=== PATIENT | male | born 1960 | race Caucasian/White ===

== ENCOUNTER 2019-07-27 17:14 | Inpatient (IN) | payer OTHER ==
--- NOTE | 2019-07-27 17:23 | PDOC ---
Rapid Medical Evaluation Time Seen by Provider: 07/27/19 17:20 Medical Evaluation: Allergies Allergy/AdvReac Type Severity Reaction Status Date / Time No Known Allergies Allergy Verified 06/06/15 13:47 07/27/19 17:20 I have performed a brief in-person evaluation of this patient. 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 Discharge Disposition - Diagnosis Cellulitis - Discharge Dispostion Condition at time of disposition: Stable - Referrals - Patient Instructions - Post Discharge Activity
[2019-07-27 17:46] LABS: BASO % 0.2 % (0-2.0); EOS % 0.3 % (0-4.5); HEMATOCRIT 41.1 % (35.4-49); HEMOGLOBIN 13.3 GM/dL (11.7-16.9); LYMPH % 6.5 % (8-40); MCH 27.4 pg (25.7-33.7); MCHC 32.4 g/dl (32.0-35.9); MEAN CELL VOLUME 84.6 fl (80-96); MEAN PLT VOLUME 8.6 fl (7.5-11.1); MONO % 7.9 % (3.8-10.2); NEUT % 85.1 % (42.8-82.8); PLATELET COUNT 319 K/MM3 (134-434); RBC 4.86 M/mm3 (4.00-5.60); RDW 14.8 % (11.9-15.9); WHITE BLOOD COUNT 23.5 K/mm3 (4.0-10.0)
[2019-07-27 18:10] LABS: ALBUMIN 3.2 g/dl (3.4-5.0); BILIRUBIN,TOTAL 0.6 mg/dL (0.2-1); BLOOD UREA NITROGEN 37.7 mg/dL (7-18); CALCIUM 8.8 mg/dL (8.5-10.1); CREATININE 1.6 mg/dL (0.55-1.3); POTASSIUM 5.6 mmol/L (3.5-5.1); TOT PROT 7.3 g/dl (6.4-8.2)
--- NOTE | 2019-07-27 18:34 | PDOC ---
History of Present Illness - General Chief Complaint: Redness To Affected Area Stated Complaint: PAIN ON LEFT SIDE Time Seen by Provider: 07/27/19 17:20 Past History - Past Medical History Allergies/Adverse Reactions: Allergies Allergy/AdvReac Type Severity Reaction Status Date / Time No Known Allergies Allergy Verified 06/06/15 13:47 Home Medications: Ambulatory Orders Glyburide/Metformin HCl [Glyburide-Metformin 5-500 mg] 1 each PO BID #60 tablet 06/06/15 Hydralazine HCl 50 mg PO DAILY 07/28/19 Labetalol HCl 100 mg PO DAILY 07/28/19 Lisinopril [Prinivil -] 40 mg PO DAILY 07/28/19 Losartan/Hydrochlorothiazide [Losartan-Hctz 100-25 mg Tab] 1 tab PO DAILY Sitagliptin Phosphate [Januvia] 100 mg PO DAILY 07/28/19 Cancer: Yes (RIGHT KNEE AND READIATION 2008) CVA: No COPD: No Diabetes: Yes HTN: Yes Hypercholesterolemia: Yes - Immunization History Td Vaccination: (UNKNOWN) Immunization Up to Date: No - Psycho Social/Smoking Cessation Hx Smoking Status: Yes (QUIT MORE THAN 20 YRS AGO) Smoking History: Never smoked Have you smoked in the past 12 months: No Number of Cigarettes Smoked Daily: 0 Information on smoking cessation initiated: No Hx Alcohol Use: No Drug/Substance Use Hx: No Substance Use Type: None *Physical Exam - Vital Signs Last Vital Signs Temp Pulse Resp BP Pulse Ox 97.7 F 115 H 16 167/94 95 07/27/19 17:21 07/27/19 17:21 07/27/19 17:21 07/27/19 17:21 07/27/19 17:21 ED Treatment Course - LABORATORY CBC & Chemistry Diagram: 07/28/19 07:45 07/28/19 07:45 - ADDITIONAL ORDERS Additional order review: Laboratory Results 07/27/19 17:37 Sodium 133 L Potassium 5.6 H Chloride 100 Carbon Dioxide 23 Anion Gap 10 BUN 37.7 H Creatinine 1.6 H Est GFR (CKD-EPI)AfAm 53.85 Est GFR (CKD-EPI)NonAf 46.46 Random Glucose 188 H Calcium 8.8 Total Bilirubin 0.6 AST 30 ALT 39 Alkaline Phosphatase 134 H Total Protein 7.3 Albumin 3.2 L 07/27/19 17:37 RBC 4.86 MCV 84.6 MCHC 32.4 RDW 14.8 MPV 8.6 Neutrophils % 85.1 H D Lymphocytes % 6.5 L D Monocytes % 7.9 D Eosinophils % 0.3 Basophils % 0.2 Medical Decision Making - Medical Decision Making HPI: 58yo M with PMH of DM, HTN, HLD, R. knee CA (s/p surgery and chemoradioation many years ago) presenting with left foot pain. Patient's [id number] is at the bedside providing collateral history. Patient denies any inciting injury or breaks in skin. The pain started four days ago and has increased in erythema and swelling. No bleeding or discharge. Denies history of poor wound healing. Sugars can be elevated; they were in the 200s today. No chest pain or shortness of breath. Has back pain at baseline. Reports chills, but no fevers. PCP: Dr. Charles Hand ROS: Constitutional: no fever, +chills HEENT: no throat pain, no dysphagia Cardiovascular: no chest pain, no palpitations Respiratory: no cough, no shortness of breath Gastrointestinal: no abdominal pain, no nausea Genitourinary: no dysuria, no hematuria Musculoskeletal: no myalgia, no arthralgia Skin: +erythema, +edema Neurologic: no headache, no weakness PE: General: Awake, alert, and fully oriented, in no acute distress Head: No signs of trauma Eyes: EOMI, sclera anicteric ENT: Moist mucus membranes Neck: Normal ROM, supple Lungs: Lungs clear, Normal breath sounds Cardio: Regular rhythm, S1 and S2 present Abdomen: Soft, nontender. No guarding, no rebound, no masses Extremities: Normal range of motion, Distal pulses present L. foot with erythema, edema at base of toes of L. foot with lymphangitis extending up the calf SKIN: Otherwise warm, Dry, normal turgor Neurologic: Cranial nerves II through XII grossly intact. Normal speech ED Course/MDM: DDX including but not limited to cellulitis, osteomyelitis, DVT, MSK, malignancy Labs, EKG, CXR Ordered blood cultures, ESR, CRP 07/27/19 18:34 CBC WBC 23.5 K/mm3 (4.0-10.0) H 07/27/19 17:37 RBC 4.86 M/mm3 (4.00-5.60) 07/27/19 17:37 Hgb 13.3 GM/dL (11.7-16.9) 07/27/19 17:37 Hct 41.1 % (35.4-49) 07/27/19 17:37 MCV 84.6 fl (80-96) 07/27/19 17:37 MCH 27.4 pg (25.7-33.7) 07/27/19 17:37 MCHC 32.4 g/dl (32.0-35.9) 07/27/19 17:37 RDW 14.8 % (11.9-15.9) 07/27/19 17:37 Plt Count 319 K/MM3 (134-434) D 07/27/19 17:37 MPV 8.6 fl (7.5-11.1) 07/27/19 17:37 Absolute Neuts (auto) 20.0 K/mm3 (1.5-8.0) H 07/27/19 17:37 Neutrophils % 85.1 % (42.8-82.8) H D 07/27/19 17:37 Neutrophils % (Manual) 84.6 % (42.8-82.8) H 07/27/19 17:37 Band Neutrophils % 0.0 % 07/27/19 17:37 Lymphocytes % 6.5 % (8-40) L D 07/27/19 17:37 Lymphocytes % (Manual) 5.8 % (8-40) L 07/27/19 17:37 Monocytes % 7.9 % (3.8-10.2) D 07/27/19 17:37 Monocytes % (Manual) 7 % (3.8-10.2) 07/27/19 17:37 Eosinophils % 0.3 % (0-4.5) 07/27/19 17:37 Eosinophils % (Manual) 0.0 % (0-4.5) 07/27/19 17:37 Basophils % 0.2 % (0-2.0) 07/27/19 17:37 Basophils % (Manual) 0.0 % (0-2.0) 07/27/19 17:37 Myelocytes % (Man) 1 % (0-2) 07/27/19 17:37 Promyelocytes % (Man) 0 % (0-2) 07/27/19 17:37 Blast Cells % (Manual) 0 % (0-0) 07/27/19 17:37 Nucleated RBC % 0 % (0-0) 07/27/19 17:37 Metamyelocytes 0 % (0-2) 07/27/19 17:37 Hypochromia 0 07/27/19 17:37 Platelet Estimate Normal 07/27/19 17:37 Polychromasia 0 07/27/19 17:37 Poikilocytosis 0 07/27/19 17:37 Anisocytosis 0 07/27/19 17:37 Microcytosis 0 07/27/19 17:37 Macrocytosis 0 07/27/19 17:37 Leukocytosis CMP Sodium 133 mmol/L (136-145) L 07/27/19 17:37 Potassium 5.6 mmol/L (3.5-5.1) H 07/27/19 17:37 Chloride 100 mmol/L (98-107) 07/27/19 17:37 Carbon Dioxide 23 mmol/L (21-32) 07/27/19 17:37 Anion Gap 10 MMOL/L (8-16) 07/27/19 17:37 BUN 37.7 mg/dL (7-18) H 07/27/19 17:37 Creatinine 1.6 mg/dL (0.55-1.3) H 07/27/19 17:37 Est GFR (CKD-EPI)AfAm 53.85 07/27/19 17:37 Est GFR (CKD-EPI)NonAf 46.46 07/27/19 17:37 Random Glucose 188 mg/dL (74-106) H 07/27/19 17:37 Calcium 8.8 mg/dL (8.5-10.1) 07/27/19 17:37 Total Bilirubin 0.6 mg/dL (0.2-1) 07/27/19 17:37 AST 30 U/L (15-37) 07/27/19 17:37 ALT 39 U/L (13-61) 07/27/19 17:37 Alkaline Phosphatase 134 U/L (45-117) H 07/27/19 17:37 Total Protein 7.3 g/dl (6.4-8.2) 07/27/19 17:37 Albumin 3.2 g/dl (3.4-5.0) L 07/27/19 17:37 K elevated, 5.6; EKG ordered Cr elevated, 1.6 No transaminitis L. ankle and foot radiograph: "X-ray of the left foot and ankle, 5 views The ankle mortise is intact a small plantar calcaneal spur is present. No acute fracture, dislocation, bone destruction or periosteal elevation identified. There is suggestion of soft tissue emphysema projecting over the proximal portion of the second and third toe as well as between the first and second toe and soft tissue swelling posteriorly Impression: Soft tissue swelling and air that appears to be posterior to the proximal toes, as described above compatible with the clinical history of cellulitis and soft tissue emphysema. If osteomyelitis is clinically considered, further evaluation with MRI would be the study of choice " Clari/hilary Plan for admission 07/27/19 19:32 Pending EKG and CXR 07/27/19 19:58 EKG: rate 112, QTc 414, sinus tachycardia, peaked t waves present when compared to previous EKG 05/21/08 Calcium, insulin, dextrose, kayexalate ordered BMP to be repeated Plan for admission for cellulitis with soft tissue emphysema 07/27/19 20:16 Repeat K is 4.6 07/27/19 21:[address] Zelaya who accepted patient for admission under Dr. Castro 07/27/19 22:57 CXR as read by radiology: "Chest x ray, PA and Lateral Comparison: Prior chest x -ray dated 05/07/2008 The cardiac silhouette is within normal limits in size. The lung is clear. Mediastinum and visualized osseous structures appear grossly intact with anterior spondylosis in the lower thoracic spine Impression No significant interval change or acute cardiopulmonary disease is present " Discharge - Discharge Information Problems reviewed: Yes Clinical Impression/Diagnosis: Soft tissue emphysema Cellulitis Qualifiers: Site of cellulitis: extremity Site of cellulitis of extremity: lower extremity Laterality: left Qualified Code(s): L03.116 - Cellulitis of left lower limb Condition: Guarded - Admission Yes - Follow up/Referral - Patient Discharge Instructions - Post Discharge Activity
[2019-07-27 18:57] LABS: ANISOCYTOSIS 0; MACROCYTOSIS 0; PLATELET ESTIMATE NORMAL
[2019-07-27] MEDS ORDERED: SODIUM CHLORIDE 1,000 ML IV STA (19:02)
[2019-07-27] MEDS ORDERED: PIPERACILLIN/TAZOB 4.5 GM 4.5 GM in DEXTROSE 5%-WATER 100 ML IVPB ONE (19:30)
[2019-07-27] MEDS ORDERED: VANCOMYCIN 1,000 MG in DEXTROSE 5%-WATER - 250 ML IVPB ONE (19:30)
[2019-07-27] MEDS ORDERED: PIPERACILLIN/TAZOB 4.5 GM 4.5 GM/100 ML BAG IVPB ONE (19:32)
[2019-07-27] MEDS ORDERED: VANCOMYCIN 1 GRAM (PRE-DOCKED) 1,000 MG/250 ML BAG IVPB ONE (19:32)
[2019-07-27] MEDS ORDERED: CALCIUM GLUCONATE 10% - 1,000 MG/10 ML VIAL IVPB ONE (20:14)
[2019-07-27] MEDS ORDERED: INSULIN REGULAR HUMAN 100 UNITS/ML *VIAL IVPUSH ONE (20:14)
[2019-07-27] MEDS ORDERED: DEXTROSE 50%-WATER - 25 GM/50 ML VIAL IVPUSH ONE (20:15)
[2019-07-27] MEDS ORDERED: SODIUM POLYSTYRENE SULFONATE 15 GM/60 ML BOTTLE PO ONE (20:15)
[2019-07-27] MEDS ORDERED: SODIUM POLYSTYRENE SULFONATE 15 GM/60 ML BOTTLE ONE (20:23)
[2019-07-27] MEDS ORDERED: CALCIUM CHLORIDE 1 GM/10 ML *DISP.SYRIN ONE (20:23)
[2019-07-27] MEDS ORDERED: DEXTROSE 50%-WATER 25 GM/50 ML DISP.SYRIN ONE (20:23)
--- NOTE | 2019-07-27 20:38 | PDOC ---
Attending Attestation - Resident Resident Name: Nalini Carrion - ED Attending Attestation I have performed the following: I have examined & evaluated the patient, The case was reviewed & discussed with the resident, I agree w/resident's findings & plan, Exceptions are as noted - HPI HPI: 07/27/19 20:37 58M pmh DM, HTN, HLD, R knee ca s/p surgical and chemo intervention here with LLE pain. Denies any insult, injury, rash or other lesion prior to symptoms. - Physicial Exam PE: 07/28/19 00:21 Agree with exam as documented by resident VS noted in EMR - Medical Decision Making 07/28/19 00:21 Diabetic patient with LE cellulitis, sq emphysema on xr wbc 23.5 will admit for iv abx and definitive care
[2019-07-27 21:37] LABS: CALCIUM 9.8 mg/dL (8.5-10.1); CREATININE 1.4 mg/dL (0.55-1.3); POTASSIUM 4.6 mmol/L (3.5-5.1)
[2019-07-28] MEDS ORDERED: BACITRACIN 50,000 UNITS VIAL NR ONE
--- NOTE | 2019-07-28 00:16 | PN ---
Teaching Attending Note Name of Resident: Vinod Zelaya ATTENDING PHYSICIAN STATEMENT I saw and evaluated the patient. I reviewed the resident's note and discussed the case with the resident. I agree with the resident's findings and plan as documented. SUBJECTIVE: 58yo man w/ uncontrolled DM, HTN, HLD, R. knee CA (s/p surgery and chemoradioation many years ago) presenting with left foot pain x4 days, erythema , swelling. Patient denies any prior injury or breaks in skin. No fevers OBJECTIVE: Last Vital Signs Temp Pulse Resp BP Pulse Ox 97.7 F 115 H 16 167/94 95 07/27/19 17:21 07/27/19 17:21 07/27/19 17:21 07/27/19 17:21 07/27/19 17:21 general -nontoxic appearing cor -s1+s2+rrr chest- lungs are clear b/l ext -left foot erythema on dorsal surface, dp pulses 2+ b/l. has good sensation on left foot Abnormal Lab Results 07/27/19 07/27/19 07/27/19 17:37 17:37 19:50 WBC 23.5 H Absolute Neuts (auto) 20.0 H Neutrophils % 85.1 H D Neutrophils % (Manual) 84.6 H Lymphocytes % 6.5 L D Lymphocytes % (Manual) 5.8 L ESR Sodium 133 L Potassium 5.6 H BUN 37.7 H Creatinine 1.6 H Random Glucose 188 H Alkaline Phosphatase 134 H C-Reactive Protein 14.9 H Albumin 3.2 L 07/27/19 07/27/19 19:50 20:19 WBC Absolute Neuts (auto) Neutrophils % Neutrophils % (Manual) Lymphocytes % Lymphocytes % (Manual) ESR 78 H Sodium 135 L Potassium BUN 35.0 H Creatinine 1.4 H Random Glucose 195 H Alkaline Phosphatase C-Reactive Protein Albumin L. ankle and foot radiograph: "X-ray of the left foot and ankle, 5 views The ankle mortise is intact a small plantar calcaneal spur is present. No acute fracture, dislocation, bone destruction or periosteal elevation identified. There is suggestion of soft tissue emphysema projecting over the proximal portion of the second and third toe as well as between the first and second toe and soft tissue swelling posteriorly Impression: Soft tissue swelling and air that appears to be posterior to the proximal toes, as described above compatible with the clinical history of cellulitis and soft tissue emphysema. If osteomyelitis is clinically considered, further evaluation with MRI would be the study of choice ASSESSMENT AND PLAN: #Sepsis secondary to left foot cellulitis with soft tissue emphysema concerning for possible gas gangrene. +severe leukocytosis, tachycardia. Less likely compartment syndrome, pain not severe. s/p vancomycin, zosyn in er. inflammation markers noted to be significantly elevated. EVIE, pseudohyponatremia, hyperglycemia. -send blood cultures x2 -urgent podiatry evaluation -ID consult -left foot MRI to evaluate for underlying bone involvement -c/w vancomcyin/ zosyn, add clindmycin in case Group A strep- to stop toxin production -arterial doppler for DP artery -tight glycemic control -lower extremity elevation -venous duplex to r/o dvt -heparin sc for dvt ppx
--- NOTE | 2019-07-28 00:37 | HP ---
CHIEF COMPLAINT: left lower extremity pain PCP: Dr. Charles Hand HISTORY OF PRESENT ILLNESS: Patient is a 58 year old male with history of hypertension, diabetes mellitus, hyperlipidemia, presents with complaint of left lower extremity foot pain. States that symptoms have been ongoing for the past four days without clear inciting factor. Denies any trauma, breaks in the skin, or any discharge from the area. States that he attempted to take oral over the counter analgesics ( does not recall name/ dose) which was not palliative. Denies any recent antibiotic use. He denies subjective fevers, chills, shortness of breath, chest pain, palpitations, abdominal pain, nausea, vomiting. ER course was notable for: (1) Xray of left foot revealing air, and soft tissue emphysema (2) WBC 23.5, afebrile (3) ESR 78, CRP 14.9 Recent Travel: denies PAST MEDICAL HISTORY: hypertension, diabetes mellitus, hyperlipidemia, PAST SURGICAL HISTORY: denies Social History: Smoking: patient admits he is former smoker Alcohol: states he occasionally drinks 10 beers/ day however states last drink several weeks ago. Drugs: denies illicit drug use Currently unemployed. Allergies No Known Allergies Allergy (Verified 06/06/15 13:47) HOME MEDICATIONS: Home Medications Medication Instructions Recorded Glyburide/Metformin HCl 1 each PO BID #60 tablet 06/06/15 [Glyburide-Metformin 5-500 mg] NK [No Known Home Medication] 06/06/15 REVIEW OF SYSTEMS As per HPI PHYSICAL EXAMINATION Vital Signs - 24 hr 07/27/19 17:21 Temperature 97.7 F Pulse Rate 115 H Respiratory 16 Rate Blood Pressure 167/94 O2 Sat by Pulse 95 Oximetry (%) GENERAL: The patient is awake, alert, and fully oriented, in no acute distress. HEAD: Normocephalic, atraumatic. EYES: PERRL, extraocular movements intact, sclera anicteric, conjunctiva clear. ENT: Oropharynx clear, without erythema or exudates. Moist mucous membranes. NECK: Trachea midline, full range of motion. Supple without lymphadenopathy. LUNGS: Breath sounds equal, clear to auscultation bilaterally, no wheezes, no crackles. No accessory muscle use. HEART: Regular rate and rhythm, S1, S2 without murmur, rub or gallop. ABDOMEN: Soft, nondistended, nontender to light and deep palpation x4 quadrants , no rebound tenderness, no guarding. Normoactive bowel sounds x4 quadrants. no hepatosplenomegaly, no masses. EXTREMITIES: Left foot dorsal aspect warm, erythematous. Skin firm, however negative crepitus palpated. 1+ dorsalis pedis pulses palapted bilaterally. Sensation grossly intact over area of erythema. Freely moves all toes bilaterally. 2+ radial pulses bilaterally. NEUROLOGICAL: Cranial nerves II through XII grossly intact. No gross focal deficits. Laboratory Results - last 24 hr 07/27/19 07/27/19 07/27/19 17:37 17:37 19:50 WBC 23.5 H RBC 4.86 Hgb 13.3 Hct 41.1 MCV 84.6 MCH 27.4 MCHC 32.4 RDW 14.8 Plt Count 319 D MPV 8.6 Absolute Neuts (auto) 20.0 H Neutrophils % 85.1 H D Neutrophils % (Manual) 84.6 H Band Neutrophils % 0.0 Lymphocytes % 6.5 L D Lymphocytes % (Manual) 5.8 L Monocytes % 7.9 D Monocytes % (Manual) 7 Eosinophils % 0.3 Eosinophils % (Manual) 0.0 Basophils % 0.2 Basophils % (Manual) 0.0 Myelocytes % (Man) 1 Promyelocytes % (Man) 0 Blast Cells % (Manual) 0 Nucleated RBC % 0 Metamyelocytes 0 Hypochromia 0 Platelet Estimate Normal Polychromasia 0 Poikilocytosis 0 Anisocytosis 0 Microcytosis 0 Macrocytosis 0 ESR Sodium 133 L Potassium 5.6 H Chloride 100 Carbon Dioxide 23 Anion Gap 10 BUN 37.7 H Creatinine 1.6 H Est GFR (CKD-EPI)AfAm 53.85 Est GFR (CKD-EPI)NonAf 46.46 Random Glucose 188 H Calcium 8.8 Total Bilirubin 0.6 AST 30 ALT 39 Alkaline Phosphatase 134 H C-Reactive Protein 14.9 H Total Protein 7.3 Albumin 3.2 L 07/27/19 07/27/19 19:50 20:19 WBC RBC Hgb Hct MCV MCH MCHC RDW Plt Count MPV Absolute Neuts (auto) Neutrophils % Neutrophils % (Manual) Band Neutrophils % Lymphocytes % Lymphocytes % (Manual) Monocytes % Monocytes % (Manual) Eosinophils % Eosinophils % (Manual) Basophils % Basophils % (Manual) Myelocytes % (Man) Promyelocytes % (Man) Blast Cells % (Manual) Nucleated RBC % Metamyelocytes Hypochromia Platelet Estimate Polychromasia Poikilocytosis Anisocytosis Microcytosis Macrocytosis ESR 78 H Sodium 135 L Potassium 4.6 Chloride 104 Carbon Dioxide 21 Anion Gap 10 BUN 35.0 H Creatinine 1.4 H Est GFR (CKD-EPI)AfAm 63.29 Est GFR (CKD-EPI)NonAf 54.60 Random Glucose 195 H Calcium 9.8 Total Bilirubin AST ALT Alkaline Phosphatase C-Reactive Protein Total Protein Albumin ASSESSMENT/PLAN: Patient is a 58 year old male with history of hypertension, diabetes mellitus, hyperlipidemia, presents with complaint of left lower extremity foot pain. Sepsis secondary to Left foot soft tissue emphysema. Cellulitis, with concern for gas gangrene given air noted in foot xray. -Case discussed with Podiatry (Dr. Luna); Patient will require urgent debridment. No further imaging studies currently warranted. Cultures will be obtaiend intraoperatively. -Patient received Vancomycin, Zosyn in ED. One time dose of Clindamycin due to concern for Group A strep as potential etiology. -ID evaluation (Dr. Hernández) appreciated. -Follow arterial, venous duplex studies -Follow blood cultures -IV normal saline at 75mL/ hour Hyperkalemia -Potassium 5.6 upon admission, with elevated T waves in V3 -V5. Not noted on prior EKG -Patient was treated with Insulin 10 units, D50%, and Calcium gluconate. Repeat K+ 4.6. Follow BMP closely Diabetes mellitus, non insulin dependent -Patient admits he is noncompliant with blood glucose monitoring. -Follow HbA1c -Insulin sliding scale ACHS -Fingerstick blood glucose monitoring Hypertension -Currently normotensive. Listed pharmacy does nto have any filled medications for patient, and he does not recall his home medications. Will need reconciliation. FEN -IV normal saline at 75mL/ hour -Hyperkalemia resolved. Follow BMP -NPO pending Podiatry evaluation Prophylaxis -Holding chemical anticoagulation pending Podiatry evaluation in anticipation of surgical debridement. Disposition -Admit to medical - surgical floor Visit type - Emergency Visit Emergency Visit: Yes ED Registration Date: 07/27/19 Care time: The patient presented to the Emergency Department on the above date and was hospitalized for further evaluation of their emergent condition. - New Patient This patient is new to me today: Yes Date on this admission: 07/28/19 - Critical Care Critical Care patient: No ATTENDING PHYSICIAN STATEMENT I saw and evaluated the patient. I reviewed the resident's note and discussed the case with the resident. I agree with the resident's findings and plan as documented. SUBJECTIVE: OBJECTIVE: ASSESSMENT AND PLAN:
[2019-07-28] MEDS ORDERED: SODIUM CHLORIDE 1,000 ML IV SCH (01:30)
[2019-07-28] MEDS ORDERED: CLINDAMYCIN 900 MG PREMIX IVPB 900 MG/50 ML BAG IVPB ONE ×2 (01:44→07:48)
[2019-07-28 02:17] LABS: INR 1.09 (0.83-1.09); PROTHROMBIN TIME (PATIENT) 12.9 SEC (9.7-13.0)
[2019-07-28 02:20] LABS: ACTIVATED PTT 38.2 SECONDS (25.2-36.5)
[2019-07-28] MEDS ORDERED: HEPARIN NA (PORCINE) 5,000 UNITS/ML 1ML VIAL SQ SCH (06:00)
[2019-07-28] MEDS: INSULIN SLIDING SCALE (NOVOLOG) 1 VIAL SQ SCH ×2 (06:15→19:13)
[2019-07-28] MEDS ORDERED: VANCOMYCIN 1 GRAM (PRE-DOCKED) 1,000 MG/250 ML BAG IVPB ONE (07:50)
[2019-07-28] MEDS ORDERED: PIPERACILLIN/TAZOB 4.5 GM 4.5 GM in DEXTROSE 5%-WATER 100 ML IVPB ONE (08:15)
[2019-07-28 08:24] LABS: HEMATOCRIT 35.2 % (35.4-49); HEMOGLOBIN 11.5 GM/dL (11.7-16.9); MCH 27.8 pg (25.7-33.7); MCHC 32.6 g/dl (32.0-35.9); MEAN CELL VOLUME 85.1 fl (80-96); MEAN PLT VOLUME 8.7 fl (7.5-11.1); PLATELET COUNT 297 K/MM3 (134-434); RBC 4.14 M/mm3 (4.00-5.60); RDW 14.4 % (11.9-15.9); WHITE BLOOD COUNT 20.3 K/mm3 (4.0-10.0)
--- NOTE | 2019-07-28 08:50 | PN ---
Progress Note (short form) - Note Progress Note: ID consult dictated imp/reccd 58 yo man with DM with 5 day history of plantar foot abscess no fevers diabetic foot infection with plantar abscess no crepitus noted on exam nontoxic appearing should be seen by podiatry for drainage of abscess today-please send operative cultures continue vancomycin and zosyn, one dose clindamycin ordered by hospitalist this am evie noted- improving d/w hospitalist Problem List - Problems (1) Diabetic foot infection Code(s): E11.628 - TYPE 2 DIABETES MELLITUS WITH OTHER SKIN COMPLICATIONS; L08.9 - LOCAL INFECTION OF THE SKIN AND SUBCUTANEOUS TISSUE, UNSP (2) EVIE (acute kidney injury) Code(s): N17.9 - ACUTE KIDNEY FAILURE, UNSPECIFIED
[2019-07-28 09:22] LABS: ALBUMIN 2.8 g/dl (3.4-5.0); BILIRUBIN,TOTAL 0.8 mg/dL (0.2-1); BLOOD UREA NITROGEN 33.2 mg/dL (7-18); CALCIUM 9.1 mg/dL (8.5-10.1); CREATININE 1.3 mg/dL (0.55-1.3); MAGNESIUM 1.8 mg/dL (1.8-2.4); PHOSPHOROUS 4.5 mg/dL (2.5-4.9); POTASSIUM 4.3 mmol/L (3.5-5.1); TOT PROT 6.3 g/dl (6.4-8.2)
[2019-07-28] MEDS ORDERED: PIPERACILLIN/TAZOBACTAM 4.5 GM VIAL IVPB ONE (10:00)
[2019-07-28] MEDS ORDERED: FLU VACCINE QUAD 60 MCG/0.5 ML (MDV 19-20) IM ONE (10:00)
[2019-07-28] MEDS ORDERED: DEXTROSE 5%-WATER 100 ML IVPB ONE (10:00)
[2019-07-28] MEDS ORDERED: LIDOCAINE HCL 2% (20ML MULTI-DOSE VIAL) NR ONE (10:23)
--- NOTE | 2019-07-28 10:24 | CONS ---
INFECTIOUS DISEASE CONSULTATION DATE OF CONSULTATION: DATE OF DICTATION: 07/28/2019 HISTORY: This is a 58-year-old man who presents to the emergency room. He has a history of diabetes with a 5-day history of pain and swelling of his left foot. He denies any fevers and chills. He denies any trauma. He notes that he has not had any recent antibiotics. He is noted to have an abscess on the plantar surface of his foot. His white count is 23.5. His creatinine was 1.6 on admission. He was admitted for surgical evaluation to drain the abscess and IV antibiotics. I am asked to see him for antibiotics. PAST MEDICAL HISTORY: Notable for diabetes. He has a history of hypertension, hyperlipidemia. He has never had any surgery before. SOCIAL HISTORY: He drinks alcohol occasionally. No illicit drug use. He is a former smoker. ALLERGIES: He has no known drug allergies. MEDICATIONS: He takes metformin and glyburide. REVIEW OF SYSTEMS: There is no diarrhea, dysuria. Currently he reports foot does not hurt. PHYSICAL EXAMINATION: General: He is awake and alert. Vital Signs: His maximum temperature is 99.2, currently temperature is 99, pulse is 110, blood pressure 140/88, respiratory rate of 20. He is saturating 97% on room air. HEENT: She is normocephalic. His eyes are anicteric. He has good dentition. He has no thrush. Neck: Supple. Lungs: Clear to auscultation. Heart: Regular rate and rhythm. Abdomen: Soft, nontender. Extremities: Notable for a plantar ulcer on the left foot that is about 2-3 cm and fluctuant. There is no associated crepitus. He has no associated lymphangitis. Dorsalis pedis pulses are 2+. Labs are notable for admission white count of 23.5, this morning is 20, hemoglobin 11.5, platelets are 297. Sedimentation rate is 78, INR is 1. BUN 37, creatinine 1.6 on admission. Today BUN 33 and creatinine 1.3. Alkaline phosphatase 133. Blood cultures have been sent and are pending. He had an x-ray of the foot done in the emergency room that shows soft tissue swelling compatible with a history of cellulitis. There is suggestion of soft tissue emphysema along the proximal portion of the 2nd and 3rd toe, which is the location of the abscess. He has a chest x-ray that is unremarkable and a duplex of his leg that shows no DVT. In summary, this is a 58-year-old man with a diabetic foot infection. He has a plantar abscess on his left foot. No crepitus noted on exam. He is nontoxic appearing. He received vancomycin, Zosyn, and clindamycin in the emergency room. Would continue vancomycin and Zosyn at this time. He should be seen by podiatry for drainage of the abscess, and hopefully, we will get some operative cultures. EVIE is noted to be improving. The case was discussed with the hospitalist. ARIELA SMITH M.D. [id number]
--- NOTE | 2019-07-28 11:43 | CONSULT ---
Consult - text type - Consultation Consultation Note: Patient is a 58 year old male with history of hypertension, diabetes mellitus, hyperlipidemia, presents with complaint of left lower extremity foot pain. States that symptoms have been ongoing for the past four days without clear inciting factor. had xray done that shows questionable gas formation. Clinically foot with abscess in the interspace of the left foot 2nd interspace. Patient signed consent form after discussion of the procedure with the patient with use of a transformer maker. Will plan for post op xray for evaluation of possible osteo; do no suspect but can r/o and if needed can treat with fdc IV's per ID. NPO status confirmed. To the OR for I and D.
[2019-07-28] MEDS ORDERED: MIDAZOLAM HCL 2 MG/2 ML SINGLE DOSE VIAL ONE (12:19)
[2019-07-28] MEDS ORDERED: PROPOFOL 20 ML ONE (12:25)
[2019-07-28] MEDS ORDERED: LIDOCAINE HCL 2% (50ML VIAL) SQ ONE ×2 (12:26)
--- NOTE | 2019-07-28 12:50 | EKG ---
Test Reason : Blood Pressure : / mmHG Vent. Rate : 112 BPM Atrial Rate : 112 BPM P-R Int : 122 ms QRS Dur : 068 ms QT Int : 304 ms P-R-T Axes : 058 000 054 degrees QTc Int : 414 ms SINUS TACHYCARDIA POSSIBLE LEFT ATRIAL ENLARGEMENT SEPTAL INFARCT , AGE UNDETERMINED ABNORMAL ECG WHEN COMPARED WITH ECG OF 07-MAY-2008 11:43, VENT. RATE HAS INCREASED BY 43 BPM Confirmed by JOSH BELL MD ([id number]) on 07/28/2019 12:49:44 PM Referred By: Confirmed By:JOSH BELL MD
--- NOTE | 2019-07-28 12:54 | OP ---
Operative Note - Note: Operative Date: 07/28/19 Pre-Operative Diagnosis: left foot gas gangrene Operation: left 2nd interspace I and D Findings: see dictation Post-Operative Diagnosis: Same as Pre-op Surgeon: Matty Miranda Anesthesia: Local, MAC Specimens Removed: woudn cultures Estimated Blood Loss (mls): 1 Operative Report Dictated: Yes
[2019-07-28] MEDS ORDERED: oxyCODONE HCL 5 MG TABLET PO PRN (13:00)
[2019-07-28] MEDS ORDERED: LACTATED RINGERS SOLUTION 1,000 ML IV SCH (13:00)
[2019-07-28] MEDS ORDERED: ONDANSETRON 4 MG/2 ML VIAL IVPUSH PRN (13:00)
[2019-07-28] MEDS: SODIUM CHLORIDE 1,000 ML IV SCH (13:14)
[2019-07-28] MEDS ORDERED: ACETAMINOPHEN 325 MG TABLET (FP) PO PRN (13:55)
--- NOTE | 2019-07-28 14:03 | PN ---
Teaching Attending Note Name of Resident: Ousmane Wesley ATTENDING PHYSICIAN STATEMENT I saw and evaluated the patient. I reviewed the resident's note and discussed the case with the resident. I agree with the resident's findings and plan as documented. SUBJECTIVE:seen at 8:30 am has no pain in L foot. has no N/V , has no fever or chills. redness started 5 days ago OBJECTIVE: NAD, MMM CV: RRR, 2/6 SM at LLSB Lungs: CATB Abd: soft, NT, ND , NL BS Ext : L dorsal foot with erythema. no tenderness. purpulish discoloration or 2nd and 3rd digits, erythema on medial aspect of 4th digit. a fluctuant collection on plantar base of 2nd and 3rd digits. No erythema or edema on R foot or leg DP and PT 2+ ASSESSMENT AND PLAN: 58 y/o man with h//o DM, HTN, HLP, R knee cancer s/p chemoc, sx , and radiation , who presented with erythema on L foot and was found to have cellulitis with gas formation 1- Gas gangrene: elevated WBC but no fever and stable VS. - Abx . vanco, zosyn. 1 dose of clinda this am . case d/w Dr. Porter - case d/w podiatry . OR for I&D - will follow blood cx and surgical cx. - percocet for pain 2- H/o DM: takes 40-50 of a long acting insulin in am or PM. A1c is uncontrolled - will add levemir in pm - SSI - diabetic diet - dietitian 3- H/o HTN: willconfirm meds and cntinue dispo: HLOC
[2019-07-28] MEDS ORDERED: INSULIN (NOVOLOG) ASPART 100 UNITS/ML 10ML VIAL ONE ×2 (16:32→16:34)
[2019-07-28] MEDS: CLINDAMYCIN 900 MG PREMIX IVPB 900 MG/50 ML BAG IVPB SCH (17:21)
--- NOTE | 2019-07-28 17:53 | PN ---
Physical Exam: SUBJECTIVE: Patient seen and examined at the bedside, no acute events overnight , patient not complaining of any pain, no N/V , has no fever or chills. OBJECTIVE: Vital Signs Period Temp Pulse Resp BP Sys/Corona Pulse Ox Last 24 Hr 97.8 F-99.2 F 91-117 18-20 114-142/69-88 95-99 GENERAL: The patient is awake, alert, and fully oriented, in no acute distress. HEAD: Normal with no signs of trauma. EYES: PERRL, extraocular movements intact, sclera anicteric, conjunctiva clear. No ptosis. ENT: Ears normal, nares patent, oropharynx clear without exudates, moist mucous membranes. LUNGS: Breath sounds equal, clear to auscultation bilaterally HEART: Regular rate and rhythm, S1, S2 with 2/6 systolic murmur at LLSB ABDOMEN: Soft, nontender, nondistended, normoactive bowel sounds, no guarding EXTREMITIES: 2+ pulses, warm, well-perfused, no edema. L dorsal foot with erythema, without tenderness and with purpulish discoloration or 2nd and 3rd digits. There is also a fluctuant collection on plantar base of 2nd and 3rd digits. No erythema or edema on R foot or leg NEUROLOGICAL: Cranial nerves II through XII grossly intact. Normal speech, gait not observed. Laboratory Results - last 24 hr 07/27/19 07/27/19 07/27/19 17:37 17:37 19:50 WBC 23.5 H RBC 4.86 Hgb 13.3 Hct 41.1 MCV 84.6 MCH 27.4 MCHC 32.4 RDW 14.8 Plt Count 319 D MPV 8.6 Absolute Neuts (auto) 20.0 H Neutrophils % 85.1 H D Neutrophils % (Manual) 84.6 H Band Neutrophils % 0.0 Lymphocytes % 6.5 L D Lymphocytes % (Manual) 5.8 L Monocytes % 7.9 D Monocytes % (Manual) 7 Eosinophils % 0.3 Eosinophils % (Manual) 0.0 Basophils % 0.2 Basophils % (Manual) 0.0 Myelocytes % (Man) 1 Promyelocytes % (Man) 0 Blast Cells % (Manual) 0 Nucleated RBC % 0 Metamyelocytes 0 Hypochromia 0 Platelet Estimate Normal Polychromasia 0 Poikilocytosis 0 Anisocytosis 0 Microcytosis 0 Macrocytosis 0 ESR PT with INR INR PTT (Actin FS) Sodium 133 L Potassium 5.6 H Chloride 100 Carbon Dioxide 23 Anion Gap 10 BUN 37.7 H Creatinine 1.6 H Est GFR (CKD-EPI)AfAm 53.85 Est GFR (CKD-EPI)NonAf 46.46 POC Glucometer Random Glucose 188 H Hemoglobin A1c % Calcium 8.8 Phosphorus Magnesium Total Bilirubin 0.6 AST 30 ALT 39 Alkaline Phosphatase 134 H C-Reactive Protein 14.9 H Total Protein 7.3 Albumin 3.2 L Blood Type Antibody Screen 07/27/19 07/27/19 07/28/19 19:50 20:19 01:53 WBC RBC Hgb Hct MCV MCH MCHC RDW Plt Count MPV Absolute Neuts (auto) Neutrophils % Neutrophils % (Manual) Band Neutrophils % Lymphocytes % Lymphocytes % (Manual) Monocytes % Monocytes % (Manual) Eosinophils % Eosinophils % (Manual) Basophils % Basophils % (Manual) Myelocytes % (Man) Promyelocytes % (Man) Blast Cells % (Manual) Nucleated RBC % Metamyelocytes Hypochromia Platelet Estimate Polychromasia Poikilocytosis Anisocytosis Microcytosis Macrocytosis ESR 78 H PT with INR 12.90 INR 1.09 PTT (Actin FS) 38.2 H Sodium 135 L Potassium 4.6 Chloride 104 Carbon Dioxide 21 Anion Gap 10 BUN 35.0 H Creatinine 1.4 H Est GFR (CKD-EPI)AfAm 63.29 Est GFR (CKD-EPI)NonAf 54.60 POC Glucometer Random Glucose 195 H Hemoglobin A1c % Calcium 9.8 Phosphorus Magnesium Total Bilirubin AST ALT Alkaline Phosphatase C-Reactive Protein Total Protein Albumin Blood Type Antibody Screen 07/28/19 07/28/19 07/28/19 01:53 05:54 07:45 WBC 20.3 H RBC 4.14 Hgb 11.5 L Hct 35.2 L MCV 85.1 MCH 27.8 MCHC 32.6 RDW 14.4 Plt Count 297 MPV 8.7 Absolute Neuts (auto) Neutrophils % Neutrophils % (Manual) Band Neutrophils % Lymphocytes % Lymphocytes % (Manual) Monocytes % Monocytes % (Manual) Eosinophils % Eosinophils % (Manual) Basophils % Basophils % (Manual) Myelocytes % (Man) Promyelocytes % (Man) Blast Cells % (Manual) Nucleated RBC % Metamyelocytes Hypochromia Platelet Estimate Polychromasia Poikilocytosis Anisocytosis Microcytosis Macrocytosis ESR PT with INR INR PTT (Actin FS) Sodium Potassium Chloride Carbon Dioxide Anion Gap BUN Creatinine Est GFR (CKD-EPI)AfAm Est GFR (CKD-EPI)NonAf POC Glucometer 244 Random Glucose Hemoglobin A1c % Calcium Phosphorus Magnesium Total Bilirubin AST ALT Alkaline Phosphatase C-Reactive Protein Total Protein Albumin Blood Type O POSITIVE Antibody Screen Negative 07/28/19 07/28/19 07/28/19 07:45 07:45 07:45 WBC RBC Hgb Hct MCV MCH MCHC RDW Plt Count MPV Absolute Neuts (auto) Neutrophils % Neutrophils % (Manual) Band Neutrophils % Lymphocytes % Lymphocytes % (Manual) Monocytes % Monocytes % (Manual) Eosinophils % Eosinophils % (Manual) Basophils % Basophils % (Manual) Myelocytes % (Man) Promyelocytes % (Man) Blast Cells % (Manual) Nucleated RBC % Metamyelocytes Hypochromia Platelet Estimate Polychromasia Poikilocytosis Anisocytosis Microcytosis Macrocytosis ESR PT with INR INR PTT (Actin FS) Sodium 133 L Potassium 4.3 Chloride 102 Carbon Dioxide 20 L Anion Gap 12 BUN 33.2 H Creatinine 1.3 Est GFR (CKD-EPI)AfAm 69.22 Est GFR (CKD-EPI)NonAf 59.72 POC Glucometer Random Glucose 202 H Hemoglobin A1c % 11.2 H Calcium 9.1 Phosphorus 4.5 Magnesium 1.8 Total Bilirubin 0.8 AST 29 ALT 37 Alkaline Phosphatase 133 H C-Reactive Protein Total Protein 6.3 L Albumin 2.8 L Blood Type O POSITIVE Antibody Screen 07/28/19 16:26 WBC RBC Hgb Hct MCV MCH MCHC RDW Plt Count MPV Absolute Neuts (auto) Neutrophils % Neutrophils % (Manual) Band Neutrophils % Lymphocytes % Lymphocytes % (Manual) Monocytes % Monocytes % (Manual) Eosinophils % Eosinophils % (Manual) Basophils % Basophils % (Manual) Myelocytes % (Man) Promyelocytes % (Man) Blast Cells % (Manual) Nucleated RBC % Metamyelocytes Hypochromia Platelet Estimate Polychromasia Poikilocytosis Anisocytosis Microcytosis Macrocytosis ESR PT with INR INR PTT (Actin FS) Sodium Potassium Chloride Carbon Dioxide Anion Gap BUN Creatinine Est GFR (CKD-EPI)AfAm Est GFR (CKD-EPI)NonAf POC Glucometer 299 Random Glucose Hemoglobin A1c % Calcium Phosphorus Magnesium Total Bilirubin AST ALT Alkaline Phosphatase C-Reactive Protein Total Protein Albumin Blood Type Antibody Screen Active Medications Generic Name Dose Route Start Last Admin Trade Name Freq PRN Reason Stop Dose Admin Acetaminophen 325 mg 07/28/19 13:55 Tylenol - PO Q6H PRN PAIN 4-6 Fentanyl 25 mcg 07/28/19 13:00 Sublimaze Injection - IVPUSH [id number] PRN PAIN-PACU ORDER X 4 DOSES ONLY Lactated Ringer's 1,000 mls @ 75 mls/hr 07/28/19 13:00 07/28/19 15:35 Lactated Ringers Solution IV Not Given ASDIR LENNY Sodium Chloride 1,000 mls @ 75 mls/hr 07/28/19 13:14 07/28/19 13:14 Normal Saline - IV 75 mls/hr ASDIR LENNY Administration Vancomycin HCl 1,000 mg in 250 mls @ 166.667 mls/hr 07/28/19 20:00 Vancomycin (Pre-Docked) IVPB Q12H LENNY Protocol Piperacillin Sod/Tazobactam 100 mls @ 200 mls/hr 07/28/19 18:00 Sod 4.5 gm/ Dextrose IVPB Q8H-IV LENNY Protocol Clindamycin Phosphate 900 mg in 50 mls @ 100 mls/hr 07/28/19 18:00 07/28/19 17:21 Cleocin 900 Mg Premix Ivpb - IVPB 100 mls/hr Q8H-IV LENNY Administration Protocol Insulin Aspart 1 vial 07/29/19 07:00 Novolog Vial Sliding Scale - SQ TIDAC LENNY Protocol Insulin Detemir 12 units 07/28/19 22:00 Levemir Vial SQ HS LENNY Ondansetron HCl 4 mg 07/28/19 13:00 Zofran Injection IVPUSH Q6H PRN NAUSEA AND/OR VOMITING Oxycodone HCl 5 mg 07/28/19 13:55 Roxicodone - PO Q6H PRN PAIN 4-6 ASSESSMENT/PLAN: Patient is a 58 year old male with history of hypertension, diabetes mellitus, hyperlipidemia, presents with complaint of left lower extremity foot pain. Sepsis secondary to Left foot soft tissue emphysema. Cellulitis, with concern for gas gangrene given air noted in foot xray. -Case discussed with Podiatry (Dr. Luna); Patient will require urgent debridment. No further imaging studies currently warranted. Cultures will be obtaiend intraoperatively. -Patient received Vancomycin, Zosyn in ED. One time dose of Clindamycin due to concern for Group A strep as potential etiology. - Continue above Abx - ID evaluation (Dr. Hernández) appreciated. - follow blood cx and surgical cx. - percocet for pain -IV normal saline at 75mL/ hour Hyperkalemia - resolved -Potassium 5.6 upon admission, with elevated T waves in V3 -V5. Not noted on prior EKG -Patient was treated with Insulin 10 units, D50%, and Calcium gluconate. Repeat K+ 4.6. Follow BMP closely Diabetes mellitus, non insulin dependent -Patient admits he is noncompliant with blood glucose monitoring. -Follow HbA1c -Insulin sliding scale ACHS - Will add levemir in pm -Fingerstick blood glucose monitoring - diabetic diet - dietitian Hypertension -Currently normotensive. Listed pharmacy does nto have any filled medications for patient, and he does not recall his home medications. Will need reconciliation. - continue home meds once reconciled FEN -IV normal saline at 75mL/ hour -Hyperkalemia resolved. Follow BMP -NPO pending potential OR, then diabetic diet Prophylaxis -Holding chemical anticoagulation pending Podiatry evaluation in anticipation of surgical debridement. Disposition -Admit to medical - surgical floor Visit type - Emergency Visit Emergency Visit: Yes ED Registration Date: 07/27/19 Care time: The patient presented to the Emergency Department on the above date and was hospitalized for further evaluation of their emergent condition. - New Patient This patient is new to me today: Yes Date on this admission: 08/07/19 - Critical Care Critical Care patient: No - Discharge Referral Referred to [facility] No ATTENDING PHYSICIAN STATEMENT I saw and evaluated the patient. I reviewed the resident's note and discussed the case with the resident. I agree with the resident's findings and plan as documented. SUBJECTIVE: OBJECTIVE: ASSESSMENT AND PLAN:
[2019-07-28] MEDS ORDERED: INSULIN SLIDING SCALE (NOVOLOG) 1 VIAL SQ SCH (18:00)
[2019-07-28] MEDS ORDERED: PIPERACILLIN/TAZOB 4.5 GM 4.5 GM in DEXTROSE 5%-WATER 100 ML IVPB SCH (18:00)
[2019-07-28] MEDS: PIPERACILLIN/TAZOB 4.5 GM 4.5 GM in DEXTROSE 5%-WATER 100 ML IVPB SCH (18:05)
[2019-07-28] MEDS: ACETAMINOPHEN 325 MG TABLET (FP) PO PRN (18:38)
[2019-07-28] MEDS ORDERED: VANCOMYCIN 1 GRAM (PRE-DOCKED) 1,000 MG/250 ML BAG IVPB SCH (20:00)
[2019-07-28] MEDS: VANCOMYCIN 1 GRAM (PRE-DOCKED) 1,000 MG/250 ML BAG IVPB SCH (21:38)
[2019-07-28] MEDS ORDERED: INSULIN (LEVEMIR) 100 UNITS/ML UNITS SQ SCH (22:00)
[2019-07-29] MEDS ORDERED: PIPERACILLIN/TAZOBACTAM 4.5 GM VIAL IVPB ONE ×2 (00:58→09:05)
[2019-07-29] MEDS ORDERED: DEXTROSE 5%-WATER 100 ML IVPB ONE ×2 (00:58→09:06)
[2019-07-29] MEDS: CLINDAMYCIN 900 MG PREMIX IVPB 900 MG/50 ML BAG IVPB SCH ×3 (01:04→17:59)
[2019-07-29] MEDS: oxyCODONE HCL 5 MG TABLET PO PRN ×2 (01:16→21:45)
[2019-07-29] MEDS: ACETAMINOPHEN 325 MG TABLET (FP) PO PRN (01:18)
[2019-07-29] MEDS: PIPERACILLIN/TAZOB 4.5 GM 4.5 GM in DEXTROSE 5%-WATER 100 ML IVPB SCH ×2 (01:39→09:45)
[2019-07-29] MEDS: INSULIN SLIDING SCALE (NOVOLOG) 1 VIAL SQ SCH ×3 (06:11→16:27)
[2019-07-29] MEDS ORDERED: INSULIN (NOVOLOG) ASPART 100 UNITS/ML 10ML VIAL ONE (06:27)
[2019-07-29] MEDS: VANCOMYCIN 1 GRAM (PRE-DOCKED) 1,000 MG/250 ML BAG IVPB SCH (07:38)
[2019-07-29 08:47] LABS: BASO % 0.1 % (0-2.0); EOS % 0.2 % (0-4.5); HEMATOCRIT 35.4 % (35.4-49); HEMOGLOBIN 11.8 GM/dL (11.7-16.9); LYMPH % 7.8 % (8-40); MCHC 33.2 g/dl (32.0-35.9); MEAN CELL VOLUME 84.3 fl (80-96); MEAN PLT VOLUME 8.9 fl (7.5-11.1); MONO % 9.3 % (3.8-10.2); NEUT % 82.6 % (42.8-82.8); PLATELET COUNT 312 K/MM3 (134-434); WHITE BLOOD COUNT 20.3 K/mm3 (4.0-10.0)
[2019-07-29 09:05] LABS: ALBUMIN 2.6 g/dl (3.4-5.0); BILIRUBIN,TOTAL 0.6 mg/dL (0.2-1); BLOOD UREA NITROGEN 43.3 mg/dL (7-18); CALCIUM 8.5 mg/dL (8.5-10.1); CREATININE 2.9 mg/dL (0.55-1.3); POTASSIUM 4.5 mmol/L (3.5-5.1); TOT PROT 6.4 g/dl (6.4-8.2)
[2019-07-29] MEDS: ALBUTEROL SO4 2.5/IPRATROPIUM 0.5 INH SOL 3 ML VIAL.NEB. NEB PRN ×2 (12:00→19:30)
[2019-07-29 12:22] LABS: ANISOCYTOSIS 2+; MACROCYTOSIS 1+; OVALOCYTE 1+; PLATELET ESTIMATE NORMAL
--- NOTE | 2019-07-29 13:26 | PN ---
Progress Note (short form) - Note Progress Note: s/p drainage of abscess of the foot awaiting surgeon for posto dressing change on vanco/zosyn/clindamycin Vital Signs Period Temp Pulse Resp BP Sys/Corona Pulse Ox Last 24 Hr 97.8 F-98.6 F 90-116 18-20 104-148/67-80 94-99 cor-rrr lungs clear abd distended ext foot in dressing CBC, BMP 07/29/19 07:50 07/29/19 07:50 Microbiology 07/28/19 12:35 Foot - Left Dorsum Gram Stain - Final 07/28/19 12:35 Foot - Left Dorsum Wound Culture - Preliminary 07/28/19 12:34 Foot - Left Dorsum Gram Stain - Final 07/28/19 12:34 Foot - Left Dorsum Wound Culture - Preliminary Staphylococcus Latex Coag Pos Streptococcus Viridans 07/27/19 19:50 Blood - Peripheral Venous Blood Culture - Preliminary NO GROWTH OBTAINED AFTER 24 HOURS, INCUBATION TO CONTINUE FOR 4 DAYS. 07/27/19 19:50 Blood - Peripheral Venous Blood Culture - Preliminary NO GROWTH OBTAINED AFTER 24 HOURS, INCUBATION TO CONTINUE FOR 4 DAYS. a/p diabetic foot infection with plantar abscess-s/p drainage-f/u cultures evie worsening- for renal bladder scan redose meds for evie d/w hospitalist Problem List - Problems (1) Diabetic foot infection Code(s): E11.628 - TYPE 2 DIABETES MELLITUS WITH OTHER SKIN COMPLICATIONS; L08.9 - LOCAL INFECTION OF THE SKIN AND SUBCUTANEOUS TISSUE, UNSP (2) EVIE (acute kidney injury) Code(s): N17.9 - ACUTE KIDNEY FAILURE, UNSPECIFIED
--- NOTE | 2019-07-29 13:27 | PN ---
Progress Note (short form) - Note Progress Note: 58 y/o male with gas gangrene infection POD 1 from Incision and drainage. Yesterday in the OR pocket of purulence noted in the 2nd interspace where gas had been noted. The incision was left completely open. During procedure all tissue appeared healthy. Pain level decreased for the patient today O: Surgical site open in the 2nd interspace, minmal malodor, erythema is decreased from the lined area but the 2nd and third digit now grossly demarcated with gangrenous changes with some duskiness overlying 4th as well, no active purulence, no sanguine drainage noted, DP pulses strongly palpable A: POD I and D P: Evaluated and reviewed During operation yesterday was hopeful for salvage of the 2nd and third digit given that the tissues looked healthy and the main abscess was plantar to the digits, today though the digits are no longer going to be viable discussed this with patient Will need to allow for another 24 hours for further eval of demarcation Wednesday will be taking back down to the OR for amputation depending on level of demarcation. Iv abx per ID follow cultures Will f/u tomorrow
[2019-07-29] MEDS ORDERED: POLYETHYLENE GLYCOL 3350 119 GM BTL PO ONE (13:33)
--- NOTE | 2019-07-29 13:56 | PN ---
Physical Exam: SUBJECTIVE: Patient seen and examined. OBJECTIVE: Vital Signs Period Temp Pulse Resp BP Sys/Corona Pulse Ox Last 24 Hr 98.0 F-98.6 F 90-116 18-20 104-148/67-80 94-98 GENERAL: The patient is awake, alert, and fully oriented, in no acute distress. HEAD: Normal with no signs of trauma. EYES: PERRL, extraocular movements intact, sclera anicteric, conjunctiva clear. No ptosis. ENT: Ears normal, nares patent, oropharynx clear without exudates, moist mucous membranes. NECK: Trachea midline, full range of motion, supple. LUNGS: Breath sounds equal, clear to auscultation bilaterally, no wheezes, no crackles, no accessory muscle use. HEART: Regular rate and rhythm, S1, S2 without murmur, rub or gallop. ABDOMEN: Soft, nontender, nondistended, normoactive bowel sounds, no guarding, no rebound, no hepatosplenomegaly, no masses. EXTREMITIES: 2+ pulses, warm, well-perfused, no edema. NEUROLOGICAL: Cranial nerves II through XII grossly intact. Normal speech, gait not observed. PSYCH: Normal mood, normal affect. SKIN: Warm, dry, normal turgor, no rashes or lesions noted Laboratory Results - last 24 hr 07/28/19 07/28/19 07/29/19 16:26 21:28 05:50 WBC RBC Hgb Hct MCV MCH MCHC RDW Plt Count MPV Absolute Neuts (auto) Neutrophils % Neutrophils % (Manual) Band Neutrophils % Lymphocytes % Lymphocytes % (Manual) Monocytes % Monocytes % (Manual) Eosinophils % Eosinophils % (Manual) Basophils % Basophils % (Manual) Myelocytes % (Man) Promyelocytes % (Man) Blast Cells % (Manual) Nucleated RBC % Metamyelocytes Hypochromia Platelet Estimate Platelet Comment Polychromasia Poikilocytosis Anisocytosis Microcytosis Macrocytosis Ovalocytes Sodium Potassium Chloride Carbon Dioxide Anion Gap BUN Creatinine Est GFR (CKD-EPI)AfAm Est GFR (CKD-EPI)NonAf POC Glucometer 299 326 200 Random Glucose Lactic Acid Calcium Total Bilirubin AST ALT Alkaline Phosphatase LD Total Total Protein Albumin 07/29/19 07/29/19 07/29/19 07:50 07:50 07:50 WBC 20.3 H RBC 4.20 Hgb 11.8 Hct 35.4 MCV 84.3 MCH 28.0 MCHC 33.2 RDW 15.0 Plt Count 312 MPV 8.9 Absolute Neuts (auto) 16.8 H Neutrophils % 82.6 Neutrophils % (Manual) 76.2 Band Neutrophils % 3.0 Lymphocytes % 7.8 L Lymphocytes % (Manual) 5.9 L Monocytes % 9.3 Monocytes % (Manual) 12 H Eosinophils % 0.2 Eosinophils % (Manual) 0.0 Basophils % 0.1 Basophils % (Manual) 0.0 Myelocytes % (Man) 0 D Promyelocytes % (Man) 0 Blast Cells % (Manual) 0 Nucleated RBC % 0 Metamyelocytes 0 Hypochromia 1+ Platelet Estimate Normal Platelet Comment No clumping noted Polychromasia 0 Poikilocytosis 0 Anisocytosis 2+ Microcytosis 1+ Macrocytosis 1+ Ovalocytes 1+ Sodium 134 L Potassium 4.5 Chloride 101 Carbon Dioxide 24 Anion Gap 9 BUN 43.3 H Creatinine 2.9 H Est GFR (CKD-EPI)AfAm 26.24 Est GFR (CKD-EPI)NonAf 22.64 POC Glucometer Random Glucose 171 H Lactic Acid 1.0 Calcium 8.5 Total Bilirubin 0.6 AST 42 H ALT 56 Alkaline Phosphatase 147 H LD Total 204 Total Protein 6.4 Albumin 2.6 L 07/29/19 10:31 WBC RBC Hgb Hct MCV MCH MCHC RDW Plt Count MPV Absolute Neuts (auto) Neutrophils % Neutrophils % (Manual) Band Neutrophils % Lymphocytes % Lymphocytes % (Manual) Monocytes % Monocytes % (Manual) Eosinophils % Eosinophils % (Manual) Basophils % Basophils % (Manual) Myelocytes % (Man) Promyelocytes % (Man) Blast Cells % (Manual) Nucleated RBC % Metamyelocytes Hypochromia Platelet Estimate Platelet Comment Polychromasia Poikilocytosis Anisocytosis Microcytosis Macrocytosis Ovalocytes Sodium Potassium Chloride Carbon Dioxide Anion Gap BUN Creatinine Est GFR (CKD-EPI)AfAm Est GFR (CKD-EPI)NonAf POC Glucometer 235 Random Glucose Lactic Acid Calcium Total Bilirubin AST ALT Alkaline Phosphatase LD Total Total Protein Albumin Active Medications Current Medications Acetaminophen (Tylenol -) 650 mg PO Q6H PRN PRN Reason: FEVER Last Admin: 07/29/19 01:18 Dose: 650 mg Albuterol/Ipratropium (Duoneb -) 1 amp NEB Q6H PRN PRN Reason: SHORTNESS OF BREATH Last Admin: 07/29/19 12:00 Dose: 1 amp Docusate Sodium (Colace -) 100 mg PO BID LENNY Fentanyl (Sublimaze Injection -) 25 mcg IVPUSH [id number] PRN PRN Reason: PAIN-PACU ORDER X 4 DOSES ONLY Sodium Chloride (Normal Saline -) 1,000 mls @ 75 mls/hr IV ASDIR [facility] Last Admin: 07/28/19 13:14 Dose: 75 mls/hr Clindamycin Phosphate (Cleocin 900 Mg Premix Ivpb -) 900 mg in 50 mls @ 100 mls /hr IVPB Q8H-IV LENNY; Protocol Last Admin: 07/29/19 09:22 Dose: 100 mls/hr Insulin Aspart (Novolog Vial Sliding Scale -) 1 vial SQ TIDAC [facility]; Protocol Last Admin: 07/29/19 11:00 Dose: 4 units Insulin Detemir (Levemir Vial) 20 units SQ HS LENNY Ondansetron HCl (Zofran Injection) 4 mg IVPUSH Q6H PRN PRN Reason: NAUSEA AND/OR VOMITING Oxycodone HCl (Roxicodone -) 5 mg PO Q6H PRN PRN Reason: PAIN 4-6 Last Admin: 07/29/19 01:16 Dose: 5 mg Polyethylene Glycol (Miralax (For Daily Use) -) 17 gm PO DAILY [facility] ASSESSMENT/PLAN: Patient is a 58 year old male with history of hypertension, diabetes mellitus, hyperlipidemia, presents with complaint of left lower extremity foot pain. #Sepsis 2/2 Left foot soft tissue emphysema and Cellulitis, with concern for gas gangrene given air noted in foot xray. -Case discussed with Podiatry (Dr. Luna); Patient will require urgent debridment. No further imaging studies currently warranted. Cultures will be obtaiend intraoperatively. - POD#1 after I&D, Pt. now has blackening of 2nd and 3rd digits will need amputation on Wednesday, extent depends on level of demarcation by Wednesday-per Podiatry. -Patient received Vancomycin, Zosyn in ED. One time dose of Clindamycin due to concern for Group A strep as potential etiology. - f/u Vanco Trough -ID evaluation (Dr. Hernández) appreciated -Follow arterial, venous duplex studies--> Negative will get TANYA per Podiatry -BCx. NTD -IV normal saline at 75mL/ hour #Shortness of breath 2/2 abdominal distention vs.poor inspiratory effort s/p OR - Duonebs - CXR Neg. - IS - KUB negative #EVIE - f/u Renal US - c/w IVF -avoid nephrotoxins including IV contrast. #Diabetes mellitus, non insulin dependent-chrnoic -Patient admits he is noncompliant with blood glucose monitoring. -HbA1c: 11.2---> will need Insulin on D/C -Insulin sliding scale ACHS -Fingerstick blood glucose monitoring -Increased Levemir to 20 units #Hypertension -currently normotensive #FEN -IV normal saline at 75mL/ hour -Hyperkalemia resolved. Follow BMP -NPO pending Podiatry evaluation DVT Ppx. -hold chemical Ppx. Disposition -Admit to medical - surgical floor ATTENDING PHYSICIAN STATEMENT I saw and evaluated the patient. I reviewed the resident's note and discussed the case with the resident. I agree with the resident's findings and plan as documented. SUBJECTIVE: OBJECTIVE: ASSESSMENT AND PLAN:
--- NOTE | 2019-07-29 17:05 | PN ---
Teaching Attending Note Name of Resident: Ousmane Wesley ATTENDING PHYSICIAN STATEMENT I saw and evaluated the patient. I reviewed the resident's note and discussed the case with the resident. I agree with the resident's findings and plan as documented. 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 has no pain in his foot. has no SOB but he feels wheezy in his chest OBJECTIVE: NAD, MMM CV: RRR, 2/6 SM at LLSB Lungs: crackles and wheezes on both lung filed s Abd: distended, tympanic, NT , hyperactive BS Ext :L foot in a dressing which was not removed. no edema on legs ASSESSMENT AND PLAN: 58 y/o man with h//o DM, HTN, HLP, R knee cancer s/p chemoc, sx , and radiation , who presented with erythema on L foot and was found to have cellulitis with gas formation 1- Gas gangrene of L foot: Case was d/w Dr. Miranda. during sx pus and gas were found. on today's eval of the foot by dr. Miranda, it seems that the 2,3rd digits are not salvageable. to OR on Wednesday for amputation - cont clinda. zosyn was stopped. Vanco held fro a random level in am due to renal failure - wound cx reviewed. follow final - follow blood cx - percocet for pain - DC IVF due to signs of pulm congestion on exam 2- EVIE : not clear of etiology. ? AIN due to vanco , ? decreased perfusion to kidneys due to heart failure . he de la cruz snot look volume depleted. - Held IVF due to crackles and wheezes and hypoxia. - will assess in am with cxray and exam and decide on diuresis - renal US with no hydro - Bladder scan was done incorrectly. d/W RN, will need post void bladder scan - order urine eosinophils . No systemic eosinophilia . repeat CBC - if renal function cont to worsen, then can ask renal input - echo 3- DM: Increase levemir cont SSI 4- H/o HTN: hold home losartn and HCTZ due to renal failure if BP increases can use norvasc dispo: HLOC
[2019-07-29] MEDS: SODIUM CHLORIDE 1,000 ML IV SCH (18:12)
[2019-07-29] MEDS: DOCUSATE SODIUM 100 MG CAPSULE (FP) PO SCH (21:45)
[2019-07-29] MEDS ORDERED: INSULIN (LEVEMIR) 100 UNITS/ML UNITS SQ SCH (22:00)
[2019-07-30] MEDS: CLINDAMYCIN 900 MG PREMIX IVPB 900 MG/50 ML BAG IVPB SCH ×3 (02:56→17:44)
[2019-07-30] MEDS ORDERED: DEXTROSE 5%-WATER - 50 ML IVPB ONE ×2 (03:12→07:49)
[2019-07-30] MEDS ORDERED: PIPERACILLIN/TAZOBACTAM 2.25 GM VIAL IVPB ONE ×2 (03:12→07:49)
[2019-07-30] MEDS: PIPERACILLIN/TAZOB 2.25 GM 2.25 GM in DEXTROSE 5%-WATER - 50 ML IVPB SCH ×2 (03:23→08:12)
[2019-07-30] MEDS: INSULIN SLIDING SCALE (NOVOLOG) 1 VIAL SQ SCH ×3 (06:25→16:41)
[2019-07-30 07:33] LABS: BASO % 0.2 % (0-2.0); EOS % 0.6 % (0-4.5); HEMATOCRIT 32.6 % (35.4-49); HEMOGLOBIN 10.8 GM/dL (11.7-16.9); LYMPH % 10.2 % (8-40); MCH 27.9 pg (25.7-33.7); MEAN CELL VOLUME 84.3 fl (80-96); MEAN PLT VOLUME 8.7 fl (7.5-11.1); MONO % 9.1 % (3.8-10.2); NEUT % 79.9 % (42.8-82.8); PLATELET COUNT 294 K/MM3 (134-434); RBC 3.87 M/mm3 (4.00-5.60); RDW 14.9 % (11.9-15.9); WHITE BLOOD COUNT 17.2 K/mm3 (4.0-10.0)
[2019-07-30 07:51] LABS: ALBUMIN 2.2 g/dl (3.4-5.0); BILIRUBIN,TOTAL 0.8 mg/dL (0.2-1); BLOOD UREA NITROGEN 52.6 mg/dL (7-18); CALCIUM 8.3 mg/dL (8.5-10.1); POTASSIUM 4.4 mmol/L (3.5-5.1); TOT PROT 5.8 g/dl (6.4-8.2)
--- NOTE | 2019-07-30 09:13 | CONSULT ---
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 Seen and examined at the bedside. Reports no prior history of CKD or kidney stones. Was taking Motrin at home before coming to the hospital for 2 days for help with chills. Denies any hematuria, dysuria. Making his normal amount of urine as per patient. No sob, chest pain. + one episode of diarrhea overnight. + one episode of emesis. No abd pain. No skin rash or puritis. Was on Vanco and Zosyn. No overt hypotension noted. No contrast exposure noted. s/p I and D of LE wound. PMHx: as above Allergies: NKDA Family Hx: NC Social Hx: No T/A/D ROS: as per HPI Home Medications Medication Instructions Recorded Glyburide/Metformin HCl 1 each PO BID #60 tablet 06/06/15 [Glyburide-Metformin 5-500 mg] Hydralazine HCl 50 mg PO DAILY 07/28/19 Labetalol HCl 100 mg PO DAILY 07/28/19 Lisinopril [Prinivil -] 40 mg PO DAILY 07/28/19 Losartan/Hydrochlorothiazide 1 tab PO DAILY 07/28/19 [Losartan-Hctz 100-25 mg Tab] Sitagliptin Phosphate [Januvia] 100 mg PO DAILY 07/28/19 Insulin (Levemir) [Levemir Vial] 40 unit SQ HS 07/29/19 Vital Signs Temperature 98.0 F 07/30/19 06:00 Pulse Rate 57 L 07/30/19 06:00 Respiratory Rate 18 07/29/19 21:00 Blood Pressure 159/76 07/30/19 06:00 O2 Sat by Pulse Oximetry (%) 95 07/29/19 21:00 Intake & Output 07/27/19 07/28/19 07/29/19 07/30/19 23:59 23:59 23:59 23:59 Intake Total 1350 2180 350 Output Total 0 1000 Balance 1350 1180 350 Weight 70.76 kg 74.843 kg NAD on NC O2 neck supple, no JVD RRR CTA soft, + distension, + BS Trace edema in left LE No focal neurologic deficits CBC, BMP 07/30/19 06:45 07/30/19 06:45 Current Medications Acetaminophen (Tylenol -) 650 mg PO Q6H PRN PRN Reason: FEVER Last Admin: 07/29/19 01:18 Dose: 650 mg Albuterol/Ipratropium (Duoneb -) 1 amp NEB Q6H PRN PRN Reason: SHORTNESS OF BREATH Last Admin: 07/29/19 19:30 Dose: 1 amp Docusate Sodium (Colace -) 100 mg PO BID LENNY Last Admin: 07/29/19 21:45 Dose: 100 mg Fentanyl (Sublimaze Injection -) 25 mcg IVPUSH [id number] PRN PRN Reason: PAIN-PACU ORDER X 4 DOSES ONLY Clindamycin Phosphate (Cleocin 900 Mg Premix Ivpb -) 900 mg in 50 mls @ 100 mls /hr IVPB Q8H-IV LENNY; Protocol Last Admin: 07/30/19 02:56 Dose: 100 mls/hr Piperacillin Sod/Tazobactam (Sod 2.25 gm/ Dextrose) 50 mls @ 100 mls/hr IVPB Q6H-IV LENNY; Protocol Last Admin: 07/30/19 08:12 Dose: 100 mls/hr Insulin Aspart (Novolog Vial Sliding Scale -) 1 vial SQ TIDAC [facility]; Protocol Last Admin: 07/30/19 06:25 Dose: Not Given Insulin Detemir (Levemir Vial) 20 units SQ HS [facility] Last Admin: 07/29/19 21:45 Dose: 20 units Ondansetron HCl (Zofran Injection) 4 mg IVPUSH Q6H PRN PRN Reason: NAUSEA AND/OR VOMITING Oxycodone HCl (Roxicodone -) 5 mg PO Q6H PRN PRN Reason: PAIN 4-6 Last Admin: 07/29/19 21:45 Dose: 5 mg Polyethylene Glycol (Miralax (For Daily Use) -) 17 gm PO DAILY [facility] 58 year old gentleman with history of DM type 2, hyperlipidemia, hypertension who presented from home with chlls and found to have 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 Acute kidney injury from AIN (Vanco/Zosyn) vs Vancomycin toxicity vs. ATN vs. GN (less likey) 2. Gas gangrene of LE 3. Metabolic acidosis 4. Anemia 5. Leukocytosis 6. IDDM 7. Hx of hypertension Renal function worsening quickly over the past 72 hours. No overt electrolyte or acid/base disturbance to warrant ENGINEERING AIDE at the present time. Place a liriano for strict I and O. Check urine studies for UA, FeNa, UPCR and urine eosniophils. CXR shows some congestion, more so then admission CXR. BP is stable. Will hold off IVF for now. Hold any further Vancomycin (Level is 29). Consider changing zosyn to cephalosporin if possible. ID follow up Trend serum bicarb levels, no acute indication for IV or oral bicarb at this time. Trend H/H Keep MAP > 65 avoid CASSANDRA/ARB, or NSAIDs at this time Avoid contrast exposure Trend BMP Q12h Surgical follow up Thank you Ladarius Sosa DO
[2019-07-30] MEDS: POLYETHYLENE GLYCOL 3350 119 GM BTL PO SCH (09:26)
--- NOTE | 2019-07-30 10:23 | PN ---
Progress Note (short form) - Note Progress Note: Podiatry F/U: Seen/evaluated at bedside NAD. Pain controlled, denies F/V/N/C/SOB/CP. Still tachy, however afebrile. S/p Left foot incision and drainage of 2nd interspace for gas-forming infection. JOHN PAUL: L foot: pedal pulses 2/4, TG warm-warm. There is an open post-surgical diabetic ulcer 2nd interspace, fibrotic base with some liquefactive tissue, (+) purulent drainage, ischemic changes to all of 2nd digit and distal half of 3rd digit, some duskiness noted to the plantar skin 2nd interspace. No soft tissue crepitus noted. Surrounding erythema noted to the dorsal forefoot. No tenderness elicited on palpation. OR Cx: staph, strep viridans WBC: 17+ Imp: 58 year old diabetic male with gas-forming infection 2nd interspace, s/p left 2nd interspace incision and drainage 1. IV abx per ID 2. Local care 3. Discussed treatment options with patient using Nubisio sausage cutter. Given persistence of gas infection, I have advised amputation of left second and third digits. Patient is in agreement. NPO after midnight for surgery tomorrow. OR consent is in chart. 4. Will follow. Cheyenne Gamble DPM
[2019-07-30] MEDS ORDERED: INSULIN (NOVOLOG) ASPART 100 UNITS/ML 10ML VIAL ONE (11:13)
[2019-07-30] MEDS: DOCUSATE SODIUM 100 MG CAPSULE (FP) PO SCH ×2 (11:37→22:14)
--- NOTE | 2019-07-30 12:23 | PN ---
Progress Note (short form) - Note Progress Note: s/p drainage of abscess of the foot no complaints +BM liriano could not be placed Vital Signs Period Temp Pulse Resp BP Sys/Corona Pulse Ox Last 24 Hr 97.8 F-98.0 F 57-104 18-18 145-159/76-90 95 cor-rrr lungs clear abd soft,nt ext dressing removed, wound is clean, minimal erythema dorsum of the foot, second toe is gangrenous, 3rd toe base is blue no odor +2 DP pulse CBC, BMP 07/30/19 06:45 07/30/19 06:45 Microbiology 07/28/19 12:35 Foot - Left Dorsum Gram Stain - Final 07/28/19 12:35 Foot - Left Dorsum Wound Culture - Final Staphylococcus Aureus Streptococcus Viridans 07/28/19 12:34 Foot - Left Dorsum Gram Stain - Final 07/28/19 12:34 Foot - Left Dorsum Wound Culture - Final Staphylococcus Aureus Streptococcus Viridans 07/27/19 19:50 Blood - Peripheral Venous Blood Culture - Preliminary NO GROWTH OBTAINED AFTER 48 HOURS, INCUBATION TO CONTINUE FOR 3 DAYS. 07/27/19 19:50 Blood - Peripheral Venous Blood Culture - Preliminary NO GROWTH OBTAINED AFTER 48 HOURS, INCUBATION TO CONTINUE FOR 3 DAYS. Laboratory Tests 07/30/19 06:45 Random Vancomycin 29.7 H a/p diabetic foot infection with plantar abscess-continue clindamycin follow vancomycin levels EVIE- renal sono no obstruction management per renal for OR for toe amputation in am d/w hospitalist Problem List - Problems (1) Diabetic foot infection Code(s): E11.628 - TYPE 2 DIABETES MELLITUS WITH OTHER SKIN COMPLICATIONS; L08.9 - LOCAL INFECTION OF THE SKIN AND SUBCUTANEOUS TISSUE, UNSP (2) EVIE (acute kidney injury) Code(s): N17.9 - ACUTE KIDNEY FAILURE, UNSPECIFIED
[2019-07-30 15:33] LABS: EPI CELLS 2.7 /HPF (0-5/HPF); HYALINE CASTS 5 /lpf (0-8); URINE APPEARANCE CLOUDY; URINE BILIRUBIN NEGATIVE (NEGATIVE); URINE COLOR YELLOW; URINE GLUCOSE (UA) NEGATIVE (NEGATIVE); URINE KETONE NEGATIVE (NEGATIVE); URINE LEUK ESTERASE NEGATIVE (NEGATIVE); URINE NITRITE NEGATIVE (NEGATIVE); URINE PROTEIN 2+ (NEGATIVE); URINE RBC 2 /hpf (0-4); URINE WBC 4 /hpf (0-5)
[2019-07-30 15:46] LABS: URINE BACTERIA 0.7 /hpf (NEGATIVE)
--- NOTE | 2019-07-30 17:04 | PN ---
Progress Note (short form) - Note Progress Note: Subjective: no pain, no SOB . Clinical Research Analyst phone used. had 2 BMs. No abd discomfort. has no dysuria or pain to urinate. has no SOB Objective: Vital Signs: Last Vital Signs Temp Pulse Resp BP Pulse Ox 97.9 F 68 18 157/97 97 07/30/19 14:54 07/30/19 14:54 07/30/19 14:54 07/30/19 14:54 07/30/19 09:00 Laboratory Results - last 24 hr 07/29/19 07/30/19 07/30/19 21:43 06:10 06:45 WBC RBC Hgb Hct MCV MCH MCHC RDW Plt Count MPV Absolute Neuts (auto) Neutrophils % Lymphocytes % Monocytes % Eosinophils % Basophils % Nucleated RBC % Sodium Potassium Chloride Carbon Dioxide Anion Gap BUN Creatinine Est GFR (CKD-EPI)AfAm Est GFR (CKD-EPI)NonAf POC Glucometer 219 121 Random Glucose Calcium Total Bilirubin AST ALT Alkaline Phosphatase Total Protein Albumin Urine Color Urine Appearance Urine pH Ur Specific [place] Urine Protein Urine Glucose (UA) Urine Ketones Urine Blood Urine Nitrite Urine Bilirubin Urine Urobilinogen Ur Leukocyte Esterase Urine WBC (Auto) Urine RBC (Auto) Urine Casts (Auto) U Epithel Cells (Auto) Urine Bacteria (Auto) Ur Random Creatinine U Random Total Protein Ur Random Sodium Ur Random Urea Nitrogn Urine Creatinine Protein/Creatinin Ratio Random Vancomycin 29.7 H 07/30/19 07/30/19 07/30/19 06:45 06:45 11:10 WBC 17.2 H RBC 3.87 L Hgb 10.8 L Hct 32.6 L MCV 84.3 MCH 27.9 MCHC 33.0 RDW 14.9 Plt Count 294 MPV 8.7 Absolute Neuts (auto) 13.8 H Neutrophils % 79.9 Lymphocytes % 10.2 D Monocytes % 9.1 Eosinophils % 0.6 D Basophils % 0.2 Nucleated RBC % 0 Sodium 135 L Potassium 4.4 Chloride 101 Carbon Dioxide 19 L Anion Gap 14 BUN 52.6 H Creatinine 4.0 H Est GFR (CKD-EPI)AfAm 17.79 Est GFR (CKD-EPI)NonAf 15.35 POC Glucometer 227 Random Glucose 132 H Calcium 8.3 L Total Bilirubin 0.8 AST 44 H ALT 61 Alkaline Phosphatase 157 H Total Protein 5.8 L Albumin 2.2 L Urine Color Urine Appearance Urine pH Ur Specific [place] Urine Protein Urine Glucose (UA) Urine Ketones Urine Blood Urine Nitrite Urine Bilirubin Urine Urobilinogen Ur Leukocyte Esterase Urine WBC (Auto) Urine RBC (Auto) Urine Casts (Auto) U Epithel Cells (Auto) Urine Bacteria (Auto) Ur Random Creatinine U Random Total Protein Ur Random Sodium Ur Random Urea Nitrogn Urine Creatinine Protein/Creatinin Ratio Random Vancomycin 07/30/19 07/30/19 07/30/19 15:00 15:00 15:00 WBC RBC Hgb Hct MCV MCH MCHC RDW Plt Count MPV Absolute Neuts (auto) Neutrophils % Lymphocytes % Monocytes % Eosinophils % Basophils % Nucleated RBC % Sodium Potassium Chloride Carbon Dioxide Anion Gap BUN Creatinine Est GFR (CKD-EPI)AfAm Est GFR (CKD-EPI)NonAf POC Glucometer Random Glucose Calcium Total Bilirubin AST ALT Alkaline Phosphatase Total Protein Albumin Urine Color Yellow Urine Appearance Cloudy Urine pH 5.0 Ur Specific [place] 1.014 Urine Protein 2+ H Urine Glucose (UA) Negative Urine Ketones Negative Urine Blood Trace Urine Nitrite Negative Urine Bilirubin Negative Urine Urobilinogen 1.0 Ur Leukocyte Esterase Negative Urine WBC (Auto) 4 Urine RBC (Auto) 2 Urine Casts (Auto) 5 U Epithel Cells (Auto) 2.7 Urine Bacteria (Auto) 0.7 Ur Random Creatinine Cancelled U Random Total Protein Ur Random Sodium 37 L Ur Random Urea Nitrogn Urine Creatinine Protein/Creatinin Ratio Random Vancomycin 07/30/19 07/30/19 07/30/19 15:00 15:00 16:36 WBC RBC Hgb Hct MCV MCH MCHC RDW Plt Count MPV Absolute Neuts (auto) Neutrophils % Lymphocytes % Monocytes % Eosinophils % Basophils % Nucleated RBC % Sodium Potassium Chloride Carbon Dioxide Anion Gap BUN Creatinine Est GFR (CKD-EPI)AfAm Est GFR (CKD-EPI)NonAf POC Glucometer 277 Random Glucose Calcium Total Bilirubin AST ALT Alkaline Phosphatase Total Protein Albumin Urine Color Urine Appearance Urine pH Ur Specific [place] Urine Protein Urine Glucose (UA) Urine Ketones Urine Blood Urine Nitrite Urine Bilirubin Urine Urobilinogen Ur Leukocyte Esterase Urine WBC (Auto) Urine RBC (Auto) Urine Casts (Auto) U Epithel Cells (Auto) Urine Bacteria (Auto) Ur Random Creatinine U Random Total Protein 107.1 H Ur Random Sodium Ur Random Urea Nitrogn 397 Urine Creatinine 81.0 Protein/Creatinin Ratio 1.3 Random Vancomycin Physical Exam: NAD, MMM CV: RRR, 2/6 SM at LLSB Lungs: minimal base line crackles at R side. No wheezes Abd: distended but soft. tympanic, NT ,Nl BS Ext :L foot with purpulish/blackish discolorationof 2nd and to a lesser degree 4th toe. surgical wound between those two toes is clean with no discharge. NO tenderness. L dorsal foot with erythema ASSESSMENT AND PLAN: 58 y/o man with h//o DM, HTN, HLP, R knee cancer s/p chemoc, sx , and radiation , who presented with erythema on L foot and was found to have cellulitis with gas formation 1- Gas gangrene of L foot: - cont clinda and hold vanco due to suspected AIN . - vanco level in am - off zosyn due to suspected AIN - wound cx reviewed. neg blood cx to date - echo due to murmur - for amputation of 2,3rd toes tomorrow 2- EVIE : ? AIN due to vanco and zosyn , - cont to hold IVF for now -strict I&O - if high post void residual will place forey - Urine eiosinophils pending 3- DM: cont levemir . give lower dose tonight cont SSI 4- H/o HTN: hold home losartn and HCTZ due to renal failure if BP increases can use norvasc dispo: OC Visit type - Emergency Visit Emergency Visit: Yes ED Registration Date: 07/27/19 Care time: The patient presented to the Emergency Department on the above date and was hospitalized for further evaluation of their emergent condition. - New Patient This patient is new to me today: No - Critical Care Critical Care patient: No
[2019-07-30] MEDS: ALBUTEROL SO4 2.5/IPRATROPIUM 0.5 INH SOL 3 ML VIAL.NEB. NEB PRN (19:20)
[2019-07-30 19:50] LABS: BLOOD UREA NITROGEN 55.1 mg/dL (7-18); CALCIUM 8.6 mg/dL (8.5-10.1); CREATININE 4.1 mg/dL (0.55-1.3); POTASSIUM 4.9 mmol/L (3.5-5.1)
[2019-07-30] MEDS ORDERED: INSULIN (LEVEMIR) 100 UNITS/ML UNITS SQ ONE (22:00)
[2019-07-31] MEDS: CLINDAMYCIN 900 MG PREMIX IVPB 900 MG/50 ML BAG IVPB SCH ×2 (02:40→11:25)
[2019-07-31] MEDS: INSULIN SLIDING SCALE (NOVOLOG) 1 VIAL SQ SCH ×3 (06:33→16:26)
[2019-07-31 08:50] LABS: BASO % 0.4 % (0-2.0); EOS % 1.2 % (0-4.5); HEMATOCRIT 35.6 % (35.4-49); LYMPH % 8.7 % (8-40); MCHC 33.7 g/dl (32.0-35.9); MEAN CELL VOLUME 83.1 fl (80-96); MONO % 7.4 % (3.8-10.2); NEUT % 82.3 % (42.8-82.8); PLATELET COUNT 349 K/MM3 (134-434); RBC 4.28 M/mm3 (4.00-5.60); RDW 14.7 % (11.9-15.9); WHITE BLOOD COUNT 13.9 K/mm3 (4.0-10.0)
[2019-07-31 09:53] LABS: ALBUMIN 2.5 g/dl (3.4-5.0); BILIRUBIN,TOTAL 0.6 mg/dL (0.2-1); BLOOD UREA NITROGEN 55.4 mg/dL (7-18); CALCIUM 8.6 mg/dL (8.5-10.1); POTASSIUM 4.5 mmol/L (3.5-5.1); TOT PROT 6.7 g/dl (6.4-8.2)
[2019-07-31] MEDS ORDERED: PROPOFOL 20 ML ONE (10:30)
[2019-07-31] MEDS ORDERED: MIDAZOLAM HCL 2 MG/2 ML SINGLE DOSE VIAL ONE ×2 (10:30→10:54)
[2019-07-31] MEDS ORDERED: SODIUM CHLORIDE 0.9% P/F 10 ML VIAL IJ ONE (10:36)
[2019-07-31] MEDS ORDERED: LIDOCAINE HCL 2% (20ML MULTI-DOSE VIAL) NR ONE (10:36)
[2019-07-31] MEDS ORDERED: LIDOCAINE HCL 2% (50ML VIAL) NR ONE (10:48)
[2019-07-31] MEDS ORDERED: CLINDAMYCIN PHOSPHATE 600 MG/4 ML VIAL ONE (10:51)
[2019-07-31] MEDS ORDERED: CLINDAMYCIN 900 MG PREMIX BAG IVPB ONE (10:51)
[2019-07-31] MEDS: DOCUSATE SODIUM 100 MG CAPSULE (FP) PO SCH ×2 (11:25→21:23)
[2019-07-31] MEDS: POLYETHYLENE GLYCOL 3350 119 GM BTL PO SCH (11:26)
--- NOTE | 2019-07-31 11:29 | OP ---
Operative Note - Note: Operative Date: 07/31/19 Pre-Operative Diagnosis: gas gangrene with gangrene of digits 2,3 left foot Operation: Amputation of left second and third digits Post-Operative Diagnosis: Same as Pre-op Surgeon: Jaziel Gamble Anesthesia: Local, MAC Specimens Removed: left second and third toes Estimated Blood Loss (mls): 30 Operative Report Dictated: Yes
[2019-07-31] MEDS ORDERED: BACITRACIN 50,000 UNITS VIAL NR ONE (11:30)
[2019-07-31 11:31] LABS: ANISOCYTOSIS 0; MACROCYTOSIS 0; PLATELET ESTIMATE NORMAL
[2019-07-31] MEDS ORDERED: ONDANSETRON 4 MG/2 ML VIAL IVPUSH PRN ×2 (11:33→12:01)
[2019-07-31] MEDS ORDERED: LACTATED RINGERS SOLUTION 1,000 ML IV SCH ×2 (11:45→12:01)
[2019-07-31] MEDS ORDERED: ACETAMINOPHEN 325 MG TABLET (FP) PO PRN (12:01)
[2019-07-31] MEDS ORDERED: ALBUTEROL SO4 2.5/IPRATROPIUM 0.5 INH SOL 3 ML VIAL.NEB. NEB PRN (12:01)
[2019-07-31] MEDS ORDERED: oxyCODONE HCL 5 MG TABLET PO PRN (12:01)
[2019-07-31] MEDS ORDERED: INSULIN (NOVOLOG) ASPART 100 UNITS/ML 10ML VIAL ONE (12:18)
--- NOTE | 2019-07-31 15:35 | PN ---
Progress Note (short form) - Note Progress Note: s/p amputation of 2/3 digits left foot today Vital Signs Vital Signs Period Temp Pulse Resp BP Sys/Corona Pulse Ox Last 24 Hr 97.5 F-98.0 F 89-105 12-20 142-162/83-96 97-98 dressing intact having an echo unable to examine CBC, BMP 07/31/19 07:45 07/31/19 07:45 Microbiology 07/31/19 11:17 Foot - Left Gram Stain - Final 07/27/19 19:50 Blood - Peripheral Venous Blood Culture - Preliminary NO GROWTH OBTAINED AFTER 72 HOURS, INCUBATION TO CONTINUE FOR 2 DAYS. 07/27/19 19:50 Blood - Peripheral Venous Blood Culture - Preliminary NO GROWTH OBTAINED AFTER 72 HOURS, INCUBATION TO CONTINUE FOR 2 DAYS. 07/28/19 12:35 Foot - Left Dorsum Gram Stain - Final 07/28/19 12:35 Foot - Left Dorsum Wound Culture - Final Staphylococcus Aureus Streptococcus Viridans 07/28/19 12:34 Foot - Left Dorsum Gram Stain - Final 07/28/19 12:34 Foot - Left Dorsum Wound Culture - Final Staphylococcus Aureus Streptococcus Viridans Laboratory Tests 07/30/19 07/31/19 06:45 07:45 Random Vancomycin 29.7 H 21.0 a/p diabetic foot infection with plantar abscess-vanco "on board", s/p amputation of the 2/3 digits left foot d/c clindamycin, start flagyl follow vancomycin level EVIE- renal sono no obstruction management per renal will d/w renal Problem List - Problems (1) Diabetic foot infection Code(s): E11.628 - TYPE 2 DIABETES MELLITUS WITH OTHER SKIN COMPLICATIONS; L08.9 - LOCAL INFECTION OF THE SKIN AND SUBCUTANEOUS TISSUE, UNSP (2) EVIE (acute kidney injury) Code(s): N17.9 - ACUTE KIDNEY FAILURE, UNSPECIFIED
[2019-07-31] MEDS ORDERED: SODIUM CHLORIDE 1,000 ML IV SCH (15:45)
--- NOTE | 2019-07-31 15:52 | OP ---
DATE OF OPERATION: 07/31/2019 PREOPERATIVE DIAGNOSIS: Gas gangrene with gangrenous changes, left 2nd and 3rd toe. POSTOPERATIVE DIAGNOSIS: Gas gangrene with gangrenous changes, left 2nd and 3rd toe. PROCEDURE: Left 2nd and 3rd toe amputation. SURGEON: Jaziel Gamble DPM FOOD AND BEVERAGE OUTLETS MANAGER: None. ANESTHESIA: IV sedation with local. HEMOSTASIS: Surgical dissection. ESTIMATED BLOOD LOSS: 30 mL. PATHOLOGY: Bone left 2nd and 3rd. COMPLICATIONS: None. DESCRIPTION OF PROCEDURE: Patient was brought to the operating room and placed on the operating table in the supine position. Following the induction of IV sedation, local anesthesia was achieved using 13 mL of 2% lidocaine plain. The left foot was scrubbed, prepped, and draped in the usual sterile fashion. Attention was directed to the left foot where a gas infection of the 2nd interspace with gangrenous changes to the 2nd and 3rd toe were appreciated. Additionally, there was periwound cellulitis of the dorsal forefoot. I began by performing a linear longitudinal incision into the 2nd interspace. The incision was carried circumferentially about the 2nd and 3rd toes in a large tennis racket fashion. Incision was continued distally to the ischemic plantar forefoot. The incision was deepened using sharp and blunt dissection taking care to retract vital neural and vascular structures. All bleeders were cauterized and ligated as needed. Upon inspection of the deep tissues, there was subsequent liquefactive tissue as well as diseased capsule of the 2nd and 3rd toes. Additionally, there was extensive devitalized tissue into the dorsal and plantar aspect of the 2nd interspace. The 2nd and 3rd toes were disarticulated at the level of the metatarsophalangeal joint. These toes both 2nd and 3rd toes were removed from the operative field and sent to Pathology for analysis. Next, a linear capsulotomy was made over the capsule and periosteal tissue of the 2nd and 3rd metatarsal head. The 2nd and 3rd metatarsal heads were resected using a sagittal saw and removed from the operative site. Of note, once the 2nd and 3rd amputations were complete as well as the metatarsal head resection, there was healthy, viable tissue persistent. The surgical site was then copiously irrigated with sterile saline mixed with bacitracin 1000 mL in a pulse lavage fashion. The dorsal and plantar distal aspects of the surgical incision were loosely coapted using 3-0 nylon. The central aspect of the surgical wound was packed with 1/4-inch iodoform packing. Following conclusion of the procedure, the surgical site was covered with Xeroform, and a sterile compressive dressing was applied to the left foot consisting of sterile gauze, Jack, Kerlix, and an Wes wrap. Patient tolerated the procedure and anesthesia well without complications. He was transferred from the operating room to the recovery unit with vital signs stable and neurovasculature intact to the left foot. CUCA COY/[id number] cc: [facility]
--- NOTE | 2019-07-31 15:52 | OP ---
DATE OF OPERATION: 07/28/2019 PREOPERATIVE DIAGNOSIS: Left foot gas gangrene. POSTOPERATIVE DIAGNOSIS: Left foot gas gangrene. PROCEDURE PERFORMED: Left foot incision and drainage. SURGEON: Matty Miranda DPM ANESTHESIA: IV sedation with local injections. INDICATIONS: Patient is a 58-year-old male with the above-mentioned diagnosis. Patient exhausted all forms of conservative treatment at this time and requires surgical intervention for the conditions listed above. After careful explanation of risks, benefits, complications for the proposed procedure, patient signed the consent form. All questions and concerns were addressed with the patient prior to taking the patient to the OR. N.p.o. status was verified. OPERATIVE PROCEDURE: Patient was brought to the operating room. Placed on operating table in supine position. Patient had a good pulse, so a tourniquet was utilized over superior malleolar position at 250 mmHg. Following induction of IV sedation, a local injection of 12 mL 2% lidocaine plain was injected to the patient's left foot in local block-type fashion overlying the 2nd interspace. Following local anesthetic, the left foot was prepped and draped in normal sterile manner and procedure began. Procedure number 1. Left foot incision and drainage. At this time, attention was directed to the left foot 2nd interspace where there was noted to be a collection of an abscess in the 2nd interspace . At this time, utilizing a No. 15 blade, a roughly 2.5-cm long incision was made directly dorsal into the 2nd interspace. This was carried immediately upon opening the 2nd interspace up with use of sharp and blunt dissection. A large amount of purulence was noted, and a foul odor was noted to be emanating. Cultures were obtained at this time for culture and sensitivity and Gram stain. Following this, the wound was then completely explored with a Metzenbaum type scissor, and the entire plantar aspect of the abscess was then opened to allow for decompression of the gas in the tissue. At this time, the wound was flushed copiously with a pulsatile lavage of bacitracin. The wound was then packed and left open with 1/4-inch iodoform packing. Patient tolerated anesthesia and procedure well and was transferred to recovery room with vital signs stable, neurovascular status intact to left foot. This patient will be followed on the floor as previously discussed with the patient. CUCA ARCHER/[id number]
--- NOTE | 2019-07-31 15:54 | PN ---
Teaching Attending Note Name of Resident: Susana Watkins ATTENDING PHYSICIAN STATEMENT I saw and evaluated the patient. I reviewed the resident's note and discussed the case with the resident. I agree with the resident's findings and plan as documented. SUBJECTIVE: Display Designer Laxmi [id number] was used. No fever or chills. No abd pain or difficulty with urination. HAs no N/V. has no pain in L foot. No SOB or cough OBJECTIVE: NAD, MMM CV: RRR, 2/6 SM at LLSB Lungs: CTAB . no wheezes or crackles Abd:obese, soft. NT ,Nl BS Ext :L foot in a dressing. was not removed. L leg with 1+ pitting edema , but no erythema. RLE with no edema or erythema ASSESSMENT AND PLAN: 58 y/o man with h//o DM, HTN, HLP, R knee cancer s/p chemoc, sx , and radiation , who presented with erythema on L foot and was found to have cellulitis with gas formation. 1- Gas gangrene of L foot: s/p I&D 07/29 , then amputation of 2nd, and 3rd digits 07/31. - Case d/w ID and renal. change Abx to cefazolin and flagyl. - blood cx neg x 72 hr - echo pending 2- EVIE : ? AIN due to vanco and zosyn . cr started to improve - Looks euvolemic today. - start trial of IVF x 24 hr - strict I&O - Urine eiosinophils pending 3- DM: cont levemir and cont SSI 4- H/o HTN: hold home losartn and HCTZ due to renal failure if BP increases can use norvasc dispo: OC
--- NOTE | 2019-07-31 15:54 | PN ---
Physical Exam: SUBJECTIVE: Patient seen and examined in the morning. Patient had no complaints of chest pain,shortness of breath, abdominal pain, or pain in the lower extremities. No acute events overnight, patient was NPO since midnight. OBJECTIVE: Vital Signs Period Temp Pulse Resp BP Sys/Corona Pulse Ox Last 24 Hr 97.5 F-98.0 F 89-105 12-20 142-162/83-96 97-98 GENERAL: The patient is awake, alert, and fully oriented, in no acute distress. HEAD: Normal with no signs of trauma. EYES: PERRL, extraocular movements intact, sclera anicteric, conjunctiva clear. No ptosis. ENT: Ears normal, nares patent, oropharynx clear without exudates, moist mucous membranes. NECK: Trachea midline, full range of motion, supple, no bruits. LUNGS: Breath sounds equal, clear to auscultation bilaterally, no wheezes, no crackles, no accessory muscle use. HEART: Regular rate and rhythm, S1, S2 without murmur, rub or gallop. ABDOMEN: Soft, nontender, nondistended, normoactive bowel sounds, no guarding EXTREMITIES: Left lower extremity has full ROM at the hip. Dressing is in place , no signs of bleeding. Right lower extremity has full ROM at hip,knee, and ankle, no open wounds or ulcers. NEUROLOGICAL: Cranial nerves II through XII grossly intact. Normal speech, gait not examined. PSYCH: Normal mood, normal affect. SKIN: Warm, dry, normal turgor, no rashes or lesions noted Laboratory Results - last 24 hr 07/28/19 07/30/19 07/30/19 13:22 15:00 15:00 WBC RBC Hgb Hct MCV MCH MCHC RDW Plt Count MPV Absolute Neuts (auto) Neutrophils % Neutrophils % (Manual) Band Neutrophils % Lymphocytes % Lymphocytes % (Manual) Monocytes % Monocytes % (Manual) Eosinophils % Eosinophils % (Manual) Basophils % Basophils % (Manual) Myelocytes % (Man) Promyelocytes % (Man) Blast Cells % (Manual) Nucleated RBC % Metamyelocytes Hypochromia Platelet Estimate Polychromasia Anisocytosis Microcytosis Macrocytosis Sodium Potassium Chloride Carbon Dioxide Anion Gap BUN Creatinine Est GFR (CKD-EPI)AfAm Est GFR (CKD-EPI)NonAf POC Glucometer 241 Random Glucose Calcium Total Bilirubin AST ALT Alkaline Phosphatase Total Protein Albumin Urine Yeast (Auto) None U Random Total Protein 107.1 H Urine Creatinine 81.0 Protein/Creatinin Ratio 1.3 Random Vancomycin 07/30/19 07/30/19 07/30/19 16:36 17:28 22:13 WBC RBC Hgb Hct MCV MCH MCHC RDW Plt Count MPV Absolute Neuts (auto) Neutrophils % Neutrophils % (Manual) Band Neutrophils % Lymphocytes % Lymphocytes % (Manual) Monocytes % Monocytes % (Manual) Eosinophils % Eosinophils % (Manual) Basophils % Basophils % (Manual) Myelocytes % (Man) Promyelocytes % (Man) Blast Cells % (Manual) Nucleated RBC % Metamyelocytes Hypochromia Platelet Estimate Polychromasia Anisocytosis Microcytosis Macrocytosis Sodium 131 L Potassium 4.9 Chloride 99 Carbon Dioxide 21 Anion Gap 11 BUN 55.1 H Creatinine 4.1 H Est GFR (CKD-EPI)AfAm 17.26 Est GFR (CKD-EPI)NonAf 14.90 POC Glucometer 277 217 Random Glucose 293 H Calcium 8.6 Total Bilirubin AST ALT Alkaline Phosphatase Total Protein Albumin Urine Yeast (Auto) U Random Total Protein Urine Creatinine Protein/Creatinin Ratio Random Vancomycin 07/31/19 07/31/19 07/31/19 06:32 07:45 07:45 WBC 13.9 H RBC 4.28 Hgb 12.0 Hct 35.6 MCV 83.1 MCH 28.0 MCHC 33.7 RDW 14.7 Plt Count 349 MPV 9.0 Absolute Neuts (auto) 11.5 H Neutrophils % 82.3 Neutrophils % (Manual) 84.9 H Band Neutrophils % 0.0 Lymphocytes % 8.7 Lymphocytes % (Manual) 3.0 L D Monocytes % 7.4 Monocytes % (Manual) 8 Eosinophils % 1.2 D Eosinophils % (Manual) 1.0 D Basophils % 0.4 Basophils % (Manual) 0.0 Myelocytes % (Man) 1 D Promyelocytes % (Man) 0 Blast Cells % (Manual) 0 Nucleated RBC % 0 Metamyelocytes 1 D Hypochromia 0 Platelet Estimate Normal Polychromasia 0 Anisocytosis 0 Microcytosis 0 Macrocytosis 0 Sodium Potassium Chloride Carbon Dioxide Anion Gap BUN Creatinine Est GFR (CKD-EPI)AfAm Est GFR (CKD-EPI)NonAf POC Glucometer 243 Random Glucose Calcium Total Bilirubin AST ALT Alkaline Phosphatase Total Protein Albumin Urine Yeast (Auto) U Random Total Protein Urine Creatinine Protein/Creatinin Ratio Random Vancomycin 21.0 07/31/19 07/31/19 07:45 11:51 WBC RBC Hgb Hct MCV MCH MCHC RDW Plt Count MPV Absolute Neuts (auto) Neutrophils % Neutrophils % (Manual) Band Neutrophils % Lymphocytes % Lymphocytes % (Manual) Monocytes % Monocytes % (Manual) Eosinophils % Eosinophils % (Manual) Basophils % Basophils % (Manual) Myelocytes % (Man) Promyelocytes % (Man) Blast Cells % (Manual) Nucleated RBC % Metamyelocytes Hypochromia Platelet Estimate Polychromasia Anisocytosis Microcytosis Macrocytosis Sodium 134 L Potassium 4.5 Chloride 103 Carbon Dioxide 20 L Anion Gap 10 BUN 55.4 H Creatinine 4.0 H Est GFR (CKD-EPI)AfAm 17.79 Est GFR (CKD-EPI)NonAf 15.35 POC Glucometer 174 Random Glucose 220 H Calcium 8.6 Total Bilirubin 0.6 AST 23 ALT 59 Alkaline Phosphatase 194 H Total Protein 6.7 Albumin 2.5 L Urine Yeast (Auto) U Random Total Protein Urine Creatinine Protein/Creatinin Ratio Random Vancomycin Active Medications Generic Name Dose Route Start Last Admin Trade Name Freq PRN Reason Stop Dose Admin Acetaminophen 650 mg 07/31/19 12:01 Tylenol - PO Q6H PRN FEVER Albuterol/Ipratropium 1 amp 07/31/19 12:01 Duoneb - NEB Q6H PRN SHORTNESS OF BREATH Docusate Sodium 100 mg 07/31/19 22:00 Colace - PO BID LENNY Fentanyl 25 mcg 07/31/19 12:01 Sublimaze Injection - IVPUSH [id number] PRN PAIN-PACU ORDER X 4 DOSES ONLY Heparin Sodium (Porcine) 5,000 unit 08/01/19 08:00 Heparin - SQ TID LENNY Metronidazole 500 mg in 100 mls @ 100 mls/hr 07/31/19 18:00 Flagyl 500mg Premixed Ivpb - IVPB Q8H-IV LENNY Sodium Chloride 1,000 mls @ 83 mls/hr 07/31/19 15:45 Normal Saline - IV 08/01/19 15:44 ASDIR LENNY Insulin Aspart 1 vial 07/31/19 16:30 Novolog Vial Sliding Scale - SQ TIDAC [facility] Protocol Insulin Detemir 20 units 07/31/19 22:00 Levemir Vial SQ HS LENNY Ondansetron HCl 4 mg 07/31/19 12:01 Zofran Injection IVPUSH Q6H PRN NAUSEA AND/OR VOMITING Oxycodone HCl 5 mg 07/31/19 12:01 Roxicodone - PO Q6H PRN PAIN 4-6 Polyethylene Glycol 17 gm 08/01/19 10:00 Miralax (For Daily Use) - PO DAILY LENNY ASSESSMENT/PLAN: 58 M PMH significant for DM, HTN, HLD, who presents with gas gangrene of left foot. 1) Gas Gangrene infection of left foot -Patient underwent amputation of the 2nd and 3rd toe of the left foot earlier today. -Patient was receiving vancomycin and zoysn, was stopped due to elevation in Creatinine levels. Patient was on clindamycin, will switch to Cefazolin 1gram QDaily and Flagyl 500 mg Q8H. -Vanc trough showed decreased level of 21, down from 29 yesterday. -Prior final wound cultures grew Staph aureus and Strep Viridians. New cultures collected during procedure today 2)Acute Kidney Injury -Creatinine is 4.1 today -Vancomycin stopped -Normal saline 83 ml/hr overnight 3) Possible Fluid Overload -Follow up echo 4) Diabetes Mellitus -Continue Levemir -Continue Sliding Scale Insulin 5) HTN -Hold home meds 6)HLD -Will discuss diet and exercise goals with patient upon discharge. F: 83 ml NS E: monitor CMP N: Regular Diet DVT prophylaxis: Heparin 5000 unit SQ TID Dispo: Admitted to floors Visit type - Emergency Visit Emergency Visit: Yes ED Registration Date: 07/27/19 Care time: The patient presented to the Emergency Department on the above date and was hospitalized for further evaluation of their emergent condition. - New Patient This patient is new to me today: Yes Date on this admission: 07/31/19 - Critical Care Critical Care patient: No ATTENDING PHYSICIAN STATEMENT I saw and evaluated the patient. I reviewed the resident's note and discussed the case with the resident. I agree with the resident's findings and plan as documented. SUBJECTIVE: OBJECTIVE: ASSESSMENT AND PLAN:
[2019-07-31] MEDS ORDERED: CEFAZOLIN 1 GM in DEXTROSE 5%-WATER - 50 ML IVPB SCH (16:00)
[2019-07-31] MEDS ORDERED: ceFAZolin SODIUM 1 GM VIAL ONE (16:39)
[2019-07-31] MEDS ORDERED: DEXTROSE 5%-WATER - 50 ML IVPB ONE (16:39)
--- NOTE | 2019-07-31 17:22 | ECHO ---
Name: YARELI BAILEY Exam:Adult Echocardiogram Study Date: 07/31/2019 03:19 PM Age: 58 yrs Reason For Study: BACTEREMIA R/O VALVE SEEDING Height: 66 in Weight: 150 lb BSA: 1.8 m2 MMode/2D Measurements & Calculations IVSd: 0.95 cm Ao root diam: 2.7 cm LVIDd: 4.7 cm LA dimension: 3.4 cm LVIDs: 3.3 cm LVPWd: 0.76 cm EDV(Teich): 101.1 ml LVOT diam: 2.1 cm ESV(Teich): 44.7 ml LAV (MOD-bp): 48.0 ml Doppler Measurements & Calculations MV E max joshua: 116.0 cm/sec Ao V2 max: 137.5 cm/sec MV A max joshua: 103.7 cm/sec Ao max P.6 mmHg MV E/A: 1.1 AI P1/2t: 246.4 msec MV dec time: 0.18 sec HERON(V,D): 3.2 cm2 AI max joshua: 384.8 cm/sec LV V1 max P.2 mmHg AI max P.3 mmHg LV V1 max: 124.9 cm/sec AI dec slope: 457.4 cm/sec2 MR max joshua: 376.1 cm/sec TR max joshua: 251.7 cm/sec MR max P.7 mmHg TR max P.7 mmHg PA V2 max: 96.4 cm/sec PI end-d joshua: 118.1 cm/sec PA max P.7 mmHg Med Peak E' Joshua: 5.7 cm/sec Med E/e': 20.3 Lat Peak E' Joshua: 8.0 cm/sec Lat E/e': 14.5 Procedure A complete two-dimensional transthoracic echocardiogram was performed (2D, M-mode, Doppler and color flow Doppler). Left Ventricle The left ventricle is normal in size. Left ventricular systolic function is normal. Ejection Fraction = 55- 60%. Diastolic dysfunction, Grade II (pseudonormalization pattern). Ratio E/E'= 20. No regional wall motion abnormalities noted. Right Ventricle The right ventricle is normal size. The right ventricular systolic function is normal. Atria The left atrial size is normal. LA volume index is 27 ml/m2. Right atrial size is normal. Mitral Valve There is mild mitral valve thickening. There is mild mitral regurgitation. Tricuspid Valve The tricuspid valve is normal in structure and function. There is mild tricuspid regurgitation. Pulmo nary artery systolic pressure is at least 38 mmHg if RA pressure is assumed 3 mmHg. Aortic Valve There is mild aortic sclerosis.;. No aortic regurgitation is present. Pulmonic Valve The pulmonic valve is not well visualized. Trace to mild pulmonic valvular regurgitation. Great Vessels The aortic root is normal size. Pericardium/Pleura There is no pericardial effusion. Interpretation Summary The left ventricle is normal in size. Left ventricular systolic function is normal. No regional wall motion abnormalities noted. Ejection Fraction = 55-60%. Diastolic dysfunction, Grade II (pseudonormalization pattern). Ratio E/E'= 20 The right ventricular systolic function is normal. The left atrial size is normal. There is mild mitral valve thickening. There is mild mitral regurgitation. There is mild tricuspid regurgitation. Pulmonary artery systolic pressure is at least 38 mmHg if RA pressure is assumed 3 mmHg There is mild aortic sclerosis. Trace to mild pulmonic valvular regurgitation. There is no pericardial effusion. Previous study is not available for comparison Julio C Garcia MD 07/31/2019 05:22 PM
[2019-07-31] MEDS ORDERED: CLINDAMYCIN 900 MG PREMIX IVPB 900 MG/50 ML BAG IVPB SCH (18:00)
[2019-07-31] MEDS: INSULIN (LEVEMIR) 100 UNITS/ML UNITS SQ SCH (21:24)
[2019-07-31] MEDS ORDERED: INSULIN (LEVEMIR) 100 UNITS/ML UNITS SQ SCH (22:00)
[2019-08-01] MEDS: INSULIN SLIDING SCALE (NOVOLOG) 1 VIAL SQ SCH ×3 (06:22→17:05)
[2019-08-01] MEDS ORDERED: INSULIN (NOVOLOG) ASPART 100 UNITS/ML 10ML VIAL ONE (06:25)
[2019-08-01] MEDS ORDERED: HEPARIN NA (PORCINE) 5,000 UNITS/ML 1ML VIAL SQ SCH (08:00)
[2019-08-01 08:55] LABS: BASO % 0.1 % (0-2.0); EOS % 1.3 % (0-4.5); HEMOGLOBIN 11.4 GM/dL (11.7-16.9); LYMPH % 8.6 % (8-40); MCH 27.5 pg (25.7-33.7); MCHC 32.5 g/dl (32.0-35.9); MEAN CELL VOLUME 84.6 fl (80-96); MEAN PLT VOLUME 8.9 fl (7.5-11.1); MONO % 8.1 % (3.8-10.2); NEUT % 81.9 % (42.8-82.8); PLATELET COUNT 332 K/MM3 (134-434); RBC 4.14 M/mm3 (4.00-5.60); RDW 14.6 % (11.9-15.9); WHITE BLOOD COUNT 14.2 K/mm3 (4.0-10.0)
[2019-08-01 09:20] LABS: ALBUMIN 2.3 g/dl (3.4-5.0); BILIRUBIN,TOTAL 0.3 mg/dL (0.2-1); BLOOD UREA NITROGEN 51.5 mg/dL (7-18); CALCIUM 8.5 mg/dL (8.5-10.1); CREATININE 3.1 mg/dL (0.55-1.3); POTASSIUM 4.8 mmol/L (3.5-5.1)
[2019-08-01 10:10] LABS: ANISOCYTOSIS 1+; MACROCYTOSIS 0; PLATELET ESTIMATE NORMAL
[2019-08-01] MEDS: HEPARIN NA (PORCINE) 5,000 UNITS/ML 1ML VIAL SQ SCH ×3 (10:18→21:16)
[2019-08-01] MEDS: DOCUSATE SODIUM 100 MG CAPSULE (FP) PO SCH ×2 (10:19→21:16)
[2019-08-01] MEDS: POLYETHYLENE GLYCOL 3350 119 GM BTL PO SCH (10:19)
--- NOTE | 2019-08-01 12:56 | PN ---
Progress Note (short form) - Note Progress Note: Podiatry F/U: Seen/evaluated at bedside NAD. Pain controlled, denies F/V/N/C/SOB/CP. Afebrile. S/p left second and third digit amputation for gas forming infection POD#1. JOHN PAUL: L foot: pedal pulses palpable 2/4, TG warm-warm. There is a post-surgical diabetic ulcer 2nd and 3rd rays with fibrogranular base, regular borders, no purulent drainage, no fluctuance, no soft tissue crepitus, surrounding periwound erythema with mild improvement. No tenderness to palpation. Imp: 58 year old diabetic male s/p left second and third digit amputations for gas-forming infection 1. IV abx per ID 2. Packing removed. Saline irrigation at bedside with saline gauze wet to dry 3. F/u OR cultures 4. Partial WB L heel with surgical shoe 5. Will need wound vac therapy once discharged, 3x/week, home nursing services versus rehab 6. Will follow Cheyenne Gamble DPM
--- NOTE | 2019-08-01 13:10 | PN ---
Progress Note (short form) - Note Progress Note: Renal follow up for EVIE Seen and examined at the bedside awake and alert offers no acute complaints denies any sob, cp, abd pain, fever or chills making urine on IVF Vital Signs Temperature 97.6 F 08/01/19 06:00 Pulse Rate 99 H 08/01/19 10:00 Respiratory Rate 18 08/01/19 10:00 Blood Pressure 174/101 H 08/01/19 10:00 O2 Sat by Pulse Oximetry (%) 97 07/31/19 21:00 Intake & Output 07/29/19 07/30/19 07/31/19 08/01/19 23:59 23:59 23:59 23:59 Intake Total 2180 1080 1616 1270 Output Total 1000 500 430 Balance 0315 613 7119 1270 NAD awake and alert neck supple RRR CTA soft NT/ND no LE edema CBC, BMP 08/01/19 07:18 08/01/19 07:18 Current Medications Acetaminophen (Tylenol -) 650 mg PO Q6H PRN PRN Reason: FEVER Albuterol/Ipratropium (Duoneb -) 1 amp NEB Q6H PRN PRN Reason: SHORTNESS OF BREATH Docusate Sodium (Colace -) 100 mg PO BID [facility] Last Admin: 08/01/19 10:19 Dose: 100 mg Fentanyl (Sublimaze Injection -) 25 mcg IVPUSH [id number] PRN PRN Reason: PAIN-PACU ORDER X 4 DOSES ONLY Heparin Sodium (Porcine) (Heparin -) 5,000 unit SQ TID LENNY Last Admin: 08/01/19 10:18 Dose: 5,000 unit Metronidazole (Flagyl 500mg Premixed Ivpb -) 500 mg in 100 mls @ 100 mls/hr IVPB Q8H-IV LENNY Last Admin: 08/01/19 10:18 Dose: 100 mls/hr Cefazolin Sodium 1 gm/ (Dextrose) 50 mls @ 100 mls/hr IVPB Q24H [facility] Last Admin: 07/31/19 17:00 Dose: 100 mls/hr Sodium Chloride (Normal Saline -) 1,000 mls @ 83 mls/hr IV ASDIR LENNY Insulin Aspart (Novolog Vial Sliding Scale -) 1 vial SQ TIDAC [facility]; Protocol Last Admin: 08/01/19 06:22 Dose: 2 unit Insulin Detemir (Levemir Vial) 20 units SQ HS [facility] Last Admin: 07/31/19 21:24 Dose: 20 units Ondansetron HCl (Zofran Injection) 4 mg IVPUSH Q6H PRN PRN Reason: NAUSEA AND/OR VOMITING Oxycodone HCl (Roxicodone -) 5 mg PO Q6H PRN PRN Reason: PAIN 4-6 Polyethylene Glycol (Miralax (For Daily Use) -) 17 gm PO DAILY [facility] Last Admin: 08/01/19 10:19 Dose: 17 gm 58 year old gentleman with history of DM type 2, hyperlipidemia, hypertension who presented from home with chlls and found to have 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 Acute kidney injury from AIN (Vanco/Zosyn) vs Vancomycin toxicity vs. ATN vs. GN (less likey) 2. Gas gangrene of LE 3. Metabolic acidosis 4. Anemia 5. Leukocytosis 6. IDDM 7. Hx of hypertension Renal function improved today, pt is non-oliguric and no overt electrolyte or acid/base disturbance noted would continue isotonic saline for now as pt does not have evidence of volume overload Continue Cefazolin as per ID Urine studies show FeNa of 1.4% (indeterminate) and urine protein to creatinine ratio of 1.3 indicative of tubular proteinuria. Trend renal function and electrolytes daily. Thank you Ladarius Sosa DO
--- NOTE | 2019-08-01 14:05 | PN ---
Physical Exam: SUBJECTIVE: Patient seen and examined in the morning. Today is POD #1. Was alert and awake, had no acute events overnight. No complaints of chest pain, abdominal pain, or shortness of breath. Turbine Engineer used: [id number]. OBJECTIVE: Vital Signs Period Temp Pulse Resp BP Sys/Corona Pulse Ox Last 24 Hr 97.6 F-98.2 F 57-104 18-18 146-174/83-101 97 GENERAL: The patient is awake, alert, and fully oriented, in no acute distress. HEAD: Normal with no signs of trauma. NECK: Trachea midline, full range of motion, supple. LUNGS: Breath sounds equal, clear to auscultation bilaterally, no wheezes, no crackles, no accessory muscle use. HEART: Regular rate and rhythm, S1, S2 without murmur, rub or gallop. ABDOMEN: Soft, nontender, nondistended, normoactive bowel sounds, no guarding, no rebound. EXTREMITIES: 2+ pulses, warm, well-perfused, no edema. Left foot is still in dressing, no signs of pus or blood on the wound. SKIN: Warm, dry, normal turgor, no rashes or lesions noted Laboratory Results - last 24 hr 07/31/19 07/31/19 08/01/19 16:00 21:22 05:54 WBC RBC Hgb Hct MCV MCH MCHC RDW Plt Count MPV Absolute Neuts (auto) Neutrophils % Neutrophils % (Manual) Band Neutrophils % Lymphocytes % Lymphocytes % (Manual) Monocytes % Monocytes % (Manual) Eosinophils % Eosinophils % (Manual) Basophils % Basophils % (Manual) Myelocytes % (Man) Promyelocytes % (Man) Blast Cells % (Manual) Nucleated RBC % Metamyelocytes Hypochromia Platelet Estimate Polychromasia Poikilocytosis Anisocytosis Microcytosis Macrocytosis Sodium Potassium Chloride Carbon Dioxide Anion Gap BUN Creatinine Est GFR (CKD-EPI)AfAm Est GFR (CKD-EPI)NonAf POC Glucometer 269 233 153 Random Glucose Calcium Total Bilirubin AST ALT Alkaline Phosphatase Total Protein Albumin Random Vancomycin 08/01/19 08/01/19 08/01/19 07:18 07:18 07:18 WBC 14.2 H RBC 4.14 Hgb 11.4 L Hct 35.0 L MCV 84.6 MCH 27.5 MCHC 32.5 RDW 14.6 Plt Count 332 MPV 8.9 Absolute Neuts (auto) 11.7 H Neutrophils % 81.9 Neutrophils % (Manual) 80.0 Band Neutrophils % 1.0 Lymphocytes % 8.6 Lymphocytes % (Manual) 5.0 L D Monocytes % 8.1 Monocytes % (Manual) 7 Eosinophils % 1.3 Eosinophils % (Manual) 1.0 Basophils % 0.1 Basophils % (Manual) 0.0 Myelocytes % (Man) 2 D Promyelocytes % (Man) 0 Blast Cells % (Manual) 0 Nucleated RBC % 0 Metamyelocytes 2 D Hypochromia 0 Platelet Estimate Normal Polychromasia 1+ Poikilocytosis 0 Anisocytosis 1+ Microcytosis 1+ Macrocytosis 0 Sodium 139 Potassium 4.8 Chloride 108 H Carbon Dioxide 22 Anion Gap 8 BUN 51.5 H Creatinine 3.1 H Est GFR (CKD-EPI)AfAm 24.21 Est GFR (CKD-EPI)NonAf 20.89 POC Glucometer Random Glucose 133 H Calcium 8.5 Total Bilirubin 0.3 AST 13 L ALT 37 Alkaline Phosphatase 158 H Total Protein 6.0 L Albumin 2.3 L Random Vancomycin 14.0 L 08/01/19 11:40 WBC RBC Hgb Hct MCV MCH MCHC RDW Plt Count MPV Absolute Neuts (auto) Neutrophils % Neutrophils % (Manual) Band Neutrophils % Lymphocytes % Lymphocytes % (Manual) Monocytes % Monocytes % (Manual) Eosinophils % Eosinophils % (Manual) Basophils % Basophils % (Manual) Myelocytes % (Man) Promyelocytes % (Man) Blast Cells % (Manual) Nucleated RBC % Metamyelocytes Hypochromia Platelet Estimate Polychromasia Poikilocytosis Anisocytosis Microcytosis Macrocytosis Sodium Potassium Chloride Carbon Dioxide Anion Gap BUN Creatinine Est GFR (CKD-EPI)AfAm Est GFR (CKD-EPI)NonAf POC Glucometer 182 Random Glucose Calcium Total Bilirubin AST ALT Alkaline Phosphatase Total Protein Albumin Random Vancomycin Active Medications Generic Name Dose Route Start Last Admin Trade Name Freq PRN Reason Stop Dose Admin Acetaminophen 650 mg 07/31/19 12:01 Tylenol - PO Q6H PRN FEVER Albuterol/Ipratropium 1 amp 07/31/19 12:01 Duoneb - NEB Q6H PRN SHORTNESS OF BREATH Docusate Sodium 100 mg 07/31/19 22:00 08/01/19 10:19 Colace - PO 100 mg BID LENNY Administration Fentanyl 25 mcg 10/21/19 12:01 Sublimaze Injection - IVPUSH [id number] PRN PAIN-PACU ORDER X 4 DOSES ONLY Heparin Sodium (Porcine) 5,000 unit 08/01/19 08:00 08/01/19 10:18 Heparin - SQ 5,000 unit TID LENNY Administration Metronidazole 500 mg in 100 mls @ 100 mls/hr 07/31/19 18:00 08/01/19 10:18 Flagyl 500mg Premixed Ivpb - IVPB 100 mls/hr Q8H-IV LENNY Administration Cefazolin Sodium 1 gm/ 50 mls @ 100 mls/hr 07/31/19 16:00 07/31/19 17:00 Dextrose IVPB 100 mls/hr Q24H LENNY Administration Sodium Chloride 1,000 mls @ 83 mls/hr 08/01/19 12:45 Normal Saline - IV ASDIR LENNY Insulin Aspart 1 vial 07/31/19 16:30 08/01/19 06:22 Novolog Vial Sliding Scale - SQ 2 unit TIDAC LENNY Administration Protocol Insulin Detemir 20 units 07/31/19 22:00 07/31/19 21:24 Levemir Vial SQ 20 units HS LENNY Administration Ondansetron HCl 4 mg 07/31/19 12:01 Zofran Injection IVPUSH Q6H PRN NAUSEA AND/OR VOMITING Oxycodone HCl 5 mg 07/31/19 12:01 Roxicodone - PO Q6H PRN PAIN 4-6 Polyethylene Glycol 17 gm 08/01/19 10:00 08/01/19 10:19 Miralax (For Daily Use) - PO 17 gm DAILY LENNY Administration ASSESSMENT/PLAN: 58 M PMH significant for DM, HTN, HLD, who presents with gas gangrene of left foot. 1) Gas Gangrene infection of left foot -Patient underwent amputation of the 2nd and 3rd toe of the left foot yesterday. -Cefazolin 1gram QDaily and Flagyl 500 mg Q8H. Day 5 of antibiotics. -Prior final wound cultures grew Staph aureus and Strep Viridians. New cultures collected during procedure, gram stain currently shows no organisms. 2)Acute Kidney Injury -Creatinine is 3.1 -Normal saline 83 ml/hr overnight 3) Grade II Diastolic Dysfunction -Echo was completed last night. EF was 55-60%. RV function normal. Patient does not have crackles toady with fluids. Will continue IVF. 4) Diabetes Mellitus -Continue Levemir -Continue Sliding Scale Insulin 5) HTN -Hold home meds 6)HLD -Will discuss diet and exercise goals with patient upon discharge. F: 83 ml NS E: monitor CMP N: Regular Diet DVT prophylaxis: Heparin 5000 unit SQ TID Dispo: Admitted to floors Visit type - Emergency Visit Emergency Visit: Yes ED Registration Date: 07/27/19 Care time: The patient presented to the Emergency Department on the above date and was hospitalized for further evaluation of their emergent condition. - New Patient This patient is new to me today: No - Critical Care Critical Care patient: No ATTENDING PHYSICIAN STATEMENT I saw and evaluated the patient. I reviewed the resident's note and discussed the case with the resident. I agree with the resident's findings and plan as documented. SUBJECTIVE: OBJECTIVE: ASSESSMENT AND PLAN:
[2019-08-01] MEDS: SODIUM CHLORIDE 1,000 ML IV SCH (15:19)
--- NOTE | 2019-08-01 15:55 | PN ---
Progress Note (short form) - Note Progress Note: s/p amputation of 2/3 digits left foot 07/31 no complaints postop dressing change done by podiatry today Vital Signs Period Temp Pulse Resp BP Sys/Corona Pulse Ox Last 24 Hr 97.6 F-98.2 F 57-104 18-18 146-174/83-101 97 cor-rrr lungs clear abd soft,nt ext dressing intact CBC, BMP 08/01/19 07:18 08/01/19 07:18 Microbiology 07/31/19 11:17 Bone Gram Stain - Final 07/31/19 11:17 Bone Tissue Culture - Preliminary Staphylococcus Coagulase Neg Alpha Hemolytic Streptococcus Pending Organism 07/31/19 11:17 Foot - Left Gram Stain - Final 07/31/19 11:17 Foot - Left Wound Culture - Preliminary NO GROWTH OBTAINED AFTER 24 HOURS INCUBATION, REINCUBATED. 07/27/19 19:50 Blood - Peripheral Venous Blood Culture - Preliminary NO GROWTH OBTAINED AFTER 96 HOURS, INCUBATION TO CONTINUE FOR 1 DAYS. 07/27/19 19:50 Blood - Peripheral Venous Blood Culture - Preliminary NO GROWTH OBTAINED AFTER 96 HOURS, INCUBATION TO CONTINUE FOR 1 DAYS. 07/28/19 12:35 Foot - Left Dorsum Gram Stain - Final 07/28/19 12:35 Foot - Left Dorsum Wound Culture - Final Staphylococcus Aureus Streptococcus Viridans 07/28/19 12:34 Foot - Left Dorsum Gram Stain - Final 07/28/19 12:34 Foot - Left Dorsum Wound Culture - Final Staphylococcus Aureus Streptococcus Viridans a/p diabetic foot infection with plantar abscess drained, s/p amputation of toes 2/ 3 pod #1 continue cefazolin/flagyl- incrase cefazolin dose with improving renal function f/u cultures, f/u pathology EVIE- renal sono no obstruction management per renal Problem List - Problems (1) Diabetic foot infection Code(s): E11.628 - TYPE 2 DIABETES MELLITUS WITH OTHER SKIN COMPLICATIONS; L08.9 - LOCAL INFECTION OF THE SKIN AND SUBCUTANEOUS TISSUE, UNSP (2) EVIE (acute kidney injury) Code(s): N17.9 - ACUTE KIDNEY FAILURE, UNSPECIFIED
[2019-08-01] MEDS ORDERED: amLODIPine BESYLATE 5 MG TABLET (FP) PO ONE ×2 (16:54→21:23)
--- NOTE | 2019-08-01 16:55 | PN ---
Teaching Attending Note Name of Resident: Susana Watkins ATTENDING PHYSICIAN STATEMENT I saw and evaluated the patient. I reviewed the resident's note and discussed the case with the resident. I agree with the resident's findings and plan as documented. SUBJECTIVE: Cns Abi [id number] was used . seen at 8 am . No fever or chills. No FRIEDMAN . no pain in L leg and foot . denies difficulty with urination or with breathing. no abd pain . had BM OBJECTIVE: NAD, MMM CV: RRR, 2/6 SM at LLSB Lungs: CTAB . no wheezes or crackles Abd:obese, soft. NT ,Nl BS Ext :L foot in a dressing ( was not removed by surgeon yet ) . was not removed. L leg with 1+ pitting edema , but no erythema. RLE with no edema or erythema ASSESSMENT AND PLAN: 58 y/o man with h//o DM, HTN, HLP, R knee cancer s/p chemoc, sx , and radiation , who presented with erythema on L foot and was found to have cellulitis with gas formation. 1- Gas gangrene of L foot: s/p I&D 07/29 , then amputation of 2nd, and 3rd digits 07/31. - cont cefazolin and flagyl - wound cx with pending organism, to be identified - blood cx neg x 96 hr - echo with no vegetations 2- EVIE : ? AIN due to vanco and zosyn . cr started to improve - tolerated IVF very well and Cr improved - cont IVF - strict I&O - Urine eiosinophils pending 3- DM: cont levemir and cont SSI 4- H/o HTN: hold home losartan and HCTZ due to renal failure -add norvasc Dispo: HLOC
[2019-08-01] MEDS: CEFAZOLIN 1 GM/D5W 1 GM/50 ML BAG IVPB SCH ×2 (17:05→21:15)
[2019-08-01] MEDS: INSULIN (LEVEMIR) 100 UNITS/ML UNITS SQ SCH (21:16)
[2019-08-02] MEDS: INSULIN SLIDING SCALE (NOVOLOG) 1 VIAL SQ SCH ×3 (06:02→16:29)
[2019-08-02] MEDS: SODIUM CHLORIDE 1,000 ML IV SCH ×2 (06:03→20:01)
[2019-08-02 07:52] LABS: BASO % 0.2 % (0-2.0); EOS % 1.9 % (0-4.5); HEMATOCRIT 36.6 % (35.4-49); HEMOGLOBIN 12.1 GM/dL (11.7-16.9); LYMPH % 8.8 % (8-40); MCH 27.8 pg (25.7-33.7); MCHC 32.9 g/dl (32.0-35.9); MEAN CELL VOLUME 84.4 fl (80-96); MEAN PLT VOLUME 8.4 fl (7.5-11.1); MONO % 6.4 % (3.8-10.2); NEUT % 82.7 % (42.8-82.8); PLATELET COUNT 381 K/MM3 (134-434); RBC 4.34 M/mm3 (4.00-5.60); RDW 14.9 % (11.9-15.9); WHITE BLOOD COUNT 12.5 K/mm3 (4.0-10.0)
[2019-08-02 08:23] LABS: ALBUMIN 2.4 g/dl (3.4-5.0); BILIRUBIN,TOTAL 0.3 mg/dL (0.2-1); BLOOD UREA NITROGEN 43.2 mg/dL (7-18); CALCIUM 8.7 mg/dL (8.5-10.1); CREATININE 2.7 mg/dL (0.55-1.3); POTASSIUM 4.8 mmol/L (3.5-5.1); TOT PROT 6.5 g/dl (6.4-8.2)
[2019-08-02] MEDS: DOCUSATE SODIUM 100 MG CAPSULE (FP) PO SCH ×2 (09:58→21:26)
[2019-08-02] MEDS: amLODIPine BESYLATE 5 MG TABLET (FP) PO SCH (09:58)
[2019-08-02] MEDS: CEFAZOLIN 1 GM/D5W 1 GM/50 ML BAG IVPB SCH ×2 (09:58→21:24)
[2019-08-02] MEDS ORDERED: hydrALAZINE HCL 50 MG TABLET (FP) PO SCH (10:00)
[2019-08-02] MEDS ORDERED: LABETALOL HCL 100 MG TABLET (FP) PO SCH (10:00)
[2019-08-02] MEDS ORDERED: amLODIPine BESYLATE 5 MG TABLET (FP) PO SCH (10:00)
[2019-08-02] MEDS ORDERED: hydrALAZINE HCL 50 MG TABLET (FP) PO ONE (10:00)
[2019-08-02] MEDS ORDERED: LABETALOL HCL 100 MG TABLET (FP) PO ONE (10:00)
[2019-08-02] MEDS: POLYETHYLENE GLYCOL 3350 119 GM BTL PO SCH (10:22)
[2019-08-02] MEDS ORDERED: INSULIN (NOVOLOG) ASPART 100 UNITS/ML 10ML VIAL ONE ×2 (12:12→16:53)
[2019-08-02 12:34] LABS: ANISOCYTOSIS 1+; MACROCYTOSIS 0; PLATELET ESTIMATE NORMAL
--- NOTE | 2019-08-02 12:47 | PN ---
Progress Note (short form) - Note Progress Note: Renal follow up for EVIE Seen and examined at the bedside awake and alert offers no acute complaints tolerating oral diet making urine no sob, cp, abd pain, fever or chills Vital Signs Temperature 97.8 F 08/02/19 06:00 Pulse Rate 102 H 08/02/19 06:00 Respiratory Rate 18 08/01/19 22:00 Blood Pressure 153/97 08/02/19 06:00 O2 Sat by Pulse Oximetry (%) 96 08/01/19 21:00 Intake & Output 07/30/19 07/31/19 08/01/19 08/02/19 23:59 23:59 23:59 23:59 Intake Total 1080 1616 2550 1760 Output Total 166 327 1627 600 Balance 580 1967 120 3977 NAD awake and alert neck supple RRR CTA soft NT/ND no LE edema CBC, BMP 08/02/19 07:20 08/02/19 07:20 Current Medications Acetaminophen (Tylenol -) 650 mg PO Q6H PRN PRN Reason: FEVER Albuterol/Ipratropium (Duoneb -) 1 amp NEB Q6H PRN PRN Reason: SHORTNESS OF BREATH Amlodipine Besylate (Norvasc -) 5 mg PO DAILY [facility] Last Admin: 08/02/19 09:58 Dose: 5 mg Docusate Sodium (Colace -) 100 mg PO BID [facility] Last Admin: 08/02/19 09:58 Dose: 100 mg Fentanyl (Sublimaze Injection -) 25 mcg IVPUSH [id number] PRN PRN Reason: PAIN-PACU ORDER X 4 DOSES ONLY Heparin Sodium (Porcine) (Heparin -) 5,000 unit SQ TID [facility] Last Admin: 08/01/19 21:16 Dose: 5,000 unit Hydralazine HCl (Apresoline -) 50 mg PO DAILY [facility] Metronidazole (Flagyl 500mg Premixed Ivpb -) 500 mg in 100 mls @ 100 mls/hr IVPB Q8H-IV [facility] Last Admin: 08/02/19 09:57 Dose: 100 mls/hr Sodium Chloride (Normal Saline -) 1,000 mls @ 83 mls/hr IV ASDIR [facility] Stop: 08/02/19 18:00 Last Admin: 08/02/19 06:03 Dose: 83 mls/hr Cefazolin Sodium (Ancef 1 Gm Premixed Ivpb -) 1 gm in 50 mls @ 100 mls/hr IVPB BID [facility] Last Admin: 08/02/19 09:58 Dose: 100 mls/hr Insulin Aspart (Novolog Vial Sliding Scale -) 1 vial SQ TIDAC [facility]; Protocol Last Admin: 08/02/19 12:14 Dose: 4 unit Insulin Detemir (Levemir Vial) 20 units SQ HS [facility] Last Admin: 08/01/19 21:16 Dose: 20 units Labetalol HCl (Normodyne -) 100 mg PO DAILY [facility] Ondansetron HCl (Zofran Injection) 4 mg IVPUSH Q6H PRN PRN Reason: NAUSEA AND/OR VOMITING Oxycodone HCl (Roxicodone -) 5 mg PO Q6H PRN PRN Reason: PAIN 4-6 Polyethylene Glycol (Miralax (For Daily Use) -) 17 gm PO DAILY [facility] Last Admin: 08/02/19 10:22 Dose: Not Given 58 year old gentleman with history of DM type 2, hyperlipidemia, hypertension who presented from home with chlls and found to have 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 Acute kidney injury from AIN (Vanco/Zosyn) vs Vancomycin toxicity vs. ATN 2. Gas gangrene of LE 3. Metabolic acidosis 4. Anemia 5. Leukocytosis 6. IDDM 7. Hx of hypertension Renal function improving. 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 Would d/c IVF this evening as pt appears to be euvolemic and BP is elevated. Continue Cefazolin as per ID Urine studies show FeNa of 1.4% (indeterminate) and urine protein to creatinine ratio of 1.3 indicative of tubular proteinuria. Trend renal function and electrolytes daily. Continue Labetalol and amlodpine for hypertension. Titrate Labetalol as needed. Would avoid CASSANDRA/ARB as they main impair rate of renal function recovery. Thank you Ladarius Sosa DO
--- NOTE | 2019-08-02 15:07 | PN ---
Progress Note (short form) - Note Progress Note: s/p amputation of 2/3 digits left foot 07/31 no complaints Vital Signs Period Temp Pulse Resp BP Sys/Corona Pulse Ox Last 24 Hr 97.3 F-97.9 F 92-107 18-18 153-181/92-113 96 cor-rrr lungs clear abd soft,nt ext-amputation site with some bloody drainage, no purulence, still some erythema of the dorsum of the foot CBC, BMP 08/02/19 07:20 08/02/19 07:20 Microbiology 07/31/19 11:17 Bone Gram Stain - Final 07/31/19 11:17 Bone Tissue Culture - Preliminary Presumptive Mssa (Pbp2a Neg) Streptococcus Sanguis Ii 07/31/19 11:17 Bone Anaerobic Culture - Final NO ANAEROBES WERE ISOLATED 07/31/19 11:17 Foot - Left Gram Stain - Final 07/31/19 11:17 Foot - Left Wound Culture - Final Presumptive Mssa (Pbp2a Neg) Alpha Hemolytic Streptococcus 07/27/19 19:50 Blood - Peripheral Venous Blood Culture - Final NO GROWTH AFTER 5 DAYS INCUBATION 07/27/19 19:50 Blood - Peripheral Venous Blood Culture - Final NO GROWTH AFTER 5 DAYS INCUBATION 07/28/19 12:35 Foot - Left Dorsum Gram Stain - Final 07/28/19 12:35 Foot - Left Dorsum Wound Culture - Final Staphylococcus Aureus Streptococcus Viridans 07/28/19 12:34 Foot - Left Dorsum Gram Stain - Final 07/28/19 12:34 Foot - Left Dorsum Wound Culture - Final Staphylococcus Aureus Streptococcus Viridans a/p diabetic foot infection with plantar abscess drained, s/p amputation of toes 2/ 3 pod #2-foot improving-repeat crp in am continue cefazolin/flagyl- increase cefazolin dose with improving renal function may need picc line for iv antibioitcs awaiting pathology 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
[2019-08-02] MEDS: HEPARIN NA (PORCINE) 5,000 UNITS/ML 1ML VIAL SQ SCH ×2 (15:27→21:26)
--- NOTE | 2019-08-02 16:41 | PN ---
Physical Exam: SUBJECTIVE: Patient seen and examined in the morning. Today is POD #2. Overnight patient was hypertensive and 5mg norvasc was given. Was alert and awake on exam. No complaints of chest pain, headache, changes in vision, abdominal pain, or shortness of breath. Store Director used: [id number] OBJECTIVE: Vital Signs Period Temp Pulse Resp BP Sys/Corona Pulse Ox Last 24 Hr 97.3 F-97.9 F 92-107 18-20 153-181/92-113 96 GENERAL: The patient is awake, alert, and fully oriented, in no acute distress. HEAD: Normal with no signs of trauma. NECK: Trachea midline, full range of motion, supple. LUNGS: Breath sounds equal, clear to auscultation bilaterally, no wheezes, no crackles, no accessory muscle use. HEART: Regular rate and rhythm, S1, S2 with 2/6 systolic murmur appreciated. ABDOMEN: Soft, nontender, nondistended, normoactive bowel sounds, no guarding, no rebound. EXTREMITIES: 2+ pulses, warm, well-perfused, no edema. Left foot is still in dressing, no signs of pus or blood on the wound. SKIN: Warm, dry, normal turgor, no rashes or lesions noted Laboratory Results - last 24 hr 08/01/19 08/01/19 08/02/19 16:52 21:14 05:53 WBC RBC Hgb Hct MCV MCH MCHC RDW Plt Count MPV Absolute Neuts (auto) Neutrophils % Neutrophils % (Manual) Band Neutrophils % Lymphocytes % Lymphocytes % (Manual) Monocytes % Monocytes % (Manual) Eosinophils % Eosinophils % (Manual) Basophils % Basophils % (Manual) Myelocytes % (Man) Promyelocytes % (Man) Blast Cells % (Manual) Nucleated RBC % Metamyelocytes Hypochromia Platelet Estimate Polychromasia Poikilocytosis Anisocytosis Microcytosis Macrocytosis Sodium Potassium Chloride Carbon Dioxide Anion Gap BUN Creatinine Est GFR (CKD-EPI)AfAm Est GFR (CKD-EPI)NonAf POC Glucometer 187 209 197 Random Glucose Calcium Total Bilirubin AST ALT Alkaline Phosphatase Total Protein Albumin 08/02/19 08/02/19 08/02/19 07:20 07:20 11:25 WBC 12.5 H RBC 4.34 Hgb 12.1 Hct 36.6 MCV 84.4 MCH 27.8 MCHC 32.9 RDW 14.9 Plt Count 381 MPV 8.4 Absolute Neuts (auto) 10.4 H Neutrophils % 82.7 Neutrophils % (Manual) 82.0 Band Neutrophils % 0.0 Lymphocytes % 8.8 Lymphocytes % (Manual) 9.0 D Monocytes % 6.4 Monocytes % (Manual) 6 Eosinophils % 1.9 Eosinophils % (Manual) 2.0 D Basophils % 0.2 Basophils % (Manual) 0.0 Myelocytes % (Man) 1 D Promyelocytes % (Man) 0 Blast Cells % (Manual) 0 Nucleated RBC % 0 Metamyelocytes 0 D Hypochromia 0 Platelet Estimate Normal Polychromasia 0 Poikilocytosis 1+ Anisocytosis 1+ Microcytosis 1+ Macrocytosis 0 Sodium 140 Potassium 4.8 Chloride 110 H Carbon Dioxide 20 L Anion Gap 9 BUN 43.2 H Creatinine 2.7 H Est GFR (CKD-EPI)AfAm 28.61 Est GFR (CKD-EPI)NonAf 24.68 POC Glucometer 222 Random Glucose 212 H Calcium 8.7 Total Bilirubin 0.3 AST 13 L ALT 28 Alkaline Phosphatase 148 H Total Protein 6.5 Albumin 2.4 L Active Medications Generic Name Dose Route Start Last Admin Trade Name Freq PRN Reason Stop Dose Admin Acetaminophen 650 mg 07/31/19 12:01 Tylenol - PO Q6H PRN FEVER Albuterol/Ipratropium 1 amp 07/31/19 12:01 Duoneb - NEB Q6H PRN SHORTNESS OF BREATH Amlodipine Besylate 5 mg 08/02/19 10:00 08/02/19 09:58 Norvasc - PO 5 mg DAILY [facility] Administration Docusate Sodium 100 mg 07/31/19 22:00 08/02/19 09:58 Colace - PO 100 mg BID [facility] Administration Fentanyl 25 mcg 07/31/19 12:01 Sublimaze Injection - IVPUSH [id number] PRN PAIN-PACU ORDER X 4 DOSES ONLY Heparin Sodium (Porcine) 5,000 unit 08/01/19 08:00 08/01/19 21:16 Heparin - SQ 5,000 unit TID [facility] Administration Hydralazine HCl 50 mg 08/02/19 22:00 Apresoline - PO TID [facility] Metronidazole 500 mg in 100 mls @ 100 mls/hr 07/31/19 18:00 08/02/19 09:57 Flagyl 500mg Premixed Ivpb - IVPB 100 mls/hr Q8H-IV [facility] Administration Sodium Chloride 1,000 mls @ 83 mls/hr 08/01/19 12:45 08/02/19 06:03 Normal Saline - IV 08/02/19 18:00 83 mls/hr ASDIR [facility] Administration Cefazolin Sodium 1 gm in 50 mls @ 100 mls/hr 08/01/19 15:56 08/02/19 09:58 Ancef 1 Gm Premixed Ivpb - IVPB 100 mls/hr BID [facility] Administration Insulin Aspart 1 vial 07/31/19 16:30 08/02/19 16:29 Novolog Vial Sliding Scale - SQ Not Given TIDAC [facility] Protocol Insulin Detemir 20 units 07/31/19 22:00 08/01/19 21:16 Levemir Vial SQ 20 units HS [facility] Administration Labetalol HCl 100 mg 08/02/19 22:00 Normodyne - PO BID [facility] Ondansetron HCl 4 mg 07/31/19 12:01 Zofran Injection IVPUSH Q6H PRN NAUSEA AND/OR VOMITING Oxycodone HCl 5 mg 07/31/19 12:01 Roxicodone - PO Q6H PRN PAIN 4-6 Polyethylene Glycol 17 gm 08/01/19 10:00 08/02/19 10:22 Miralax (For Daily Use) - PO Not Given DAILY [facility] ASSESSMENT/PLAN: 58 M PMH significant for DM, HTN, HLD, who presents with gas gangrene of left foot. 1) Gas Gangrene infection of left foot -Patient underwent amputation of the 2nd and 3rd toe of the left foot 2 days ago. -Cefazolin 1gram QDaily and Flagyl 500 mg Q8H. Day 6 of antibiotics. -Prior final wound cultures grew Staph aureus and Strep Viridians. New cultures collected during procedure, gram stain currently shows no organisms. Preliminary culture results show bone and wound growing MSSA and strep viridians. -Following Podiatry recommendations for wound management. 2)Acute Kidney Injury -Creatinine is 2.8, down from 3.1 yesterday. -D/C normal saline. 3) Grade II Diastolic Dysfunction -Echo was completed last night. EF was 55-60%. RV function normal. Patient does not have crackles toady with fluids. Will continue IVF. 4) Diabetes Mellitus -Continue Levemir -Continue Sliding Scale Insulin 5) HTN -Hydralazine 50 mg TID -Labetolol 100 mg BID 6)HLD -Will discuss diet and exercise goals with patient upon discharge. F:No fluids E: monitor CMP N: Regular Diet DVT prophylaxis: Heparin 5000 unit SQ TID Dispo: Admitted to floors Visit type - Emergency Visit Emergency Visit: Yes ED Registration Date: 07/27/19 Care time: The patient presented to the Emergency Department on the above date and was hospitalized for further evaluation of their emergent condition. - New Patient This patient is new to me today: No - Critical Care Critical Care patient: No ATTENDING PHYSICIAN STATEMENT I saw and evaluated the patient. I reviewed the resident's note and discussed the case with the resident. I agree with the resident's findings and plan as documented. SUBJECTIVE: OBJECTIVE: ASSESSMENT AND PLAN:
--- NOTE | 2019-08-02 17:24 | PATH ---
Surgical Pathology Report Patient Name: YARELI BAILEY [facility]. Rec. #: [id number] /Age/Gender: 1960 (Age: 58) / M Account: [id number] Location: [address] [place] [address]/[facility] Taken: 07/31/2019 Received: 07/31/2019 Reported: 08/02/2019 Physicians: Lizzie Joyce M.D. Specimen(s) Received AMPUTATION 2ND AND 3RD LEFT TOES Clinical History Gangrene of left foot, second and third toes Final Diagnosis FOOT, LEFT, SECOND AND THIRD TOE, AMPUTATION: DIGITS WITH MARKED ACUTE AND CHRONIC INFLAMMATION AND GANGRENOUS NECROSIS FOCALLY INVOLVING SOFT TISSUE SURGICAL MARGINS. UNDERLYING BONE WITH ACUTE OSTEOMYELITIS INVOLVING SURGICAL MARGIN. SEPARATELY SUBMITTED PORTIONS OF BONE (2) WITH MILD ACUTE OSTEOMYELITIS. Electronically Signed Susana Weldon M.D. Gross Description Received in formalin labeled "second and third toe of left foot," are 2 attached amputated digits measuring 5.4 x 3.5 x 3.3 cm. The epidermal surface shows a 4.0 x 3.3 x 2.5 cm gangrenous lesion involving both digits extending to soft tissue margin. The lesion involves the underlying bone. Separately received within the same container are 2 unoriented portions of bone measuring 2.2 x 1.2 x 1.2 cm and 1.6 x 1.4 x 1.4 cm. Receiver Dispatcher sections are submitted in 8 cassettes as follows: 1-digit 2 lesion with underlying bone, following decalcification; 2-digit 2 skin and soft tissue margin; 3-digit 2 bone margin, following decalcification; 4-digit 3 lesion with underlying bone, following decalcification; 5-digit 3 skin and soft tissue margin; 6-digit 3 bone margin, following decalcification; 4-0-wbnm-thickness sections of separately received portions of bone, following decalcification. /08/01/201908/01/2019
--- NOTE | 2019-08-02 20:09 | PN ---
Teaching Attending Note Name of Resident: Reginaldo Hicks ATTENDING PHYSICIAN STATEMENT I saw and evaluated the patient. I reviewed the resident's note and discussed the case with the resident. I agree with the resident's findings and plan as documented. SUBJECTIVE: Patient has no new complains, no shortness of breath OBJECTIVE: Vital Signs Temperature 97.1 F L 08/02/19 19:16 Pulse Rate 98 H 08/02/19 19:16 Respiratory Rate 20 08/02/19 19:16 Blood Pressure 151/95 08/02/19 19:16 O2 Sat by Pulse Oximetry (%) 96 08/01/19 21:00 GENERAL: The patient is awake, alert, and fully oriented, in no acute distress. HEAD: Normal with no signs of trauma. EYES: PERRL, extraocular movements intact, sclera anicteric, conjunctiva clear. ENT: Ears normal, oropharynx clear without exudates, moist mucous membranes. NECK: Trachea midline, full range of motion, supple. LUNGS: Breath sounds equal, clear to auscultation bilaterally, no wheezes, no crackles, no accessory muscle use. HEART: Regular rate and rhythm, S1, S2 without murmur, rub or gallop. ABDOMEN: Soft, nontender, nondistended, normoactive bowel sounds, no guarding, no rebound, no hepatosplenomegaly, no masses. EXTREMITIES: 2+ pulses, warm, well-perfused, no edema. NEUROLOGICAL: Cranial nerves II through XII grossly intact. Normal speech, gait not observed. PSYCH: Normal mood, normal affect. SKIN: Warm, dry, normal turgor, no rashes or lesions noted CBCD WBC 12.5 K/mm3 (4.0-10.0) H 08/02/19 07:20 RBC 4.34 M/mm3 (4.00-5.60) 08/02/19 07:20 Hgb 12.1 GM/dL (11.7-16.9) 08/02/19 07:20 Hct 36.6 % (35.4-49) 08/02/19 07:20 MCV 84.4 fl (80-96) 08/02/19 07:20 MCHC 32.9 g/dl (32.0-35.9) 08/02/19 07:20 RDW 14.9 % (11.9-15.9) 08/02/19 07:20 Plt Count 381 K/MM3 (134-434) 08/02/19 07:20 MPV 8.4 fl (7.5-11.1) 08/02/19 07:20 CMP Sodium 140 mmol/L (136-145) 08/02/19 07:20 Potassium 4.8 mmol/L (3.5-5.1) 08/02/19 07:20 Chloride 110 mmol/L (98-107) H 08/02/19 07:20 Carbon Dioxide 20 mmol/L (21-32) L 08/02/19 07:20 Anion Gap 9 MMOL/L (8-16) 08/02/19 07:20 BUN 43.2 mg/dL (7-18) H 08/02/19 07:20 Creatinine 2.7 mg/dL (0.55-1.3) H 08/02/19 07:20 Random Glucose 212 mg/dL (74-106) H 08/02/19 07:20 Calcium 8.7 mg/dL (8.5-10.1) 08/02/19 07:20 Total Bilirubin 0.3 mg/dL (0.2-1) 08/02/19 07:20 AST 13 U/L (15-37) L 08/02/19 07:20 ALT 28 U/L (13-61) 08/02/19 07:20 Alkaline Phosphatase 148 U/L (45-117) H 08/02/19 07:20 Total Protein 6.5 g/dl (6.4-8.2) 08/02/19 07:20 Albumin 2.4 g/dl (3.4-5.0) L 08/02/19 07:20 Current Medications Generic Name Dose Route Start Last Admin Trade Name Freq PRN Reason Stop Dose Admin Acetaminophen 650 mg 07/31/19 12:01 Tylenol - PO Q6H PRN FEVER Albuterol/Ipratropium 1 amp 07/31/19 12:01 Duoneb - NEB Q6H PRN SHORTNESS OF BREATH Amlodipine Besylate 5 mg 08/02/19 10:00 08/02/19 09:58 Norvasc - PO 5 mg DAILY [facility] Administration Docusate Sodium 100 mg 07/31/19 22:00 08/02/19 09:58 Colace - PO 100 mg BID [facility] Administration Fentanyl 25 mcg 07/31/19 12:01 Sublimaze Injection - IVPUSH [id number] PRN PAIN-PACU ORDER X 4 DOSES ONLY Heparin Sodium (Porcine) 5,000 unit 08/01/19 08:00 08/02/19 15:27 Heparin - SQ 5,000 unit TID [facility] Administration Hydralazine HCl 50 mg 08/02/19 22:00 Apresoline - PO TID [facility] Metronidazole 500 mg in 100 mls @ 100 mls/hr 07/31/19 18:00 08/02/19 17:27 Flagyl 500mg Premixed Ivpb - IVPB 100 mls/hr Q8H-IV [facility] Administration Cefazolin Sodium 1 gm in 50 mls @ 100 mls/hr 08/01/19 15:56 08/02/19 09:58 Ancef 1 Gm Premixed Ivpb - IVPB 100 mls/hr BID [facility] Administration Insulin Aspart 1 vial 07/31/19 16:30 08/02/19 16:29 Novolog Vial Sliding Scale - SQ [facility] Insulin Detemir 20 units 07/31/19 22:00 08/01/19 21:16 Levemir Vial SQ 20 units [facility] Administration Labetalol HCl 100 mg 08/02/19 22:00 Normodyne - PO BID [facility] Ondansetron HCl 4 mg 07/31/19 12:01 Zofran Injection IVPUSH Q6H PRN NAUSEA AND/OR VOMITING Oxycodone HCl 5 mg 07/31/19 12:01 Roxicodone - PO Q6H PRN PAIN 4-6 Polyethylene Glycol 17 gm 08/01/19 10:00 08/02/19 10:22 Miralax (For Daily Use) - PO Not Given DAILY [facility] Home Medications Medication Instructions Recorded Hydralazine HCl 50 mg PO TID 07/28/19 Labetalol HCl 100 mg PO BID 07/28/19 Lisinopril [Prinivil -] 40 mg PO DAILY 07/28/19 Microbiology 07/31/19 11:17 Bone Gram Stain - Final 07/31/19 11:17 Bone Tissue Culture - Final Staphylococcus Aureus Streptococcus Sanguis Ii 07/31/19 11:17 Bone Anaerobic Culture - Final NO ANAEROBES WERE ISOLATED 07/31/19 11:17 Foot - Left Gram Stain - Final 07/31/19 11:17 Foot - Left Wound Culture - Final Presumptive Mssa (Pbp2a Neg) Alpha Hemolytic Streptococcus 07/27/19 19:50 Blood - Peripheral Venous Blood Culture - Final NO GROWTH AFTER 5 DAYS INCUBATION 07/27/19 19:50 Blood - Peripheral Venous Blood Culture - Final NO GROWTH AFTER 5 DAYS INCUBATION 07/28/19 12:35 Foot - Left Dorsum Gram Stain - Final 07/28/19 12:35 Foot - Left Dorsum Wound Culture - Final Staphylococcus Aureus Streptococcus Viridans 07/28/19 12:34 Foot - Left Dorsum Gram Stain - Final 07/28/19 12:34 Foot - Left Dorsum Wound Culture - Final Staphylococcus Aureus Streptococcus Viridans ASSESSMENT AND PLAN: Patient is a 58yo man with Omhx of T2DM, HTN, HLP, R knee cancer s/p chemo, sx , and radiation , who presented with erythema on L foot and was found to have cellulitis with gangrenous foot. # Gas gangrene of L foot: s/p I&D 07/29 with amputation of 2nd, and 3rd digits 07/31. cont cefazolin and flagyl - wound cx with pending organism, to be identified , blood cx neg , echo with no vegetations # EVIE : AIN due to vanco and zosyn . cr started to improve, tolerated IVF , improving, cont IVF , - Urine eiosinophils pending # DM: cont levemir and cont SSI # H/o HTN: hold home losartan and HCTZ due to renal failure, continue norvasc
[2019-08-02] MEDS: LABETALOL HCL 100 MG TABLET (FP) PO SCH (21:26)
[2019-08-02] MEDS: INSULIN (LEVEMIR) 100 UNITS/ML UNITS SQ SCH (21:27)
[2019-08-02] MEDS: hydrALAZINE HCL 50 MG TABLET (FP) PO SCH (21:29)
[2019-08-03] MEDS: hydrALAZINE HCL 50 MG TABLET (FP) PO SCH ×3 (05:39→21:55)
[2019-08-03] MEDS: HEPARIN NA (PORCINE) 5,000 UNITS/ML 1ML VIAL SQ SCH ×3 (05:39→21:54)
[2019-08-03] MEDS: INSULIN SLIDING SCALE (NOVOLOG) 1 VIAL SQ SCH ×3 (06:02→16:52)
[2019-08-03 08:14] LABS: BASO % 0.2 % (0-2.0); EOS % 1.3 % (0-4.5); HEMATOCRIT 36.8 % (35.4-49); LYMPH % 7.6 % (8-40); MCH 27.3 pg (25.7-33.7); MCHC 32.5 g/dl (32.0-35.9); MEAN CELL VOLUME 84.1 fl (80-96); MEAN PLT VOLUME 8.8 fl (7.5-11.1); MONO % 6.4 % (3.8-10.2); NEUT % 84.5 % (42.8-82.8); PLATELET COUNT 376 K/MM3 (134-434); RBC 4.38 M/mm3 (4.00-5.60); WHITE BLOOD COUNT 14.2 K/mm3 (4.0-10.0)
[2019-08-03 09:07] LABS: BLOOD UREA NITROGEN 36.9 mg/dL (7-18); CALCIUM 8.4 mg/dL (8.5-10.1); CREATININE 2.4 mg/dL (0.55-1.3); MAGNESIUM 1.9 mg/dL (1.8-2.4); PHOSPHOROUS 4.2 mg/dL (2.5-4.9); POTASSIUM 4.5 mmol/L (3.5-5.1)
[2019-08-03] MEDS ORDERED: INSULIN (NOVOLOG) ASPART 100 UNITS/ML 10ML VIAL ONE (11:08)
--- NOTE | 2019-08-03 11:21 | PN ---
Teaching Attending Note Name of Resident: Reginaldo Hicks ATTENDING PHYSICIAN STATEMENT I saw and evaluated the patient. I reviewed the resident's note and discussed the case with the resident. I agree with the resident's findings and plan as documented. SUBJECTIVE: Patient is comfortable with no acute distress. No nausea or vomiting, no fever or chills. OBJECTIVE: Vital Signs Temperature 98.0 F 08/03/19 10:05 Pulse Rate 99 H 08/03/19 10:05 Respiratory Rate 17 08/03/19 10:05 Blood Pressure 148/88 08/03/19 10:05 O2 Sat by Pulse Oximetry (%) 96 08/02/19 21:00 GENERAL: The patient is awake, alert, and fully oriented, in no acute distress. HEAD: Normal with no signs of trauma. EYES: PERRL, extraocular movements intact, sclera anicteric, conjunctiva clear. ENT: Ears normal, oropharynx clear without exudates, moist mucous membranes. NECK: Trachea midline, full range of motion, supple. LUNGS: Breath sounds equal, clear to auscultation bilaterally, no wheezes, no crackles, no accessory muscle use. HEART: Regular rate and rhythm, S1, S2 without murmur, rub or gallop. ABDOMEN: Soft, nontender, nondistended, normoactive bowel sounds, no guarding, no rebound, no hepatosplenomegaly, no masses. EXTREMITIES: 2+ pulses, warm, well-perfused, no edema. NEUROLOGICAL: Cranial nerves II through XII grossly intact. Normal speech, gait not observed. PSYCH: Normal mood, normal affect. SKIN: Warm, dry, normal turgor, no rashes or lesions noted CBCD WBC 14.2 K/mm3 (4.0-10.0) H 08/03/19 07:30 RBC 4.38 M/mm3 (4.00-5.60) 08/03/19 07:30 Hgb 12.0 GM/dL (11.7-16.9) 08/03/19 07:30 Hct 36.8 % (35.4-49) 08/03/19 07:30 MCV 84.1 fl (80-96) 08/03/19 07:30 MCHC 32.5 g/dl (32.0-35.9) 08/03/19 07:30 RDW 15.0 % (11.9-15.9) 08/03/19 07:30 Plt Count 376 K/MM3 (134-434) 08/03/19 07:30 MPV 8.8 fl (7.5-11.1) 08/03/19 07:30 CMP Sodium 138 mmol/L (136-145) 08/03/19 07:30 Potassium 4.5 mmol/L (3.5-5.1) 08/03/19 07:30 Chloride 109 mmol/L (98-107) H 08/03/19 07:30 Carbon Dioxide 19 mmol/L (21-32) L 08/03/19 07:30 Anion Gap 10 MMOL/L (8-16) 08/03/19 07:30 BUN 36.9 mg/dL (7-18) H 08/03/19 07:30 Creatinine 2.4 mg/dL (0.55-1.3) H 08/03/19 07:30 Random Glucose 191 mg/dL (74-106) H 08/03/19 07:30 Calcium 8.4 mg/dL (8.5-10.1) L 08/03/19 07:30 Total Bilirubin 0.3 mg/dL (0.2-1) 08/02/19 07:20 AST 13 U/L (15-37) L 08/02/19 07:20 ALT 28 U/L (13-61) 08/02/19 07:20 Alkaline Phosphatase 148 U/L (45-117) H 08/02/19 07:20 Total Protein 6.5 g/dl (6.4-8.2) 08/02/19 07:20 Albumin 2.4 g/dl (3.4-5.0) L 08/02/19 07:20 Current Medications Generic Name Dose Route Start Last Admin Trade Name Freq PRN Reason Stop Dose Admin Acetaminophen 650 mg 07/31/19 12:01 Tylenol - PO Q6H PRN FEVER Albuterol/Ipratropium 1 amp 07/31/19 12:01 Duoneb - NEB Q6H PRN SHORTNESS OF BREATH Amlodipine Besylate 5 mg 08/02/19 10:00 08/02/19 09:58 Norvasc - PO 5 mg DAILY LENNY Administration Docusate Sodium 100 mg 07/31/19 22:00 08/02/19 21:26 Colace - PO 100 mg BID [facility] Administration Fentanyl 25 mcg 07/31/19 12:01 Sublimaze Injection - IVPUSH [id number] PRN PAIN-PACU ORDER X 4 DOSES ONLY Heparin Sodium (Porcine) 5,000 unit 08/01/19 08:00 08/03/19 05:39 Heparin - SQ 5,000 unit TID LENNY Administration Hydralazine HCl 50 mg 08/02/19 22:00 08/03/19 05:39 Apresoline - PO 50 mg TID [facility] Administration Metronidazole 500 mg in 100 mls @ 100 mls/hr 07/31/19 18:00 08/03/19 01:03 Flagyl 500mg Premixed Ivpb - IVPB 100 mls/hr Q8H-IV LENNY Administration Cefazolin Sodium 1 gm in 50 mls @ 100 mls/hr 08/01/19 15:56 08/02/19 21:24 Ancef 1 Gm Premixed Ivpb - IVPB 100 mls/hr BID [facility] Administration Insulin Aspart 1 vial 07/31/19 16:30 08/03/19 06:02 Novolog Vial Sliding Scale - SQ 2 unit TIDAC [facility] Administration Protocol Insulin Detemir 20 units 07/31/19 22:00 08/02/19 21:27 Levemir Vial SQ 20 units HS [facility] Administration Labetalol HCl 100 mg 08/02/19 22:00 08/02/19 21:26 Normodyne - PO 100 mg BID [facility] Administration Ondansetron HCl 4 mg 07/31/19 12:01 Zofran Injection IVPUSH Q6H PRN NAUSEA AND/OR VOMITING Oxycodone HCl 5 mg 07/31/19 12:01 Roxicodone - PO Q6H PRN PAIN 4-6 Polyethylene Glycol 17 gm 08/01/19 10:00 08/02/19 10:22 Miralax (For Daily Use) - PO Not Given DAILY [facility] Home Medications Medication Instructions Recorded Hydralazine HCl 50 mg PO TID 07/28/19 Labetalol HCl 100 mg PO BID 07/28/19 Lisinopril [Prinivil -] 40 mg PO DAILY 07/28/19 Microbiology 07/31/19 11:17 Bone Gram Stain - Final 07/31/19 11:17 Bone Tissue Culture - Final Staphylococcus Aureus Streptococcus Sanguis Ii 07/31/19 11:17 Bone Anaerobic Culture - Final NO ANAEROBES WERE ISOLATED 07/31/19 11:17 Foot - Left Gram Stain - Final 07/31/19 11:17 Foot - Left Wound Culture - Final Presumptive Mssa (Pbp2a Neg) Alpha Hemolytic Streptococcus 07/27/19 19:50 Blood - Peripheral Venous Blood Culture - Final NO GROWTH AFTER 5 DAYS INCUBATION 07/27/19 19:50 Blood - Peripheral Venous Blood Culture - Final NO GROWTH AFTER 5 DAYS INCUBATION 07/28/19 12:35 Foot - Left Dorsum Gram Stain - Final 07/28/19 12:35 Foot - Left Dorsum Wound Culture - Final Staphylococcus Aureus Streptococcus Viridans 07/28/19 12:34 Foot - Left Dorsum Gram Stain - Final 07/28/19 12:34 Foot - Left Dorsum Wound Culture - Final Staphylococcus Aureus Streptococcus Viridans ASSESSMENT AND PLAN: Patient is a 58yo man with PMhx of T2DM, HTN, HLP, R knee cancer s/p chemo, sx , and radiation , who presented with erythema on L foot and was found to have cellulitis with gangrenous of left foot. 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 as per ID to continue with home infusion of Rocephin 2gm x 6 weeks s/p cefazolin and flagyl. wound cx as above, blood cx neg , echo with no vegetations # EVIE : AIN due to vanco and zosyn . cr started to improve, tolerated IVF , improving, follow with as an outpatient. Urine eiosinophils pending # DM: cont levemir and cont SSI # H/o HTN: hold home losartan and HCTZ due to renal failure, continue norvasc / hydralazine and labetolol Picc line with Rocephin 2gm daily IV
[2019-08-03 11:32] LABS: ANISOCYTOSIS 1+; MACROCYTOSIS 0; PLATELET ESTIMATE NORMAL
[2019-08-03] MEDS: amLODIPine BESYLATE 5 MG TABLET (FP) PO SCH (11:49)
[2019-08-03] MEDS: DOCUSATE SODIUM 100 MG CAPSULE (FP) PO SCH ×2 (11:49→21:54)
[2019-08-03] MEDS: POLYETHYLENE GLYCOL 3350 119 GM BTL PO SCH (11:49)
[2019-08-03] MEDS: LABETALOL HCL 100 MG TABLET (FP) PO SCH ×2 (11:49→21:55)
--- NOTE | 2019-08-03 13:13 | DS ---
Physical Exam: SUBJECTIVE: Patient seen and examined in the morning. No acute events overnight. No chest pains, shortness of breath, no abdominal pain, no fever, no cough, no pain in the lower extremity. OBJECTIVE: Vital Signs Period Temp Pulse Resp BP Sys/Corona Pulse Ox Last 24 Hr 97.1 F-98.2 F 98-102 17-20 128-154/74-95 96 PHYSICAL EXAM GENERAL: The patient is awake, alert, and fully oriented, in no acute distress. HEAD: Normal with no signs of trauma. EYES: PERRL, extraocular movements intact, sclera anicteric, conjunctiva clear. ENT: Ears normal, nares patent, oropharynx clear without exudates, moist mucous membranes. NECK: Trachea midline, full range of motion, supple. LUNGS: Breath sounds equal, clear to auscultation bilaterally, no wheezes, no crackles, no accessory muscle use. HEART: Regular rate and rhythm, S1, S2 without murmur, rub or gallop. ABDOMEN: Soft, nontender, nondistended, normoactive bowel sounds. EXTREMITIES: Left lower extremity has dressing in place. No bleeding or discharge present on the dressing. NEUROLOGICAL: Cranial nerves II through XII grossly intact LABS Laboratory Results - last 24 hr CBC, BMP 08/03/19 07:30 08/03/19 07:30 Microbiology 07/31/19 11:17 Bone Gram Stain - Final 07/31/19 11:17 Bone Tissue Culture - Final Staphylococcus Aureus Streptococcus Sanguis Ii 07/31/19 11:17 Bone Anaerobic Culture - Final NO ANAEROBES WERE ISOLATED HOSPITAL COURSE: Date of Admission:07/27/19 Date of Discharge: 08/03/19 58M with PMH of Dm, HTN, HLD, who presented with left lower extremity foot pain. Was found to have cellulitis with subcutaneous air in the foot. Podiatry and ID were consulted and podiatry felt urgent debridement was needed after initial foot x-ray was complete. ID started patient on vancomycin and zoysn, with one time dosage of clindamycin. Patient was kept on vancomycin and zosyn for 3 days, until renal function detoriated and creatinine was elevated. Vancomycin was stopped and patient was kpet on zoysn and clindamycin. Podiatry evaluated patient's foot and ruled that his 2nd and 3rd digit on toe would not be salvageable. Patient returned to OR for amputation of 2nd and 3rd toe on left foot on 07/31/19. Procedure was successful and without complication,and patient was started on cefazolin and flagyl. Patient was adequately hydrated through remainder of stay and kept on cefazolin and flagyl until final hospital day. Renal function improved after vancomycin was stopped and patient was determined stable enough to return home after PICC line was inserted to continue outpatient antibiotics: Rocephin 2mg IV Daily x6 weeks. Patient's wound will be managed by via wound vac. Microbiology showed that cultures from both the I&D and amputation showed growth of MSSA and strep viridians and sanguis. Imaging: Left foot X-ray: Soft tissue swelling and air that appears to be posterior to the proximal toes, as described above compatible with clinical history of cellulitis and soft tissue emphysema. If osteomyelitis is clincally considered, further evaluation with MRI would be the study of choice. US Duplex of lower extremities: Showed no signs of significant stenosis or occlusions in vessels in extremities U/S Kidney: negative renal sonogram Echocardiogram: EF: 55-60%, Diastolic dysfunction grade II, mild MR, TR, KS. RV function is normal. Minutes to complete discharge: 35 Discharge Summary Problems reviewed: Yes Reason For Visit: SOFT TISSUE EMPHYSEMA,CELLULITIS Current Active Problems Cellulitis (Acute) Diabetic foot infection (Acute) Condition: Stable - Instructions Diet, Activity, Other Instructions: You were admitted to the hospital due to infection of your left foot, which led to gas being in your foot. While you were here we scanned your foot and saw gas and possible infection which led to us operating on your foot.We operated on your foot and had to amputate the second and third toe on your left foot. While you were here, your kidney function decreased. We managed your kidneys and they have improved but please follow up with the kidney doctor. While you were here you were started on antibiotics. We are continuing you on antibiotics at home, you will be receiving them through a special IV in your arm that lets you take this medicine outside of the hospital. This medication is as follows: Rocephin 2 grams, take daily through the IV line for 6 weeks. Your foot is still healing. In order for it to heal we have given it a special kind of dressing called a Wound-Vac. You will be receiving visiting nurse services to help change the dressing 3 times a week. You should only put weight on the heel of the left foot. If you have worsening pain in your foot, bleeding, new redness, chest pain, shortness of breath, fevers, or worsening of your condition please come back to the Emergency Department. Please continue all your home medications. Follow up with your PCP (Dr. Charles Hand) within 1 week please Referrals: Jaja Hernández MD [Staff Physician] - 1 Week (wound care clinic) Ladarius Sosa MD [Staff Physician] - 1 Week Disposition: HOME - Home Medications Comprehensive Discharge Medication List: Ambulatory Orders Hydralazine HCl 50 mg PO TID 07/28/19 Labetalol HCl 100 mg PO BID 07/28/19 Lisinopril [Prinivil -] 40 mg PO DAILY 07/28/19 Ceftriaxone [Rocephin -] 1 gm IVPB DAILY #42 vial 08/03/19 This patient is new to me today: No Emergency Visit: Yes ED Registration Date: 07/27/19 Care time: The patient presented to the Emergency Department on the above date and was hospitalized for further evaluation of their emergent condition. Critical Care patient: No - Discharge Referral Referred to [facility] Med P.C.: No ATTENDING PHYSICIAN STATEMENT I saw and evaluated the patient. I reviewed the resident's note and discussed the case with the resident. I agree with the resident's findings and plan as documented. SUBJECTIVE: OBJECTIVE: ASSESSMENT AND PLAN:
[2019-08-03] MEDS: CEFAZOLIN 1 GM/D5W 1 GM/50 ML BAG IVPB SCH (14:37)
[2019-08-03] MEDS: SODIUM BICARBONATE 650 MG TABLET PO SCH (14:37)
--- NOTE | 2019-08-03 14:51 | PN ---
Progress Note (short form) - Note Progress Note: Renal follow up for EVIE Seen and examined at the bedside awake and alert offers no acute complaints feels better making urine Vital Signs Temperature 97.3 F L 08/03/19 14:08 Pulse Rate 94 H 08/03/19 14:08 Respiratory Rate 17 08/03/19 10:05 Blood Pressure 158/91 08/03/19 14:08 O2 Sat by Pulse Oximetry (%) 97 08/03/19 10:05 Intake & Output 07/31/19 08/01/19 08/02/19 08/03/19 23:59 23:59 23:59 23:59 Intake Total 1616 2550 2160 1846 Output Total 430 1600 600 Balance 6269 148 3131 1846 NAD awake and alert neck supple RRR CTA soft NT/ND no LE edema CBC, BMP 08/03/19 07:30 08/03/19 07:30 Current Medications Acetaminophen (Tylenol -) 650 mg PO Q6H PRN PRN Reason: FEVER Albuterol/Ipratropium (Duoneb -) 1 amp NEB Q6H PRN PRN Reason: SHORTNESS OF BREATH Amlodipine Besylate (Norvasc -) 5 mg PO DAILY [facility] Last Admin: 08/03/19 11:49 Dose: 5 mg Docusate Sodium (Colace -) 100 mg PO BID [facility] Last Admin: 08/03/19 11:49 Dose: 100 mg Fentanyl (Sublimaze Injection -) 25 mcg IVPUSH [id number] PRN PRN Reason: PAIN-PACU ORDER X 4 DOSES ONLY Heparin Sodium (Porcine) (Heparin -) 5,000 unit SQ TID [facility] Last Admin: 08/03/19 05:39 Dose: 5,000 unit Hydralazine HCl (Apresoline -) 50 mg PO TID [facility] Last Admin: 08/03/19 14:37 Dose: 50 mg Metronidazole (Flagyl 500mg Premixed Ivpb -) 500 mg in 100 mls @ 100 mls/hr IVPB Q8H-IV [facility] Last Admin: 08/03/19 13:49 Dose: 100 mls/hr Cefazolin Sodium (Ancef 1 Gm Premixed Ivpb -) 1 gm in 50 mls @ 100 mls/hr IVPB BID [facility] Last Admin: 08/03/19 14:37 Dose: 100 mls/hr Insulin Aspart (Novolog Vial Sliding Scale -) 1 vial SQ TIDAC [facility]; Protocol Last Admin: 08/03/19 11:49 Dose: 2 unit Insulin Detemir (Levemir Vial) 20 units SQ HS [facility] Last Admin: 08/02/19 21:27 Dose: 20 units Labetalol HCl (Normodyne -) 100 mg PO BID [facility] Last Admin: 08/03/19 11:49 Dose: 100 mg Ondansetron HCl (Zofran Injection) 4 mg IVPUSH Q6H PRN PRN Reason: NAUSEA AND/OR VOMITING Polyethylene Glycol (Miralax (For Daily Use) -) 17 gm PO DAILY [facility] Last Admin: 08/03/19 11:49 Dose: Not Given Sodium Bicarbonate (Sodium Bicarbonate -) 650 mg PO DAILY [facility] Last Admin: 08/03/19 14:37 Dose: 650 mg 58 year old gentleman with history of DM type 2, hyperlipidemia, hypertension who presented from home with chlls and found to have 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 Acute kidney injury from Vancomycin toxicity vs. ATN 2. Gas gangrene of LE 3. Metabolic acidosis 4. Anemia 5. Leukocytosis 6. IDDM 7. Hx of hypertension Renal function improving. 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 BP improved off IVF Continue Cefazolin as per ID Urine studies show FeNa of 1.4% (indeterminate) and urine protein to creatinine ratio of 1.3 indicative of tubular proteinuria. Trend renal function and electrolytes daily. Continue Labetalol and amlodpine for hypertension. Titrate Labetalol as needed. Would avoid CASSANDRA/ARB as they main impair rate of renal function recovery. stable for discharge with outpatient follow up for recovery of renal function Thank you Ladarius Sosa DO
[2019-08-03] MEDS: SODIUM CHLORIDE 1,000 ML IV SCH (16:42)
--- NOTE | 2019-08-03 17:11 | PN ---
Progress Note (short form) - Note Progress Note: s/p amputation of 2/3 digits left foot 07/31 no complaints picc line placed today Vital Signs Period Temp Pulse Resp BP Sys/Corona Pulse Ox Last 24 Hr 97.1 F-98.2 F 94-102 17-20 128-158/74-95 96-97 cor-rrr lungs clear abd soft,nt ext dressing intact CBC, BMP 08/03/19 07:30 08/03/19 07:30 Laboratory Tests 07/30/19 07/31/19 08/03/19 06:45 07:45 07:30 C-Reactive Protein 4.0 H Random Vancomycin 29.7 H 21.0 Microbiology 07/31/19 11:17 Bone Gram Stain - Final 07/31/19 11:17 Bone Tissue Culture - Final Staphylococcus Aureus Streptococcus Sanguis Ii 07/31/19 11:17 Bone Anaerobic Culture - Final NO ANAEROBES WERE ISOLATED 07/31/19 11:17 Foot - Left Gram Stain - Final 07/31/19 11:17 Foot - Left Wound Culture - Final Presumptive Mssa (Pbp2a Neg) Alpha Hemolytic Streptococcus 07/27/19 19:50 Blood - Peripheral Venous Blood Culture - Final NO GROWTH AFTER 5 DAYS INCUBATION 07/27/19 19:50 Blood - Peripheral Venous Blood Culture - Final NO GROWTH AFTER 5 DAYS INCUBATION 07/28/19 12:35 Foot - Left Dorsum Gram Stain - Final 07/28/19 12:35 Foot - Left Dorsum Wound Culture - Final Staphylococcus Aureus Streptococcus Viridans 07/28/19 12:34 Foot - Left Dorsum Gram Stain - Final 07/28/19 12:34 Foot - Left Dorsum Wound Culture - Final Staphylococcus Aureus Streptococcus Viridans a/p diabetic foot infection with plantar abscess drained, s/p amputation of toes 2/ 3 pod #3-foot improving- pathology with positive margins plan for 6 weeks of rocephin via picc line prescriptions 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
[2019-08-03] MEDS ORDERED: CEFAZOLIN 1 GM in DEXTROSE 5%-WATER - 50 ML IVPB SCH (20:00)
[2019-08-03] MEDS: ONDANSETRON 4 MG/2 ML VIAL IVPUSH PRN (21:54)
[2019-08-03] MEDS: INSULIN (LEVEMIR) 100 UNITS/ML UNITS SQ SCH (21:55)
[2019-08-03] MEDS ORDERED: DEXTROSE 5%-WATER - 50 ML IVPB ONE (22:05)
[2019-08-03] MEDS ORDERED: ceFAZolin SODIUM 1 GM VIAL ONE (22:05)
[2019-08-03] MEDS: CEFAZOLIN 1 GM in DEXTROSE 5%-WATER - 50 ML IVPB SCH (22:16)
[2019-08-04 00:42] LABS: BASO % 0.2 % (0-2.0); EOS % 0.9 % (0-4.5); HEMATOCRIT 37.7 % (35.4-49); HEMOGLOBIN 12.1 GM/dL (11.7-16.9); LYMPH % 6.9 % (8-40); MCH 27.1 pg (25.7-33.7); MCHC 32.1 g/dl (32.0-35.9); MEAN CELL VOLUME 84.5 fl (80-96); MEAN PLT VOLUME 8.8 fl (7.5-11.1); MONO % 5.2 % (3.8-10.2); NEUT % 86.8 % (42.8-82.8); PLATELET COUNT 413 K/MM3 (134-434); RBC 4.46 M/mm3 (4.00-5.60); RDW 15.1 % (11.9-15.9); WHITE BLOOD COUNT 15.9 K/mm3 (4.0-10.0)
[2019-08-04] MEDS: LACTATED RINGERS SOLUTION 1,000 ML/1,000 ML INFUS.BAG IV SCH (00:42)
[2019-08-04] MEDS: PANTOPRAZOLE SODIUM 40 MG VIAL IVPUSH SCH ×3 (00:42→22:02)
--- NOTE | 2019-08-04 01:24 | PN ---
Progress Note (short form) - Note Progress Note: received a page from nursing staff around 12am that Mr. Segovia was vomiting despite treatment with IV zofran. On exam the patient was tachycardic to 107 and had a blood pressure of 159/84, he had normal bowel sounds, nontender to palpation in all quadrants, no rebound, no guarding, rectal exam without any devante blood normal tone, no masses. The patient was vomiting and the vomitous appeared dark brown/ maroon. Stat CBC sent which was stable. LR@ 100cc/hr started in addition to 40 IVpush started. FOBT sent.
[2019-08-04] MEDS ORDERED: DEXTROSE 5%-WATER - 50 ML IVPB ONE (05:27)
[2019-08-04] MEDS ORDERED: ceFAZolin SODIUM 1 GM VIAL ONE (05:27)
[2019-08-04] MEDS: CEFAZOLIN 1 GM in DEXTROSE 5%-WATER - 50 ML IVPB SCH (05:31)
[2019-08-04] MEDS: hydrALAZINE HCL 50 MG TABLET (FP) PO SCH ×3 (05:32→22:01)
[2019-08-04] MEDS: HEPARIN NA (PORCINE) 5,000 UNITS/ML 1ML VIAL SQ SCH ×2 (05:32→05:34)
[2019-08-04] MEDS: INSULIN SLIDING SCALE (NOVOLOG) 1 VIAL SQ SCH ×3 (06:04→17:54)
[2019-08-04 08:03] LABS: BASO % 0.3 % (0-2.0); EOS % 0.2 % (0-4.5); HEMOGLOBIN 11.7 GM/dL (11.7-16.9); MCH 26.7 pg (25.7-33.7); MCHC 31.5 g/dl (32.0-35.9); MEAN CELL VOLUME 84.7 fl (80-96); MEAN PLT VOLUME 8.5 fl (7.5-11.1); MONO % 3.3 % (3.8-10.2); NEUT % 91.2 % (42.8-82.8); PLATELET COUNT 411 K/MM3 (134-434); RBC 4.37 M/mm3 (4.00-5.60); RDW 14.7 % (11.9-15.9); WHITE BLOOD COUNT 17.4 K/mm3 (4.0-10.0)
[2019-08-04 08:25] LABS: INR 1.15 (0.83-1.09); PROTHROMBIN TIME (PATIENT) 13.6 SEC (9.7-13.0)
[2019-08-04 08:28] LABS: ACTIVATED PTT 42.7 SECONDS (25.2-36.5)
[2019-08-04] MEDS ORDERED: CEFTRIAXONE 2 GM in DEXTROSE 5%-WATER 100 ML IVPB SCH (10:00)
[2019-08-04] MEDS ORDERED: DEXTROSE 5%-WATER 100 ML IVPB ONE (10:40)
[2019-08-04] MEDS: DOCUSATE SODIUM 100 MG CAPSULE (FP) PO SCH ×2 (10:47→22:01)
[2019-08-04] MEDS: POLYETHYLENE GLYCOL 3350 119 GM BTL PO SCH (10:47)
[2019-08-04] MEDS: amLODIPine BESYLATE 5 MG TABLET (FP) PO SCH (10:49)
[2019-08-04] MEDS: SODIUM BICARBONATE 650 MG TABLET PO SCH (10:49)
[2019-08-04] MEDS: LABETALOL HCL 100 MG TABLET (FP) PO SCH ×2 (10:49→22:02)
--- NOTE | 2019-08-04 11:09 | CON.GI ---
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 States that he had "vomiting all night of black and white liquid". There was no devante hematemsis, no melena reported. He denies alcohol use or prior history of liver disease He denies similar episodes in the past, No vomiting today. Still nauseaous. States that he had an EGD and Colonoscopy 3 years ago at [facility], however in review of the [facility] system, I cannot find records of this. There is no family history of colorectal cancer or other GI malignancy. He denies abdominal pain. WBC is increasing and rectal temp during my evaluation today was 99.3. He is tachycardic but has been so for several days. - Past Medical History Cardio/Vascular: Yes: HTN, Hyperlipdemia Heme/Onc: Yes: Other (Cancer of right foot for which he describes undergoing radiation therapy) Endocrine: Yes: Diabetes Mellitus (DM II) - Past Surgical History Additional Surgical History: Left foot I&D - Alcohol/Substance Use Hx Alcohol Use: No - Smoking History Smoking history: Never smoked Have you smoked in the past 12 months: No Aproximately how many cigarettes per day: 0 - Social History Usual Living Arrangement: Alone () ADL: Independent Occupation: Disabled Place of : Other ([facility]) Came to [place] (year): 1995 History of Recent Travel: No Home Medications - Allergies Allergies/Adverse Reactions: Allergies Allergy/AdvReac Type Severity Reaction Status Date / Time No Known Allergies Allergy Verified 06/06/15 13:47 - Home Medications Home Medications: Ambulatory Orders Amlodipine Besylate [Norvasc -] 5 mg PO DAILY #30 tablet 08/03/19 Atorvastatin Ca [Lipitor] 1 tab PO DAILY 08/03/19 Ceftriaxone [Rocephin -] 2 gm IVPB DAILY vial 08/03/19 Ceftriaxone [Rocephin 2Gm Ivpb (Pre-Docked)] 2 gm IVPB DAILY #42 vial 08/03/19 Docusate Sodium [Colace -] 100 mg PO BID capsule 08/03/19 Insulin (Levemir) [Levemir Vial] 20 units SQ HS #100 units 08/03/19 Insulin Glargine,Hum.rec.anlog [Basaglar Kwikpen U-100] 40 units SQ AM 08/03/19 Labetalol HCl [Normodyne -] 100 mg PO BID #60 tablet 08/03/19 Lisinopril [Prinivil -] 40 mg PO DAILY 08/03/19 Polyethylene Glycol 3350 [Miralax 119 gm Btl -] 17 gm PO DAILY bottle 08/03/19 Sitagliptin Phos/Metformin HCl [Janumet 50-1,000 mg Tablet] 1 tab PO BID [facility] Solostar 30 units SQ HS 08/03/19 hydrALAZINE HCL [Apresoline -] 50 mg PO TID #90 tablet 08/03/19 Family Medical History Other Family History: Father: : "Pancreatic problem". Mother: : Brain tumors. 5 sisters, 4 brothers: Healthy. No children. No family history of colorectal cancer or other GI malignancy Review of Systems - Review of Systems Cardiovascular: denies: Chest Pain Respiratory: denies: SOB Gastrointestinal: reports: Nausea, Vomiting. denies: Abdominal Pain, Diarrhea, Vomiting Blood Musculoskeletal: reports: Other (foot pain) Physical Exam-GI Vital Signs: Vital Signs Temperature 99.3 F L 08/03/19 1100 Pulse Rate 104 H 08/03/19 1100 Respiratory Rate 17 08/03/19 1100 Blood Pressure 148/95 08/03/19 1100 O2 Sat by Pulse Oximetry (%) 97 08/03/19 1100 Constitutional: Yes: Calm Eyes: No: Sclera Icterus Cardiovascular: Yes: Tachycardia (regular rhythm). No: Murmur Respiratory: Yes: CTA Bilaterally Gastrointestinal Inspection: No: Hernia ...Auscultate: Yes: Normoactive Bowel Sounds ...Palpate: Yes: Soft. No: Hepatomegaly, Splenomegaly, Tenderness ...Rectal Exam: Yes: Other (No external lesions, no masses, scant brown stool, guaiac negative. No blood/melena) Edema: No (No LE edema) Neurological: Yes: Alert Labs: CBC, BMP 08/04/19 07:45 INR, PTT INR 1.15 (0.83-1.09) H 08/04/19 07:45 Problem List - Problems (1) Vomiting Assessment/Plan: Patient tachycardic but has been so for multiple days. Also, with rising WBC and rectal temp 99.3, I question if a systemic process is brewing, such as infection of his left foot, leading to his nausea and vomiting. ? if the vomiting was related to any sedation that was given during his tunnel catheter placement. Advise: Clear liquid diet Protonix 40mg IVPB BID Repeat CBC ordered for 12 noon today Ordered FUA to evaluate for ileus ID reevealuating patient If overt bleeding, dropping H/H, I did discuss upper endoscopy to exclude upper GI source of bleeding. Discussed potential risks of the procedure like but not limited to bleeding, perforation requiring surgery to repair, infection, sedation medication effects all of which could be potentially life threatening. He has agreed to the procedure if it was necessary. Code(s): R11.10 - VOMITING, UNSPECIFIED
[2019-08-04 11:17] LABS: BLOOD UREA NITROGEN 31.5 mg/dL (7-18); CALCIUM 8.5 mg/dL (8.5-10.1); CREATININE 2.3 mg/dL (0.55-1.3); POTASSIUM 4.3 mmol/L (3.5-5.1)
--- NOTE | 2019-08-04 11:28 | PN ---
Physical Exam: SUBJECTIVE: Patient seen and examined in the morning. Today is POD #4. Overnight patient had multiple episodes of emesis, with one episode of hematemesis. Patient complains of nausea in the morning during conversation with examiner. No complaints of abdominal pain, no hematochezia, no diarrhea, no fever, no chest pain,no shortness of breath. Validation Architect number [id number] OBJECTIVE: Vital Signs Period Temp Pulse Resp BP Sys/Corona Pulse Ox Last 24 Hr 97.2 F-97.3 F 94-104 17-19 148-158/91-95 97 GENERAL: The patient is awake, alert, and fully oriented, in no acute distress. HEAD: Normal with no signs of trauma. NECK: Trachea midline, full range of motion, supple. LUNGS: Breath sounds equal, clear to auscultation bilaterally, no wheezes, no crackles, no accessory muscle use. HEART: Regular rate and rhythm, S1, S2 without murmur, rub or gallop. ABDOMEN: Soft, non tender. Normoactive bowel sounds. No guarding or rebound. EXTREMITIES: 2+ pulses, warm, well-perfused, no edema. Left foot has clean dressing on, no signs of bleeding or pus. NEUROLOGICAL: Cranial nerves II through XII grossly intact. Normal speech, gait not observed. Laboratory Results - last 24 hr 08/03/19 08/03/19 08/03/19 07:30 11:47 16:48 WBC RBC Hgb Hct MCV MCH MCHC RDW Plt Count MPV Absolute Neuts (auto) Total Counted Neutrophils % Neutrophils % (Manual) 77.2 Band Neutrophils % 0.0 Lymphocytes % Lymphocytes % (Manual) 7.9 L Monocytes % Monocytes % (Manual) 6 Eosinophils % Eosinophils % (Manual) 1.0 Basophils % Basophils % (Manual) 0.0 Myelocytes % (Man) 4 H D Promyelocytes % (Man) 0 Blast Cells % (Manual) 0 Nucleated RBC % Metamyelocytes 1 D Hypochromia 0 Platelet Estimate Normal Polychromasia 0 Anisocytosis 1+ Microcytosis 1+ Macrocytosis 0 PT with INR INR PTT (Actin FS) Sodium Potassium Chloride Carbon Dioxide Anion Gap BUN Creatinine Est GFR (CKD-EPI)AfAm Est GFR (CKD-EPI)NonAf POC Glucometer 199 207 Random Glucose Calcium Gastric Occult Blood Stool Occult Blood 08/04/19 08/04/19 08/04/19 00:22 04:30 04:30 WBC 15.9 H RBC 4.46 Hgb 12.1 Hct 37.7 MCV 84.5 MCH 27.1 MCHC 32.1 RDW 15.1 Plt Count 413 MPV 8.8 Absolute Neuts (auto) 13.8 H Total Counted 100 Neutrophils % 86.8 H Neutrophils % (Manual) 90.0 H Band Neutrophils % 2.0 Lymphocytes % 6.9 L Lymphocytes % (Manual) 5.0 L D Monocytes % 5.2 Monocytes % (Manual) 3 L Eosinophils % 0.9 Eosinophils % (Manual) 0.0 D Basophils % 0.2 Basophils % (Manual) 0.0 Myelocytes % (Man) 0 D Promyelocytes % (Man) 0 Blast Cells % (Manual) 0 Nucleated RBC % 0 Metamyelocytes 0 D Hypochromia Platelet Estimate Polychromasia Anisocytosis Microcytosis Macrocytosis PT with INR INR PTT (Actin FS) Sodium Potassium Chloride Carbon Dioxide Anion Gap BUN Creatinine Est GFR (CKD-EPI)AfAm Est GFR (CKD-EPI)NonAf POC Glucometer Random Glucose Calcium Gastric Occult Blood Moderate Stool Occult Blood Negative 08/04/19 08/04/19 08/04/19 05:52 07:45 07:45 WBC 17.4 H RBC 4.37 Hgb 11.7 Hct 37.0 MCV 84.7 MCH 26.7 MCHC 31.5 L RDW 14.7 Plt Count 411 MPV 8.5 Absolute Neuts (auto) 15.9 H Total Counted Neutrophils % 91.2 H Neutrophils % (Manual) Band Neutrophils % Lymphocytes % 5.0 L D Lymphocytes % (Manual) Monocytes % 3.3 L Monocytes % (Manual) Eosinophils % 0.2 Eosinophils % (Manual) Basophils % 0.3 Basophils % (Manual) Myelocytes % (Man) Promyelocytes % (Man) Blast Cells % (Manual) Nucleated RBC % 0 Metamyelocytes Hypochromia Platelet Estimate Polychromasia Anisocytosis Microcytosis Macrocytosis PT with INR 13.60 H INR 1.15 H PTT (Actin FS) 42.7 H Sodium Potassium Chloride Carbon Dioxide Anion Gap BUN Creatinine Est GFR (CKD-EPI)AfAm Est GFR (CKD-EPI)NonAf POC Glucometer 246 Random Glucose Calcium Gastric Occult Blood Stool Occult Blood 08/04/19 10:23 WBC RBC Hgb Hct MCV MCH MCHC RDW Plt Count MPV Absolute Neuts (auto) Total Counted Neutrophils % Neutrophils % (Manual) Band Neutrophils % Lymphocytes % Lymphocytes % (Manual) Monocytes % Monocytes % (Manual) Eosinophils % Eosinophils % (Manual) Basophils % Basophils % (Manual) Myelocytes % (Man) Promyelocytes % (Man) Blast Cells % (Manual) Nucleated RBC % Metamyelocytes Hypochromia Platelet Estimate Polychromasia Anisocytosis Microcytosis Macrocytosis PT with INR INR PTT (Actin FS) Sodium 140 Potassium 4.3 Chloride 108 H Carbon Dioxide 20 L Anion Gap 12 BUN 31.5 H Creatinine 2.3 H Est GFR (CKD-EPI)AfAm 34.73 Est GFR (CKD-EPI)NonAf 29.96 POC Glucometer Random Glucose 193 H Calcium 8.5 Gastric Occult Blood Stool Occult Blood Active Medications Generic Name Dose Route Start Last Admin Trade Name Freq PRN Reason Stop Dose Admin Acetaminophen 650 mg 07/31/19 12:01 Tylenol - PO Q6H PRN FEVER Albuterol/Ipratropium 1 amp 07/31/19 12:01 Duoneb - NEB Q6H PRN SHORTNESS OF BREATH Amlodipine Besylate 5 mg 08/02/19 10:00 08/04/19 10:49 Norvasc - PO 5 mg DAILY [facility] Administration Docusate Sodium 100 mg 07/31/19 22:00 08/04/19 10:47 Colace - PO Not Given BID [facility] Fentanyl 25 mcg 07/31/19 12:01 Sublimaze Injection - IVPUSH [id number] PRN PAIN-PACU ORDER X 4 DOSES ONLY Hydralazine HCl 50 mg 08/02/19 22:00 08/04/19 05:32 Apresoline - PO 50 mg TID [facility] Administration Ceftriaxone Sodium 2 gm/ 100 mls @ 200 mls/hr 08/04/19 10:00 08/04/19 10:49 Dextrose IVPB 200 mls/hr DAILY [facility] Administration Protocol Lactated Ringer's 1,000 ml in 1,000 mls @ 100 mls/hr 08/04/19 00:30 08/04/19 00:42 Lactated Ringers Solution IV 100 mls/hr ASDIR [facility] Administration Insulin Aspart 1 vial 07/31/19 16:30 08/04/19 06:04 Novolog Vial Sliding Scale - SQ 4 unit TIDAC [facility] Administration Protocol Insulin Detemir 20 units 07/31/19 22:00 08/03/19 21:55 Levemir Vial SQ 20 units HS [facility] Administration Labetalol HCl 100 mg 08/02/19 22:00 08/04/19 10:49 Normodyne - PO 100 mg BID [facility] Administration Ondansetron HCl 4 mg 07/31/19 12:01 08/03/19 21:54 Zofran Injection IVPUSH 4 mg Q6H PRN Administration NAUSEA AND/OR VOMITING Pantoprazole Sodium 40 mg 08/04/19 00:30 08/04/19 10:49 Protonix Iv IVPUSH 40 mg BID [facility] Administration Polyethylene Glycol 17 gm 08/01/19 10:00 08/04/19 10:47 Miralax (For Daily Use) - PO Not Given DAILY [facility] Sodium Bicarbonate 650 mg 08/03/19 14:00 08/04/19 10:49 Sodium Bicarbonate - PO 650 mg DAILY [facility] Administration ASSESSMENT/PLAN: 58 M PMH significant for DM, HTN, HLD, who presents with gas gangrene of left foot. 1) Gas Gangrene infection of left foot -Patient underwent amputation of the 2nd and 3rd toe of the left foot 2 days ago. -ID following, Appreciate rec's -Cefazolin 1gram QDaily and Flagyl 500 mg Q8H. Day 7 of antibiotics. -Prior final wound cultures grew Staph aureus and Strep Viridians. New cultures collected during procedure, gram stain currently shows no organisms. Preliminary culture results show bone and wound growing MSSA and strep viridians. -Following Podiatry recommendations for wound management. 2) Episode of Hematemesis -Rectal exam was negative for occult blood -Appreciate GI rec's, miralax on board. -Abdominal X-Ray showed possible focal ileus, pneumatosis is not seen, soft tissues are intact. -Protonix 40 mg IV Qdaily. 3)Acute Kidney Injury -Creatinine is 2.3, down from 3.1 yesterday. -D/C normal saline. 3) Grade II Diastolic Dysfunction -Echo was completed last night. EF was 55-60%. RV function normal. Patient does not have crackles toady with fluids. Will continue IVF. 4) Diabetes Mellitus -Continue Levemir -Continue Sliding Scale Insulin 5) HTN -Hydralazine 50 mg TID -Labetolol 100 mg BID 6)HLD -Will discuss diet and exercise goals with patient upon discharge. F:No fluids E: monitor CMP N: Clear Liquid diet DVT prophylaxis: SCD Dispo: Admitted to floors Visit type - Emergency Visit Emergency Visit: Yes ED Registration Date: 07/27/19 Care time: The patient presented to the Emergency Department on the above date and was hospitalized for further evaluation of their emergent condition. - New Patient This patient is new to me today: No - Critical Care Critical Care patient: No ATTENDING PHYSICIAN STATEMENT I saw and evaluated the patient. I reviewed the resident's note and discussed the case with the resident. I agree with the resident's findings and plan as documented. SUBJECTIVE: OBJECTIVE: ASSESSMENT AND PLAN:
[2019-08-04] MEDS ORDERED: INSULIN (NOVOLOG) ASPART 100 UNITS/ML 10ML VIAL ONE (11:48)
--- NOTE | 2019-08-04 11:55 | PN ---
Progress Note (short form) - Note Progress Note: s/p amputation of 2/3 digits left foot 07/31 no complaints picc line placed yesterday low grade temp vomiting last night no abdominal pain Vital Signs Period Temp Pulse Resp BP Sys/Corona Pulse Ox Last 24 Hr 97.2 F-97.3 F 94-104 - 148-158/91-95 97 cor-rrr lungs clear abd soft,nt ext dressing removed, still some erythema of the dorsum of the foot, amputation site is clean, no purulence CBC, BMP 08/04/19 10:23 wbc is 17k Microbiology 07/31/19 11:17 Bone Gram Stain - Final 07/31/19 11:17 Bone Tissue Culture - Final Staphylococcus Aureus Streptococcus Sanguis Ii 07/31/19 11:17 Bone Anaerobic Culture - Final NO ANAEROBES WERE ISOLATED 07/31/19 11:17 Foot - Left Gram Stain - Final 07/31/19 11:17 Foot - Left Wound Culture - Final Presumptive Mssa (Pbp2a Neg) Alpha Hemolytic Streptococcus 07/27/19 19:50 Blood - Peripheral Venous Blood Culture - Final NO GROWTH AFTER 5 DAYS INCUBATION 07/27/19 19:50 Blood - Peripheral Venous Blood Culture - Final NO GROWTH AFTER 5 DAYS INCUBATION 07/28/19 12:35 Foot - Left Dorsum Gram Stain - Final 07/28/19 12:35 Foot - Left Dorsum Wound Culture - Final Staphylococcus Aureus Streptococcus Viridans 07/28/19 12:34 Foot - Left Dorsum Gram Stain - Final 07/28/19 12:34 Foot - Left Dorsum Wound Culture - Final Staphylococcus Aureus Streptococcus Viridans a/p vomiting- coffee grounds leukocytosis (new) low grade temp diabetic foot infection with plantar abscess drained, s/p amputation of toes 2/ 3 pod #3-foot improving- pathology with positive margins repeat labs and blood cultures gi following cefazolin/flagyl for now plan for 6 weeks of rocephin via picc line when ready for discharge 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
[2019-08-04 13:05] LABS: HEMATOCRIT 37.2 % (35.4-49); HEMOGLOBIN 11.8 GM/dL (11.7-16.9); MCH 26.9 pg (25.7-33.7); MCHC 31.8 g/dl (32.0-35.9); MEAN CELL VOLUME 84.5 fl (80-96); MEAN PLT VOLUME 8.8 fl (7.5-11.1); PLATELET COUNT 421 K/MM3 (134-434); RDW 15.2 % (11.9-15.9); WHITE BLOOD COUNT 16.4 K/mm3 (4.0-10.0)
--- NOTE | 2019-08-04 13:14 | PN ---
Progress Note (short form) - Note Progress Note: Renal follow up for EVIE Seen and examined at the bedside awake and alert offers no acute complaints feels better Vital Signs Temperature 97.2 F L 08/03/19 19:00 Pulse Rate 104 H 08/03/19 19:00 Respiratory Rate 17 08/03/19 21:00 Blood Pressure 148/95 08/03/19 19:00 O2 Sat by Pulse Oximetry (%) 97 08/03/19 21:00 Intake & Output 08/01/19 08/02/19 08/03/19 08/04/19 23:59 23:59 23:59 23:59 Intake Total 2550 2160 2162 850 Output Total 1600 600 200 Balance 950 1560 1962 850 NAD awake and alert neck supple RRR CTA soft NT/ND no LE edema CBC, BMP 08/04/19 10:23 Current Medications Acetaminophen (Tylenol -) 650 mg PO Q6H PRN PRN Reason: FEVER Albuterol/Ipratropium (Duoneb -) 1 amp NEB Q6H PRN PRN Reason: SHORTNESS OF BREATH Amlodipine Besylate (Norvasc -) 5 mg PO DAILY [facility] Last Admin: 08/04/19 10:49 Dose: 5 mg Docusate Sodium (Colace -) 100 mg PO BID [facility] Last Admin: 08/04/19 10:47 Dose: Not Given Fentanyl (Sublimaze Injection -) 25 mcg IVPUSH [id number] PRN PRN Reason: PAIN-PACU ORDER X 4 DOSES ONLY Hydralazine HCl (Apresoline -) 50 mg PO TID [facility] Last Admin: 08/04/19 05:32 Dose: 50 mg Ceftriaxone Sodium 2 gm/ (Dextrose) 100 mls @ 200 mls/hr IVPB DAILY [facility]; Protocol Last Admin: 08/04/19 10:49 Dose: 200 mls/hr Lactated Ringer's (Lactated Ringers Solution) 1,000 ml in 1,000 mls @ 100 mls/ hr IV ASDIR [facility] Last Admin: 08/04/19 00:42 Dose: 100 mls/hr Insulin Aspart (Novolog Vial Sliding Scale -) 1 vial SQ TIDAC [facility]; Protocol Last Admin: 08/04/19 11:53 Dose: 4 unit Insulin Detemir (Levemir Vial) 20 units SQ HS [facility] Last Admin: 08/03/19 21:55 Dose: 20 units Labetalol HCl (Normodyne -) 100 mg PO BID [facility] Last Admin: 08/04/19 10:49 Dose: 100 mg Ondansetron HCl (Zofran Injection) 4 mg IVPUSH Q6H PRN PRN Reason: NAUSEA AND/OR VOMITING Last Admin: 08/03/19 21:54 Dose: 4 mg Pantoprazole Sodium (Protonix Iv) 40 mg IVPUSH BID [facility] Last Admin: 08/04/19 10:49 Dose: 40 mg Polyethylene Glycol (Miralax (For Daily Use) -) 17 gm PO DAILY [facility] Last Admin: 08/04/19 10:47 Dose: Not Given Sodium Bicarbonate (Sodium Bicarbonate -) 650 mg PO DAILY [facility] Last Admin: 08/04/19 10:49 Dose: 650 mg 58 year old gentleman with history of DM type 2, hyperlipidemia, hypertension who presented from home with chlls and found to have 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 Acute kidney injury from Vancomycin toxicity vs. ATN 2. Gas gangrene of LE 3. Metabolic acidosis 4. Anemia 5. Leukocytosis 6. IDDM 7. Hx of hypertension Renal function improving and stable. May take some time for renal function to improve to baseline. 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 BP improved off IVF Continue antibiotics as per ID Urine studies show FeNa of 1.4% (indeterminate) and urine protein to creatinine ratio of 1.3 indicative of tubular proteinuria. Trend renal function and electrolytes daily. stable for discharge with outpatient follow up Thank you Ladarius Sosa DO
--- NOTE | 2019-08-04 15:20 | PN ---
Progress Note (short form) - Note Progress Note: AXR with some air filled loops of small bowel, fecal retention. if vomiting persists, obtain CT scan A/P. Add MiraLAX 17g BID if tolerating PO Problem List - Problems (1) Vomiting Code(s): R11.10 - VOMITING, UNSPECIFIED
[2019-08-04 15:42] LABS: TEAR DROP CELLS 1+
[2019-08-04 15:43] LABS: PLATELET ESTIMATE SLT INCREASE; TOXIC GRANULATION 1+
--- NOTE | 2019-08-04 17:43 | PN ---
Teaching Attending Note Name of Resident: Reginaldo Hicks ATTENDING PHYSICIAN STATEMENT I saw and evaluated the patient. I reviewed the resident's note and discussed the case with the resident. I agree with the resident's findings and plan as documented. SUBJECTIVE: Events noted overnight . patient had a bloody vomiting episode last night. OBJECTIVE: Vital Signs Temperature 98.3 F 08/04/19 15:00 Pulse Rate 109 H 08/04/19 15:00 Respiratory Rate 18 08/04/19 15:00 Blood Pressure 145/85 08/04/19 15:00 O2 Sat by Pulse Oximetry (%) 97 08/03/19 21:00 GENERAL: The patient is awake, alert, and fully oriented, in no acute distress. HEAD: Normal with no signs of trauma. EYES: PERRL, extraocular movements intact, sclera anicteric, conjunctiva clear. ENT: Ears normal, oropharynx clear without exudates, moist mucous membranes. NECK: Trachea midline, full range of motion, supple. LUNGS: Breath sounds equal, clear to auscultation bilaterally, no wheezes, no crackles, no accessory muscle use. HEART: Regular rate and rhythm, S1, S2 without murmur, rub or gallop. ABDOMEN: Soft, nontender, nondistended, normoactive bowel sounds, no guarding, no rebound, no hepatosplenomegaly, no masses. EXTREMITIES: 2+ pulses, warm, well-perfused, left 2nd toe amputation , wound is clean. NEUROLOGICAL: Cranial nerves II through XII grossly intact. Normal speech, gait not observed. PSYCH: Normal mood, normal affect. SKIN: Warm, dry, normal turgor, no rashes or lesions noted CBCD WBC 16.4 K/mm3 (4.0-10.0) H 08/04/19 11:59 RBC 4.40 M/mm3 (4.00-5.60) 08/04/19 11:59 Hgb 11.8 GM/dL (11.7-16.9) 08/04/19 11:59 Hct 37.2 % (35.4-49) 08/04/19 11:59 MCV 84.5 fl (80-96) 08/04/19 11:59 MCHC 31.8 g/dl (32.0-35.9) L 08/04/19 11:59 RDW 15.2 % (11.9-15.9) 08/04/19 11:59 Plt Count 421 K/MM3 (134-434) 08/04/19 11:59 MPV 8.8 fl (7.5-11.1) 08/04/19 11:59 CMP Sodium 140 mmol/L (136-145) 08/04/19 10:23 Potassium 4.3 mmol/L (3.5-5.1) 08/04/19 10:23 Chloride 108 mmol/L (98-107) H 08/04/19 10:23 Carbon Dioxide 20 mmol/L (21-32) L 08/04/19 10:23 Anion Gap 12 MMOL/L (8-16) 08/04/19 10:23 BUN 31.5 mg/dL (7-18) H 08/04/19 10:23 Creatinine 2.3 mg/dL (0.55-1.3) H 08/04/19 10:23 Random Glucose 193 mg/dL (74-106) H 08/04/19 10:23 Calcium 8.5 mg/dL (8.5-10.1) 08/04/19 10:23 Total Bilirubin 0.3 mg/dL (0.2-1) 08/02/19 07:20 AST 13 U/L (15-37) L 08/02/19 07:20 ALT 28 U/L (13-61) 08/02/19 07:20 Alkaline Phosphatase 148 U/L (45-117) H 08/02/19 07:20 Total Protein 6.5 g/dl (6.4-8.2) 08/02/19 07:20 Albumin 2.4 g/dl (3.4-5.0) L 08/02/19 07:20 Current Medications Generic Name Dose Route Start Last Admin Trade Name Freq PRN Reason Stop Dose Admin Acetaminophen 650 mg 07/31/19 12:01 Tylenol - PO Q6H PRN FEVER Albuterol/Ipratropium 1 amp 07/31/19 12:01 Duoneb - NEB Q6H PRN SHORTNESS OF BREATH Amlodipine Besylate 5 mg 08/02/19 10:00 08/04/19 10:49 Norvasc - PO 5 mg DAILY [facility] Administration Docusate Sodium 100 mg 07/31/19 22:00 08/04/19 10:47 Colace - PO Not Given BID [facility] Fentanyl 25 mcg 07/31/19 12:01 Sublimaze Injection - IVPUSH [id number] PRN PAIN-PACU ORDER X 4 DOSES ONLY Hydralazine HCl 50 mg 08/02/19 22:00 08/04/19 05:32 Apresoline - PO 50 mg TID [facility] Administration Lactated Ringer's 1,000 ml in 1,000 mls @ 100 mls/hr 08/04/19 00:30 08/04/19 00:42 Lactated Ringers Solution IV 100 mls/hr ASDIR [facility] Administration Cefazolin Sodium/Dextrose 2 gm in 50 mls @ 100 mls/hr 08/04/19 22:00 Ancef 2 Gm Premixed Ivpb - IVPB BID [facility] Metronidazole 500 mg in 100 mls @ 100 mls/hr 08/04/19 18:00 Flagyl 500mg Premixed Ivpb - IVPB Q8H-IV [facility] Insulin Aspart 1 vial 07/31/19 16:30 08/04/19 11:53 Novolog Vial Sliding Scale - SQ 4 unit TIDAC [facility] Administration Protocol Insulin Detemir 20 units 07/31/19 22:00 08/03/19 21:55 Levemir Vial SQ 20 units HS [facility] Administration Labetalol HCl 100 mg 08/02/19 22:00 08/04/19 10:49 Normodyne - PO 100 mg BID [facility] Administration Ondansetron HCl 4 mg 07/31/19 12:01 08/03/19 21:54 Zofran Injection IVPUSH 4 mg Q6H PRN Administration NAUSEA AND/OR VOMITING Pantoprazole Sodium 40 mg 08/04/19 00:30 08/04/19 10:49 Protonix Iv IVPUSH 40 mg BID [facility] Administration Polyethylene Glycol 17 gm 08/01/19 10:00 08/04/19 10:47 Miralax (For Daily Use) - PO Not Given DAILY [facility] Sodium Bicarbonate 650 mg 08/03/19 14:00 08/04/19 10:49 Sodium Bicarbonate - PO 650 mg DAILY [facility] Administration Home Medications Medication Instructions Recorded Amlodipine Besylate [Norvasc -] 5 mg PO DAILY #30 tablet 08/03/19 Atorvastatin Ca [Lipitor] 1 tab PO DAILY 08/03/19 Ceftriaxone [Rocephin -] 2 gm IVPB DAILY vial 08/03/19 Ceftriaxone [Rocephin 2Gm Ivpb 2 gm IVPB DAILY #42 vial 08/03/19 (Pre-Docked)] Docusate Sodium [Colace -] 100 mg PO BID capsule 08/03/19 Insulin (Levemir) [Levemir Vial] 20 units SQ HS #100 units 08/03/19 Insulin Glargine,Hum.rec.anlog 40 units SQ AM 08/03/19 [Basaglar Kwikpen U-100] Labetalol HCl [Normodyne -] 100 mg PO BID #60 tablet 08/03/19 Lisinopril [Prinivil -] 40 mg PO DAILY 08/03/19 Polyethylene Glycol 3350 [Miralax 17 gm PO DAILY bottle 08/03/19 119 gm Btl -] Sitagliptin Phos/Metformin HCl 1 tab PO BID 08/03/19 [Janumet 50-1,000 mg Tablet] Toujeo Solostar 30 units SQ HS 08/03/19 hydrALAZINE HCL [Apresoline -] 50 mg PO TID #90 tablet 08/03/19 Microbiology 07/31/19 11:17 Bone Gram Stain - Final 07/31/19 11:17 Bone Tissue Culture - Final Staphylococcus Aureus Streptococcus Sanguis Ii 07/31/19 11:17 Bone Anaerobic Culture - Final NO ANAEROBES WERE ISOLATED 07/31/19 11:17 Foot - Left Gram Stain - Final 07/31/19 11:17 Foot - Left Wound Culture - Final Presumptive Mssa (Pbp2a Neg) Alpha Hemolytic Streptococcus 07/27/19 19:50 Blood - Peripheral Venous Blood Culture - Final NO GROWTH AFTER 5 DAYS INCUBATION 07/27/19 19:50 Blood - Peripheral Venous Blood Culture - Final NO GROWTH AFTER 5 DAYS INCUBATION 07/28/19 12:35 Foot - Left Dorsum Gram Stain - Final 07/28/19 12:35 Foot - Left Dorsum Wound Culture - Final Staphylococcus Aureus Streptococcus Viridans 07/28/19 12:34 Foot - Left Dorsum Gram Stain - Final 07/28/19 12:34 Foot - Left Dorsum Wound Culture - Final Staphylococcus Aureus Streptococcus Viridans ASSESSMENT AND PLAN: Patient is a 58yo man with PMhx of T2DM, HTN, HLP, R knee cancer s/p chemo, sx , and radiation , who presented with erythema on L foot and was found to have cellulitis with gangrenous of left foot. # Acute Leukocytosis with s/p left 2nd toe amputation , will reculture the bld, urine, cxr, continue IV antibiotic , ID is aware of the patient , repeat cxr # AXR with some air filled loops of small bowel,with fecal retention. As per GI if vomiting persists, obtain CT scan A/P. Add MiraLAX 17g BID if tolerating PO # questionable UGI bleed, will monitor H/H , so far is stable # POD #6 s/p I&D 07/29 for Gas gangrene of L foot with amputation of 2nd, and 3rd digits 07/31. as per ID to continue with home infusion of Rocephin 2gm x 6 weeks s/p cefazolin and flagyl. wound cx as above, blood cx neg , echo with no vegetations # acute constipation with fecal retention : AXR with some air filled loops of small bowel, fecal retention. if vomiting persists, obtain CT scan A/P. Added MiraLAX 17g BID if tolerating PO # EVIE : AIN due to vanco and zosyn . cr started to improve, tolerated IVF , improving, follow with as an outpatient. check Urine eiosinophils # DM: cont levemir and cont SSI # H/o HTN: hold home losartan and HCTZ due to renal failure, continue norvasc / hydralazine and labetolol Picc line with Rocephin 2gm daily IV continue to monitor the patient. DVT px; heparin sq
[2019-08-04] MEDS: INSULIN (LEVEMIR) 100 UNITS/ML UNITS SQ SCH (22:01)
[2019-08-04] MEDS: CEFAZOLIN 2 GM/D5W 2 GM/50 ML ML IVPB SCH (22:01)
[2019-08-04] MEDS: MELATONIN 5 MG TABLETS PO SCH (22:01)
[2019-08-05] MEDS: ONDANSETRON 4 MG/2 ML VIAL IVPUSH PRN (00:18)
[2019-08-05] MEDS: SODIUM CHLORIDE 1,000 ML IV SCH (06:26)
[2019-08-05] MEDS: INSULIN SLIDING SCALE (NOVOLOG) 1 VIAL SQ SCH ×3 (06:27→17:40)
[2019-08-05] MEDS: hydrALAZINE HCL 50 MG TABLET (FP) PO SCH ×3 (06:27→21:39)
[2019-08-05 08:06] LABS: BASO % 0.1 % (0-2.0); EOS % 0.4 % (0-4.5); HEMATOCRIT 34.8 % (35.4-49); HEMOGLOBIN 11.5 GM/dL (11.7-16.9); LYMPH % 6.2 % (8-40); MCH 27.6 pg (25.7-33.7); MEAN CELL VOLUME 83.4 fl (80-96); MEAN PLT VOLUME 8.4 fl (7.5-11.1); MONO % 4.1 % (3.8-10.2); NEUT % 89.2 % (42.8-82.8); PLATELET COUNT 416 K/MM3 (134-434); RBC 4.17 M/mm3 (4.00-5.60); RDW 14.8 % (11.9-15.9); WHITE BLOOD COUNT 14.8 K/mm3 (4.0-10.0)
[2019-08-05 08:26] LABS: ALBUMIN 2.6 g/dl (3.4-5.0); BILIRUBIN,TOTAL 0.3 mg/dL (0.2-1); BLOOD UREA NITROGEN 26.9 mg/dL (7-18); CALCIUM 8.6 mg/dL (8.5-10.1); CREATININE 2.2 mg/dL (0.55-1.3); POTASSIUM 4.1 mmol/L (3.5-5.1); TOT PROT 6.4 g/dl (6.4-8.2)
[2019-08-05] MEDS ORDERED: PHYTONADIONE 10 MG/1 ML AMP SQ ONE (10:18)
[2019-08-05] MEDS: CEFAZOLIN 2 GM/D5W 2 GM/50 ML ML IVPB SCH ×2 (10:24→21:39)
[2019-08-05] MEDS: DOCUSATE SODIUM 100 MG CAPSULE (FP) PO SCH ×2 (10:24→21:39)
[2019-08-05] MEDS: LABETALOL HCL 100 MG TABLET (FP) PO SCH ×2 (10:26→21:39)
[2019-08-05] MEDS: SODIUM BICARBONATE 650 MG TABLET PO SCH (10:26)
--- NOTE | 2019-08-05 10:26 | PN ---
Progress Note (short form) - Note Progress Note: Patient is comfortable with no acute distress. no fever or chills. no further bleed. Vital Signs Temperature 97.8 F 08/05/19 04:59 Pulse Rate 82 08/05/19 04:59 Respiratory Rate 20 08/05/19 04:59 Blood Pressure 152/80 08/05/19 04:59 O2 Sat by Pulse Oximetry (%) 97 08/04/19 21:00 GENERAL: The patient is awake, alert, and fully oriented, in no acute distress. HEAD: Normal with no signs of trauma. EYES: PERRL, extraocular movements intact, sclera anicteric, conjunctiva clear. ENT: Ears normal, oropharynx clear without exudates, moist mucous membranes. NECK: Trachea midline, full range of motion, supple. LUNGS: Breath sounds equal, clear to auscultation bilaterally, no wheezes, no crackles, no accessory muscle use. HEART: Regular rate and rhythm, S1, S2 without murmur, rub or gallop. ABDOMEN: Soft, nontender, nondistended, normoactive bowel sounds, no guarding, no rebound. EXTREMITIES: 2+ pulses, warm, well-perfused, left 2nd toe amputation NEUROLOGICAL: Cranial nerves II through XII grossly intact. Normal speech, gait not observed. PSYCH: Normal mood, normal affect. SKIN: Warm, dry, normal turgor, no rashes or lesions noted CBCD WBC 14.8 K/mm3 (4.0-10.0) H 08/05/19 07:32 RBC 4.17 M/mm3 (4.00-5.60) 08/05/19 07:32 Hgb 11.5 GM/dL (11.7-16.9) L 08/05/19 07:32 Hct 34.8 % (35.4-49) L 08/05/19 07:32 MCV 83.4 fl (80-96) 08/05/19 07:32 MCHC 33.0 g/dl (32.0-35.9) 08/05/19 07:32 RDW 14.8 % (11.9-15.9) 08/05/19 07:32 Plt Count 416 K/MM3 (134-434) 08/05/19 07:32 MPV 8.4 fl (7.5-11.1) 08/05/19 07:32 CMP Sodium 138 mmol/L (136-145) 08/05/19 07:32 Potassium 4.1 mmol/L (3.5-5.1) 08/05/19 07:32 Chloride 106 mmol/L (98-107) 08/05/19 07:32 Carbon Dioxide 22 mmol/L (21-32) 08/05/19 07:32 Anion Gap 10 MMOL/L (8-16) 08/05/19 07:32 BUN 26.9 mg/dL (7-18) H 08/05/19 07:32 Creatinine 2.2 mg/dL (0.55-1.3) H 08/05/19 07:32 Random Glucose 214 mg/dL (74-106) H 08/05/19 07:32 Calcium 8.6 mg/dL (8.5-10.1) 08/05/19 07:32 Total Bilirubin 0.3 mg/dL (0.2-1) 08/05/19 07:32 AST 39 U/L (15-37) H 08/05/19 07:32 ALT 24 U/L (13-61) 08/05/19 07:32 Alkaline Phosphatase 130 U/L (45-117) H 08/05/19 07:32 Total Protein 6.4 g/dl (6.4-8.2) 08/05/19 07:32 Albumin 2.6 g/dl (3.4-5.0) L 08/05/19 07:32 Current Medications Generic Name Dose Route Start Last Admin Trade Name Freq PRN Reason Stop Dose Admin Acetaminophen 650 mg 07/31/19 12:01 Tylenol - PO Q6H PRN FEVER Albuterol/Ipratropium 1 amp 07/31/19 12:01 Duoneb - NEB Q6H PRN SHORTNESS OF BREATH Amlodipine Besylate 5 mg 08/02/19 10:00 08/04/19 10:49 Norvasc - PO 5 mg DAILY [facility] Administration Docusate Sodium 100 mg 07/31/19 22:00 08/04/19 22:01 Colace - PO 100 mg BID [facility] Administration Fentanyl 25 mcg 07/31/19 12:01 Sublimaze Injection - IVPUSH [id number] PRN PAIN-PACU ORDER X 4 DOSES ONLY Hydralazine HCl 50 mg 08/02/19 22:00 08/05/19 06:27 Apresoline - PO 50 mg TID [facility] Administration Lactated Ringer's 1,000 ml in 1,000 mls @ 100 mls/hr 08/04/19 00:30 08/04/19 00:42 Lactated Ringers Solution IV 100 mls/hr ASDIR [facility] Administration Cefazolin Sodium/Dextrose 2 gm in 50 mls @ 100 mls/hr 08/04/19 22:00 22:01 Ancef 2 Gm Premixed Ivpb - IVPB 100 mls/hr BID [facility] Administration Metronidazole 500 mg in 100 mls @ 100 mls/hr 08/04/19 18:00 08/05/19 02:25 Flagyl 500mg Premixed Ivpb - IVPB 100 mls/hr Q8H-IV [facility] Administration Insulin Aspart 1 vial 07/31/19 16:30 08/05/19 06:27 Novolog Vial Sliding Scale - SQ 4 unit TIDAC [facility] Administration Protocol Insulin Detemir 20 units 07/31/19 22:00 08/04/19 22:01 Levemir Vial SQ 20 units HS [facility] Administration Labetalol HCl 100 mg 08/02/19 22:00 08/04/19 22:02 Normodyne - PO 100 mg BID [facility] Administration Melatonin 10 mg 08/04/19 22:00 08/04/19 22:01 Melatonin PO 10 mg HS [facility] Administration Pantoprazole Sodium 40 mg 08/04/19 00:30 08/04/19 22:02 Protonix Iv IVPUSH 40 mg BID [facility] Administration Polyethylene Glycol 17 gm 08/01/19 10:00 08/04/19 10:47 Miralax (For Daily Use) - PO Not Given DAILY [facility] Sodium Bicarbonate 650 mg 08/03/19 14:00 08/04/19 10:49 Sodium Bicarbonate - PO 650 mg DAILY [facility] Administration Home Medications Medication Instructions Recorded Amlodipine Besylate [Norvasc -] 5 mg PO DAILY #30 tablet 08/03/19 Atorvastatin Ca [Lipitor] 1 tab PO DAILY 08/03/19 Ceftriaxone [Rocephin -] 2 gm IVPB DAILY vial 08/03/19 Ceftriaxone [Rocephin 2Gm Ivpb 2 gm IVPB DAILY #42 vial 08/03/19 (Pre-Docked)] Docusate Sodium [Colace -] 100 mg PO BID capsule 08/03/19 Insulin (Levemir) [Levemir Vial] 20 units SQ HS #100 units 08/03/19 Insulin Glargine,Hum.rec.anlog 40 units SQ AM 08/03/19 [Basaglar Kwikpen U-100] Labetalol HCl [Normodyne -] 100 mg PO BID #60 tablet 08/03/19 Lisinopril [Prinivil -] 40 mg PO DAILY 08/03/19 Polyethylene Glycol 3350 [Miralax 17 gm PO DAILY bottle 08/03/19 119 gm Btl -] Sitagliptin Phos/Metformin HCl 1 tab PO BID 08/03/19 [Janumet 50-1,000 mg Tablet] Toujeo Solostar 30 units SQ HS 08/03/19 hydrALAZINE HCL [Apresoline -] 50 mg PO TID #90 tablet 08/03/19 Microbiology 07/31/19 11:17 Bone Gram Stain - Final 07/31/19 11:17 Bone Tissue Culture - Final Staphylococcus Aureus Streptococcus Sanguis Ii 07/31/19 11:17 Bone Anaerobic Culture - Final NO ANAEROBES WERE ISOLATED 07/31/19 11:17 Foot - Left Gram Stain - Final 07/31/19 11:17 Foot - Left Wound Culture - Final Presumptive Mssa (Pbp2a Neg) Alpha Hemolytic Streptococcus 07/27/19 19:50 Blood - Peripheral Venous Blood Culture - Final NO GROWTH AFTER 5 DAYS INCUBATION 07/27/19 19:50 Blood - Peripheral Venous Blood Culture - Final NO GROWTH AFTER 5 DAYS INCUBATION 07/28/19 12:35 Foot - Left Dorsum Gram Stain - Final 07/28/19 12:35 Foot - Left Dorsum Wound Culture - Final Staphylococcus Aureus Streptococcus Viridans 07/28/19 12:34 Foot - Left Dorsum Gram Stain - Final 07/28/19 12:34 Foot - Left Dorsum Wound Culture - Final Staphylococcus Aureus Streptococcus Viridans ASSESSMENT AND PLAN: Patient is a 58yo man with PMhx of T2DM, HTN, HLP, R knee cancer s/p chemo, sx , and radiation , who presented with erythema on L foot and was found to have cellulitis with gangrenous of left foot. # Acute Leukocytosis improving with s/p left 2nd toe amputation , f/u the reculture the bld,urine, cxr, repeat labs in am # AXR with some air filled loops of small bowel,with fecal retention. As per GI if vomiting persists, obtain CT scan A/P. Add MiraLAX 17g BID if tolerating PO # questionable UGI bleed, h/h is stable, will continue to monitor, will hold the heparin sq for now. 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 as per ID to continue with home infusion of Rocephin 2gm x 6 weeks s/p cefazolin and flagyl. wound cx as above, blood cx neg , echo with no vegetations AXR with some air filled loops of small bowel, fecal retention. if vomiting persists, obtain CT scan A/P. Add MiraLAX 17g BID if tolerating PO # EVIE : AIN due to vanco and zosyn . cr started to improve, tolerated IVF , improving, follow with as an outpatient. Urine eiosinophils pending # DM: cont levemir and cont SSI # H/o HTN: hold home losartan and HCTZ due to renal failure, continue norvasc / hydralazine and labetolol Picc line with Rocephin 2gm daily IV DVT Px; hold sq heparin for now for possible bleed Visit type - Emergency Visit Emergency Visit: Yes ED Registration Date: 07/27/19 Care time: The patient presented to the Emergency Department on the above date and was hospitalized for further evaluation of their emergent condition. - New Patient This patient is new to me today: No - Critical Care Critical Care patient: No - Discharge Referral Referred to [facility] No
[2019-08-05] MEDS: amLODIPine BESYLATE 5 MG TABLET (FP) PO SCH (10:27)
[2019-08-05] MEDS: LACTATED RINGERS SOLUTION 1,000 ML/1,000 ML INFUS.BAG IV SCH (10:59)
[2019-08-05] MEDS: PANTOPRAZOLE SODIUM 40 MG VIAL IVPUSH SCH ×2 (11:01→21:39)
[2019-08-05 12:43] LABS: ANISOCYTOSIS 1+; MACROCYTOSIS 0; PLATELET ESTIMATE NORMAL; TEAR DROP CELLS 1+
--- NOTE | 2019-08-05 13:07 | PN.GI ---
GI Progress Note Subjective: tolerating wilfrido liquids, no melena, no rectal bleeding - Objective Vital Signs: Vital Signs Temperature 97.8 F 08/05/19 04:59 Pulse Rate 82 08/05/19 04:59 Respiratory Rate 20 08/05/19 04:59 Blood Pressure 152/80 08/05/19 04:59 O2 Sat by Pulse Oximetry (%) 97 08/04/19 21:00 Constitutional: Well Nourished Eyes: Yes: Conjunctiva Clear HENT: Yes: Atraumatic Neck: Yes: Supple Cardiovascular: Yes: Regular Rate and Rhythm Respiratory: Yes: CTA Bilaterally ...Palpate: Yes: Soft. No: Firm/Rigid, Guarding, Hepatomegaly, Mass, Pulsatile Mass, Splenomegaly, Tenderness ...Percussion: Yes: Tympanitic Labs: CBC, BMP 08/05/19 07:32 08/05/19 07:32 INR, PTT INR 1.15 (0.83-1.09) H 08/04/19 07:45 Problem List - Problems (1) Vomiting Assessment/Plan: resolved R> Reglan 5 mg 30 min ac advance diet Code(s): R11.10 - VOMITING, UNSPECIFIED
[2019-08-05 14:52] VITALS: BMI 26.6
[2019-08-05] MEDS: POLYETHYLENE GLYCOL 3350 119 GM BTL PO SCH (15:26)
--- NOTE | 2019-08-05 16:18 | PN ---
Progress Note, Physician History of Present Illness: Pt seen and examined at bedside. He is awake and alert. He denies shortness of breath. - Current Medication List Current Medications: Active Medications Acetaminophen (Tylenol -) 650 mg PO Q6H PRN PRN Reason: FEVER Amlodipine Besylate (Norvasc -) 5 mg PO DAILY [facility] Last Admin: 08/05/19 10:27 Dose: 5 mg Docusate Sodium (Colace -) 100 mg PO BID [facility] Last Admin: 08/05/19 10:24 Dose: 100 mg Fentanyl (Sublimaze Injection -) 25 mcg IVPUSH [id number] PRN PRN Reason: PAIN-PACU ORDER X 4 DOSES ONLY Hydralazine HCl (Apresoline -) 50 mg PO TID [facility] Last Admin: 08/05/19 15:25 Dose: 50 mg Lactated Ringer's (Lactated Ringers Solution) 1,000 ml in 1,000 mls @ 100 mls/ hr IV ASDIR [facility] Last Admin: 08/05/19 10:59 Dose: Not Given Cefazolin Sodium/Dextrose (Ancef 2 Gm Premixed Ivpb -) 2 gm in 50 mls @ 100 mls /hr IVPB BID [facility] Last Admin: 08/05/19 10:24 Dose: 100 mls/hr Metronidazole (Flagyl 500mg Premixed Ivpb -) 500 mg in 100 mls @ 100 mls/hr IVPB Q8H-IV [facility] Last Admin: 08/05/19 11:00 Dose: 100 mls/hr Insulin Aspart (Novolog Vial Sliding Scale -) 1 vial SQ TIDAC [facility]; Protocol Last Admin: 08/05/19 12:25 Dose: Not Given Insulin Detemir (Levemir Vial) 20 units SQ [facility] Last Admin: 08/04/19 22:01 Dose: 20 units Labetalol HCl (Normodyne -) 100 mg PO BID [facility] Last Admin: 08/05/19 10:26 Dose: 100 mg Melatonin (Melatonin) 10 mg PO HS [facility] Last Admin: 08/04/19 22:01 Dose: 10 mg Metoclopramide HCl (Reglan -) 5 mg PO TIDAC [facility] Pantoprazole Sodium (Protonix Iv) 40 mg IVPUSH BID [facility] Last Admin: 08/05/19 11:01 Dose: 40 mg Polyethylene Glycol (Miralax (For Daily Use) -) 17 gm PO DAILY [facility] Last Admin: 08/05/19 15:26 Dose: Not Given Sodium Bicarbonate (Sodium Bicarbonate -) 650 mg PO DAILY [facility] Last Admin: 08/05/19 10:26 Dose: 650 mg - Objective Vital Signs: Vital Signs Temperature 97.5 F L 08/05/19 15:11 Pulse Rate 111 H 08/05/19 15:11 Respiratory Rate 20 08/05/19 04:59 Blood Pressure 152/93 08/05/19 15:11 O2 Sat by Pulse Oximetry (%) 97 08/04/19 21:00 Constitutional: Yes: Calm Eyes: Yes: Conjunctiva Clear HENT: Yes: Atraumatic Neck: Yes: Supple Cardiovascular: Yes: S1, S2 Respiratory: Yes: CTA Bilaterally Gastrointestinal: Yes: Normal Bowel Sounds, Soft Genitourinary: Yes: WNL Edema: No Wound/Incision: Yes: Dressing Dry and Intact Neurological: Yes: Oriented Psychiatric: Yes: Oriented Labs: CBC, BMP 08/05/19 07:32 08/05/19 07:32 INR, PTT INR 1.15 (0.83-1.09) H 08/04/19 07:45 Assessment/Plan Current Medications Generic Name Dose Route Start Last Admin Trade Name Freq PRN Reason Stop Dose Admin Acetaminophen 650 mg 07/31/19 12:01 Tylenol - PO Q6H PRN FEVER Amlodipine Besylate 5 mg 08/02/19 10:00 08/05/19 10:27 Norvasc - PO 5 mg DAILY [facility] Administration Docusate Sodium 100 mg 07/31/19 22:00 08/05/19 10:24 Colace - PO 100 mg BID [facility] Administration Fentanyl 25 mcg 07/31/19 12:01 Sublimaze Injection - IVPUSH [id number] PRN PAIN-PACU ORDER X 4 DOSES ONLY Hydralazine HCl 50 mg 08/02/19 22:00 08/05/19 15:25 Apresoline - PO 50 mg TID [facility] Administration Lactated Ringer's 1,000 ml in 1,000 mls @ 100 mls/hr 08/04/19 00:30 08/05/19 10:59 Lactated Ringers Solution IV Not Given ASDIR [facility] Cefazolin Sodium/Dextrose 2 gm in 50 mls @ 100 mls/hr 08/04/19 22:00 10:24 Ancef 2 Gm Premixed Ivpb - IVPB 100 mls/hr BID [facility] Administration Metronidazole 500 mg in 100 mls @ 100 mls/hr 08/04/19 18:00 08/05/19 11:00 Flagyl 500mg Premixed Ivpb - IVPB 100 mls/hr Q8H-IV [facility] Administration Insulin Aspart 1 vial 07/31/19 16:30 08/05/19 12:25 Novolog Vial Sliding Scale - SQ Not Given TIDAC [facility] Protocol Insulin Detemir 20 units 07/31/19 22:00 08/04/19 22:01 Levemir Vial SQ 20 units HS [facility] Administration Labetalol HCl 100 mg 08/02/19 22:00 08/05/19 10:26 Normodyne - PO 100 mg BID [facility] Administration Melatonin 10 mg 08/04/19 22:00 08/04/19 22:01 Melatonin PO 10 mg HS [facility] Administration Metoclopramide HCl 5 mg 08/05/19 16:30 Reglan - PO TIDAC [facility] Pantoprazole Sodium 40 mg 08/04/19 00:30 08/05/19 11:01 Protonix Iv IVPUSH 40 mg BID [facility] Administration Polyethylene Glycol 17 gm 08/01/19 10:00 08/05/19 15:26 Miralax (For Daily Use) - PO Not Given DAILY [facility] Sodium Bicarbonate 650 mg 08/03/19 14:00 08/05/19 10:26 Sodium Bicarbonate - PO 650 mg DAILY [facility] Administration 1. Acute kidney injury 2. Gas gangrene of LE 3. Metabolic acidosis 4. Anemia 5. Leukocytosis 6. IDDM 7. Hx of hypertension Plan - renal function is improving - repeat labs in am - monitor bp - will evaluate for bicarb again tomorrow - avoid nsaids - repeat ua
[2019-08-05] MEDS: METOCLOPRAMIDE HCL 10 MG TABLET (FP) PO SCH (16:39)
[2019-08-05] MEDS: MELATONIN 5 MG TABLETS PO SCH (21:39)
[2019-08-05] MEDS: INSULIN (LEVEMIR) 100 UNITS/ML UNITS SQ SCH (21:39)
[2019-08-06] MEDS: LACTATED RINGERS SOLUTION 1,000 ML/1,000 ML INFUS.BAG IV SCH ×2 (00:11→14:34)
[2019-08-06] MEDS: METOCLOPRAMIDE HCL 10 MG TABLET (FP) PO SCH ×3 (06:20→16:46)
[2019-08-06] MEDS: INSULIN SLIDING SCALE (NOVOLOG) 1 VIAL SQ SCH ×3 (06:20→16:45)
[2019-08-06] MEDS: hydrALAZINE HCL 50 MG TABLET (FP) PO SCH ×3 (06:20→21:48)
[2019-08-06 08:14] LABS: BASO % 0.2 % (0-2.0); HEMATOCRIT 35.8 % (35.4-49); HEMOGLOBIN 11.8 GM/dL (11.7-16.9); LYMPH % 7.1 % (8-40); MCH 27.5 pg (25.7-33.7); MCHC 33.1 g/dl (32.0-35.9); MEAN CELL VOLUME 83.2 fl (80-96); MEAN PLT VOLUME 8.3 fl (7.5-11.1); MONO % 5.3 % (3.8-10.2); NEUT % 86.4 % (42.8-82.8); PLATELET COUNT 431 K/MM3 (134-434); RDW 15.2 % (11.9-15.9); WHITE BLOOD COUNT 13.7 K/mm3 (4.0-10.0)
[2019-08-06 08:29] LABS: ALBUMIN 2.6 g/dl (3.4-5.0); BILIRUBIN,TOTAL 0.2 mg/dL (0.2-1); BLOOD UREA NITROGEN 21.5 mg/dL (7-18); CALCIUM 8.4 mg/dL (8.5-10.1); MAGNESIUM 1.6 mg/dL (1.8-2.4); PHOSPHOROUS 2.9 mg/dL (2.5-4.9); POTASSIUM 3.7 mmol/L (3.5-5.1); TOT PROT 6.2 g/dl (6.4-8.2)
[2019-08-06] MEDS: CEFAZOLIN 2 GM/D5W 2 GM/50 ML ML IVPB SCH ×2 (09:55→21:47)
[2019-08-06] MEDS: SODIUM BICARBONATE 650 MG TABLET PO SCH (09:57)
[2019-08-06] MEDS: POLYETHYLENE GLYCOL 3350 119 GM BTL PO SCH (09:57)
[2019-08-06] MEDS: LABETALOL HCL 100 MG TABLET (FP) PO SCH ×2 (09:57→21:49)
[2019-08-06] MEDS: amLODIPine BESYLATE 5 MG TABLET (FP) PO SCH (09:57)
[2019-08-06] MEDS: PANTOPRAZOLE SODIUM 40 MG VIAL IVPUSH SCH ×2 (09:57→21:49)
[2019-08-06] MEDS: DOCUSATE SODIUM 100 MG CAPSULE (FP) PO SCH ×2 (09:57→21:48)
[2019-08-06 12:26] LABS: ANISOCYTOSIS 1+; MACROCYTOSIS 0; PLATELET ESTIMATE NORMAL
--- NOTE | 2019-08-06 12:28 | PN ---
Progress Note, Physician History of Present Illness: AWAKE, ALERT SEATED IN BED NO C/O FOOT PAIN DENIES F/C WBC IMPROVED - Current Medication List Current Medications: Active Medications Acetaminophen (Tylenol -) 650 mg PO Q6H PRN PRN Reason: FEVER Amlodipine Besylate (Norvasc -) 5 mg PO DAILY [facility] Last Admin: 08/06/19 09:57 Dose: 5 mg Docusate Sodium (Colace -) 100 mg PO BID [facility] Last Admin: 08/06/19 09:57 Dose: 100 mg Fentanyl (Sublimaze Injection -) 25 mcg IVPUSH [id number] PRN PRN Reason: PAIN-PACU ORDER X 4 DOSES ONLY Hydralazine HCl (Apresoline -) 50 mg PO TID [facility] Last Admin: 08/06/19 06:20 Dose: 50 mg Lactated Ringer's (Lactated Ringers Solution) 1,000 ml in 1,000 mls @ 100 mls/ hr IV ASDIR [facility] Last Admin: 08/06/19 00:11 Dose: 100 mls/hr Cefazolin Sodium/Dextrose (Ancef 2 Gm Premixed Ivpb -) 2 gm in 50 mls @ 100 mls /hr IVPB BID [facility] Last Admin: 08/06/19 09:55 Dose: 100 mls/hr Metronidazole (Flagyl 500mg Premixed Ivpb -) 500 mg in 100 mls @ 100 mls/hr IVPB Q8H-IV [facility] Last Admin: 08/06/19 10:46 Dose: 100 mls/hr Insulin Aspart (Novolog Vial Sliding Scale -) 1 vial SQ TIDAC [facility]; Protocol Last Admin: 08/06/19 11:54 Dose: 4 unit Insulin Detemir (Levemir Vial) 20 units SQ [facility] Last Admin: 08/05/19 21:39 Dose: 20 units Labetalol HCl (Normodyne -) 100 mg PO BID [facility] Last Admin: 08/06/19 09:57 Dose: 100 mg Melatonin (Melatonin) 10 mg PO HS [facility] Last Admin: 08/05/19 21:39 Dose: 10 mg Metoclopramide HCl (Reglan -) 5 mg PO TIDAC [facility] Last Admin: 08/06/19 11:53 Dose: 5 mg Pantoprazole Sodium (Protonix Iv) 40 mg IVPUSH BID [facility] Last Admin: 08/06/19 09:57 Dose: 40 mg Polyethylene Glycol (Miralax (For Daily Use) -) 17 gm PO DAILY [facility] Last Admin: 08/06/19 09:57 Dose: 17 gm Sodium Bicarbonate (Sodium Bicarbonate -) 650 mg PO DAILY [facility] Last Admin: 08/06/19 09:57 Dose: 650 mg - Objective Vital Signs: Vital Signs Temperature 98.2 F 08/06/19 09:46 Pulse Rate 106 H 08/06/19 09:46 Respiratory Rate 20 08/06/19 09:46 Blood Pressure 162/83 08/06/19 09:46 O2 Sat by Pulse Oximetry (%) 97 08/05/19 20:02 Constitutional: Yes: No Distress Eyes: Yes: Conjunctiva Clear Cardiovascular: Yes: Regular Rate and Rhythm Respiratory: Yes: CTA Bilaterally Gastrointestinal: Yes: Normal Bowel Sounds, Soft. No: Tenderness Extremities: Yes: Other (L FOOT WOUND WITH PACKING + ERYTHEMA/ SWELLING) Labs: CBC, BMP 08/06/19 07:28 08/06/19 07:28 INR, PTT INR 1.15 (0.83-1.09) H 08/04/19 07:45 Assessment/Plan S/P I&D L FOOT WOUND C/S POLYMICROBIAL CELLULITIS/ OSTEOMYELITIS L FOOT CONTINUE CEFAZOLIN/ FLAGYL LOCAL WOUND CARE
--- NOTE | 2019-08-06 13:12 | PN.GI ---
GI Progress Note Subjective: no vomiting , no nausea, tolerating diet well - Objective Vital Signs: Vital Signs Temperature 98.2 F 08/06/19 09:46 Pulse Rate 106 H 08/06/19 09:46 Respiratory Rate 20 08/06/19 09:46 Blood Pressure 162/83 08/06/19 09:46 O2 Sat by Pulse Oximetry (%) 97 08/05/19 20:02 Constitutional: Well Nourished Eyes: Yes: Conjunctiva Clear HENT: Yes: Atraumatic Neck: Yes: Supple Cardiovascular: Yes: Regular Rate and Rhythm Respiratory: Yes: CTA Bilaterally ...Palpate: Yes: Soft. No: Firm/Rigid, Guarding, Hepatomegaly, Mass, Pulsatile Mass, Splenomegaly, Tenderness, Tenderness, Epigastium Labs: CBC, BMP 08/06/19 07:28 08/06/19 07:28 INR, PTT INR 1.15 (0.83-1.09) H 08/04/19 07:45 Problem List - Problems (1) Vomiting Assessment/Plan: --resolved R> maintain on PPI Reglan 5mg 30 min ac for [address] Robert will resume care tomorrow Code(s): R11.10 - VOMITING, UNSPECIFIED
--- NOTE | 2019-08-06 16:34 | PN ---
Progress Note, Physician History of Present Illness: Pt seen and examined at bedside. He is awake and alert. He is asking to go home. - Current Medication List Current Medications: Active Medications Acetaminophen (Tylenol -) 650 mg PO Q6H PRN PRN Reason: FEVER Amlodipine Besylate (Norvasc -) 5 mg PO DAILY [facility] Last Admin: 08/06/19 09:57 Dose: 5 mg Docusate Sodium (Colace -) 100 mg PO BID [facility] Last Admin: 08/06/19 09:57 Dose: 100 mg Fentanyl (Sublimaze Injection -) 25 mcg IVPUSH [id number] PRN PRN Reason: PAIN-PACU ORDER X 4 DOSES ONLY Hydralazine HCl (Apresoline -) 50 mg PO TID [facility] Last Admin: 08/06/19 14:35 Dose: 50 mg Lactated Ringer's (Lactated Ringers Solution) 1,000 ml in 1,000 mls @ 100 mls/ hr IV ASDIR [facility] Last Admin: 08/06/19 14:34 Dose: 100 mls/hr Cefazolin Sodium/Dextrose (Ancef 2 Gm Premixed Ivpb -) 2 gm in 50 mls @ 100 mls /hr IVPB BID [facility] Last Admin: 08/06/19 09:55 Dose: 100 mls/hr Metronidazole (Flagyl 500mg Premixed Ivpb -) 500 mg in 100 mls @ 100 mls/hr IVPB Q8H-IV [facility] Last Admin: 08/06/19 10:46 Dose: 100 mls/hr Insulin Aspart (Novolog Vial Sliding Scale -) 1 vial SQ TIDAC [facility]; Protocol Last Admin: 08/06/19 11:54 Dose: 4 unit Insulin Detemir (Levemir Vial) 20 units SQ [facility] Last Admin: 08/05/19 21:39 Dose: 20 units Labetalol HCl (Normodyne -) 100 mg PO BID [facility] Last Admin: 08/06/19 09:57 Dose: 100 mg Melatonin (Melatonin) 10 mg PO HS [facility] Last Admin: 08/05/19 21:39 Dose: 10 mg Metoclopramide HCl (Reglan -) 5 mg PO TIDAC [facility] Last Admin: 08/06/19 11:53 Dose: 5 mg Pantoprazole Sodium (Protonix Iv) 40 mg IVPUSH BID [facility] Last Admin: 08/06/19 09:57 Dose: 40 mg Polyethylene Glycol (Miralax (For Daily Use) -) 17 gm PO DAILY [facility] Last Admin: 08/06/19 09:57 Dose: 17 gm Sodium Bicarbonate (Sodium Bicarbonate -) 650 mg PO DAILY [facility] Last Admin: 08/06/19 09:57 Dose: 650 mg - Objective Vital Signs: Vital Signs Temperature 98.2 F 08/06/19 09:46 Pulse Rate 106 H 08/06/19 09:46 Respiratory Rate 20 08/06/19 09:46 Blood Pressure 162/83 08/06/19 09:46 O2 Sat by Pulse Oximetry (%) 97 08/05/19 20:02 Constitutional: Yes: Calm Eyes: Yes: Conjunctiva Clear HENT: Yes: Atraumatic Neck: Yes: Supple Cardiovascular: Yes: S1, S2 Respiratory: Yes: CTA Bilaterally Gastrointestinal: Yes: Normal Bowel Sounds, Soft Genitourinary: Yes: WNL Edema: Yes Edema: LLE: Trace, RLE: Trace Wound/Incision: Yes: Dressing Dry and Intact Labs: CBC, BMP 08/06/19 07:28 08/06/19 07:28 INR, PTT INR 1.15 (0.83-1.09) H 08/04/19 07:45 Assessment/Plan Current Medications Generic Name Dose Route Start Last Admin Trade Name Gabrielle PRN Reason Stop Dose Admin Acetaminophen 650 mg 07/31/19 12:01 Tylenol - PO Q6H PRN FEVER Amlodipine Besylate 5 mg 08/02/19 10:00 08/06/19 09:57 Norvasc - PO 5 mg DAILY [facility] Administration Docusate Sodium 100 mg 07/31/19 22:00 08/06/19 09:57 Colace - PO 100 mg BID [facility] Administration Fentanyl 25 mcg 07/31/19 12:01 Sublimaze Injection - IVPUSH [id number] PRN PAIN-PACU ORDER X 4 DOSES ONLY Hydralazine HCl 50 mg 08/02/19 22:00 08/06/19 14:35 Apresoline - PO 50 mg TID [facility] Administration Lactated Ringer's 1,000 ml in 1,000 mls @ 100 mls/hr 08/04/19 00:30 08/06/19 14:34 Lactated Ringers Solution IV 100 mls/hr ASDIR [facility] Administration Cefazolin Sodium/Dextrose 2 gm in 50 mls @ 100 mls/hr 08/04/19 22:00 09:55 Ancef 2 Gm Premixed Ivpb - IVPB 100 mls/hr BID [facility] Administration Metronidazole 500 mg in 100 mls @ 100 mls/hr 08/04/19 18:00 08/06/19 10:46 Flagyl 500mg Premixed Ivpb - IVPB 100 mls/hr Q8H-IV [facility] Administration Insulin Aspart 1 vial 07/31/19 16:30 08/06/19 11:54 Novolog Vial Sliding Scale - SQ 4 unit TIDAC [facility] Administration Protocol Insulin Detemir 20 units 07/31/19 22:00 08/05/19 21:39 Levemir Vial SQ 20 units HS [facility] Administration Labetalol HCl 100 mg 08/02/19 22:00 08/06/19 09:57 Normodyne - PO 100 mg BID [facility] Administration Melatonin 10 mg 08/04/19 22:00 08/05/19 21:39 Melatonin PO 10 mg HS [facility] Administration Metoclopramide HCl 5 mg 08/05/19 16:30 08/06/19 11:53 Reglan - PO 5 mg TIDAC [facility] Administration Pantoprazole Sodium 40 mg 08/04/19 00:30 08/06/19 09:57 Protonix Iv IVPUSH 40 mg BID [facility] Administration Polyethylene Glycol 17 gm 08/01/19 10:00 08/06/19 09:57 Miralax (For Daily Use) - PO 17 gm DAILY [facility] Administration Sodium Bicarbonate 650 mg 08/03/19 14:00 08/06/19 09:57 Sodium Bicarbonate - PO 650 mg DAILY [facility] Administration 1. Acute kidney injury 2. Gas gangrene of LE 3. Metabolic acidosis 4. Anemia 5. Leukocytosis 6. IDDM 7. Hx of hypertension Plan - renal function continues to improve - can hold bicrb and observe - titrate dose of labetolol for bp - repeat labs in am - avoid nsaids - repeat ua
[2019-08-06] MEDS ORDERED: INSULIN (NOVOLOG) ASPART 100 UNITS/ML 10ML VIAL ONE ×2 (16:38→21:26)
--- NOTE | 2019-08-06 17:59 | PN ---
Physical Exam: SUBJECTIVE: Patient seen and examined in the morning. No acute events overnight. Complains of nausea. No chest pain, no fevers, no chills, no shortness of breath. 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 OBJECTIVE: Vital Signs Period Temp Pulse Resp BP Sys/Corona Pulse Ox Last 24 Hr 98.2 F-98.4 F 98-106 20-20 149-162/80-88 97 GENERAL: The patient is awake, alert, and fully oriented, in no acute distress. NECK: Trachea midline, full range of motion, supple. LUNGS: Breath sounds equal, clear to auscultation bilaterally, no wheezes HEART: Regular rate and rhythm, S1, S2 with 3/6 murmur. ABDOMEN: Soft, nontender, nondistended, normoactive bowel sounds, no guarding, no rebound. EXTREMITIES: 2+ pulses, warm, well-perfused, no edema.Left foot still in dressing, no bleeding or pus visible. SKIN: Warm, dry, no rashes or lesions noted Laboratory Results - last 24 hr 08/06/19 08/06/19 08/06/19 06:19 07:28 07:28 WBC 13.7 H RBC 4.30 Hgb 11.8 Hct 35.8 MCV 83.2 MCH 27.5 MCHC 33.1 RDW 15.2 Plt Count 431 MPV 8.3 Absolute Neuts (auto) 11.8 H Neutrophils % 86.4 H Neutrophils % (Manual) 84.0 H Band Neutrophils % 2.0 Lymphocytes % 7.1 L Lymphocytes % (Manual) 2.0 L D Monocytes % 5.3 Monocytes % (Manual) 6 Eosinophils % 1.0 D Eosinophils % (Manual) 0.0 Basophils % 0.2 Basophils % (Manual) 0.0 Myelocytes % (Man) 2 D Promyelocytes % (Man) 0 Blast Cells % (Manual) 0 Nucleated RBC % 0 Metamyelocytes 3 H D Hypochromia 0 Platelet Estimate Normal Polychromasia 1+ Poikilocytosis 1+ Anisocytosis 1+ Microcytosis 1+ Macrocytosis 0 Spherocytes 1+ Fragmented RBCs 1+ Sodium 136 Potassium 3.7 Chloride 104 Carbon Dioxide 24 Anion Gap 8 BUN 21.5 H Creatinine 2.0 H Est GFR (CKD-EPI)AfAm 41.12 Est GFR (CKD-EPI)NonAf 35.48 POC Glucometer 195 Random Glucose 185 H Calcium 8.4 L Phosphorus 2.9 Magnesium 1.6 L Total Bilirubin 0.2 AST 28 ALT 19 Alkaline Phosphatase 118 H Total Protein 6.2 L Albumin 2.6 L 08/06/19 08/06/19 11:26 16:44 WBC RBC Hgb Hct MCV MCH MCHC RDW Plt Count MPV Absolute Neuts (auto) Neutrophils % Neutrophils % (Manual) Band Neutrophils % Lymphocytes % Lymphocytes % (Manual) Monocytes % Monocytes % (Manual) Eosinophils % Eosinophils % (Manual) Basophils % Basophils % (Manual) Myelocytes % (Man) Promyelocytes % (Man) Blast Cells % (Manual) Nucleated RBC % Metamyelocytes Hypochromia Platelet Estimate Polychromasia Poikilocytosis Anisocytosis Microcytosis Macrocytosis Spherocytes Fragmented RBCs Sodium Potassium Chloride Carbon Dioxide Anion Gap BUN Creatinine Est GFR (CKD-EPI)AfAm Est GFR (CKD-EPI)NonAf POC Glucometer 205 181 Random Glucose Calcium Phosphorus Magnesium Total Bilirubin AST ALT Alkaline Phosphatase Total Protein Albumin Active Medications Generic Name Dose Route Start Last Admin Trade Name Freq PRN Reason Stop Dose Admin Acetaminophen 650 mg 07/31/19 12:01 Tylenol - PO Q6H PRN FEVER Amlodipine Besylate 5 mg 08/02/19 10:00 08/06/19 09:57 Norvasc - PO 5 mg DAILY LENNY Administration Docusate Sodium 100 mg 07/31/19 22:00 08/06/19 09:57 Colace - PO 100 mg BID LENNY Administration Fentanyl 25 mcg 07/31/19 12:01 Sublimaze Injection - IVPUSH [id number] PRN PAIN-PACU ORDER X 4 DOSES ONLY Hydralazine HCl 50 mg 08/02/19 22:00 08/06/19 14:35 Apresoline - PO 50 mg TID LENNY Administration Lactated Ringer's 1,000 ml in 1,000 mls @ 100 mls/hr 08/04/19 00:30 08/06/19 14:34 Lactated Ringers Solution IV 100 mls/hr ASDIR LENNY Administration Cefazolin Sodium/Dextrose 2 gm in 50 mls @ 100 mls/hr 08/04/19 22:00 09:55 Ancef 2 Gm Premixed Ivpb - IVPB 100 mls/hr BID LENNY Administration Metronidazole 500 mg in 100 mls @ 100 mls/hr 08/04/19 18:00 08/06/19 17:33 Flagyl 500mg Premixed Ivpb - IVPB 100 mls/hr Q8H-IV LENNY Administration Insulin Aspart 1 vial 07/31/19 16:30 08/06/19 16:45 Novolog Vial Sliding Scale - SQ 2 unit TIDAC LENNY Administration Protocol Insulin Detemir 20 units 07/31/19 22:00 08/05/19 21:39 Levemir Vial SQ 20 units HS LENNY Administration Labetalol HCl 200 mg 08/06/19 22:00 Normodyne - PO BID LENNY Melatonin 10 mg 08/04/19 22:00 08/05/19 21:39 Melatonin PO 10 mg HS LENNY Administration Metoclopramide HCl 5 mg 08/05/19 16:30 08/06/19 16:46 Reglan - PO 5 mg TIDAC LENNY Administration Pantoprazole Sodium 40 mg 08/04/19 00:30 08/06/19 09:57 Protonix Iv IVPUSH 40 mg BID LENNY Administration Polyethylene Glycol 17 gm 08/01/19 10:00 08/06/19 09:57 Miralax (For Daily Use) - PO 17 gm DAILY LENNY Administration Sodium Bicarbonate 650 mg 08/03/19 14:00 08/06/19 09:57 Sodium Bicarbonate - PO 650 mg DAILY LENNY Administration ASSESSMENT/PLAN: 58 M PMH significant for DM, HTN, HLD, who presents with gas gangrene of left foot. 1) Gas Gangrene infection of left foot -Patient underwent amputation of the 2nd and 3rd toe of the left foot 2 days ago. -ID following, Appreciate rec's -Cefazolin 1gram QDaily and Flagyl 500 mg Q8H. Day 10 of antibiotics. -Prior final wound cultures grew Staph aureus and strep viridians. New cultures collected during procedure, gram stain currently shows no organisms. Culture results show bone and wound growing MSSA and alpha hemolytic strep. -Following Podiatry recommendations for wound management. 2) Episode of Hematemesis -Rectal exam was negative for occult blood -Appreciate GI rec's, miralax on board. -Abdominal X-Ray showed possible focal ileus, pneumatosis is not seen, soft tissues are intact. -Protonix 40 mg IV Qdaily. -Continued nausea likely due to flagyl, reglan 5 mg PO TID as per GI. 3)Acute Kidney Injury -Creatinine is 2.0 -D/C normal saline. -F/U U/A -Appreciate Nephrology recs 4) Grade II Diastolic Dysfunction -Echo was completed last night. EF was 55-60%. RV function normal. Patient does not have crackles toady with fluids. Will continue IVF. 5) Diabetes Mellitus -Continue Levemir -Continue Sliding Scale Insulin 6) HTN -Hydralazine 50 mg TID -Labetolol 100 mg BID 7)HLD -Will discuss diet and exercise goals with patient upon discharge. F:No fluids E: monitor CMP N: Clear Liquid diet DVT prophylaxis: SCD Visit type - Emergency Visit Emergency Visit: Yes ED Registration Date: 07/27/19 Care time: The patient presented to the Emergency Department on the above date and was hospitalized for further evaluation of their emergent condition. - New Patient This patient is new to me today: No - Critical Care Critical Care patient: No ATTENDING PHYSICIAN STATEMENT I saw and evaluated the patient. I reviewed the resident's note and discussed the case with the resident. I agree with the resident's findings and plan as documented. SUBJECTIVE: OBJECTIVE: ASSESSMENT AND PLAN:
--- NOTE | 2019-08-06 18:22 | PN ---
Teaching Attending Note Name of Resident: Reginaldo Hicks ATTENDING PHYSICIAN STATEMENT I saw and evaluated the patient. I reviewed the resident's note and discussed the case with the resident. I agree with the resident's findings and plan as documented. SUBJECTIVE: Patient is comfortable, no fever or chills. No further vomiting. OBJECTIVE: Vital Signs Temperature 98.2 F 08/06/19 09:46 Pulse Rate 106 H 08/06/19 09:46 Respiratory Rate 20 08/06/19 09:46 Blood Pressure 162/83 08/06/19 09:46 O2 Sat by Pulse Oximetry (%) 97 08/05/19 20:02 GENERAL: The patient is awake, alert, and fully oriented, in no acute distress. HEAD: Normal with no signs of trauma. EYES: PERRL, extraocular movements intact, sclera anicteric, conjunctiva clear. ENT: Ears normal, oropharynx clear without exudates, moist mucous membranes. NECK: Trachea midline, full range of motion, supple. LUNGS: Breath sounds equal, clear to auscultation bilaterally, no wheezes, no crackles, no accessory muscle use. HEART: Regular rate and rhythm, S1, S2 without murmur, rub or gallop. ABDOMEN: Soft, nontender, nondistended, normoactive bowel sounds, no guarding, no rebound. EXTREMITIES: 2+ pulses, warm, well-perfused, left 2nd toe amputation NEUROLOGICAL: Cranial nerves II through XII grossly intact. Normal speech, gait not observed. PSYCH: Normal mood, normal affect. SKIN: Warm, dry, normal turgor, no rashes or lesions noted CBCD WBC 13.7 K/mm3 (4.0-10.0) H 08/06/19 07:28 RBC 4.30 M/mm3 (4.00-5.60) 08/06/19 07:28 Hgb 11.8 GM/dL (11.7-16.9) 08/06/19 07:28 Hct 35.8 % (35.4-49) 08/06/19 07:28 MCV 83.2 fl (80-96) 08/06/19 07:28 MCHC 33.1 g/dl (32.0-35.9) 08/06/19 07:28 RDW 15.2 % (11.9-15.9) 08/06/19 07:28 Plt Count 431 K/MM3 (134-434) 08/06/19 07:28 MPV 8.3 fl (7.5-11.1) 08/06/19 07:28 CMP Sodium 136 mmol/L (136-145) 08/06/19 07:28 Potassium 3.7 mmol/L (3.5-5.1) 08/06/19 07:28 Chloride 104 mmol/L (98-107) 08/06/19 07:28 Carbon Dioxide 24 mmol/L (21-32) 08/06/19 07:28 Anion Gap 8 MMOL/L (8-16) 08/06/19 07:28 BUN 21.5 mg/dL (7-18) H 08/06/19 07:28 Creatinine 2.0 mg/dL (0.55-1.3) H 08/06/19 07:28 Random Glucose 185 mg/dL (74-106) H 08/06/19 07:28 Calcium 8.4 mg/dL (8.5-10.1) L 08/06/19 07:28 Total Bilirubin 0.2 mg/dL (0.2-1) 08/06/19 07:28 AST 28 U/L (15-37) 08/06/19 07:28 ALT 19 U/L (13-61) 08/06/19 07:28 Alkaline Phosphatase 118 U/L (45-117) H 08/06/19 07:28 Total Protein 6.2 g/dl (6.4-8.2) L 08/06/19 07:28 Albumin 2.6 g/dl (3.4-5.0) L 08/06/19 07:28 Current Medications Generic Name Dose Route Start Last Admin Trade Name Freq PRN Reason Stop Dose Admin Acetaminophen 650 mg 07/31/19 12:01 Tylenol - PO Q6H PRN FEVER Amlodipine Besylate 5 mg 08/02/19 10:00 08/06/19 09:57 Norvasc - PO 5 mg DAILY LENNY Administration Docusate Sodium 100 mg 07/31/19 22:00 08/06/19 09:57 Colace - PO 100 mg BID LENNY Administration Fentanyl 25 mcg 07/31/19 12:01 Sublimaze Injection - IVPUSH [id number] PRN PAIN-PACU ORDER X 4 DOSES ONLY Hydralazine HCl 50 mg 08/02/19 22:00 08/06/19 14:35 Apresoline - PO 50 mg TID LENNY Administration Lactated Ringer's 1,000 ml in 1,000 mls @ 100 mls/hr 08/04/19 00:30 08/06/19 14:34 Lactated Ringers Solution IV 100 mls/hr ASDIR LENNY Administration Cefazolin Sodium/Dextrose 2 gm in 50 mls @ 100 mls/hr 08/04/19 22:00 09:55 Ancef 2 Gm Premixed Ivpb - IVPB 100 mls/hr BID LENNY Administration Metronidazole 500 mg in 100 mls @ 100 mls/hr 08/04/19 18:00 08/06/19 17:33 Flagyl 500mg Premixed Ivpb - IVPB 100 mls/hr Q8H-IV LENNY Administration Insulin Aspart 1 vial 07/31/19 16:30 08/06/19 16:45 Novolog Vial Sliding Scale - SQ 2 unit TIDAC LENNY Administration Protocol Insulin Detemir 20 units 07/31/19 22:00 08/05/19 21:39 Levemir Vial SQ 20 units HS LENNY Administration Labetalol HCl 200 mg 08/06/19 22:00 Normodyne - PO BID LENNY Melatonin 10 mg 08/04/19 22:00 08/05/19 21:39 Melatonin PO 10 mg HS LENNY Administration Metoclopramide HCl 5 mg 08/05/19 16:30 08/06/19 16:46 Reglan - PO 5 mg TIDAC LENNY Administration Pantoprazole Sodium 40 mg 08/04/19 00:30 08/06/19 09:57 Protonix Iv IVPUSH 40 mg BID LENNY Administration Polyethylene Glycol 17 gm 08/01/19 10:00 08/06/19 09:57 Miralax (For Daily Use) - PO 17 gm DAILY LENNY Administration Sodium Bicarbonate 650 mg 08/03/19 14:00 08/06/19 09:57 Sodium Bicarbonate - PO 650 mg DAILY LENNY Administration Home Medications Medication Instructions Recorded Amlodipine Besylate [Norvasc -] 5 mg PO DAILY #30 tablet 08/03/19 Atorvastatin Ca [Lipitor] 1 tab PO DAILY 08/03/19 Ceftriaxone [Rocephin -] 2 gm IVPB DAILY vial 08/03/19 Ceftriaxone [Rocephin 2Gm Ivpb 2 gm IVPB DAILY #42 vial 08/03/19 (Pre-Docked)] Docusate Sodium [Colace -] 100 mg PO BID capsule 08/03/19 Insulin (Levemir) [Levemir Vial] 20 units SQ HS #100 units 08/03/19 Insulin Glargine,Hum.rec.anlog 40 units SQ AM 08/03/19 [Basaglar Kwikpen U-100] Labetalol HCl [Normodyne -] 100 mg PO BID #60 tablet 08/03/19 Lisinopril [Prinivil -] 40 mg PO DAILY 08/03/19 Polyethylene Glycol 3350 [Miralax 17 gm PO DAILY bottle 08/03/19 119 gm Btl -] Sitagliptin Phos/Metformin HCl 1 tab PO BID 08/03/19 [Janumet 50-1,000 mg Tablet] Toujeo Solostar 30 units SQ HS 08/03/19 hydrALAZINE HCL [Apresoline -] 50 mg PO TID #90 tablet 08/03/19 Microbiology 08/04/19 16:00 Urine - Urine Clean Catch Urine Culture - Final NO GROWTH OBTAINED 07/31/19 11:17 Bone Gram Stain - Final 07/31/19 11:17 Bone Tissue Culture - Final Staphylococcus Aureus Streptococcus Sanguis Ii 07/31/19 11:17 Bone Anaerobic Culture - Final NO ANAEROBES WERE ISOLATED 07/31/19 11:17 Foot - Left Gram Stain - Final 07/31/19 11:17 Foot - Left Wound Culture - Final Presumptive Mssa (Pbp2a Neg) Alpha Hemolytic Streptococcus 07/27/19 19:50 Blood - Peripheral Venous Blood Culture - Final NO GROWTH AFTER 5 DAYS INCUBATION 07/27/19 19:50 Blood - Peripheral Venous Blood Culture - Final NO GROWTH AFTER 5 DAYS INCUBATION 07/28/19 12:35 Foot - Left Dorsum Gram Stain - Final 07/28/19 12:35 Foot - Left Dorsum Wound Culture - Final Staphylococcus Aureus Streptococcus Viridans 07/28/19 12:34 Foot - Left Dorsum Gram Stain - Final 07/28/19 12:34 Foot - Left Dorsum Wound Culture - Final Staphylococcus Aureus Streptococcus Viridans ASSESSMENT AND PLAN: Patient is a 58yo man with PMhx of T2DM, HTN, HLP, R knee cancer s/p chemo, sx , and radiation , who presented with erythema on L foot and was found to have cellulitis with gangrenous of left foot. # Acute Leukocytosis improving with s/p left 2nd toe amputation , f/u the re- culture the bld. urine, cxr, repeat labs in am # AXR with some air filled loops of small bowel,with fecal retention. As per GI if vomiting persists, obtain CT scan A/P. Add MiraLAX 17g BID if tolerating PO # Possible UGI bleed, h/h is stable, will continue to monitor. # POD #6 s/p I&D 07/29 for Gas gangrene of L foot with amputation of 2nd, and 3rd digits 07/31. as per ID to continue with home infusion of Rocephin 2gm x 6 weeks s/p cefazolin and flagyl. wound cx as above, blood cx neg , echo with no vegetations AXR with some air filled loops of small bowel, fecal retention. if vomiting persists, obtain CT scan A/P. Add MiraLAX 17g BID if tolerating PO # Nausea: possible due to flagyl , will continue to monitor. # EVIE : AIN due to vanco and zosyn. cr started to improve, tolerated IVF , improving, follow with as an outpatient. Urine eiosinophils pending # DM: cont levemir and cont SSI # H/o HTN: hold home losartan and HCTZ due to renal failure, continue norvasc / hydralazine and labetolol Picc line with Rocephin 2gm daily IV DVT Px; Heparin sq
[2019-08-06] MEDS: INSULIN (LEVEMIR) 100 UNITS/ML UNITS SQ SCH (21:48)
[2019-08-06] MEDS: MELATONIN 5 MG TABLETS PO SCH (21:48)
[2019-08-06] MEDS: HEPARIN NA (PORCINE) 5,000 UNITS/ML 1ML VIAL SQ SCH (21:48)
[2019-08-07] MEDS: LACTATED RINGERS SOLUTION 1,000 ML/1,000 ML INFUS.BAG IV SCH (01:25)
[2019-08-07] MEDS: INSULIN SLIDING SCALE (NOVOLOG) 1 VIAL SQ SCH ×2 (06:27→12:19)
[2019-08-07] MEDS: METOCLOPRAMIDE HCL 10 MG TABLET (FP) PO SCH ×2 (06:27→10:18)
[2019-08-07] MEDS: hydrALAZINE HCL 50 MG TABLET (FP) PO SCH ×2 (06:27→14:59)
[2019-08-07] MEDS: HEPARIN NA (PORCINE) 5,000 UNITS/ML 1ML VIAL SQ SCH ×2 (07:33→10:11)
[2019-08-07 07:40] LABS: BASO % 0.1 % (0-2.0); EOS % 2.3 % (0-4.5); HEMATOCRIT 37.6 % (35.4-49); MEAN CELL VOLUME 84.5 fl (80-96); MEAN PLT VOLUME 8.3 fl (7.5-11.1); MONO % 7.9 % (3.8-10.2); NEUT % 79.7 % (42.8-82.8); PLATELET COUNT 405 K/MM3 (134-434); RBC 4.45 M/mm3 (4.00-5.60); RDW 15.4 % (11.9-15.9); WHITE BLOOD COUNT 11.5 K/mm3 (4.0-10.0)
[2019-08-07 08:09] LABS: ALBUMIN 2.6 g/dl (3.4-5.0); BILIRUBIN,TOTAL 0.2 mg/dL (0.2-1); BLOOD UREA NITROGEN 17.1 mg/dL (7-18); CALCIUM 8.3 mg/dL (8.5-10.1); POTASSIUM 3.7 mmol/L (3.5-5.1); TOT PROT 5.9 g/dl (6.4-8.2)
--- NOTE | 2019-08-07 09:53 | PN ---
Progress Note (short form) - Note Progress Note: s/p amputation of 2/3 digits left foot 07/31 no complaints picc line placed no more vomiting Vital Signs Period Temp Pulse Resp BP Sys/Corona Pulse Ox Last 24 Hr 98.8 F 80 20 130/86 cor-rrr llungs clear abd soft,nt ext foot with minimal bloody drainage, residual warmth dorsum of the foot incision intact CBC, BMP 08/07/19 06:52 08/07/19 06:52 Microbiology 08/04/19 16:00 Urine - Urine Clean Catch Urine Culture - Final NO GROWTH OBTAINED 07/31/19 11:17 Bone Gram Stain - Final 07/31/19 11:17 Bone Tissue Culture - Final Staphylococcus Aureus Streptococcus Sanguis Ii 07/31/19 11:17 Bone Anaerobic Culture - Final NO ANAEROBES WERE ISOLATED 07/31/19 11:17 Foot - Left Gram Stain - Final 07/31/19 11:17 Foot - Left Wound Culture - Final Presumptive Mssa (Pbp2a Neg) Alpha Hemolytic Streptococcus 07/27/19 19:50 Blood - Peripheral Venous Blood Culture - Final NO GROWTH AFTER 5 DAYS INCUBATION 07/27/19 19:50 Blood - Peripheral Venous Blood Culture - Final NO GROWTH AFTER 5 DAYS INCUBATION 07/28/19 12:35 Foot - Left Dorsum Gram Stain - Final 07/28/19 12:35 Foot - Left Dorsum Wound Culture - Final Staphylococcus Aureus Streptococcus Viridans 07/28/19 12:34 Foot - Left Dorsum Gram Stain - Final 07/28/19 12:34 Foot - Left Dorsum Wound Culture - Final Staphylococcus Aureus Streptococcus Viridans Laboratory Tests 07/30/19 07/31/19 08/03/19 06:45 07:45 07:30 C-Reactive Protein 4.0 H Random Vancomycin 29.7 H 21.0 a/p vomiting- coffee grounds resolved leukocytosis (new) improved low grade temp resolved diabetic foot infection with plantar abscess drained, s/p amputation of toes 2/ 3 pod #7-foot improving- pathology with positive margins plan for 6 weeks of rocephin via picc line when ready for discharge-will need 5 more weeks of antiiboitcs prescriptions given to d/c environmental emergencies 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
[2019-08-07] MEDS ORDERED: CEFTRIAXONE 2 GM in DEXTROSE 5%-WATER 100 ML IVPB SCH (10:00)
[2019-08-07] MEDS ORDERED: PT OWN MED DRAWER 7, Y5N ONE (10:01)
[2019-08-07] MEDS ORDERED: DEXTROSE 5%-WATER 100 ML IVPB ONE (10:02)
[2019-08-07] MEDS: amLODIPine BESYLATE 5 MG TABLET (FP) PO SCH (10:10)
[2019-08-07] MEDS: SODIUM BICARBONATE 650 MG TABLET PO SCH (10:10)
[2019-08-07] MEDS: PANTOPRAZOLE SODIUM 40 MG VIAL IVPUSH SCH (10:10)
[2019-08-07] MEDS: DOCUSATE SODIUM 100 MG CAPSULE (FP) PO SCH (10:10)
[2019-08-07] MEDS: LABETALOL HCL 100 MG TABLET (FP) PO SCH (10:10)
[2019-08-07] MEDS: POLYETHYLENE GLYCOL 3350 119 GM BTL PO SCH (10:11)
--- NOTE | 2019-08-07 12:54 | PN ---
Progress Note (short form) - Note Progress Note: Renal follow up for EVIE Seen and examined at the bedside awake and alert no acute complaints denies any sob, cp, abd pain, fever or chills Vital Signs Temperature 97.9 F 08/07/19 10:23 Pulse Rate 107 H 08/07/19 10:23 Respiratory Rate 19 08/07/19 10:23 Blood Pressure 148/96 08/07/19 10:23 O2 Sat by Pulse Oximetry (%) 97 08/05/19 20:02 Intake & Output 08/04/19 08/05/19 08/06/19 08/07/19 23:59 23:59 23:59 23:59 Intake Total 1050 2550 1950 Output Total 500 700 Balance 550 1850 1950 Weight 74.843 kg NAD awake and alert neck supple RRR CTA soft NT/ND no LE edema CBC, BMP 08/07/19 06:52 08/07/19 06:52 Current Medications Acetaminophen (Tylenol -) 650 mg PO Q6H PRN PRN Reason: FEVER Amlodipine Besylate (Norvasc -) 5 mg PO DAILY [facility] Last Admin: 08/07/19 10:10 Dose: 5 mg Docusate Sodium (Colace -) 100 mg PO BID [facility] Last Admin: 08/07/19 10:10 Dose: 100 mg Fentanyl (Sublimaze Injection -) 25 mcg IVPUSH [id number] PRN PRN Reason: PAIN-PACU ORDER X 4 DOSES ONLY Heparin Sodium (Porcine) (Heparin -) 5,000 unit SQ BID [facility] Last Admin: 08/07/19 10:11 Dose: 5,000 unit Hydralazine HCl (Apresoline -) 50 mg PO TID [facility] Last Admin: 08/07/19 06:27 Dose: 50 mg Ceftriaxone Sodium 2 gm/ (Dextrose) 100 mls @ 200 mls/hr IVPB DAILY [facility]; Protocol Last Admin: 08/07/19 10:10 Dose: 200 mls/hr Insulin Aspart (Novolog Vial Sliding Scale -) 1 vial SQ TIDAC [facility]; Protocol Last Admin: 08/07/19 12:19 Dose: 6 unit Insulin Detemir (Levemir Vial) 20 units SQ HS [facility] Last Admin: 08/06/19 21:48 Dose: 20 units Labetalol HCl (Normodyne -) 200 mg PO BID [facility] Last Admin: 08/07/19 10:10 Dose: 200 mg Melatonin (Melatonin) 10 mg PO HS [facility] Last Admin: 08/06/19 21:48 Dose: 10 mg Metoclopramide HCl (Reglan -) 5 mg PO TIDAC [facility] Last Admin: 08/07/19 10:18 Dose: 5 mg Pantoprazole Sodium (Protonix Iv) 40 mg IVPUSH BID [facility] Last Admin: 08/07/19 10:10 Dose: 40 mg Polyethylene Glycol (Miralax (For Daily Use) -) 17 gm PO DAILY [facility] Last Admin: 08/07/19 10:11 Dose: 17 gm Sodium Bicarbonate (Sodium Bicarbonate -) 650 mg PO DAILY [facility] Last Admin: 08/07/19 10:10 Dose: 650 mg 58 year old gentleman with history of DM type 2, hyperlipidemia, hypertension who presented from home with chlls and found to have 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 Acute kidney injury from Vancomycin toxicity vs. ATN 2. Gas gangrene of LE 3. Metabolic acidosis 4. Anemia 5. Leukocytosis 6. IDDM 7. Hx of hypertension Renal function improved and stable May take some time for renal function to improve to baseline. No indication for RESIDENT MANAGER. Continue antibiotics as per ID Urine studies show FeNa of 1.4% (indeterminate) and urine protein to creatinine ratio of 1.3 indicative of tubular proteinuria. Trend renal function and electrolytes daily. stable for discharge with outpatient follow up Thank you Ladarius Sosa DO
[2019-08-07 13:02] LABS: ANISOCYTOSIS 0; MACROCYTOSIS 0; PLATELET ESTIMATE NORMAL
[2019-08-07 15:10] VITALS: BP 147/92; PULSE 98; TEMP 98.4
--- NOTE | 2019-08-07 16:16 | PN ---
Teaching Attending Note Name of Resident: Reginaldo Hicks ATTENDING PHYSICIAN STATEMENT I saw and evaluated the patient. I reviewed the resident's note and discussed the case with the resident. I agree with the resident's findings and plan as documented. SUBJECTIVE: Patient is comfortable, no fever or chills. No further vomiting. OBJECTIVE: Vital Signs Temperature 98.4 F 08/07/19 14:02 Pulse Rate 98 H 08/07/19 14:02 Respiratory Rate 20 08/07/19 14:02 Blood Pressure 147/92 08/07/19 14:02 O2 Sat by Pulse Oximetry (%) 97 08/05/19 20:02 GENERAL: The patient is awake, alert, and fully oriented, in no acute distress. HEAD: Normal with no signs of trauma. EYES: PERRL, extraocular movements intact, sclera anicteric, conjunctiva clear. ENT: Ears normal, oropharynx clear without exudates, moist mucous membranes. NECK: Trachea midline, full range of motion, supple. LUNGS: Breath sounds equal, clear to auscultation bilaterally, no wheezes, no crackles, no accessory muscle use. HEART: Regular rate and rhythm, S1, S2 without murmur, rub or gallop. ABDOMEN: Soft, nontender, nondistended, normoactive bowel sounds, no guarding, no rebound. EXTREMITIES: 2+ pulses, warm, well-perfused, left 2nd toe amputation NEUROLOGICAL: Cranial nerves II through XII grossly intact. Normal speech, gait not observed. PSYCH: Normal mood, normal affect. SKIN: Warm, dry, normal turgor, no rashes or lesions noted CBCD WBC 11.5 K/mm3 (4.0-10.0) H 08/07/19 06:52 RBC 4.45 M/mm3 (4.00-5.60) 08/07/19 06:52 Hgb 12.0 GM/dL (11.7-16.9) 08/07/19 06:52 Hct 37.6 % (35.4-49) 08/07/19 06:52 MCV 84.5 fl (80-96) 08/07/19 06:52 MCHC 32.0 g/dl (32.0-35.9) 08/07/19 06:52 RDW 15.4 % (11.9-15.9) 08/07/19 06:52 Plt Count 405 K/MM3 (134-434) 08/07/19 06:52 MPV 8.3 fl (7.5-11.1) 08/07/19 06:52 CMP Sodium 138 mmol/L (136-145) 08/07/19 06:52 Potassium 3.7 mmol/L (3.5-5.1) 08/07/19 06:52 Chloride 104 mmol/L (98-107) 08/07/19 06:52 Carbon Dioxide 24 mmol/L (21-32) 08/07/19 06:52 Anion Gap 10 MMOL/L (8-16) 08/07/19 06:52 BUN 17.1 mg/dL (7-18) 08/07/19 06:52 Creatinine 2.0 mg/dL (0.55-1.3) H 08/07/19 06:52 Random Glucose 152 mg/dL (74-106) H 08/07/19 06:52 Calcium 8.3 mg/dL (8.5-10.1) L 08/07/19 06:52 Total Bilirubin 0.2 mg/dL (0.2-1) 08/07/19 06:52 AST 30 U/L (15-37) 08/07/19 06:52 ALT 15 U/L (13-61) 08/07/19 06:52 Alkaline Phosphatase 109 U/L (45-117) 08/07/19 06:52 Total Protein 5.9 g/dl (6.4-8.2) L 08/07/19 06:52 Albumin 2.6 g/dl (3.4-5.0) L 08/07/19 06:52 Current Medications Generic Name Dose Route Start Last Admin Trade Name Freq PRN Reason Stop Dose Admin Acetaminophen 650 mg 07/31/19 12:01 Tylenol - PO Q6H PRN FEVER Amlodipine Besylate 5 mg 08/02/19 10:00 08/07/19 10:10 Norvasc - PO 5 mg DAILY LENNY Administration Docusate Sodium 100 mg 07/31/19 22:00 08/07/19 10:10 Colace - PO 100 mg BID LENNY Administration Fentanyl 25 mcg 07/31/19 12:01 Sublimaze Injection - IVPUSH [id number] PRN PAIN-PACU ORDER X 4 DOSES ONLY Heparin Sodium (Porcine) 5,000 unit 08/06/19 22:00 08/07/19 10:11 Heparin - SQ 5,000 unit BID LENNY Administration Hydralazine HCl 50 mg 08/02/19 22:00 08/07/19 14:59 Apresoline - PO 50 mg TID LENNY Administration Ceftriaxone Sodium 2 gm/ 100 mls @ 200 mls/hr 08/07/19 10:00 08/07/19 10:10 Dextrose IVPB 200 mls/hr DAILY LENNY Administration Protocol Insulin Aspart 1 vial 07/31/19 16:30 08/07/19 12:19 Novolog Vial Sliding Scale - SQ 6 unit TIDAC LENNY Administration Protocol Insulin Detemir 20 units 07/31/19 22:00 08/06/19 21:48 Levemir Vial SQ 20 units HS LENNY Administration Labetalol HCl 200 mg 08/06/19 22:00 08/07/19 10:10 Normodyne - PO 200 mg BID LENNY Administration Melatonin 10 mg 08/04/19 22:00 08/06/19 21:48 Melatonin PO 10 mg HS LENNY Administration Metoclopramide HCl 5 mg 08/05/19 16:30 08/07/19 10:18 Reglan - PO 5 mg TIDAC LENNY Administration Pantoprazole Sodium 40 mg 08/04/19 00:30 08/07/19 10:10 Protonix Iv IVPUSH 40 mg BID LENNY Administration Polyethylene Glycol 17 gm 08/01/19 10:00 08/07/19 10:11 Miralax (For Daily Use) - PO 17 gm DAILY LENNY Administration Sodium Bicarbonate 650 mg 08/03/19 14:00 08/07/19 10:10 Sodium Bicarbonate - PO 650 mg DAILY LENNY Administration Home Medications Medication Instructions Recorded Amlodipine Besylate [Norvasc -] 5 mg PO DAILY #30 tablet 08/03/19 Atorvastatin Ca [Lipitor] 1 tab PO DAILY 08/03/19 Ceftriaxone [Rocephin -] 2 gm IVPB DAILY vial 08/03/19 Ceftriaxone [Rocephin 2Gm Ivpb 2 gm IVPB DAILY #42 vial 08/03/19 (Pre-Docked)] Docusate Sodium [Colace -] 100 mg PO BID capsule 08/03/19 Lisinopril [Prinivil -] 40 mg PO DAILY 08/03/19 Polyethylene Glycol 3350 [Miralax 17 gm PO DAILY bottle 08/03/19 119 gm Btl -] Toujeo Solostar 30 units SQ HS 08/03/19 hydrALAZINE HCL [Apresoline -] 50 mg PO TID #90 tablet 08/03/19 Insulin Glargine,Hum.rec.anlog 25 unit SQ AM #100 vial 08/07/19 [Lantus] Labetalol HCl [Normodyne -] 200 mg PO BID #60 tablet 08/07/19 Melatonin 10 mg PO HS tab 08/07/19 Sitagliptin Phosphate [Januvia] 50 mg PO DAILY #30 tablet 08/07/19 Sodium Bicarbonate - 650 mg PO DAILY tablet 08/07/19 08/04/19 16:00 Urine - Urine Clean Catch Urine Culture - Final NO GROWTH OBTAINED 07/31/19 11:17 Bone Gram Stain - Final 07/31/19 11:17 Bone Tissue Culture - Final Staphylococcus Aureus Streptococcus Sanguis Ii 07/31/19 11:17 Bone Anaerobic Culture - Final NO ANAEROBES WERE ISOLATED 07/31/19 11:17 Foot - Left Gram Stain - Final 07/31/19 11:17 Foot - Left Wound Culture - Final Presumptive Mssa (Pbp2a Neg) Alpha Hemolytic Streptococcus 07/27/19 19:50 Blood - Peripheral Venous Blood Culture - Final NO GROWTH AFTER 5 DAYS INCUBATION 07/27/19 19:50 Blood - Peripheral Venous Blood Culture - Final NO GROWTH AFTER 5 DAYS INCUBATION 07/28/19 12:35 Foot - Left Dorsum Gram Stain - Final 07/28/19 12:35 Foot - Left Dorsum Wound Culture - Final Staphylococcus Aureus Streptococcus Viridans 07/28/19 12:34 Foot - Left Dorsum Gram Stain - Final 07/28/19 12:34 Foot - Left Dorsum Wound Culture - Final Staphylococcus Aureus Streptococcus Viridans ASSESSMENT AND PLAN: Patient is a 58yo man with PMhx of T2DM, HTN, HLP, R knee cancer s/p chemo, sx , and radiation , who presented with erythema on L foot and was found to have cellulitis with gangrenous of left foot. # Acute Leukocytosis improving with s/p left 2nd toe amputation , discussed with ID , patient can be discharged home on IV antibiotics 2gm x total of 6 weeks. # AXR with some air filled loops of small bowel, with fecal retention. As per GI if vomiting persists, obtain CT scan A/P. Add MiraLAX 17g BID if tolerating PO # No further GI bleed noted, h/h is stable. follow with GI as an outpatient. # POD #7 s/p I&D 07/29 for Gas gangrene of L foot with amputation of 2nd, and 3rd digits 07/31. as per ID to continue with home infusion of Rocephin 2gm x 6 weeks s/p cefazolin and flagyl. wound cx as above, blood cx neg , echo with no vegetations AXR with some air filled loops of small bowel, fecal retention. if vomiting persists, obtain CT scan A/P. Add MiraLAX 17g BID if tolerating PO # Nausea: possible due to flagyl , will continue to monitor. # EVIE : AIN due to vanco and zosyn. cr started to improve, tolerated IVF , improving, follow with as an outpatient. Urine eiosinophils pending # DM: cont levemir and cont SSI # H/o HTN: hold home losartan and HCTZ due to renal failure, continue norvasc / hydralazine and labetolol Picc line with Rocephin 2gm daily IV total of 6 weeks DVT Px; Heparin sq
--- NOTE | 2019-08-07 17:31 | DS ---
Physical Exam: SUBJECTIVE: Patient seen and examined in the morning. Patient had no acute events overnight. Has no complaints and denies: chest pain, shortness of breath , abdominal pain, fever, and chills. Percussion Teacher used: [id number]. OBJECTIVE: Vital Signs Period Temp Pulse Resp BP Sys/Corona Pulse Ox Last 24 Hr 97.9 F-98.8 F 80-107 19-20 130-148/86-96 PHYSICAL EXAM GENERAL: The patient is awake, alert, and fully oriented, in no acute distress. HEAD: Normal with no signs of trauma. NECK: Trachea midline, full range of motion, supple. LUNGS: Breath sounds equal, clear to auscultation bilaterally, no wheezes, no crackles, no accessory muscle use. HEART: Regular rate and rhythm, S1, S2 without murmur, rub or gallop. ABDOMEN: Soft, nontender, nondistended, normoactive bowel sounds, no guarding, no rebound, no hepatosplenomegaly, no masses. EXTREMITIES: 2+ pulses, warm, well-perfused, no edema. Left lower leg is wrapped , no blood or pus on the bandaging. NEUROLOGICAL: Cranial nerves II through XII grossly intact. Normal speech, gait not observed. LABS Laboratory Results - last 24 hr 08/07/19 08/07/19 08/07/19 06:24 06:52 06:52 WBC 11.5 H RBC 4.45 Hgb 12.0 Hct 37.6 MCV 84.5 MCH 27.0 MCHC 32.0 RDW 15.4 Plt Count 405 MPV 8.3 Absolute Neuts (auto) 9.2 H Neutrophils % 79.7 Neutrophils % (Manual) 79.0 Band Neutrophils % 0.0 Lymphocytes % 10.0 D Lymphocytes % (Manual) 10.0 D Monocytes % 7.9 Monocytes % (Manual) 3 L Eosinophils % 2.3 D Eosinophils % (Manual) 2.0 D Basophils % 0.1 Basophils % (Manual) 0.0 Myelocytes % (Man) 4 H D Promyelocytes % (Man) 0 Blast Cells % (Manual) 0 Nucleated RBC % 0 Metamyelocytes 0 D Hypochromia 0 Platelet Estimate Normal Polychromasia 0 Poikilocytosis 0 Anisocytosis 0 Microcytosis 0 Macrocytosis 0 Sodium 138 Potassium 3.7 Chloride 104 Carbon Dioxide 24 Anion Gap 10 BUN 17.1 Creatinine 2.0 H Est GFR (CKD-EPI)AfAm 41.12 Est GFR (CKD-EPI)NonAf 35.48 POC Glucometer 136 Random Glucose 152 H Calcium 8.3 L Total Bilirubin 0.2 AST 30 ALT 15 Alkaline Phosphatase 109 Total Protein 5.9 L Albumin 2.6 L 08/07/19 12:10 WBC RBC Hgb Hct MCV MCH MCHC RDW Plt Count MPV Absolute Neuts (auto) Neutrophils % Neutrophils % (Manual) Band Neutrophils % Lymphocytes % Lymphocytes % (Manual) Monocytes % Monocytes % (Manual) Eosinophils % Eosinophils % (Manual) Basophils % Basophils % (Manual) Myelocytes % (Man) Promyelocytes % (Man) Blast Cells % (Manual) Nucleated RBC % Metamyelocytes Hypochromia Platelet Estimate Polychromasia Poikilocytosis Anisocytosis Microcytosis Macrocytosis Sodium Potassium Chloride Carbon Dioxide Anion Gap BUN Creatinine Est GFR (CKD-EPI)AfAm Est GFR (CKD-EPI)NonAf POC Glucometer 282 Random Glucose Calcium Total Bilirubin AST ALT Alkaline Phosphatase Total Protein Albumin HOSPITAL COURSE: Date of Admission:07/27/19 Date of Discharge: 08/07/19 58M with PMH of Dm, HTN, HLD, who presented with left lower extremity foot pain. Was found to have cellulitis with subcutaneous air in the foot. Podiatry and ID were consulted and podiatry felt urgent debridement was needed after initial foot x-ray was complete. ID started patient on vancomycin and zoysn, with one time dosage of clindamycin. Patient was kept on vancomycin and zosyn for 3 days, until renal function detoriated and creatinine was elevated. Vancomycin was stopped and patient was kept on zoysn and clindamycin. Podiatry evaluated patient's foot and ruled that his 2nd and 3rd digit on toe would not be salvageable. Patient returned to OR for amputation of 2nd and 3rd toe on left foot on 07/31/19. Procedure was successful and without complication,and patient was started on cefazolin and flagyl. Patient was adequately hydrated through remainder of stay and kept on cefazolin and flagyl until final hospital day. Renal function improved after vancomycin was stopped and patient was determined stable enough to return home after PICC line was inserted to continue outpatient antibiotics: Rocephin 2mg IV Daily x6 weeks. Patient had one episode of coffee ground emesis, for which gastroenterology evaluated. Patient was found to be constipated on Abdominal X-Ray, and patient had nausea for remainder of visit. Patient was given Reglan 5mg to help with nausea. Patient's wound will be managed by via wound vac. Microbiology showed that cultures from both the I&D and amputation showed growth of MSSA and strep viridians and sanguinis. Imaging: Left foot X-ray: Soft tissue swelling and air that appears to be posterior to the proximal toes, as described above compatible with clinical history of cellulitis and soft tissue emphysema. If osteomyelitis is clinically considered , further evaluation with MRI would be the study of choice. US Duplex of lower extremities: Showed no signs of significant stenosis or occlusions in vessels in extremities U/S Kidney: negative renal sonogram Echocardiogram: EF: 55-60%, Diastolic dysfunction grade II, mild MR, TR, MD. RV function is normal. Abdominal X-Ray: 4 views of the abdomen reveal degeneraive changes, large heart , coarse lung findings and no sign of free air. There is an elevated right hemidiaphragm. There is some retained stool. There is some air distention of colon and some air distended loops of small bowel. A gross obstruction is not seen. There may be a focal ileus in the right upper quadrant. Pneumotosis is not seen. The soft tissues are intact. Correlation recommended. If symptoms persist further imaging with CT may help. Minutes to complete discharge: 35 Discharge Summary Problems reviewed: Yes Reason For Visit: SOFT TISSUE EMPHYSEMA,CELLULITIS Condition: Stable - Instructions Diet, Activity, Other Instructions: You were admitted to the hospital due to infection of your left foot, which led to gas being in your foot. While you were here we scanned your foot and saw gas and possible infection which led to us operating on your foot.We operated on your foot and had to amputate the second and third toe on your left foot. While you were here, your kidney function decreased. We managed your kidneys and they have improved but please follow up with the kidney doctor. While you were here you were started on antibiotics. We are continuing you on antibiotics at home, you will be receiving them through a special IV in your arm that lets you take this medicine outside of the hospital. This medication is as follows: Rocephin 2 grams, take daily through the IV line for 6 weeks. Your foot is still healing. In order for it to heal we have given it a special kind of dressing called a Wound-Vac. You will be receiving visiting nurse services to help change the dressing 3 times a week. You should only put weight on the heel of the left foot. If you have worsening pain in your foot, bleeding, new redness, chest pain, shortness of breath, fevers, or worsening of your condition please come back to the Emergency Department. Please continue all your home medications. Follow up with your PCP (Dr. Charles Hand) within 1 week please Referrals: Jaja Hernández MD [Staff Physician] - 1 Week (wound care clinic) Ladarius Sosa MD [Staff Physician] - 1 Week Disposition: HOME - Home Medications Comprehensive Discharge Medication List: Ambulatory Orders Amlodipine Besylate [Norvasc -] 5 mg PO DAILY #30 tablet 08/03/19 Atorvastatin Ca [Lipitor] 1 tab PO DAILY 08/03/19 Ceftriaxone [Rocephin -] 2 gm IVPB DAILY vial 08/03/19 Ceftriaxone [Rocephin 2Gm Ivpb (Pre-Docked)] 2 gm IVPB DAILY #42 vial 08/03/19 Docusate Sodium [Colace -] 100 mg PO BID capsule 08/03/19 Lisinopril [Prinivil -] 40 mg PO DAILY 08/03/19 Polyethylene Glycol 3350 [Miralax 119 gm Btl -] 17 gm PO DAILY bottle 08/03/19 Toujeo Solostar 30 units SQ HS 08/03/19 hydrALAZINE HCL [Apresoline -] 50 mg PO TID #90 tablet 08/03/19 Insulin Glargine,Hum.rec.anlog [Lantus] 25 unit SQ AM #100 vial 08/07/19 Labetalol HCl [Normodyne -] 200 mg PO BID #60 tablet 08/07/19 Melatonin 10 mg PO HS tab 08/07/19 Sitagliptin Phosphate [Januvia] 50 mg PO DAILY #30 tablet 08/07/19 Sodium Bicarbonate - 650 mg PO DAILY tablet 08/07/19 This patient is new to me today: No Emergency Visit: Yes ED Registration Date: 07/27/19 Care time: The patient presented to the Emergency Department on the above date and was hospitalized for further evaluation of their emergent condition. Critical Care patient: No - Discharge Referral Referred to [facility] No ATTENDING PHYSICIAN STATEMENT I saw and evaluated the patient. I reviewed the resident's note and discussed the case with the resident. I agree with the resident's findings and plan as documented. SUBJECTIVE: OBJECTIVE: ASSESSMENT AND PLAN:
== END 2019-08-07 16:22 | disposition home or self-care (01) | DRG 314 ==
LOC: JER 17:14 → JERBED 20:19 → J6S 07-28 02:58
PROVIDERS: ADMIT Internal Medicine; ATTEND Internal Medicine
PROC: 0J9R0ZZ Drainage of Left Foot Subcutaneous Tissue and Fascia, Open Approach (ICD-10-PCS; principal; 2019-07-28 11:30)
PROC: 0Y6S0Z2 Detachment at Left 2nd Toe, Mid, Open Approach (ICD-10-PCS; 2019-07-31)
PROC: 0Y6U0Z2 Detachment at Left 3rd Toe, Mid, Open Approach (ICD-10-PCS; 2019-07-31)
PROC: 0SC Lower Joints, Extirpation (ICD-10-PCS; 2019-07-31)
PROC: 02HV33Z Insertion of Infusion Device into Superior Vena Cava, Percutaneous Approach (ICD-10-PCS; 2019-08-03)
PROC: B518ZZA Fluoroscopy of Superior Vena Cava, Guidance (ICD-10-PCS; 2019-08-03)
DX: E11.52 Type 2 diabetes mellitus with diabetic peripheral angiopathy with gangrene (principal); I10 Essential (primary) hypertension; E78.5 Hyperlipidemia, unspecified; L03.116 Cellulitis of left lower limb; D72.829 Elevated white blood cell count, unspecified; R00.0 Tachycardia, unspecified; N17.9 Acute kidney failure, unspecified; E87.1 Hypo-osmolality and hyponatremia; E11.65 Type 2 diabetes mellitus with hyperglycemia; J98.2 Interstitial emphysema; E87.5 Hyperkalemia; E11.628 Type 2 diabetes mellitus with other skin complications; L08.9 Local infection of the skin and subcutaneous tissue, unspecified; A48.0 Gas gangrene; E87.2 Acidosis; D64.9 Anemia, unspecified; E11.621 Type 2 diabetes mellitus with foot ulcer; R80.8 Other proteinuria; E87.70 Fluid overload, unspecified; K59.09 Other constipation; R11.10 Vomiting, unspecified; E11.69 Type 2 diabetes mellitus with other specified complication; M86.8X7 Other osteomyelitis, ankle and foot; I51.89 Other ill-defined heart diseases; Z79.4 Long term (current) use of insulin
CPT/HCPCS: 36415; 36558; 71045-TC-FY; 71046-TC-FY; 73610-TC-LT-FY; 73630-TC-LT; 74018-TC-FY; 74019-TC-FY; 76775-TC; 77001-TC-FY; 80048; 80053; 81003; 82271; 82272; 82570; 82962; 83036; 83605; 83615; 83735; 84100; 84156; 84300; 84540; 85025; 85027; 85610; 85651; 85730; 86140; 86850; 86900; 86901; 87040; 87070; 87075; 87077; 87086; 87186; 87205; 88305-TC; 88311-TC; 93005; 93010; 93306-TC; 93926-TC; 93970-TC; 94010; 94640; 94760; 97116-GP; 97162-GP; 99285-25; C1751; G0480; J1644; J7030; Q2036

== ENCOUNTER → 2019-09-27 | Day surgery (SDC) | payer OTHER | END | disposition home or self-care (01) | LOC: JRADIR 11:48 | PROVIDERS: ATTEND Internal Medicine | PROC: 0JPT0XZ Removal of Tunneled Vascular Access Device from Trunk Subcutaneous Tissue and Fascia, Open Approach (ICD-10-PCS; principal; 2019-09-27) | DX: Z45.2 Encounter for adjustment and management of vascular access device (principal); M86.9 Osteomyelitis, unspecified | CPT/HCPCS: 36589 ==

== ENCOUNTER 2019-10-12 15:15 | Emergency (ER) | payer OTHER ==
[2019-10-12 15:25] VITALS: BMI 24.0
--- NOTE | 2019-10-12 15:27 | PDOC ---
Rapid Medical Evaluation Chief Complaint: Psychiatric Time Seen by Provider: 10/12/19 15:23 Medical Evaluation: Allergies Allergy/AdvReac Type Severity Reaction Status Date / Time No Known Allergies Allergy Verified 06/06/15 13:47 Vital Signs Temp Pulse Resp BP Pulse Ox 98 F 98 H 18 159/88 98 10/12/19 15:21 10/12/19 15:21 10/12/19 15:21 10/12/19 15:21 10/12/19 15:21 10/12/19 15:25 I have performed a brief in-person evaluation of this patient. The patient presents with a chief complaint of: BIB from wound care with instructions from Dr. Rubio due to patient complaining sob and chest tightness while in hyperbaric chamber. pt report he panicked when he was placed in the hyperbaric chamber and has not symptoms now. Denies CP, SOB now Pertinent physical exam findings: A&O x 3 in NAD. lungs CTAB, heart RRR I have ordered the following: EKG The patient will proceed to the ED for further evaluation. Discharge Disposition - Diagnosis Anxiety - Discharge Dispostion Condition at time of disposition: Stable - Referrals - Patient Instructions - Post Discharge Activity
--- NOTE | 2019-10-12 17:13 | PDOC ---
History of Present Illness - General Chief Complaint: Psychiatric Stated Complaint: PAIN Time Seen by Provider: 10/12/19 15:23 History Source: Patient Exam Limitations: Language Barrier (Hai #[id number] [facility]) - History of Present Illness Initial Comments: 10/12/19 17:10 58 year old male c/o shortness on breath while in the hyperbaric chamber. patient reports that he felt nervous while in hyperbaric chamber. denies chest pain, NVD, diaphoresis, PMHX: hypertension, diabetes, Past History - Past Medical History Allergies/Adverse Reactions: Allergies Allergy/AdvReac Type Severity Reaction Status Date / Time No Known Allergies Allergy Verified 10/12/19 15:26 Home Medications: Ambulatory Orders Amlodipine Besylate [Norvasc -] 5 mg PO DAILY #30 tablet 08/03/19 Atorvastatin Ca [Lipitor] 1 tab PO DAILY 08/03/19 Docusate Sodium [Colace -] 100 mg PO BID capsule 08/03/19 Lisinopril [Prinivil -] 40 mg PO DAILY 08/03/19 Polyethylene Glycol 3350 [Miralax 119 gm Btl -] 17 gm PO DAILY bottle 08/03/19 Toujeo Solostar 30 units SQ HS 08/03/19 hydrALAZINE HCL [Apresoline -] 50 mg PO TID #90 tablet 08/03/19 Insulin Glargine,Hum.rec.anlog [Lantus] 25 unit SQ AM #100 vial 08/07/19 Labetalol HCl [Normodyne -] 200 mg PO BID #60 tablet 08/07/19 Melatonin 10 mg PO HS tab 08/07/19 Sitagliptin Phosphate [Januvia] 50 mg PO DAILY #30 tablet 08/07/19 Sodium Bicarbonate - 650 mg PO DAILY tablet 08/07/19 Cancer: Yes (RIGHT KNEE AND READIATION 2008) CVA: No COPD: No Diabetes: Yes HTN: Yes Hypercholesterolemia: Yes - Surgical History Orthopedic Surgery: Yes - Immunization History Td Vaccination: (UNKNOWN) Immunization Up to Date: No - Psycho Social/Smoking Cessation Hx Smoking Status: Yes (QUIT MORE THAN 20 YRS AGO) Smoking History: Never smoked Have you smoked in the past 12 months: No Number of Cigarettes Smoked Daily: 0 Hx Alcohol Use: No Drug/Substance Use Hx: No Substance Use Type: None Review of Systems - Review of Systems Able to Perform ROS?: Yes Is the patient limited Hebrew proficient: No Constitutional: No: Symptoms Reported, See HPI, Chills, Diaphoresis, Fever, Loss of Appetite, Malaise, Night Sweats, Weakness, Weight Stable, Unintentional Wgt. Loss, Unexplained wgt Loss, Other ABD/GI: No: Symptoms Reported, See HPI, Abdominal Distended, Abd. Pain w/ defecation, Blood Streaked Bowels, Constipated, Diarrhea, Difficulty Swallowing , Nausea, Poor Appetite, Poor Fluid Intake, Rectal Bleeding, Vomiting, Indigestion, Abdominal cramping, Tarry Stools, Other : No: Symptoms Reported, See HPI, Burning, Dysuria, Discharge, Frequency, Flank Pain, Hematuria, Incontinence, Pain, Urgency, Testicular Mass, Testicular Swelling, Lesions, Testicular Pain, Other Musculoskeletal: No: Symptoms Reported, See HPI, Back Pain, Gout, Joint Pain, Joint Swelling, Muscle Pain, Muscle Weakness, Neck Pain, Joint Stiffness, Other *Physical Exam - Vital Signs Last Vital Signs Temp Pulse Resp BP Pulse Ox 98 F 98 H 18 159/88 98 10/12/19 15:21 10/12/19 15:21 10/12/19 15:21 10/12/19 15:21 10/12/19 15:21 - Physical Exam General Appearance: Yes: Appropriately Dressed Respiratory/Chest: positive: Lungs Clear, Normal Breath Sounds Cardiovascular: positive: Regular Rhythm, Regular Rate Musculoskeletal: positive: Normal Inspection Extremity: positive: Normal Capillary Refill, Normal Inspection, Normal Range of Motion Integumentary: positive: Normal Color, Dry, Warm Heart Score/ECG Review - ECG Intrepretation Rhythm: Regular Rhythm Comment:: 10/12/19 17:36 NSR: 98 bpm possible left artial enlargement Medical Decision Making - Medical Decision Making A: anxiety? P: EKG same as presvious. patient completely asymptomatic. will d.c home with strict return precautions. 10/12/19 17:36 patient is completely asymptomatic. strict return precautions reviewed with patient., patient is due for an appointment in wound clinic tomorrow. 10/12/19 21:10 Discharge - Discharge Information Problems reviewed: Yes Clinical Impression/Diagnosis: Anxiety Condition: Stable Disposition: HOME - Follow up/Referral - Patient Discharge Instructions Patient Printed Discharge Instructions: DI for Anxiety -- Adult Additional Instructions: Additional Instructions: * Please call your personal physician to report your Emergency Department visit and to report your progress, if any. * If there is no improvement in symptoms in 2 days call your physician. * Return to the Emergency Department for any worsening symptoms. - Post Discharge Activity
[2019-10-12 17:36] VITALS: BP 169/95; PULSE 91; TEMP 98.1
--- NOTE | 2019-10-13 13:22 | EKG ---
Test Reason : Blood Pressure : / mmHG Vent. Rate : 098 BPM Atrial Rate : 098 BPM P-R Int : 132 ms QRS Dur : 068 ms QT Int : 362 ms P-R-T Axes : 056 012 037 degrees QTc Int : 462 ms POOR DATA QUALITY, INTERPRETATION MAY BE ADVERSELY AFFECTED NORMAL SINUS RHYTHM POSSIBLE LEFT ATRIAL ENLARGEMENT SEPTAL INFARCT (CITED ON OR BEFORE 27-JUL-2019) ABNORMAL ECG WHEN COMPARED WITH ECG OF 27-JUL-2019 19:51, NO SIGNIFICANT CHANGE WAS FOUND Confirmed by MERVAT RENDON MD ([id number]) on 10/13/2019 1:22:12 PM Referred By: Confirmed By:MERVAT RENDON MD
--- NOTE | 2019-10-13 13:23 | EKG ---
Test Reason : Blood Pressure : / mmHG Vent. Rate : 100 BPM Atrial Rate : 100 BPM P-R Int : 142 ms QRS Dur : 066 ms QT Int : 344 ms P-R-T Axes : 078 013 057 degrees QTc Int : 443 ms POOR DATA QUALITY, INTERPRETATION MAY BE ADVERSELY AFFECTED NORMAL SINUS RHYTHM POSSIBLE LEFT ATRIAL ENLARGEMENT NONSPECIFIC T WAVE ABNORMALITY ABNORMAL ECG WHEN COMPARED WITH ECG OF 27-JUL-2019 19:51, NO SIGNIFICANT CHANGE WAS FOUND Confirmed by MERVAT RENDON MD ([id number]) on 10/13/2019 1:22:58 PM Referred By: Confirmed By:MERVAT RENDON MD
== END 2019-10-12 17:47 | disposition home or self-care (01) ==
LOC: JER 15:15
DX: F41.9 Anxiety disorder, unspecified (principal); I10 Essential (primary) hypertension; E11.9 Type 2 diabetes mellitus without complications; Z79.4 Long term (current) use of insulin; E78.00 Pure hypercholesterolemia, unspecified; Z87.890 Personal history of sex reassignment; Z85.89 Personal history of malignant neoplasm of other organs and systems; E11.621 Type 2 diabetes mellitus with foot ulcer; L97.522 Non-pressure chronic ulcer of other part of left foot with fat layer exposed
CPT/HCPCS: 82962; 93005; 93010; 99281-25; G0277

== ENCOUNTER 2019-11-12 23:07 | Emergency (ER) | payer OTHER ==
--- NOTE | 2019-11-12 23:18 | PDOC ---
History of Present Illness - General Stated Complaint: HIGH BLOOD PRESSURE PROBLEMS Time Seen by Provider: 11/12/19 23:13 History Source: Patient Exam Limitations: No Limitations - History of Present Illness Initial Comments: 11/12/19 23:15 PCP: Dr. Charles Hand HPI: 59 yo M pmh HTN, HLD, DM (chronic wounds) presenting with hypertension. Patient reports that he gets nervous thinking about his blood pressure and it rises then he gets more nervous and it rises more. Denies history of anxiety, but reports being very nervous and in his own head. Recently ran out of Norvasc 5mg and Lisinopril 40mg that he is supposed to take daily. Has been taking his labetalol 100mg daily instead of BID. Recorded a SBP of 198 and 160 at home. Denies any other symptoms. No head pain, no chest pain, no SOB, denies abdominal or back pain, lightheadedness, palpitations, syncope, no nausea, vomiting, changes in his vision, blood in the urine, pain with urination. ECHO 07/31 with 55-60% EF, normal LV function. All: NKDA Meds: Per chart PMH: HTN, HLD, DM, remote cancer 2008 PSH: Per chart Past History - Past Medical History Allergies/Adverse Reactions: Allergies Allergy/AdvReac Type Severity Reaction Status Date / Time No Known Allergies Allergy Verified 11/12/19 23:33 Home Medications: Ambulatory Orders Amlodipine Besylate [Norvasc -] 5 mg PO DAILY #30 tablet 08/03/19 Atorvastatin Ca [Lipitor] 1 tab PO DAILY 08/03/19 Docusate Sodium [Colace -] 100 mg PO BID capsule 08/03/19 Lisinopril [Prinivil -] 40 mg PO DAILY 08/03/19 Polyethylene Glycol 3350 [Miralax 119 gm Btl -] 17 gm PO DAILY bottle 08/03/19 Toujeo Solostar 30 units SQ HS 08/03/19 hydrALAZINE HCL [Apresoline -] 50 mg PO TID #90 tablet 08/03/19 Insulin Glargine,Hum.rec.anlog [Lantus] 25 unit SQ AM #100 vial 08/07/19 Labetalol HCl [Normodyne -] 200 mg PO BID #60 tablet 08/07/19 Melatonin 10 mg PO HS tab 08/07/19 Sitagliptin Phosphate [Januvia] 50 mg PO DAILY #30 tablet 08/07/19 Sodium Bicarbonate - 650 mg PO DAILY tablet 08/07/19 Cancer: Yes (RIGHT KNEE AND READIATION 2008) CVA: No COPD: No Diabetes: Yes HTN: Yes Hypercholesterolemia: Yes - Surgical History Orthopedic Surgery: Yes - Immunization History Td Vaccination: (UNKNOWN) Immunization Up to Date: No - Psycho Social/Smoking Cessation Hx Smoking Status: Yes (QUIT MORE THAN 20 YRS AGO) Smoking History: Never smoked Have you smoked in the past 12 months: No Number of Cigarettes Smoked Daily: 0 Hx Alcohol Use: No Drug/Substance Use Hx: No Substance Use Type: None Review of Systems - Review of Systems Able to Perform ROS?: Yes Is the patient limited Indian proficient: Yes Constitutional: No: Chills, Fever, Weakness HEENTM: No: Nose Congestion, Throat Pain Respiratory: No: Cough, Orthopnea, Shortness of Breath Cardiac (ROS): No: Chest Pain, Irregular Heart Rate, Lightheadedness, Palpitations, Syncope, Chest Tightness ABD/GI: No: Constipated, Diarrhea, Nausea, Poor Appetite, Poor Fluid Intake, Vomiting : No: Burning, Dysuria, Frequency Musculoskeletal: No: Back Pain, Muscle Pain, Muscle Weakness Integumentary: No: Bruising, Pruritus, Rash Neurological: No: Headache, Numbness, Tingling, Weakness Psychiatric: Yes: Anxiety. No: Change in Appetite Endocrine: No: Increased Thirst, Increased Urine Hematologic/Lymphatic: No: Anemia, Blood Clots, Easy Bleeding All Other Systems: Reviewed and Negative *Physical Exam - Physical Exam 11/13/19 00:22 Vitals reviewed, AF, hypertensive to SBP 200, tachy to 110s GEN: Appears stated age, NAD, nervous / tense. AAOx3. HEENT: NCAT, EOMI, PERRL. Sclera anicteric, noninjected. No facial asymmetry. Moist mucous membranes. Normal voice. Trachea midline. CV: Tachy to 110s, NSR, S1/S2, no murmurs / rubs / gallops appreciated. LUNG: CTAB, normal work of breathing. No wheezes, rales, rhonchi. No cough. Speaking full sentences. GI: Soft, NTND, +BS, no guarding, no rebound. No masses. Neg CVAT b/l. EXTREMITIES: 2+ distal pulses. 2.5+ LE edema bilaterally. No obvious deformities of all extremities. SKIN: Warm, dry, no rashes appreciated, non-jaundiced. PSYCH: Nervous. Cooperative and appropriate. NEURO: CN grossly intact. Moving all extremities well. Normal strength and sensation grossly. ED Treatment Course - LABORATORY CBC & Chemistry Diagram: 11/13/19 00:50 11/13/19 00:50 Medical Decision Making - Medical Decision Making 11/12/19 23:18 59 yo M pmh HTN, HLD, DM (chronic wounds) presenting with hypertension in setting of medication noncompliance and reported anxiety. History notable for no other symptoms, nervousness and hypertension - no pain or other signs of end- organ damage clinically. Physical exam notable for 2+ edema bilateral to the mid -shins, hypertension and tachycardia, nervous/tense appearance. DDX: Hypertensive urgency, anxiety vs panic disorder, no symptoms indicating hypertensive emergency, unlikely ACS, dissection. - Home Labetolol, Norvasc, Lisinopril - CBC, CMP, Cardiac Profile - EKG 11/13/19 00:52 - EK, NSR, normal axis, normal intervals, no ischemic changes - Patient pressure 175 SBP on repeat shortly after medication administration - POC Glucose wnl 11/13/19 01:38 - 165/105 BP on repeat 11/13/19 02:06 - Patient endorsed to overnight resident Discharge - Discharge Information Problems reviewed: Yes Clinical Impression/Diagnosis: Asymptomatic hypertensive urgency Hypertension Qualifiers: Hypertension type: unspecified Qualified Code(s): I10 - Essential (primary) hypertension Condition: Improved - Follow up/Referral Referrals: Charles Hand MD [Primary Care Provider] - - Patient Discharge Instructions Patient Printed Discharge Instructions: DI for High Blood Pressure Additional Instructions: You were seen and evaluated for hypertension. Please continue to take your home medications as directed. Follow up with your primary care doctor (Dr. Hand) first thing Wednesday morning for medication refills. Return to the ED for any new or concerning symptoms. These may include but are not limited to: chest pain, headache, new changes in your vision, or anything else you find concerning. Usted fue visto y evaluado por hipertensin. Contine tomando lucia medicamentos caseros segn las indicaciones. Tristan un seguimiento con [place] [facility] de atencin primaria (Dr. Vazquez) a primera hora del lunes por la maana para renovar los medicamentos. Regrese al servicio de urgencias por cualquier sntoma nuevo o preocupante. Estos pueden incluir, entre otros: dolor en el pecho, dolor de jatin, nuevos cambios en [place] vis[place] o cualquier otra cosa que encuentre preocupante. - Post Discharge Activity
--- NOTE | 2019-11-12 23:23 | PDOC ---
Documentation entered by Flavia Bonilla SCRIBE, acting as scribe for Tiffanie Marlow MD. Tiffanie Marlow MD: This documentation has been prepared by the scribe, Flavia Bonilla SCRIBE, under my direction and personally reviewed by me in its entirety. I confirm that the documentation accurately reflects all work, treatment, procedures, and medical decision making performed by me. Attending Attestation - Resident Resident Name: AamirClive ojeda - ED Attending Attestation I have performed the following: I have examined & evaluated the patient, The case was reviewed & discussed with the resident, I agree w/resident's findings & plan, Exceptions are as noted - HPI HPI: 11/12/19 23:50 The patient is a 59-year-old male with a past medical history significant for HTN who presents to the emergency department via EMS with elevated blood pressure. The patient denies being compliant with his nightly blood pressure medication labetalol, norvas, and lisinopril. The patient denies any symptoms. - Physicial Exam PE: 11/13/19 00:16 GENERAL: Anxious appearing 59 year old male, brought to the ER via EMS for high blood pressure. No apparent distress. HEENT: Normocephalic, atraumatic. PERRL, EOM intact. CARDIOVASCULAR: +tachycardia. Regular rhythm. PULMONARY: +scant rhonchi at the bases, no wheezing or crackles ABDOMEN: +protuberant abdomen. Soft, non-tender. EXTREMITIES: +2+ pitting edema bilaterally. Left foot is in a orthopedic shoe, L. foot 2nd and 3rd digit missing. Normal ROM in all four extremities. No gross deformities. SKIN: Warm, dry. No rash NEUROLOGICAL: No focal neurological deficits. - Medical Decision Making 11/13/19 00:51 Repeat blood pressure is 175/113, pulse 100, 96% pulse ox on room air EKG is sinus tachycardia at 101 with no acute ischemic changes 11/13/19 00:53 His medical history significant for hypertension, insulin-dependent diabetes 11/13/19 01:15 ZF=[id number] 11/13/19 01:24 Patient has been noncompliant with his lisinopril and Norvasc. These medications ran out and he has not renewed his prescription. He also does not take his labetalol twice a day as directed but only in the morning 11/13/19 01:37 RX=[id number]
[2019-11-12 23:33] VITALS: TEMP 97.5; BMI 28.3
[2019-11-12] MEDS ORDERED: LABETALOL HCL 100 MG TABLET (FP) PO ONE (23:41)
[2019-11-12] MEDS ORDERED: LABETALOL HCL 100 MG TABLET (FP) ONE (23:45)
[2019-11-13] MEDS ORDERED: amLODIPine BESYLATE 5 MG TABLET (FP) PO ONE (00:03)
[2019-11-13] MEDS ORDERED: LISINOPRIL 20 MG TABLET (FP) PO ONE (00:03)
[2019-11-13] MEDS ORDERED: amLODIPine BESYLATE 5 MG TABLET (FP) ONE (00:16)
[2019-11-13] MEDS ORDERED: LISINOPRIL 20 MG TABLET (FP) ONE (00:16)
[2019-11-13 01:23] LABS: HEMATOCRIT 37.2 % (35.4-49); HEMOGLOBIN 11.7 GM/dL (11.7-16.9); MCH 26.5 pg (25.7-33.7); MCHC 31.5 g/dl (32.0-35.9); MEAN CELL VOLUME 84.1 fl (80-96); MEAN PLT VOLUME 9.3 fl (7.5-11.1); PLATELET COUNT 244 K/MM3 (134-434); RBC 4.42 M/mm3 (4.00-5.60); RDW 15.8 % (11.9-15.9); WHITE BLOOD COUNT 15.3 K/mm3 (4.0-10.0)
[2019-11-13 02:13] LABS: ALBUMIN 3.8 g/dl (3.4-5.0); ALK PHOS 148 U/L (45-117); ANION GAP 6 MMOL/L (8-16); BILIRUBIN,TOTAL 0.4 mg/dL (0.2-1); BLOOD UREA NITROGEN 51.5 mg/dL (7-18); CALCIUM 8.7 mg/dL (8.5-10.1); CHLORIDE 112 mmol/L (98-107); CO2 20 mmol/L (21-32); CREATININE 2.2 mg/dL (0.55-1.3); GLUCOSE,RANDOM 164 mg/dL (74-106); SGOT/AST 49 U/L (15-37); SGPT/ALT 78 U/L (13-61); SODIUM 138 mmol/L (136-145); TOT PROT 7.5 g/dl (6.4-8.2)
[2019-11-13 02:30] LABS: POTASSIUM 6.1 mmol/L (3.5-5.1)
--- NOTE | 2019-11-13 02:54 | PDOC ---
*Physical Exam - Vital Signs Last Vital Signs Temp Pulse Resp BP Pulse Ox 97.5 F L 100 H 20 175/113 H 96 11/12/19 23:25 11/13/19 00:48 11/12/19 23:25 11/13/19 00:48 11/12/19 23:25 ED Treatment Course - LABORATORY CBC & Chemistry Diagram: 11/13/19 00:50 11/13/19 00:50 - ADDITIONAL ORDERS Additional order review: Laboratory Results 11/13/19 00:50 Sodium 138 Potassium 6.1 H* Chloride 112 H Carbon Dioxide 20 L Anion Gap 6 L BUN 51.5 H Creatinine 2.2 H Est GFR (CKD-EPI)AfAm 36.39 Est GFR (CKD-EPI)NonAf 31.40 Random Glucose 164 H Calcium 8.7 Total Bilirubin 0.4 AST 49 H ALT 78 H Alkaline Phosphatase 148 H Creatine Kinase 967 H Creatine Kinase Index 3.6 CK-MB (CK-2) 35.4 H Troponin I < 0.02 Total Protein 7.5 Albumin 3.8 11/13/19 00:50 RBC 4.42 MCV 84.1 MCHC 31.5 L RDW 15.8 MPV 9.3 D - Medications Given in the ED: ED Medications Discontinued Medications Generic Name Dose Route Start Last Admin Trade Name Freq PRN Reason Stop Dose Admin Amlodipine Besylate 5 mg 11/13/19 00:03 11/13/19 00:27 Norvasc - PO 11/13/19 00:04 5 mg ONCE ONE Administration Labetalol HCl 100 mg 11/12/19 23:41 11/12/19 23:48 Normodyne - PO 11/12/19 23:42 100 mg ONCE ONE Administration Lisinopril 40 mg 11/13/19 00:03 11/13/19 00:28 Prinivil PO 11/13/19 00:04 40 mg ONCE ONE Administration Medical Decision Making - Medical Decision Making 11/13/19 02:54 Waiting for potassium result. 11/13/19 03:26 Pt would like to be discharged. He denies headache, dizziness, chest pain, and shortness of breath. I tried calling the lab multiple times for the repeat result but could not get an answer. He has hx of hemolysis previously. Discussed with Dr. Doan and he is ok for discharge given stable BP, asymptomatic, and hx of hemolysis of labs. Will d/c the patient with him knowing he needs to follow up with PCP at his appointment in the morning. He and sister in law are in understanding. 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 Discharge - Discharge Information Problems reviewed: Yes Clinical Impression/Diagnosis: Asymptomatic hypertensive urgency Hypertension Qualifiers: Hypertension type: unspecified Qualified Code(s): I10 - Essential (primary) hypertension Condition: Improved Disposition: HOME - Follow up/Referral Referrals: Charles Hand MD [Primary Care Provider] - - Patient Discharge Instructions Patient Printed Discharge Instructions: DI for High Blood Pressure Additional Instructions: You were seen and evaluated for hypertension. Please continue to take your home medications as directed. Follow up with your primary care doctor (Dr. Hand) first thing Wednesday morning for medication refills. Return to the ED for any new or concerning symptoms. These may include but are not limited to: chest pain, headache, new changes in your vision, or anything else you find concerning. Usted fue visto y evaluado por hipertensin. Contine tomando lucia medicamentos caseros segn las indicaciones. Tristan un seguimiento con [place] [facility] de atencin primaria (Dr. Vazquez) a primera hora del por la maana para renovar los medicamentos. Regrese al servicio de urgencias por cualquier sntoma nuevo o preocupante. Estos pueden incluir, entre otros: dolor en el pecho, dolor de jatin, nuevos cambios en [place] vis[place] o cualquier otra cosa que encuentre preocupante. - Post Discharge Activity
[2019-11-13 04:44] VITALS: BP 166/98; PULSE 98
--- NOTE | 2019-11-13 09:11 | EKG ---
Test Reason : Blood Pressure : / mmHG Vent. Rate : 101 BPM Atrial Rate : 101 BPM P-R Int : 126 ms QRS Dur : 068 ms QT Int : 346 ms P-R-T Axes : 056 012 079 degrees QTc Int : 448 ms SINUS TACHYCARDIA SEPTAL INFARCT (CITED ON OR BEFORE 12-OCT-2019) ABNORMAL ECG WHEN COMPARED WITH ECG OF 12-OCT-2019 17:31, NO SIGNIFICANT CHANGE WAS FOUND Confirmed by Mary Hines ([id number]) on 11/13/2019 9:11:31 AM Referred By: Confirmed By:Mary Hines
== END 2019-11-13 04:25 | disposition home or self-care (01) ==
LOC: JER 23:07
DX: I16.0 Hypertensive urgency (principal); E11.9 Type 2 diabetes mellitus without complications; Z79.4 Long term (current) use of insulin; E78.5 Hyperlipidemia, unspecified; Z85.830 Personal history of malignant neoplasm of bone; Z92.3 Personal history of irradiation
CPT/HCPCS: 36415; 80053; 82550; 82553; 84484; 85027; 93005; 93010; 99284-25

== ENCOUNTER 2020-06-09 18:01 | Emergency (ER) | payer OTHER ==
--- NOTE | 2020-06-09 18:33 | TELE ---
HPI Do you have fever,cough or shortness of breath?: No - General Reason For Visit: COVID TESTING Time Seen by Provider: 06/09/20 18:31 History Source: Patient Exam Limitations: No Limitations - History of Present Illness 06/09/20 18:31 HISTORY OF PRESENT ILLNESS: 59-year-old male with telehealth visit for exposure to COVID. Patient's family member who lives in the house is positive for COVID- 19 this patient has called to schedule testing. Patient is asymptomatic and denies any travel. No recent travel or sick contacts. PAST MEDICAL HISTORY: Denies past medical history SURGICAL HISTORY: Denies ALLERGIES: No known drug allergies REVIEW OF SYSTEMS General/Constitutional: Denies fever or chills. Denies weakness, weight change. HEENT: Denies change in vision. Denies ear pain or discharge. Denies sore throat. Cardiovascular: Denies chest pain or shortness of breath. Respiratory: Denies cough, wheezing, or hemoptysis. Gastrointestinal: Denies nausea, vomiting, diarrhea or constipation. Denies rectal bleeding. Genitourinary: Denies dysuria, frequency, or change in urination. Musculoskeletal: Denies joint or muscle swelling or pain. Denies neck or back pain. Skin and breasts: Denies rash or easy bruising. Neurologic: Denies headache, vertigo, loss of consciousness, or loss of sensation. Psychiatric: Denies depression or anxiety. Endocrine: Denies increased thirst. Denies abnormal weight change. Hematologic/Lymphatic: Denies anemia, easy bleeding, or history of blood clots. Allergic/Immunologic: Denies hives or skin allergy. Denies latex allergy. PHYSICAL EXAM General Appearance: Well-appearing, appropriately dressed. No apparent distress, no intoxication. HEENT: EOMI, PERRLA, normal ENT inspection, normal voice, TMs normal, pharynx normal. No conjunctival pallor. No photophobia, scleral icterus. Integumentary: Appropriate color, dry, warm. No cyanosis, erythema, jaundice or rash Past History - Medical History Allergies/Adverse Reactions: Allergies Allergy/AdvReac Type Severity Reaction Status Date / Time No Known Allergies Allergy Verified 12/05/19 11:30 Home Medications: Ambulatory Orders Amlodipine Besylate [Norvasc -] 5 mg PO DAILY #30 tablet 08/03/19 Atorvastatin Ca [Lipitor] 1 tab PO DAILY 08/03/19 Docusate Sodium [Colace -] 100 mg PO BID capsule 08/03/19 Lisinopril [Prinivil -] 40 mg PO DAILY 08/03/19 Toujeo Solostar 30 units SQ HS 08/03/19 hydrALAZINE HCL [Apresoline -] 50 mg PO TID #90 tablet 08/03/19 Insulin Glargine,Hum.rec.anlog [Lantus] 25 unit SQ AM #100 vial 08/07/19 Labetalol HCl [Normodyne -] 200 mg PO BID #60 tablet 08/07/19 Melatonin 10 mg PO HS tab 08/07/19 Empagliflozin [Jardiance] 1 tab PO DAILY 12/12/19 Furosemide [Lasix] 1 tab PO DAILY 12/12/19 Sitagliptin Phos/Metformin HCl [Janumet 50-1,000 mg Tablet] 1 tab PO BID 12/12/19 traZODone HCL [Trazodone HCl] 1 tab PO HS 12/12/19 Cancer: Yes (RIGHT KNEE AND READIATION 2008) Cardiac Disorders: Yes CVA: No COPD: No Diabetes: Yes HTN: Yes Hypercholesterolemia: Yes - Surgical History Orthopedic Surgery: Yes - Immunization History Td Vaccination: (UNKNOWN) Immunization Up to Date: No - Psycho-Social/Smoking History Smoking Status: Yes (QUIT MORE THAN 20 YRS AGO) Smoking History: Never smoked Have you smoked in the past 12 months: No Number of Cigarettes Smoked Daily: 0 - Medical Decision Making 06/09/20 18:32 A/P: 59-year-old male for evaluation of exposure to COVID-19 COVID-19 counseling provided COVID-19 testing ordered Discharge Discharge Diagnosis at time of Disposition: Counseled about COVID-19 virus infection - Referrals Follow-up Referral(s): Charles Hand MD [Primary Care Provider] - - Patient Instructions - Discharge Disposition: HOME Condition at time of Disposition: Stable
== END 2020-06-09 18:33 | disposition home or self-care (01) ==
LOC: JVIRT 18:01
DX: Z20.828 Contact with and (suspected) exposure to other viral communicable diseases (principal)
CPT/HCPCS: Q3014-GT; U0003

== ENCOUNTER 2020-07-25 13:10 | Inpatient (IN) | payer OTHER ==
[2020-07-25 13:38] VITALS: TEMP 98.6; BMI 29.6
--- OUTSIDE RECORDS SUMMARY | 2020-07-25 14:02 | XMS ---
:1960 Author Organization [facility] Care Team Providers Name Role Phone KEILA SOSA Unavailable Unavailable Re-disclosure Warning The records that you are about to access may contain information from federally- assisted alcohol or drug abuse programs. If such information is present, then the following federally mandated warning applies: This information has been disclosed to you from records protected by federal confidentiality rules (42 CFR part 2). The federal rules prohibit you from making any further disclosure of this information unless further disclosure is expressly permitted by the written consent of the person to whom it pertains or as otherwise permitted by 42 CFR part 2. A general authorization for the release of medical or other information is NOT sufficient for this purpose. The Federal rules restrict any use of the information to criminally investigate or prosecute any alcohol or drug abuse patient.The records that you are about to access may contain highly sensitive health information, the redisclosure of which is protected by Article 27-F of the [facility] Public Health law. If you continue you may haveaccess to information: Regarding HIV / AIDS; Provided by facilities licensed or operated by the [facility] Office of Mental Health; or Provided by the [facility] Office for People With Developmental Disabilities. If such information is present, then the following [facility] mandated warning applies: This information has been disclosed to you from confidential records which are protected by state law. State law prohibits you from making any further disclosure of this information without the specific written consent of the person to whom it pertains, or as otherwise permitted by law. Any unauthorized further disclosure in violation of state law may result in a fine or chcf sentence or both. A general authorization for the release of medical or other information is NOT sufficient authorization for further disclosure. Encounters Encounter Providers Location Date Indications Data Source(s ) Emergency Attender: KEILA ESTRADAO H-HAL5 07/10/2019 [facility] 03:54:00 PM EDT Medical C enter - 07/12/2019 08:30:00 PM EDT Patient discharged. Insurance Providers Payer name Policy type Policy ID Covered Covered republican's Policy P alyssa / Coverage republican ID relationship to [facility] ormation type conrad [place] [id number] SP [id number] MEDICAID COMM PLAN HIP MEDICARE [id number] SP [id number] [facility] MEDICAID [id number] SP [id number] [place] [id number] SP [id number] MEDICAID COMM PLAN [place] [id number] SP [id number] MEDICAID COMM PLAN MEDICAID [id number] SP [id number] UNHC [id number] SP [id number] MEDICAID COMM PLAN MEDICAID [id number] SP [id number] [facility] [id number] SP [id number] T W [id number] AETNA O [id number] 01 [id number] Problems, Conditions, and Diagnoses Code Display Name Description Problem Type Effective Data Sour ce(s) Dates I10 Essential (primary) ESSENTIAL Diagnosis 07/10/2019 [facility] hypertension (PRIMARY) 03:54:[address] HYPERTENSION EDT Z53.29 Procedure and PROC/TRTMT NOT CRD Diagnosis 07/10/2019 [facility] treatment not OUT BEC PT 03:54:00 PM Medical Ce nter carried out because DECISION FOR OTH EDT of patient's REASONS decision for other reasons E11.9 Type 2 diabetes TYPE 2 DIABETES Diagnosis 07/10/2019 [facility] mellitus without MELLITUS WITHOUT 03:54:00 PM edical Center complications COMPLICATIONS EDT R60.0 Localized edema LOCALIZED EDEMA Diagnosis 07/10/2019 [facility] 03:54:00 PM Medical Cente r EDT I16.0 Hypertensive HYPERTENSIVE Diagnosis 07/10/2019 [facility] urgency URGENCY 03:54:00 PM Medical Cente r EDT Results ID Date Data Source [id number] 07/09/2020 01:07:00 PM EDT [facility] Name Value Range Interpretation Code Description Data Pepper rce(s) Supporting Document(s ) SARS-CoV-2 [facility] PCR This lab was ordered by [facility] and reported by [facility]. ID Date Data Source Liver 07/12/2019 05:30:00 AM EDT [facility] Profile.[id number] Name Value Range Interpretation Description Data Sup porting Code Source(s) Document(s ) Aspartate 17-59 <content [facility] aminotransferase styleCode="Bold"> [facility] [Enzymatic Aspartate Medical activity/volume] Aminotransferase Center in Serum or Plasma (AST) </content>28 IU/L<content styleCode="Italic s"> (17-59 IU/L)</content> Bilirubin.total 0.2-1.3 <content [facility] [Mass/volume] in styleCode="Bold"> [facility] Serum or Plasma Bilirubin Total Medical </content>0.2 Center MG/DL<content styleCode="Italic s"> (0.2-1.3 MG/DL)</content> Alanine 7-50 <content [facility] aminotransferase styleCode="Bold"> [facility] [Enzymatic Alanine Medical activity/volume] Aminotransferase Center in Serum or Plasma (ALT) </content>35 IU/L<content styleCode="Italic s"> (7-50 IU/L)</content> Alkaline 38-126 <content [facility] phosphatase styleCode="Bold"> [facility] [Enzymatic Alkaline Medical activity/volume] Phosphatase (ALP) Cente r in Serum or Plasma </content>84 IU/L<content styleCode="Italic s"> (38-126 IU/L)</content> Albumin 3.5-5.0 Below low <content [facility] [Mass/volume] in normal styleCode="Bold"> [facility] Serum or Plasma Albumin Medical </content>3.0 Center G/DL L<content styleCode="Italic s"> (3.5-5.0 G/DL)</content> ID Date Data Source HematologyRou.[id number] 07/12/2019 05:30:00 AM EDT [facility] 0400 Name Value Range Interpretation Description Data Sup porting Code Source(s) Document(s ) Hematocrit 41.0-53. <content [facility] [Volume 0 styleCode="Bold [facility] Fraction] of ">Hematocrit Medical Blood by </content>43.3 Center Automated count %<content styleCode="Ital ics"> (41.0-53.0 %)</content> Hemoglobin 13.5-17. <content [facility] [Mass/volume] in 5 styleCode="Bold [facility] Blood ">Hemoglobin Medical </content>13.5 Center G/DL<content styleCode="Ital ics"> (13.5-17.5 G/DL)</content> Erythrocyte mean 80.0-100 <content [facility] corpuscular .0 styleCode="Bold [facility] volume [Entitic ">Mean Medical volume] by Corpuscular Center Automated count Volume </content>86.9 FL<content styleCode="Ital ics"> (80.0-100.0 FL)</content> Erythrocytes 4.4-5.9 <content [facility] [#/volume] in styleCode="Bold [facility] Blood by ">Red Blood Medical Automated count Cell Count Center </content>4.98 MCUMM<content styleCode="Ital ics"> (4.4-5.9 MCUMM)</content > Leukocytes 4.4-11.0 <content [facility] [#/volume] in styleCode="Bold [facility] Blood by ">White Blood Medical Automated count Cell Count Center </content>7.75 KCUMM<content styleCode="Ital ics"> (4.4-11.0 KCUMM)</content > Erythrocyte 11.5-14. <content [facility] distribution 5 styleCode="Bold [facility] width [Ratio] by ">Red Cell Medical Automated count Distribution Center Width </content>14.3 %<content styleCode="Ital ics"> (11.5-14.5 %)</content> Erythrocyte mean 26.0-34. <content [facility] corpuscular 0 styleCode="Bold [facility] hemoglobin ">Mean Medical [Entitic mass] Corposcular Center by Automated Hemoglobin count </content>27.1 PG<content styleCode="Ital ics"> (26.0-34.0 PG)</content> Platelets 130-400 <content [facility] [#/volume] in styleCode="Bold [facility] Blood by ">Platelet Medical Automated count Count Center </content>209 KCUMM<content styleCode="Ital ics"> (130-400 KCUMM)</content > Platelet mean 8.0-11.0 <content [facility] volume [Entitic styleCode="Bold [facility] volume] in Blood ">Mean Platelet Medical by Automated Volume Center count </content>10.6 FL<content styleCode="Ital ics"> (8.0-11.0 FL)</content> Erythrocyte mean 32.0-37. Below low normal <content [facility] corpuscular 0 styleCode="Bold [facility] hemoglobin ">Mean Corpus. Medical concentration Hgb Center [Mass/volume] by Concentration Automated count (MCHC) </content>31.2 G/DL L<content styleCode="Ital ics"> (32.0-37.0 G/DL)</content> Lymphocytes 24.0-44. <content [facility] [#/volume] in 0 styleCode="Bold [facility] Blood by ">Lymphocyte Medical Automated count </content>27.4 Center %<content styleCode="Ital ics"> (24.0-44.0 %)</content> UNK 1.0-4.8 <content [facility] styleCode="Bold [facility] ">Lymphocyte Medical Count Center </content>2.12 KCUMM<content styleCode="Ital ics"> (1.0-4.8 KCUMM)</content > Monocytes 3.0-10.0 <content [facility] [#/volume] in styleCode="Bold [facility] Blood by ">Monocyte Medical Automated count </content>8.9 Center %<content styleCode="Ital ics"> (3.0-10.0 %)</content> UNK 1.6-7.3 <content [facility] styleCode="Bold [facility] ">Neutrophil Medical Count Center </content>4.74 KCUMM<content styleCode="Ital ics"> (1.6-7.3 KCUMM)</content > Neutrophils 36-66 <content [facility] [#/volume] in styleCode="Bold [facility] Blood by ">Neutrophil Medical Automated count </content>61.1 Center %<content styleCode="Ital ics"> (36-66 %)</content> Basophils 0.0-1.0 <content [facility] [#/volume] in styleCode="Bold [facility] Blood by ">Basophil Medical Automated count </content>0.3 Center %<content styleCode="Ital ics"> (0.0-1.0 %)</content> Eosinophils 0-5.0 <content [facility] [#/volume] in styleCode="Bold [facility] Blood by ">Eosinophil Medical Automated count </content>1.9 Center %<content styleCode="Ital ics"> (0-5.0 %)</content> UNK 0.0-0.6 <content [facility] styleCode="Bold [facility] ">Eosinophil Medical Count Center </content>0.15 KCUMM<content styleCode="Ital ics"> (0.0-0.6 KCUMM)</content > UNK 0.2-0.9 <content [facility] styleCode="Bold [facility] ">Monocyte Medical Count Center </content>0.69 KCUMM<content styleCode="Ital ics"> (0.2-0.9 KCUMM)</content > UNK 0.0 <content [facility] styleCode="Bold [facility] ">Nucleated Red Medical Blood Cell Center Count </content>0.00 KCUMM<content styleCode="Ital ics"> (0.0 KCUMM)</content > UNK < 1 <content [facility] styleCode="Bold [facility] ">Immature Medical Granulocyte Center Ratio </content>0.4 %<content styleCode="Ital ics"> (< 1 %)</content> UNK 0 <content [facility] styleCode="Bold [facility] ">Nucleated Red Medical Blood Cell Center </content>0.0 /100<content styleCode="Ital ics"> (0 /100)</content> UNK 0.0-0.3 <content [facility] styleCode="Bold [facility] ">Basophil Medical Count Center </content>0.02 KCUMM<content styleCode="Ital ics"> (0.0-0.3 KCUMM)</content > UNK 0-0.1 <content [facility] styleCode="Bold [facility] ">Immature Medical Granulocyte Center Count </content>0.03 KCUMM<content styleCode="Ital ics"> (0-0.1 KCUMM)</content > ID Date Data Source GFR(Creatinine).[id number] 07/12/2019 05:30:00 AM EDT [facility] 0-0400 Name Value Range Interpretation Code Description Data Pepper rce(s) Supporting Document(s ) UNK > 60 <content [facility] styleCode="Bold"> Medical Cent er EGFR </content>81 GFR<content styleCode="Italic s"> (> 60 GFR)</content> ID Date Data Source CHMROUTINECCDA.[id number] 07/12/2019 05:30:00 AM EDT [facility] -0400 Name Value Range Interpretation Description Data Sup porting Code Source(s) Document(s ) UNK >= 1.0 <content [facility] styleCode="Bold Medical ">AG Ratio Center </content>1.2 <content styleCode="Ital ics"> (>= 1.0 )</content> UNK 2.3-3.5 <content [facility] styleCode="Bold Medical ">Globulin Center </content>2.6 G/DL<content styleCode="Ital ics"> (2.3-3.5 G/DL)</content> Protein 6.3-8.2 Below low normal <content [facility] [Mass/volum styleCode="Bold Medical e] in Serum ">Total Protein Center or Plasma </content>5.6 G/DL L<content styleCode="Ital ics"> (6.3-8.2 G/DL)</content> ID Date Data Source [facility].[id number] 07/12/2019 05:30:00 AM EDT [facility] Name Value Range Interpretation Description Data Sup porting Code Source(s) Document(s ) Sodium 137-145 <content [facility] [Moles/volume] in styleCode="Bold"> [facility] Serum or Plasma Sodium Medical </content>140 Center MEQ/L<content styleCode="Italic s"> (137-145 MEQ/L)</content> UNK 9-20 Above high <content [facility] normal styleCode="Bold"> [facility] BUN </content>22 Medical MG/DL H<content Center styleCode="Italic s"> (9-20 MG/DL)</content> Creatinine 0.5-1.3 <content [facility] [Mass/volume] in styleCode="Bold"> [facility] Serum or Plasma Creatinine Medical </content>1.0 Center MG/DL<content styleCode="Italic s"> (0.5-1.3 MG/DL)</content> Carbon dioxide, 22-30 <content [facility] total styleCode="Bold"> [facility] [Moles/volume] in Carbon Dioxide Medical Serum or Plasma </content>28 Center MEQ/L<content styleCode="Italic s"> (22-30 MEQ/L)</content> Potassium 3.5-5.3 <content [facility] [Moles/volume] in styleCode="Bold"> [facility] phs Serum or Plasma Potassium Medical </content>4.3 Center MEQ/L<content styleCode="Italic s"> (3.5-5.3 MEQ/L)</content> Chloride 98-107 <content [facility] [Moles/volume] in styleCode="Bold"> [facility] Serum or Plasma Chloride Medical </content>106 Center MEQ/L<content styleCode="Italic s"> (98-107 MEQ/L)</content> Calcium 8.4-10. <content [facility] [Mass/volume] in 2 styleCode="Bold"> [facility] Serum or Plasma Calcium Medical </content>9.1 Center MG/DL<content styleCode="Italic s"> (8.4-10.2 MG/DL)</content> Aspartate 17-59 <content [facility] aminotransferase styleCode="Bold"> [facility] [Enzymatic Aspartate Medical activity/volume] Aminotransferase Center in Serum or Plasma (AST) </content>28 IU/L<content styleCode="Italic s"> (17-59 IU/L)</content> UNK > 60 <content [facility] styleCode="Bold"> [facility] EGFR </content>81 Medical GFR<content Center styleCode="Italic s"> (> 60 GFR)</content> Glucose 74-106 Above high <content [facility] [Mass/volume] in normal styleCode="Bold"> [facility] Serum or Plasma Glucose Medical </content>120 Center MG/DL H<content styleCode="Italic s"> (74-106 MG/DL)</content> Alanine 7-50 <content [facility] aminotransferase styleCode="Bold"> [facility] [Enzymatic Alanine Medical activity/volume] Aminotransferase Center in Serum or Plasma (ALT) </content>35 IU/L<content styleCode="Italic s"> (7-50 IU/L)</content> Alkaline 38-126 <content [facility] phosphatase styleCode="Bold"> [facility] [Enzymatic Alkaline Medical activity/volume] Phosphatase (ALP) Cente r in Serum or Plasma </content>84 IU/L<content styleCode="Italic s"> (38-126 IU/L)</content> Bilirubin.total 0.2-1.3 <content [facility] [Mass/volume] in styleCode="Bold"> [facility] Serum or Plasma Bilirubin Total Medical </content>0.2 Center MG/DL<content styleCode="Italic s"> (0.2-1.3 MG/DL)</content> Albumin 3.5-5.0 Below low <content [facility] [Mass/volume] in normal styleCode="Bold"> [facility] Serum or Plasma Albumin Medical </content>3.0 Center G/DL L<content styleCode="Italic s"> (3.5-5.0 G/DL)</content> ID Date Data Source Liver 07/11/2019 07:20:00 AM EDT [facility] Profile.[id number] Name Value Range Interpretation Description Data Sup porting Code Source(s) Document(s ) Aspartate 17-59 <content [facility] aminotransferase styleCode="Bold"> [facility] [Enzymatic Aspartate Medical activity/volume] Aminotransferase Center in Serum or Plasma (AST) </content>30 IU/L<content styleCode="Italic s"> (17-59 IU/L)</content> Alanine 7-50 <content [facility] aminotransferase styleCode="Bold"> [facility] [Enzymatic Alanine Medical activity/volume] Aminotransferase Center in Serum or Plasma (ALT) </content>40 IU/L<content styleCode="Italic s"> (7-50 IU/L)</content> Alkaline 38-126 <content [facility] phosphatase styleCode="Bold"> [facility] [Enzymatic Alkaline Medical activity/volume] Phosphatase (ALP) Cente r in Serum or Plasma </content>85 IU/L<content styleCode="Italic s"> (38-126 IU/L)</content> Bilirubin.total 0.2-1.3 <content [facility] [Mass/volume] in styleCode="Bold"> [facility] Serum or Plasma Bilirubin Total Medical </content>0.3 Center MG/DL<content styleCode="Italic s"> (0.2-1.3 MG/DL)</content> Albumin 3.5-5.0 Below low <content [facility] [Mass/volume] in normal styleCode="Bold"> [facility] Serum or Plasma Albumin Medical </content>3.2 Center G/DL L<content styleCode="Italic s"> (3.5-5.0 G/DL)</content> ID Date Data Source Hormones.[id number] 07/11/2019 07:20:00 AM EDT [facility] Name Value Range Interpretation Description Data Sup porting Code Source(s) Document(s ) Thyrotropin 0.465-4. <content [facility] [Units/volume] 68 styleCode="Eleuterio [facility] in Serum or d">Thyroid Medical Plasma by Stimulating Center Detection Hormone limit <= 0.05 </content>4.19 mIU/L MIU/L<content styleCode="Chani lics"> (0.465-4.68 MIU/L)</conten t> ID Date Data Source HematologyRou.[id number] 07/11/2019 07:20:00 AM EDT [facility] 0400 Name Value Range Interpretation Description Data Sup porting Code Source(s) Document(s ) Leukocytes 4.4-11.0 <content [facility] [#/volume] in styleCode="Bold [facility] Blood by ">White Blood Medical Automated count Cell Count Center </content>8.19 KCUMM<content styleCode="Ital ics"> (4.4-11.0 KCUMM)</content > Erythrocytes 4.4-5.9 <content [facility] [#/volume] in styleCode="Bold [facility] Blood by ">Red Blood Medical Automated count Cell Count Center </content>5.20 MCUMM<content styleCode="Ital ics"> (4.4-5.9 MCUMM)</content > Erythrocyte mean 80.0-100 <content [facility] corpuscular .0 styleCode="Bold [facility] volume [Entitic ">Mean Medical volume] by Corpuscular Center Automated count Volume </content>86.7 FL<content styleCode="Ital ics"> (80.0-100.0 FL)</content> Hematocrit 41.0-53. <content [facility] [Volume 0 styleCode="Bold [facility] Fraction] of ">Hematocrit Medical Blood by </content>45.1 Center Automated count %<content styleCode="Ital ics"> (41.0-53.0 %)</content> Erythrocyte mean 26.0-34. <content [facility] corpuscular 0 styleCode="Bold [facility] hemoglobin ">Mean Medical [Entitic mass] Corposcular Center by Automated Hemoglobin count </content>27.3 PG<content styleCode="Ital ics"> (26.0-34.0 PG)</content> Erythrocyte mean 32.0-37. Below low normal <content [facility] corpuscular 0 styleCode="Bold [facility] hemoglobin ">Mean Corpus. Medical concentration Hgb Center [Mass/volume] by Concentration Automated count (MCHC) </content>31.5 G/DL L<content styleCode="Ital ics"> (32.0-37.0 G/DL)</content> Hemoglobin 13.5-17. <content [facility] [Mass/volume] in 5 styleCode="Bold [facility] Blood ">Hemoglobin Medical </content>14.2 Center G/DL<content styleCode="Ital ics"> (13.5-17.5 G/DL)</content> Neutrophils 36-66 Above high <content [facility] [#/volume] in normal styleCode="Bold [facility] Blood by ">Neutrophil Medical Automated count </content>66.4 Center % H<content styleCode="Ital ics"> (36-66 %)</content> Erythrocyte 11.5-14. <content [facility] distribution 5 styleCode="Bold [facility] width [Ratio] by ">Red Cell Medical Automated count Distribution Center Width </content>14.5 %<content styleCode="Ital ics"> (11.5-14.5 %)</content> Platelet mean 8.0-11.0 <content [facility] volume [Entitic styleCode="Bold [facility] volume] in Blood ">Mean Platelet Medical by Automated Volume Center count </content>10.9 FL<content styleCode="Ital ics"> (8.0-11.0 FL)</content> Platelets 130-400 <content [facility] [#/volume] in styleCode="Bold [facility] Blood by ">Platelet Medical Automated count Count Center </content>234 KCUMM<content styleCode="Ital ics"> (130-400 KCUMM)</content > Lymphocytes 24.0-44. Below low normal <content [facility] [#/volume] in 0 styleCode="Bold [facility] Blood by ">Lymphocyte Medical Automated count </content>23.1 Center % L<content styleCode="Ital ics"> (24.0-44.0 %)</content> UNK 1.0-4.8 <content [facility] styleCode="Bold [facility] ">Lymphocyte Medical Count Center </content>1.89 KCUMM<content styleCode="Ital ics"> (1.0-4.8 KCUMM)</content > UNK 0.2-0.9 <content [facility] styleCode="Bold [facility] ">Monocyte Medical Count Center </content>0.68 KCUMM<content styleCode="Ital ics"> (0.2-0.9 KCUMM)</content > UNK 1.6-7.3 <content [facility] styleCode="Bold [facility] ">Neutrophil Medical Count Center </content>5.44 KCUMM<content styleCode="Ital ics"> (1.6-7.3 KCUMM)</content > Monocytes 3.0-10.0 <content [facility] [#/volume] in styleCode="Bold [facility] Blood by ">Monocyte Medical Automated count </content>8.3 Center %<content styleCode="Ital ics"> (3.0-10.0 %)</content> Eosinophils 0-5.0 <content [facility] [#/volume] in styleCode="Bold [facility] Blood by ">Eosinophil Medical Automated count </content>1.5 Center %<content styleCode="Ital ics"> (0-5.0 %)</content> UNK 0.0-0.6 <content [facility] styleCode="Bold [facility] ">Eosinophil Medical Count Center </content>0.12 KCUMM<content styleCode="Ital ics"> (0.0-0.6 KCUMM)</content > UNK 0.0-0.3 <content [facility] styleCode="Bold [facility] ">Basophil Medical Count Center </content>0.01 KCUMM<content styleCode="Ital ics"> (0.0-0.3 KCUMM)</content > Basophils 0.0-1.0 <content [facility] [#/volume] in styleCode="Bold [facility] Blood by ">Basophil Medical Automated count </content>0.1 Center %<content styleCode="Ital ics"> (0.0-1.0 %)</content> UNK 0.0 <content [facility] styleCode="Bold [facility] ">Nucleated Red Medical Blood Cell Center Count </content>0.00 KCUMM<content styleCode="Ital ics"> (0.0 KCUMM)</content > UNK 0-0.1 <content [facility] styleCode="Bold [facility] ">Immature Medical Granulocyte Center Count </content>0.05 KCUMM<content styleCode="Ital ics"> (0-0.1 KCUMM)</content > UNK 0 <content [facility] styleCode="Bold [facility] ">Nucleated Red Medical Blood Cell Center </content>0.0 /100<content styleCode="Ital ics"> (0 /100)</content> UNK < 1 <content [facility] styleCode="Bold [facility] ">Immature Medical Granulocyte Center Ratio </content>0.6 %<content styleCode="Ital ics"> (< 1 %)</content> ID Date Data Source GFR(Creatinine).[id number] 07/11/2019 07:20:00 AM EDT [facility] 0-0400 Name Value Range Interpretation Code Description Data Pepper rce(s) Supporting Document(s ) UNK > 60 <content [facility] styleCode="Bold"> Medical Cent er EGFR </content>92 GFR<content styleCode="Italic s"> (> 60 GFR)</content> ID Date Data Source MROUTINECCDA.[id number] 07/11/2019 07:20:00 AM EDT [facility] -0400 Name Value Range Interpretation Description Data Sup porting Code Source(s) Document(s ) UNK >= 1.0 <content [facility] styleCode="Bold [facility] ">AG Ratio Medical </content>1.1 Center <content styleCode="Ital ics"> (>= 1.0 )</content> UNK 2.3-3.5 <content [facility] styleCode="Bold [facility] ">Globulin Medical </content>2.9 Center G/DL<content styleCode="Ital ics"> (2.3-3.5 G/DL)</content> UNK 4.2-5.8 Above high normal <content [facility] styleCode="Bold [facility] ">Hemoglobin Medical A1C Center </content>13.3 % H<content styleCode="Ital ics"> (4.2-5.8 %)</content> Prostate < 4.0 <content [facility] specific Ag styleCode="Bold [facility] [Mass/volume ">Prostate Medical ] in Serum Specific Center or Plasma Antigen </content>1.81 NG/ML<content styleCode="Ital ics"> (< 4.0 NG/ML)</content > Protein 6.3-8.2 Below low normal <content [facility] [Mass/volume styleCode="Bold [facility] ] in Serum ">Total Protein Medical or Plasma </content>6.1 Center G/DL L<content styleCode="Ital ics"> (6.3-8.2 G/DL)</content> ID Date Data Source [facility].[id number] 07/11/2019 07:20:00 AM EDT [facility] Name Value Range Interpretation Description Data Sup porting Code Source(s) Document(s ) Sodium 137-145 <content [facility] [Moles/volume] in styleCode="Bold"> [facility] Serum or Plasma Sodium Medical </content>142 Center MEQ/L<content styleCode="Italic s"> (137-145 MEQ/L)</content> Carbon dioxide, 22-30 <content [facility] total styleCode="Bold"> [facility] [Moles/volume] in Carbon Dioxide Medical Serum or Plasma </content>28 Center MEQ/L<content styleCode="Italic s"> (22-30 MEQ/L)</content> Chloride 98-107 <content [facility] [Moles/volume] in styleCode="Bold"> [facility] Serum or Plasma Chloride Medical </content>107 Center MEQ/L<content styleCode="Italic s"> (98-107 MEQ/L)</content> UNK 9-20 Above high <content [facility] normal styleCode="Bold"> [facility] BUN </content>21 Medical MG/DL H<content Center styleCode="Italic s"> (9-20 MG/DL)</content> Potassium 3.5-5.3 <content [facility] [Moles/volume] in styleCode="Bold"> [facility] Serum or Plasma Potassium Medical </content>4.9 Center MEQ/L<content styleCode="Italic s"> (3.5-5.3 MEQ/L)</content> Glucose 74-106 Above high <content [facility] [Mass/volume] in normal styleCode="Bold"> [facility] hs Serum or Plasma Glucose Medical </content>131 Center MG/DL H<content styleCode="Italic s"> (74-106 MG/DL)</content> Creatinine 0.5-1.3 <content [facility] [Mass/volume] in styleCode="Bold"> [facility] hs Serum or Plasma Creatinine Medical </content>0.9 Center MG/DL<content styleCode="Italic s"> (0.5-1.3 MG/DL)</content> Aspartate 17-59 <content [facility] aminotransferase styleCode="Bold"> Edwin hs [Enzymatic Aspartate Medical activity/volume] Aminotransferase Center in Serum or Plasma (AST) </content>30 IU/L<content styleCode="Italic s"> (17-59 IU/L)</content> Alkaline 38-126 <content [facility] phosphatase styleCode="Bold"> Evelyne [Enzymatic Alkaline Medical activity/volume] Phosphatase (ALP) Cente r in Serum or Plasma </content>85 IU/L<content styleCode="Italic s"> (38-126 IU/L)</content> UNK > 60 <content [facility] styleCode="Bold"> [facility]ne EGFR </content>92 Medical GFR<content Center styleCode="Italic s"> (> 60 GFR)</content> Alanine 7-50 <content [facility] aminotransferase styleCode="Bold"> Edwin hs [Enzymatic Alanine Medical activity/volume] Aminotransferase Center in Serum or Plasma (ALT) </content>40 IU/L<content styleCode="Italic s"> (7-50 IU/L)</content> Calcium 8.4-10. <content [facility] [Mass/volume] in 2 styleCode="Bold"> Edwin hs Serum or Plasma Calcium Medical </content>9.3 Center MG/DL<content styleCode="Italic s"> (8.4-10.2 MG/DL)</content> Bilirubin.total 0.2-1.3 <content [facility] [Mass/volume] in styleCode="Bold"> Edwin hs Serum or Plasma Bilirubin Total Medical </content>0.3 Center MG/DL<content styleCode="Italic s"> (0.2-1.3 MG/DL)</content> Albumin 3.5-5.0 Below low <content [facility] [Mass/volume] in normal styleCode="Bold"> Edwin hs Serum or Plasma Albumin Medical </content>3.2 Center G/DL L<content styleCode="Italic s"> (3.5-5.0 G/DL)</content> ID Date Data Source Urinalysis.[id number] 07/10/2019 05:43:00 PM EDT [facility] 0 Name Value Range Interpretation Description Data Sup porting Code Source(s) Document(s ) UNK NEGATIVE <content Saint styleCode="Eleuterio Evelyne d">Urine Medical Bilirubin Center </content>NEGA TIVE <content styleCode="Chani lics"> (NEGATIVE )</content> UNK CLEAR <content Saint styleCode="Eleuterio Evelyne d">Urine Medical Clarity Center </content>KENIA R <content styleCode="Chani lics"> (CLEAR )</content> Glucose NEGATIVE <content Saint [Mass/volume] styleCode="Eleuterio Stubbs in Urine by d">Urine Medical Test strip Glucose Center </content>>=10 00 MG/DL<content styleCode="Chani lics"> (NEGATIVE MG/DL)</conten t> Color of Urine YELLOW <content Saint styleCode="Eleuterio Evelyne d">Color, Medical Urine Center </content>YELL OW <content styleCode="Chani lics"> (YELLOW )</content> pH of Urine by 4.5-8.0 <content Saint Test strip styleCode="Eleuterio Evelyne d">Urine pH Medical </content>6.5 Center <content styleCode="Chani lics"> (4.5-8.0 )</content> Specific 1.015-1.02 Below low normal <content Saint gravity of 5 styleCode="Eleuterio Heatons Urine by Test d">Urine Medical strip Specific Center Whipple </content>1.01 0 L<content styleCode="Chani lics"> (1.015-1.025 )</content> Hemoglobin NEGATIVE <content Saint [Presence] in styleCode="Eleuterio Evelyne Urine by Test d">Urine Blood Medical strip </content>MODE Center RATE <content styleCode="Chani lics"> (NEGATIVE )</content> Ketones NEGATIVE <content Saint [Mass/volume] styleCode="Eleuterio Evelyne in Urine by d">Urine Medical Test strip Ketone Center </content>NEGA TIVE MG/DL<content styleCode="Chani lics"> (NEGATIVE MG/DL)</conten t> Nitrite NEGATIVE <content Saint [Presence] in styleCode="Eleuterio Heatons Urine by Test d">Urine Medical strip Nitrite Center </content>NEGA TIVE <content styleCode="Chani lics"> (NEGATIVE )</content> Urobilinogen 0.2-1.0 <content Saint [Units/volume] styleCode="Eleuterio Heatons in Urine by d">Urine Medical Test strip Urobilinogen Center </content>0.2 MG/DL<content styleCode="Chani lics"> (0.2-1.0 MG/DL)</conten t> Leukocyte NEGATIVE <content Saint esterase styleCode="Eleuterio Heatons [Presence] in d">Urine Medical Urine by Test Leukocyte Center strip </content>NEGA TIVE <content styleCode="Chani lics"> (NEGATIVE )</content> Protein NEGATIVE <content Saint [Mass/volume] styleCode="Eleuterio Heatons in Urine by d">Urine Medical Test strip Protein Center </content>100 MG/DL<content styleCode="Chani lics"> (NEGATIVE MG/DL)</conten t> UNK 0-3 <content Saint styleCode="Eleuterio Evelyne d">Urine White Medical Blood Cell Center </content>10 - 20 HPF<content styleCode="Chani lics"> (0-3 HPF)</content> UNK NEGATIVE <content Saint styleCode="Eleuterio Evelyne d">Urine Medical Bacteria Center </content>FEW HPF<content styleCode="Chani lics"> (NEGATIVE HPF)</content> UNK 0-3 <content Saint styleCode="Eleuterio Heatons d">Urine Red Medical Blood Cell Center </content>20 - 50 HPF<content styleCode="Chani lics"> (0-3 HPF)</content> ID Date Data Source Microbiology.[id number] 07/10/2019 05:43:00 PM EDT [facility] 400 Name Value Range Interpretation Code Description Data Pepper rce(s) Supporting Document(s ) UNK <item><content [facility] styleCode="Bold"> Medical [facility] er Culture Report </content>
<t able><tbody><tr>< td>Specimen Number:</td><td>[id number]</td></tr ><tr><td>Sample Collection Date/Time: </td><td> 9 5:43 PM</td></tr><tr>< td>Specimen Source:</td><td>U RINE</td></tr><tr ><td>Urine Culture:</td><td> Collection Plate Date: 07/10/2019 17:57 </td></tr><tr><td >Culture Status:</td><td>P reliminary </td></tr><tr><td >Culture Report:</td><td>C ulture in progress </td></tr></tbody ></table></item> UNK <item><content [facility] styleCode="Bold"> Medical [facility] er Culture Status </content>
<t able><tbody><tr>< td>Specimen Number:</td><td>[id number]</td></tr ><tr><td>Sample Collection Date/Time: </td><td> 9 5:43 PM</td></tr><tr>< td>Specimen Source:</td><td>U RINE</td></tr><tr ><td>Culture Status:</td><td>P reliminary </td></tr><tr><td >Culture Report:</td><td>C ulture in progress </td></tr><tr><td >Urine Culture:</td><td> Collection Plate Date: 07/10/2019 17:57 </td></tr></tbody ></table></item> ID Date Data Source Liver 07/10/2019 05:43:00 PM EDT [facility] Profile.[id number] Name Value Range Interpretation Description Data Sup porting Code Source(s) Document(s ) Alanine 7-50 Above high <content [facility] aminotransferase normal styleCode="Bold"> Edwin hs [Enzymatic Alanine Medical activity/volume] Aminotransferase Center in Serum or Plasma (ALT) </content>51 IU/L H<content styleCode="Italic s"> (7-50 IU/L)</content> Aspartate 17-59 <content [facility] aminotransferase styleCode="Bold"> Edwin hs [Enzymatic Aspartate Medical activity/volume] Aminotransferase Center in Serum or Plasma (AST) </content>47 IU/L<content styleCode="Italic s"> (17-59 IU/L)</content> Alkaline 38-126 Above high <content [facility] phosphatase normal styleCode="Bold"> Evelyne [Enzymatic Alkaline Medical activity/volume] Phosphatase (ALP) Cente r in Serum or Plasma </content>128 IU/L H<content styleCode="Italic s"> (38-126 IU/L)</content> UNK 0.0-0.3 <content Saint styleCode="Bold"> Evelyne Bilirubin, Direct Medical </content>< 0.2 Center MG/DL<content styleCode="Italic s"> (0.0-0.3 MG/DL)</content> Albumin 3.5-5.0 <content [facility] [Mass/volume] in styleCode="Bold"> Edwin hs Serum or Plasma Albumin Medical </content>4.0 Center G/DL<content styleCode="Italic s"> (3.5-5.0 G/DL)</content> Bilirubin.total 0.2-1.3 <content [facility] [Mass/volume] in styleCode="Bold"> Edwin hs Serum or Plasma Bilirubin Total Medical </content>0.3 Center MG/DL<content styleCode="Italic s"> (0.2-1.3 MG/DL)</content> ID Date Data Source HematologyRou.[id number] 07/10/2019 05:43:00 PM EDT [facility] 0400 Name Value Range Interpretation Description Data Sup porting Code Source(s) Document(s ) Hemoglobin 13.5-17. <content [facility] [Mass/volume] in 5 styleCode="Bold Evelyne Blood ">Hemoglobin Medical </content>15.7 Center G/DL<content styleCode="Ital ics"> (13.5-17.5 G/DL)</content> Leukocytes 4.4-11.0 <content Saint [#/volume] in styleCode="Bold Evelyne Blood by ">White Blood Medical Automated count Cell Count Center </content>8.91 KCUMM<content styleCode="Ital ics"> (4.4-11.0 KCUMM)</content > Erythrocytes 4.4-5.9 <content Saint [#/volume] in styleCode="Bold Evelyne Blood by ">Red Blood Medical Automated count Cell Count Center </content>5.76 MCUMM<content styleCode="Ital ics"> (4.4-5.9 MCUMM)</content > Erythrocyte mean 80.0-100 <content Saint corpuscular .0 styleCode="Bold Evelyne volume [Entitic ">Mean Medical volume] by Corpuscular Center Automated count Volume </content>86.3 FL<content styleCode="Ital ics"> (80.0-100.0 FL)</content> Hematocrit 41.0-53. <content Saint [Volume 0 styleCode="Bold Evelyne Fraction] of ">Hematocrit Medical Blood by </content>49.7 Center Automated count %<content styleCode="Ital ics"> (41.0-53.0 %)</content> Erythrocyte mean 32.0-37. Below low normal <content [facility] corpuscular 0 styleCode="Bold Evelyne hemoglobin ">Mean Corpus. Medical concentration Hgb Center [Mass/volume] by Concentration Automated count (MCHC) </content>31.6 G/DL L<content styleCode="Ital ics"> (32.0-37.0 G/DL)</content> Erythrocyte mean 26.0-34. <content [facility] corpuscular 0 styleCode="Bold Evelyne hemoglobin ">Mean Medical [Entitic mass] Corposcular Center by Automated Hemoglobin count </content>27.3 PG<content styleCode="Ital ics"> (26.0-34.0 PG)</content> UNK 0 <content Saint styleCode="Bold Evelyne ">Nucleated Red Medical Blood Cell Center </content>0.0 /100<content styleCode="Ital ics"> (0 /100)</content> Platelets 130-400 <content Saint [#/volume] in styleCode="Bold Evelyne Blood by ">Platelet Medical Automated count Count Center </content>248 KCUMM<content styleCode="Ital ics"> (130-400 KCUMM)</content > Platelet mean 8.0-11.0 <content Saint volume [Entitic styleCode="Bold Evelyne volume] in Blood ">Mean Platelet Medical by Automated Volume Center count </content>10.8 FL<content styleCode="Ital ics"> (8.0-11.0 FL)</content> Erythrocyte 11.5-14. <content Saint distribution 5 styleCode="Bold Evelyne width [Ratio] by ">Red Cell Medical Automated count Distribution Center Width </content>14.2 %<content styleCode="Ital ics"> (11.5-14.5 %)</content> UNK 0.0 <content Saint styleCode="Bold Evelyne ">Nucleated Red Medical Blood Cell Center Count </content>0.00 KCUMM<content styleCode="Ital ics"> (0.0 KCUMM)</content > ID Date Data Source GFR(Creatinine).[id number] 07/10/2019 05:43:00 PM EDT [facility] 0-0400 Name Value Range Interpretation Code Description Data Pepper rce(s) Supporting Document(s ) UNK > 60 <content [facility] styleCode="Bold"> Medical Cent er EGFR </content>81 GFR<content styleCode="Italic s"> (> 60 GFR)</content> ID Date Data Source Coagulation 07/10/2019 05:43:00 PM [facility] ical Center Rout.[id number] EDT Name Value Range Interpretation Description Data Sup porting Code Source(s) Document(s ) INR in 0.80-1.2 <content Saint Platelet poor 0 styleCode="Bold" [facility] plasma by >INR Medical Coagulation </content>0.90 Center assay #<content styleCode="Itali cs"> (0.80-1.20 #)</content> UNK 9.0-13.0 <content Saint styleCode="Bold" Evelyne >Protime Medical </content>10.0 Center SEC<content styleCode="Itali cs"> (9.0-13.0 SEC)</content> aPTT in 25.1-36. <content Saint Platelet poor 5 styleCode="Bold" [facility] plasma by >Partial Medical Coagulation Thromboplastin Center assay Time </content>36.1 SEC<content styleCode="Itali cs"> (25.1-36.5 SEC)</content> ID Date Data Source CHMROUTINECCDA.[id number] 07/10/2019 05:43:00 PM EDT [facility] -0400 Name Value Range Interpretation Description Data Sup porting Code Source(s) Document(s ) Lipase 23-300 <content [facility] [Enzymatic styleCode="Bold Medical activity/vo ">Lipase Center lume] in </content>129 Serum or IU/L<content Plasma styleCode="Ital ics"> (23-300 IU/L)</content> UNK 30-110 <content [facility] styleCode="Bold Medical ">Amylase Center </content>79 IU/L<content styleCode="Ital ics"> (30-110 IU/L)</content> ID Date Data Source CardiacMarkers.[id number] 07/10/2019 05:43:00 PM EDT [facility] -0400 Name Value Range Interpretation Description Data Sup porting Code Source(s) Document(s ) Troponin < 0.034 <content Saint I.cardiac styleCode="Bold Evelyne [Mass/volume ">Troponin I Medical ] in Serum </content>< Center or Plasma 0.012 NG/ML<content styleCode="Ital ics"> (< 0.034 NG/ML)</content > ID Date Data Source BMP.[id number] 07/10/2019 05:43:00 PM EDT [facility] Name Value Range Interpretation Description Data Sup porting Code Source(s) Document(s ) Potassium 3.5-5.3 <content Saint [Moles/volume] in styleCode="Bold"> [facility] Serum or Plasma Potassium Medical </content>4.9 Center MEQ/L<content styleCode="Italic s"> (3.5-5.3 MEQ/L)</content> Sodium 137-145 <content Saint [Moles/volume] in styleCode="Bold"> [facility] Serum or Plasma Sodium Medical </content>141 Center MEQ/L<content styleCode="Italic s"> (137-145 MEQ/L)</content> Chloride 98-107 <content Saint [Moles/volume] in styleCode="Bold"> [facility] Serum or Plasma Chloride Medical </content>106 Center MEQ/L<content styleCode="Italic s"> (98-107 MEQ/L)</content> Carbon dioxide, 22-30 <content [facility] total styleCode="Bold"> Evelyne [Moles/volume] in Carbon Dioxide Medical Serum or Plasma </content>26 Center MEQ/L<content styleCode="Italic s"> (22-30 MEQ/L)</content> UNK 9-20 Above high <content [facility] normal styleCode="Bold"> Evelyne BUN </content>22 Medical MG/DL H<content Center styleCode="Italic s"> (9-20 MG/DL)</content> Glucose 74-106 Above high <content Saint [Mass/volume] in normal styleCode="Bold"> Edwin hs Serum or Plasma Glucose Medical </content>305 Center MG/DL H<content styleCode="Italic s"> (74-106 MG/DL)</content> Creatinine 0.5-1.3 <content [facility] [Mass/volume] in styleCode="Bold"> Edwin hs Serum or Plasma Creatinine Medical </content>1.0 Center MG/DL<content styleCode="Italic s"> (0.5-1.3 MG/DL)</content> Calcium 8.4-10. <content [facility] [Mass/volume] in 2 styleCode="Bold"> Edwin hs Serum or Plasma Calcium Medical </content>9.4 Center MG/DL<content styleCode="Italic s"> (8.4-10.2 MG/DL)</content> Bilirubin.total 0.2-1.3 <content [facility] [Mass/volume] in styleCode="Bold"> Edwin hs Serum or Plasma Bilirubin Total Medical </content>0.3 Center MG/DL<content styleCode="Italic s"> (0.2-1.3 MG/DL)</content> Aspartate 17-59 <content [facility] aminotransferase styleCode="Bold"> Edwin hs [Enzymatic Aspartate Medical activity/volume] Aminotransferase Center in Serum or Plasma (AST) </content>47 IU/L<content styleCode="Italic s"> (17-59 IU/L)</content> Alkaline 38-126 Above high <content [facility] phosphatase normal styleCode="Bold"> Evelyne [Enzymatic Alkaline Medical activity/volume] Phosphatase (ALP) Cente r in Serum or Plasma </content>128 IU/L H<content styleCode="Italic s"> (38-126 IU/L)</content> Alanine 7-50 Above high <content [facility] aminotransferase normal styleCode="Bold"> Edwin hs [Enzymatic Alanine Medical activity/volume] Aminotransferase Center in Serum or Plasma (ALT) </content>51 IU/L H<content styleCode="Italic s"> (7-50 IU/L)</content> UNK > 60 <content [facility] styleCode="Bold"> Evelyne EGFR </content>81 Medical GFR<content Center styleCode="Italic s"> (> 60 GFR)</content> Albumin 3.5-5.0 <content [facility] [Mass/volume] in styleCode="Bold"> Edwin hs Serum or Plasma Albumin Medical </content>4.0 Center G/DL<content styleCode="Italic s"> (3.5-5.0 G/DL)</content> Procedure Social History Code Duration Value Status Description Data Source(s ) Smoking 07/10/2019 Denies Ever completed Denies Ever Smoked [facility]ne 11:00:00 PM EDT Smoked Medical C enter Smoking 07/10/2019 Denies Ever completed Denies Ever Smoked [facility] 05:21:00 PM EDT Smoked Medical C enter Smoking 07/10/2019 Denies Ever completed Denies Ever Smoked [facility] 04:25:00 PM EDT Smoked Medical C enter Smoking 07/10/2019 Denies Ever completed Denies Ever Smoked [facility] Ev[facility]ne 04:23:00 PM EDT Smoked Medical C enter Vital Signs ID Date Data Source UNK Name Value Range Interpretation Code Description Data Source(s) Body temperature 36.705339 36.983938 [facility] Respiratory rate 20 /min 20 /min [facility] Heart rate 84 /min 84 /min [facility] Diastolic blood 112 mm[Hg] 112 mm[Hg] [facility] Systolic blood 187 mm[Hg] 187 mm[Hg] [facility] Body temperature 36.786244 36.907972 [facility] Respiratory rate 18 /min 18 /min [facility] Heart rate 92 /min 92 /min [facility] Diastolic blood 89 mm[Hg] 89 mm[Hg] [facility] Systolic blood 152 mm[Hg] 152 mm[Hg] [facility] Body temperature 37.008708 37.922172 [facility] Respiratory rate 18 /min 18 /min [facility] Heart rate 78 /min 78 /min [facility] Diastolic blood 61 mm[Hg] 61 mm[Hg] [facility] Systolic blood 139 mm[Hg] 139 mm[Hg] [facility] Body temperature 36.263992 36.380570 [facility] Respiratory rate 20 /min 20 /min [facility] Heart rate 80 /min 80 /min [facility] Diastolic blood 89 mm[Hg] 89 mm[Hg] [facility] Systolic blood 156 mm[Hg] 156 mm[Hg] [facility] Medical Center Body temperature 36.453372 36.389151 [facility] Respiratory rate 18 /min 18 /min [facility] Heart rate 80 /min 80 /min [facility] Diastolic blood 96 mm[Hg] 96 mm[Hg] [facility] Systolic blood 150 mm[Hg] 150 mm[Hg] [facility] Oxygen saturation 97 % 97 % [facility] Sabra cool in Arterial blood Medical Center by Pulse oximetry Body temperature 36.559193 36.626834 [facility] Respiratory rate 18 /min 18 /min [facility] Heart rate 83 /min 83 /min [facility] Diastolic blood 89 mm[Hg] 89 mm[Hg] [facility] Systolic blood 154 mm[Hg] 154 mm[Hg] [facility] Body weight 81.850844 kg 81.531063 kg [facility] Body height 167.855928 167.236925 cm [facility] Body mass index 28.95 kg/m2 28.95 kg/m2 [facility] osephs (BMI) [Ratio] Medical [facility] Body weight 81.319423 kg 81.059650 kg [facility] Body height 167.200601 167.765306 cm [facility] Body mass index 28.95 kg/m2 28.95 kg/m2 [facility] osephs (BMI) [Ratio] Medical [facility] Body temperature 36.730529 36.400559 [facility] Respiratory rate 18 /min 18 /min [facility] Heart rate 82 /min 82 /min [facility] Diastolic blood 97 mm[Hg] 97 mm[Hg] [facility] Systolic blood 175 mm[Hg] 175 mm[Hg] [facility] Oxygen saturation 96 % 96 % [facility] by Pulse oximetry Body temperature 36.211738 36.909200 [facility] Respiratory rate 18 /min 18 /min [facility] Heart rate 83 /min 83 /min [facility] Diastolic blood 105 mm[Hg] 105 mm[Hg] [facility] Systolic blood 171 mm[Hg] 171 mm[Hg] [facility] Diastolic blood 101 mm[Hg] 101 mm[Hg] [facility] Systolic blood 196 mm[Hg] 196 mm[Hg] [facility] Heart rate 84 /min 84 /min [facility] Oxygen saturation 93 % 93 % [facility] by Pulse oximetry Body temperature 36.857153 36.117262 [facility] Respiratory rate 17 /min 17 /min [facility] Oxygen saturation 91 % 91 % [facility] by Pulse oximetry
--- NOTE | 2020-07-25 14:08 | PDOC ---
History of Present Illness - General Chief Complaint: Edema Stated Complaint: ABD/NECK PAIN/CONFUSION/ Time Seen by Provider: 07/25/20 14:07 History Source: Patient, Family, Grant Officer Used Exam Limitations: Language Barrier - History of Present Illness Initial Comments: 07/25/20 14:26 59 y.o. Italian speaking M PMHx HTN, HLD, DM, prior COVID presenting due to lower extremity swelling. Patients daughter was the advocate for bringing him in today. She states since last Wednesday he has been having increased swelling of the legs. At night he has also been waking up throughout his sleep with a dry cough and periodically feeling cold. Patient denies headache, sob, chest pain, N/V/D. Patients daughter states he is compliant with all his medication. PCP: Dr. Hand PMHx: HTN, HLD, DM, prior COVID Meds: In Chart Allergies: NKA Is this a multiple visit Asthma Patient?: No Timing/Duration: 1 week Severity: moderate Past History - Medical History Allergies/Adverse Reactions: Allergies Allergy/AdvReac Type Severity Reaction Status Date / Time No Known Allergies Allergy Verified 07/25/20 13:34 Home Medications: Ambulatory Orders Amlodipine Besylate [Norvasc -] 5 mg PO DAILY #30 tablet 08/03/19 Atorvastatin Ca [Lipitor] 1 tab PO DAILY 08/03/19 Docusate Sodium [Colace -] 100 mg PO BID capsule 08/03/19 Lisinopril [Prinivil -] 40 mg PO DAILY 08/03/19 Toujeo Solostar 30 units SQ HS 08/03/19 hydrALAZINE HCL [Apresoline -] 50 mg PO TID #90 tablet 08/03/19 Insulin Glargine,Hum.rec.anlog [Lantus] 25 unit SQ AM #100 vial 08/07/19 Labetalol HCl [Normodyne -] 200 mg PO BID #60 tablet 08/07/19 Melatonin 10 mg PO HS tab 08/07/19 Empagliflozin [Jardiance] 1 tab PO DAILY 12/12/19 Furosemide [Lasix] 1 tab PO DAILY 12/12/19 Sitagliptin Phos/Metformin HCl [Janumet 50-1,000 mg Tablet] 1 tab PO BID 12/12/19 traZODone HCL [Trazodone HCl] 1 tab PO HS 12/12/19 Cancer: Yes (RIGHT KNEE AND READIATION 2009) Cardiac Disorders: Yes CVA: No COPD: No Diabetes: Yes HTN: Yes Hypercholesterolemia: Yes - Surgical History Orthopedic Surgery: Yes - Immunization History Td Vaccination: (UNKNOWN) Immunization Up to Date: No - Psycho-Social/Smoking History Smoking Status: Yes (QUIT MORE THAN 20 YRS AGO) Smoking History: Never smoked Have you smoked in the past 12 months: No Number of Cigarettes Smoked Daily: 0 - Substance Abuse Hx (Audit-C & DAST Scrn) How often the patient has a drink containing alcohol: Never Score: In Men: 4 or > Positive; In Women: 3 or > Positive: 0 Screen Result (Pos requires Nsg. Audit-10AR): Negative Review of Systems - Review of Systems Able to Perform ROS?: Yes Is the patient limited Syrian proficient: Yes Constitutional: No: Chills, Fever HEENTM: No: Blurred Vision, Double Vision Respiratory: Yes: Cough (Dry). No: Shortness of Breath, Stridor, Wheezing Cardiac (ROS): No: Chest Pain, Lightheadedness ABD/GI: No: Constipated, Diarrhea, Nausea, Vomiting : No: Burning, Dysuria, Incontinence Musculoskeletal: No: Muscle Pain, Muscle Weakness Integumentary: No: Bruising, Dryness, Rash Neurological: No: Headache, Dizziness Hematologic/Lymphatic: No: Easy Bleeding, Easy Bruising *Physical Exam - Vital Signs Last Vital Signs Temp Pulse Resp BP Pulse Ox 98.6 F 82 18 124/77 94 L 07/25/20 13:34 07/25/20 13:34 07/25/20 13:34 07/25/20 13:34 07/25/20 13:34 - Physical Exam General Appearance: Yes: Nourished, Appropriately Dressed. No: Apparent Distress Respiratory/Chest: positive: Lungs Clear, Normal Breath Sounds. negative: Chest Tender, Respiratory Distress, Accessory Muscle Use, Crackles, Rales, Stridor, Wheezing Cardiovascular: positive: Regular Rhythm, Regular Rate. negative: Edema, JVD, Murmur Gastrointestinal/Abdominal: positive: Normal Bowel Sounds, Soft, Protuberent, Distended. negative: Tender, Flat, Guarding, Rebound, Tenderness Musculoskeletal: positive: Normal Inspection. negative: CVA Tenderness Extremity: positive: Swelling (2+ Lb/l E non pitting). negative: Normal Inspection, Tender, Coldness, Calf Tenderness, Erythema Integumentary: positive: Normal Color, Dry, Warm, Swelling (b/l LE ankle to knee) Neurologic: positive: Fully Oriented, Alert, Normal Mood/Affect, Normal Response ED Treatment Course - LABORATORY CBC & Chemistry Diagram: 07/25/20 14:45 07/25/20 20:23 Medical Decision Making - Medical Decision Making 07/25/20 14:37 59 y.o. Italian speaking M PMHx HTN, HLD, DM, prior COVID presenting due to lower extremity swelling. DDx: DVT, Venous insufficiency, Nephrotic syndrome, new onset CHF vs. COPD Labs: WBC 8.7, Na 135, K 5.5, Cr 1.8, Alk Phos 145, BNP 2974 EKG: NSR, QTc 440ms, rate 79 Given calcium gluconate, insulin, D50 Spoke w/ Dr. Sosa recommends swapping to lasix 80mg in the morning and 40mg in the afternoon for several days w/ follow up w/ Dr. Gleason. Patient's O2 is 89-91% on room air Dispo: Admission 07/25/20 18:40 Discharge - Discharge Information Problems reviewed: Yes Clinical Impression/Diagnosis: CHF (congestive heart failure) Qualifiers: Heart failure type: other Qualified Code(s): I50.9 - Heart failure, unspecified Condition: Stable - Admission Yes - Follow up/Referral - Patient Discharge Instructions - Post Discharge Activity
[2020-07-25 15:06] LABS: BASO % 0.6 % (0-2.0); EOS % 1.7 % (0-4.5); HEMATOCRIT 35.1 % (35.4-49); HEMOGLOBIN 11.3 GM/dL (11.7-16.9); LYMPH % 10.9 % (8-40); MCHC 32.3 g/dl (32.0-35.9); MEAN CELL VOLUME 83.5 fl (80-96); MEAN PLT VOLUME 8.8 fl (7.5-11.1); MONO % 5.9 % (3.8-10.2); NEUT % 80.9 % (42.8-82.8); PLATELET COUNT 263 K/MM3 (134-434); WHITE BLOOD COUNT 8.9 K/mm3 (4.0-10.0)
[2020-07-25 15:13] LABS: INR 0.93 (0.83-1.09); PROTHROMBIN TIME (PATIENT) 11.3 SEC (9.7-13.0)
[2020-07-25 15:43] LABS: ALBUMIN 3.7 g/dl (3.4-5.0); ANION GAP 6 MMOL/L (8-16); BLOOD UREA NITROGEN 45.8 mg/dL (7-18); CALCIUM 8.7 mg/dL (8.5-10.1); CHLORIDE 107 mmol/L (98-107); CO2 23 mmol/L (21-32); CREATININE 1.8 mg/dL (0.55-1.3); GLUCOSE,RANDOM 166 mg/dL (74-106); POTASSIUM 5.5 mmol/L (3.5-5.1); SGOT/AST 36 U/L (15-37); SGPT/ALT 83 U/L (13-61); SODIUM 135 mmol/L (136-145)
[2020-07-25 15:48] LABS: ALK PHOS 145 U/L (45-117); BILIRUBIN,TOTAL 0.5 mg/dL (0.2-1); N-TERMINAL BNP 2974.4 pg/ml (5-125); TOT PROT 7.6 g/dl (6.4-8.2)
--- NOTE | 2020-07-25 16:06 | PDOC ---
Documentation entered by Adrian Crespo SCRIBE, acting as scribe for Partha Mendiola MD. Partha Mendiola MD: This documentation has been prepared by the Zak farias Angel, SCRIBE, under my direction and personally reviewed by me in its entirety. I confirm that the documentation accurately reflects all work, treatment, procedures, and medical decision making performed by me. Attending Attestation - Resident Resident Name: JesusSudarshan - ED Attending Attestation I have performed the following: I have examined & evaluated the patient, The case was reviewed & discussed with the resident, I agree w/resident's findings & plan, Exceptions are as noted - HPI HPI: 07/25/20 15:48 The patient is a 59 year old male with a significant past medical history of HTN, CKD, DM and tested positive for COVID back in May who presents to the ED accompanied by daughter with bilateral leg swelling since last week Wednesday. The daughter states for the past week he has had worsening swelling of both legs and face which the patient denies. The patient denies N/V/D, chest pain, SOB, headache, or sick contacts. Denies POWERS, orthopnea. Has been taking alsix BID comsistently. Denies any diet changes/salt intake. - Physicial Exam PE: 07/25/20 17:02 GENERAL: The patient is awake, alert, and fully oriented, Nontoxic - in no acute distress. HEAD: Normocephalic, atraumatic. EYES: extraocular movements intact, sclera anicteric, conjunctiva clear. ENT: Normal voice, Moist mucous membranes. NECK: Normal range of motion, supple LUNGS: Breath sounds equal, clear to auscultation bilaterally. No wheezes, no rhonchi, no rales. HEART: Regular rate and rhythm, normal S1 and S2 without murmur, rub or gallop. ABDOMEN: Soft, nontender, No guarding, no rebound. No CVA tenderness EXTREMITIES: Normal range of motion, b/l pitting edema, neg homans NEUROLOGICAL: No facial assymetry, Normal speech, PSYCH: Normal mood, normal affect. SKIN: Warm, Dry, normal turgor, - Medical Decision Making 07/25/20 17:33 no clinical signs/sx of CHF labs noted for cr of 1.8, better than his basline. will dc the pt to fu with renal dw dr. dozier, he can increase lasix to 80mg in AM and 40mg in PM and fu with renal next week to trend his cr. return precautions wree discussed Heart Score/ECG Review - ECG Impressions Comment:: 07/25/20 16:06 Twelve-lead EKG was performed and reviewed by me. There is normal sinus rhythm with a normal rate. Rate of 79 The axis is normal. The intervals are normal. There is normal R wave progression There are no ST or T wave abnormalities. Impression: Normal twelve-lead EKG Discharge - Follow up/Referral Referrals: Charles Hand MD [Primary Care Provider] - - Patient Discharge Instructions - Post Discharge Activity
[2020-07-25] MEDS ORDERED: CALCIUM GLUCONATE 10% - 1,000 MG/10 ML VIAL IVPUSH ONE (16:53)
[2020-07-25] MEDS ORDERED: INSULIN REGULAR HUMAN 100 UNITS/ML *VIAL IVPUSH ONE (16:53)
[2020-07-25] MEDS ORDERED: DEXTROSE 50%-WATER - 25 GM/50 ML VIAL IVPUSH ONE (16:53)
[2020-07-25] MEDS ORDERED: CALCIUM GLUCONATE 10% - 1,000 MG/10 ML VIAL ONE (17:11)
[2020-07-25] MEDS ORDERED: DEXTROSE 50%-WATER 25 GM/50 ML DISP.SYRIN ONE (17:12)
[2020-07-25] MEDS ORDERED: FUROSEMIDE 40 MG/4 ML INJECTABLE VIAL IVPUSH ONE (17:44)
[2020-07-25] MEDS ORDERED: FUROSEMIDE 40 MG/4 ML INJECTABLE VIAL ONE (18:12)
--- OUTSIDE RECORDS SUMMARY | 2020-07-25 19:16 | XMS ---
[...] protected by Article 27-F of the [facility] Public Health law. If you continue you may haveaccess to information: Regarding HIV / AIDS; Provided by facilities licensed or operated by the [facility] Office of Mental Health; or Provided by the [facility] Office for People With Developmental Disabilities. If such information is present, then the following [facility] mandated warning applies: This information has been [...] law may result in a fine or shelter sentence or both. A general authorization for the release of medical or other information is NOT sufficient authorization for further disclosure. Encounters Encounter Providers Location Date Indications Data Source(s ) Emergency Attender: KEILA RIOJAS H-HAL5 07/10/2019 [facility] 03:54:00 PM EDT Medical C enter - 07/12/2019 08:30:00 PM EDT Patient discharged. Insurance Providers Payer name Policy type Policy ID Covered Covered republican's Policy P alyssa / Coverage republican ID relationship to Conrad Inf ormation type conrad HIP MEDICARE [id number] SP [id number] VIP MEDICAID [id number] SP [id number] [place] [id number] SP [id number] MED[place]ID COMM PLAN [place] [id number] SP [id number] MEDICAID COMM PLAN [place] [id number] SP [id number] MEDICAID COMM PLAN MEDICAID [id number] SP [id number] [place] [id number] SP [id number] MEDICAID COMM PLAN MEDICAID [id number] SP [id number] [facility] [id number] SP [id number] T W [id number] AETNA O [id number] Problems, Conditions, and Diagnoses Code Display [...] r EDT I16.0 Hypertensive HYPERTENSIVE Diagnosis 07/10/2019 [facility] urgency URGENCY 03:54:00 PM Medical Cent[facility] r EDT Results ID Date Data Source [id number] 07/09/2020 01:07:00 PM EDT [facility] Name Value Range Interpretation Code Description Data Pepper rce(s) Supporting Document(s ) SARS-CoV-2 [facility] PCR This lab was ordered by [facility] and reported by [employer]. ID Date Data Source Liver 07/12/2019 05:30:00 AM EDT [facility] Profile.[id number] Name Value Range Interpretation Description Data Sup [...] s"> (3.5-5.0 G/DL)</content> ID Date Data Source HematologyRou.[id number] 07/12/2019 05:30:00 AM EDT [facility] 0400 Name Value Range Interpretation Description [...] Erythrocyte 11.5-14. <content [facility] distribution 5 styleCode="Bold [facility] width [Ratio] by ">Red Cell Medical [...] (0-0.1 KCUMM)</content > ID Date Data Source GFR(Creatinine).[id number] 07/12/2019 05:30:00 AM EDT [facility] 0-0400 Name Value Range Interpretation Code Description Data Pepper rce(s) Supporting Document(s ) UNK > 60 <content [facility] styleCode="Bold"> Medical Cent er EGFR </content>81 GFR<content styleCode="Italic s"> (> 60 GFR)</content> ID Date Data Source CHMROUTINECCDA.[id number] 07/12/2019 05:30:00 AM EDT [facility] -0400 Name Value Range Interpretation Description Data Sup porting Code Source(s) Document(s ) UNK >= 1.0 <content [facility] styleCode="Bold Medical ">AG Ratio Center </content>1.2 <content styleCode="Ital ics"> (>= 1.0 )</content> UNK 2.3-3.5 <content [facility] styleCode="Bold Medical ">Globulin Center </content>2.6 G/DL<content styleCode="Ital ics"> (2.3-3.5 G/DL)</content> Protein 6.3-8.2 Below low normal <content [facility] [Mass/volum styleCode="Bold Medical e] in Serum ">Total Protein Center or Plasma </content>5.6 G/DL L<content styleCode="Ital ics"> (6.3-8.2 G/DL)</content> ID Date Data Source [facility].[id number] 07/12/2019 05:30:00 AM EDT [facility] Name Value Range Interpretation Description [...] Data Source Liver 07/11/2019 07:20:00 AM EDT [facility] Profile.[id number] Name Value Range Interpretation Description Data Sup [...] s"> (3.5-5.0 G/DL)</content> ID Date Data Source Hormones.[id number] 07/11/2019 07:20:00 AM EDT [facility] Name Value Range Interpretation Description Data Sup porting Code Source(s) Document(s ) Thyrotropin 0.465-4. <content [facility] [Units/volume] 68 styleCode="Eleuterio [facility] in Serum or d">Thyroid Medical Plasma by Stimulating Center Detection Hormone limit <= 0.05 </content>4.19 mIU/L MIU/L<content styleCode="Chani lics"> (0.465-4.68 MIU/L)</conten t> ID Date Data Source HematologyRou.[id number] 07/11/2019 07:20:00 AM EDT [facility] 0400 Name Value Range Interpretation Description [...] (< 1 %)</content> ID Date Data Source GFR(Creatinine).[id number] 07/11/2019 07:20:00 AM EDT [facility] 0-0400 Name Value Range Interpretation Code Description Data Pepper rce(s) Supporting Document(s ) UNK > 60 <content [facility] styleCode="Bold"> Medical Cent er EGFR </content>92 GFR<content styleCode="Italic s"> (> 60 GFR)</content> ID Date Data Source MROUTINECCDA.[id number] 07/11/2019 07:20:00 AM EDT [facility] -0400 Name Value Range Interpretation Description [...] ics"> (6.3-8.2 G/DL)</content> ID Date Data Source [facility].[id number] 07/11/2019 07:20:00 AM EDT [facility] Name Value Range Interpretation Description Data Sup porting Code Source(s) Document(s ) Sodium 137-145 <content [facility] [Moles/volume] in styleCode="Bold"> [facility] Serum or Plasma Sodium Medical </content>142 Center MEQ/L<content styleCode="Italic s"> (137-145 MEQ/L)</content> Carbon dioxide, 22-30 <content [facility] total styleCode="Bold"> [facility] [Moles/volume] in Carbon Dioxide Medical Serum or Plasma </content>28 Center MEQ/L<content styleCode="Italic s"> (22-30 MEQ/L)</content> Chloride 98-107 <content [facility] [Moles/volume] in styleCode="Bold"> [facility] Serum or Plasma Chloride Medical </content>107 Center MEQ/L<content styleCode="Italic s"> (98-107 MEQ/L)</content> UNK 9-20 Above high <content [facility] normal styleCode="Bold"> [facility] BUN </content>21 Medical MG/DL H<content Center styleCode="Italic s"> (9-20 MG/DL)</content> Potassium 3.5-5.3 <content [facility] [Moles/volume] in styleCode="Bold"> [facility] Serum or Plasma Potassium Medical </content>4.9 Center [...] s"> (3.5-5.0 G/DL)</content> ID Date Data Source Urinalysis.[id number] 07/10/2019 05:43:00 PM EDT [facility] 0 Name Value Range Interpretation Description [...] by Test d">Urine Medical strip Specific Center [place] </content>1.01 0 L<content styleCode="Chani lics"> (1.015-1.025 )</content> [...] lics"> (0-3 HPF)</content> ID Date Data Source Microbiology.[id number] 07/10/2019 05:43:00 PM EDT [facility] 400 Name Value Range Interpretation Code Description Data Pepper rce(s) Supporting Document(s ) UNK <item><content [facility] styleCode="Bold"> [facility] er Culture Report </content>
<t able><tbody><tr>< td>Specimen Number:</td><td>[id number]</td></tr ><tr><td>Sample Collection Date/Time: </td><td> 9 5:43 PM</td></tr><tr>< td>Specimen Source:</td><td>U RINE</td></tr><tr ><td>Urine Culture:</td><td> Collection Plate Date: 07/10/2019 17:57 </td></tr><tr><td >Culture Status:</td><td>P reliminary </td></tr><tr><td >Culture Report:</td><td>C ulture in progress </td></tr></tbody ></table></item> UNK <item><content [facility] styleCode="Bold"> [facility] er Culture Status </content>
<t able><tbody><tr>< td>Specimen Number:</td><td>[id number]</td></tr ><tr><td>Sample Collection Date/Time: </td><td> 9 5:43 PM</td></tr><tr>< td>Specimen Source:</td><td>U RINE</td></tr><tr ><td>Culture Status:</td><td>P reliminary </td></tr><tr><td >Culture Report:</td><td>C ulture in progress </td></tr><tr><td >Urine Culture:</td><td> Collection Plate Date: 07/10/2019 17:57 </td></tr></tbody ></table></item> ID Date Data Source Liver 07/10/2019 05:43:00 PM EDT [facility] Profile.[id number] Name Value Range Interpretation Description Data Sup [...] s"> (0.2-1.3 MG/DL)</content> ID Date Data Source HematologyRou.[id number] 07/10/2019 05:43:00 PM EDT [facility] 0400 Name Value Range Interpretation Description [...] (0.0 KCUMM)</content > ID Date Data Source GFR(Creatinine).[id number] 07/10/2019 05:43:00 PM EDT [facility] 0-0400 Name Value Range Interpretation Code Description Data Pepper rce(s) Supporting Document(s ) UNK > 60 <content [facility] styleCode="Bold"> Medical Cent er EGFR </content>81 GFR<content styleCode="Italic s"> (> 60 GFR)</content> ID Date Data Source Coagulation 07/10/2019 05:43:00 PM [facility] ical Center Rout.[id number] EDT Name Value Range Interpretation Description Data Sup porting Code Source(s) Document(s ) INR in 0.80-1.2 <content [facility] Platelet poor 0 styleCode="Bold" [facility] plasma by >INR Medical Coagulation </content>0.90 Center assay #<content styleCode="Itali cs"> (0.80-1.20 #)</content> UNK 9.0-13.0 <content [facility] styleCode="Bold" [facility] >Protime Medical </content>10.0 Center SEC<content styleCode="Itali cs"> (9.0-13.0 SEC)</content> aPTT in 25.1-36. <content [facility] Platelet poor 5 styleCode="Bold" [facility] plasma by >Partial Medical Coagulation Thromboplastin Center assay Time </content>36.1 SEC<content styleCode="Itali cs"> (25.1-36.5 SEC)</content> ID Date Data Source CHMROUTINECCDA.[id number] 07/10/2019 05:43:00 PM EDT [facility] -0400 Name Value Range Interpretation Description Data Sup porting Code Source(s) Document(s ) Lipase 23-300 <content [facility] [Enzymatic styleCode="Bold Medical activity/vo ">Lipase Center lume] in </content>129 Serum or IU/L<content Plasma styleCode="Ital ics"> (23-300 IU/L)</content> UNK 30-110 <content [facility] styleCode="Bold Medical ">Amylase Center </content>79 IU/L<content styleCode="Ital ics"> (30-110 IU/L)</content> ID Date Data Source [employer].[id number] 07/10/2019 05:43:00 PM EDT [facility] -0400 Name Value Range Interpretation Description Data Sup porting Code Source(s) Document(s ) Troponin < 0.034 <content [facility] I.cardiac styleCode="Bold [facility] [Mass/volume ">Troponin I Medical ] in Serum </content>< Center or Plasma 0.012 NG/ML<content styleCode="Ital ics"> (< 0.034 NG/ML)</content > ID Date Data Source BMP.[id number] 07/10/2019 05:43:00 PM EDT [facility] Name Value Range Interpretation Description Data Sup porting Code Source(s) Document(s ) Potassium 3.5-5.3 <content [facility] [Moles/volume] in styleCode="Bold"> [facility] Serum or Plasma Potassium Medical </content>4.9 Center MEQ/L<content styleCode="Italic s"> (3.5-5.3 MEQ/L)</content> Sodium 137-145 <content [facility] [Moles/volume] in styleCode="Bold"> [facility] Serum or Plasma Sodium Medical </content>141 Center MEQ/L<content styleCode="Italic s"> (137-145 MEQ/L)</content> Chloride 98-107 <content [facility] [Moles/volume] in styleCode="Bold"> [facility] Serum or Plasma Chloride Medical </content>106 Center [...] s"> (7-50 IU/L)</content> UNK > 60 <content [facility] styleCode="Bold"> [facility] EGFR </content>81 Medical GFR<content Center [...] Interpretation Code Description Data Source(s) Body temperature 36.641269 36.693417 [facility] Respiratory rate 20 /min 20 /min [facility] Heart rate 84 /min 84 /min [facility] Diastolic blood 112 mm[Hg] 112 mm[Hg] [facility] Systolic blood 187 mm[Hg] 187 mm[Hg] [facility] Body temperature 36.512125 36.318678 [facility] Respiratory rate 18 /min 18 /min [facility] Heart rate 92 /min 92 /min [facility] Diastolic blood 89 mm[Hg] 89 mm[Hg] [facility] Systolic blood 152 mm[Hg] 152 mm[Hg] [facility] Body temperature 37.593596 37.592802 [facility] Respiratory rate 18 /min 18 /min [facility] Heart rate 78 /min 78 /min [facility] Diastolic blood 61 mm[Hg] 61 mm[Hg] [facility] Systolic blood 139 mm[Hg] 139 mm[Hg] [facility] Medical Center Body temperature 36.110993 36.771763 [facility] Respiratory rate 20 /min 20 /min [facility] Heart rate 80 /min 80 /min [facility] Diastolic blood 89 mm[Hg] 89 mm[Hg] [facility] Systolic blood 156 mm[Hg] 156 mm[Hg] [facility] Medical Center Body temperature 36.309389 36.434687 [facility] Respiratory rate 18 /min 18 /min [facility] Heart rate 80 /min 80 /min [facility] Diastolic blood 96 mm[Hg] 96 mm[Hg] [facility] Systolic blood 150 mm[Hg] 150 mm[Hg] [facility] Oxygen saturation 97 % 97 % [facility] Sabra cool in Arterial blood Medical Center by Pulse oximetry Body temperature 36.703143 36.343534 [facility] Respiratory rate 18 /min 18 /min [facility] Heart rate 83 /min 83 /min [facility] Diastolic blood 89 mm[Hg] 89 mm[Hg] [facility] Systolic blood 154 mm[Hg] 154 mm[Hg] [facility] Body weight 81.954145 kg 81.352943 kg [facility] Body height 167.682497 167.039348 cm [facility] Body mass index 28.95 kg/m2 28.95 kg/m2 [facility] osephs (BMI) [Ratio] Medical [facility] ter Body weight 81.323634 kg 81.401094 kg [facility] Body height 167.144311 167.330498 cm [facility] Body mass index 28.95 kg/m2 28.95 kg/m2 [facility] osephs (BMI) [Ratio] Medical [facility] ter Body temperature 36.175789 36.149832 [facility] Respiratory rate 18 /min 18 /min [facility] Heart rate 82 /min 82 /min [facility] Diastolic blood 97 mm[Hg] 97 mm[Hg] [facility] Systolic blood 175 mm[Hg] 175 mm[Hg] [facility] Oxygen saturation 96 % 96 % [facility] by Pulse oximetry Body temperature 36.280783 36.216452 [facility] Respiratory rate 18 /min 18 /min [facility] Heart rate 83 /min 83 /min [facility] Diastolic blood 105 mm[Hg] 105 mm[Hg] [facility] Systolic blood 171 mm[Hg] 171 mm[Hg] [facility] Diastolic blood 101 mm[Hg] 101 mm[Hg] [facility] Systolic blood 196 mm[Hg] 196 mm[Hg] [facility] Heart rate 84 /min 84 /min [facility] Oxygen saturation 93 % 93 % [facility] by Pulse oximetry Body temperature 36.484858 36.544221 [facility] Respiratory rate 17 /min 17 /min [facility] Oxygen saturation 91 % 91 % [facility] by Pulse oximetry
--- NOTE | 2020-07-25 19:26 | PN ---
Teaching Attending Note Name of Resident: Shahid Lancaster ATTENDING PHYSICIAN STATEMENT I saw and evaluated the patient. I reviewed the resident's note and discussed the case with the resident. I agree with the resident's findings and plan as documented. SUBJECTIVE: Patient is a 59 year old man with a PMH of NIDDM, CKD, HTN, HLD, DM and COVID-19 infection (06/09/2020) presenting due to lower extremity swelling. Patient's daughter states that since last Wednesday he has been having increased swelling of the legs. At night he has also been waking up throughout his sleep with a dry cough and periodically feeling cold. Patient's daughter states he is adherent with all his medications. Patient denies chest pain, abdominal pain, headache, palpitations, dizziness, fever, chills, nausea, vomiting, diarrhea, constipation, dysuria, frequency, urgency, melena, hematochezia or hematuria. Denies alcohol, tobacco or illicit drug use. No sick contacts or recent travels. Family history of DM in both parents. OBJECTIVE: Alert Vital Signs Period Temp Pulse Resp BP Sys/Corona Pulse Ox Last 24 Hr 98.6 F 82 18 124/77 94 HEENT: No Jaundice, eye redness or discharge, PERRLA, EOMI. Normocephalic, atraumatic. External ears are normal and hearing is grossly intact. No nasal discharge. Neck: Supple, nontender. No palpable adenopathy or thyromegaly. No JVD Chest: Good effort. Clear to auscultation and percussion. Heart: Regular. No S3, rub or murmur Abdomen: Not distended, soft, nontender and no HSM. No rebound or guarding. Nor mal bowel sounds. Ext: Peripheral pulses intact. No leg edema. Skin: Warm and dry. No petechiae, rash or ecchymosis. Neuro: Alert. Oriented x3. CN 2-12 grossly intact. Sensation grossly intact in all four extremities and DTR are symmetric. Psych: Appropriate mood and affect. Good insight. Home Medications Medication Instructions Recorded Amlodipine Besylate [Norvasc -] 5 mg PO DAILY #30 tablet 08/03/19 Atorvastatin Ca [Lipitor] 1 tab PO DAILY 08/03/19 Docusate Sodium [Colace -] 100 mg PO BID capsule 08/03/19 Lisinopril [Prinivil -] 40 mg PO DAILY 08/03/19 Toujeo Solostar 30 units SQ HS 08/03/19 hydrALAZINE HCL [Apresoline -] 50 mg PO TID #90 tablet 08/03/19 Insulin Glargine,Hum.rec.anlog 25 unit SQ AM #100 vial 08/07/19 [Lantus] Labetalol HCl [Normodyne -] 200 mg PO BID #60 tablet 08/07/19 Melatonin 10 mg PO HS tab 08/07/19 Empagliflozin [Jardiance] 1 tab PO DAILY 12/12/19 Furosemide [Lasix] 1 tab PO DAILY 12/12/19 Sitagliptin Phos/Metformin HCl 1 tab PO BID 12/12/19 [Janumet 50-1,000 mg Tablet] traZODone HCL [Trazodone HCl] 1 tab PO HS 12/12/19 Abnormal Lab Results 07/25/20 07/25/20 14:45 14:45 Hgb 11.3 L Hct 35.1 L RDW 16.0 H Sodium 135 L Potassium 5.5 H Anion Gap 6 L BUN 45.8 H Creatinine 1.8 H Random Glucose 166 H ALT 83 H Alkaline Phosphatase 145 H B-Natriuretic Peptide 2974.4 H ASSESSMENT AND PLAN: 1. ?New onset CHF - ECHO from 07/31/2020 showed normal LV size and systolic function, LVEF of 55-60% and diastolic dysfunction. CXR shows cardiomegaly, congestive changes, right pleural effusion, fluid in the right lung fissure and unfolded aorta with hilar prominence. No leg DVT noted on Vascular study. EKG shows NSR at 79/minute and QTc 440 with no significant acute ischemic ST-T wave changes. Initial troponin is negative. Will admit to telemetry, get urinalysis, treat with IV Lasix, get ECHO, restrict dietary salt intake, monitor renal function, monitor and replete electrolytes, get daily weight and consult Cardiology. Hyponatremia likely partly due to hyperglycemia. Will limit free water intake and correct hyperglycemia. 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 Got IV D50W, insulin and calcium gluconate in the ER. Repeat BMP pending. O2 saturation was 98-91% on room air. Started on supplemental oxygen via nasal cannula. Will continue comprehensive care for all of patients comorbid conditions. 2. CKD Will get kidney sonogram, monitor urine output and consult Nephrology. Avoid nephrotoxic agents such as NSAIDS, aminoglycosides, contrast dyes and certain Alternative medicine products. 3. DM For now, we will hold the home diabetes drugs and implement sliding scale insulin regimen. Provide comprehensive diabetes care with patient teaching and counseling about the importance of adherence to prescribed diabetes regimen, euglycemia, eye care and foot care. 4. Mild anemia Likely partly due to CKD. Will do basic anemia work up including serial stool guaiacs, reticulocyte count and iron studies. 5. Hypertension Will restart suitable outpatient antihypertensive drugs when clinically appropriate. Subsequently, will revise regimen to ensure [id number] excellent BP control. Patient counseled on the injurious effects of uncontrolled hypertension. Nonpharmacologic measures to control hypertension like weight loss, salt restriction and exercise stressed. Importance of adherence to treatment regimen and attainment of normotension emphasized. 6. DVT prophylaxis - Heparin 5000u sq tid. 7. Advance directives - Full code
--- NOTE | 2020-07-25 20:10 | HP ---
CHIEF COMPLAINT: Shortness of breath and LE swelling PCP: Dr. Hand HISTORY OF PRESENT ILLNESS: Mr Luca Portillo is a 59 year old man with a PMH of NIDDM, HTN, HLD,prior COVID presented to the emergency department for generalized swelling in his face and legs, abdominal distension and increased shortness of breath admitted for chf exacerbation. The patient is a poor historian and accompanied by his daughter in law for collateral hpi. The patients daughter in law reports that the patient has been experiencing 1 week of increased swelling in his legs and increased shortness of breath with minimal walking. The symptoms first arose when he started taking his water pill. The daugher in law also noted that the patient had developed mild facial swelling. She had stated that he has taken only 1 day of the amlodipine within the past few weeks and does not know what could have triggered the swelling in his face. She points out that his abdomen has been distended as well. Patient denies headache, sob, chest pain, N/V/D. Recent Travel: as above PAST MEDICAL HISTORY: as above PAST SURGICAL HISTORY: left toes (x2) amputation Social History: Smoking: many years ago/currently not smoking Alcohol: many years ago/currently no drinking Drugs: denies Family: Mother and father had diabetes Allergies No Known Allergies Allergy (Verified 07/25/20 13:34) HOME MEDICATIONS: Home Medications Medication Instructions Recorded Amlodipine Besylate [Norvasc -] 5 mg PO DAILY #30 tablet 08/03/19 Atorvastatin Ca [Lipitor] 1 tab PO DAILY 08/03/19 Docusate Sodium [Colace -] 100 mg PO BID capsule 08/03/19 Lisinopril [Prinivil -] 40 mg PO DAILY 08/03/19 Toujeo Solostar 30 units SQ HS 08/03/19 hydrALAZINE HCL [Apresoline -] 50 mg PO TID #90 tablet 08/03/19 Insulin Glargine,Hum.rec.anlog 25 unit SQ AM #100 vial 08/07/19 [Lantus] Labetalol HCl [Normodyne -] 200 mg PO BID #60 tablet 08/07/19 Melatonin 10 mg PO HS tab 08/07/19 Empagliflozin [Jardiance] 1 tab PO DAILY 12/12/19 Furosemide [Lasix] 1 tab PO DAILY 12/12/19 Sitagliptin Phos/Metformin HCl 1 tab PO BID 12/12/19 [Janumet 50-1,000 mg Tablet] traZODone HCL [Trazodone HCl] 1 tab PO HS 12/12/19 REVIEW OF SYSTEMS As above PHYSICAL EXAMINATION Vital Signs - 24 hr 07/25/20 13:34 Temperature 98.6 F Pulse Rate 82 Respiratory 18 Rate Blood Pressure 124/77 O2 Sat by Pulse 94 L Oximetry (%) GENERAL: Awake, alert, and fully oriented, in no acute distress. LUNGS: crackles bilateral bases HEART: Regular rate and rhythm, normal S1 and S2 without murmur, rub or gallop. ABDOMEN: Soft, nontender, distended, normoactive bowel sounds, no guarding, no rebound, no masses. No hepatomegaly or splenomegaly. LOWER EXTREMITIES: 2+ pitting edema bilaterally, 2+ pulses bilaterally Laboratory Results - last 24 hr 07/25/20 07/25/20 07/25/20 14:45 14:45 14:45 WBC 8.9 RBC 4.20 Hgb 11.3 L Hct 35.1 L MCV 83.5 MCH 27.0 MCHC 32.3 RDW 16.0 H Plt Count 263 MPV 8.8 Absolute Neuts (auto) 7.2 Neutrophils % 80.9 Lymphocytes % 10.9 Monocytes % 5.9 Eosinophils % 1.7 Basophils % 0.6 D Nucleated RBC % 0 PT with INR 11.30 INR 0.93 Sodium 135 L Potassium 5.5 H Chloride 107 Carbon Dioxide 23 Anion Gap 6 L BUN 45.8 H Creatinine 1.8 H Est GFR (CKD-EPI)AfAm 46.38 Est GFR (CKD-EPI)NonAf 40.02 Random Glucose 166 H Calcium 8.7 Total Bilirubin 0.5 AST 36 ALT 83 H Alkaline Phosphatase 145 H Troponin I < 0.02 B-Natriuretic Peptide 2974.4 H Total Protein 7.6 Albumin 3.7 ASSESSMENT/PLAN: Mr Luca Portillo is a 59 year old man with a PMH of NIDDM, HTN, HLD,prior COVID presented to the emergency department for generalized swelling in his face and legs, abdominal distension and increased shortness of breath admitted for chf exacerbation. #Acute on chronic CHF exacerbation - Monitor his urine output before we set a dose - 40IV BID suggested - I/Os - Daily weights - ECHO - Cardiology consult - Dr. Nguyen #HTN - Monitor pressures - Continue home medications #DM - #HLD #FEN #DISPO #DVT ppx #Advanced directive ATTENDING PHYSICIAN STATEMENT I saw and evaluated the patient. I reviewed the resident's note and discussed the case with the resident. I agree with the resident's findings and plan as documented. SUBJECTIVE: OBJECTIVE: ASSESSMENT AND PLAN:
[2020-07-25 21:10] LABS: BLOOD UREA NITROGEN 45.3 mg/dL (7-18); CALCIUM 8.8 mg/dL (8.5-10.1); CREATININE 1.8 mg/dL (0.55-1.3); POTASSIUM 5.1 mmol/L (3.5-5.1)
[2020-07-25 22:48] VITALS: BP 134/85; PULSE 79
--- NOTE | 2020-07-26 04:53 | DS ---
Physical Exam: SUBJECTIVE: Patient seen and examined OBJECTIVE: Vital Signs Period Temp Pulse Resp BP Sys/Corona Pulse Ox Last 24 Hr 98.6 F 79-82 18-18 124-134/77-85 94-96 PHYSICAL EXAM GENERAL: The patient is awake, alert, and fully oriented, in no acute distress. HEAD: Normal with no signs of trauma. EYES: PERRL, extraocular movements intact, sclera anicteric, conjunctiva clear. ENT: Ears normal, nares patent, oropharynx clear without exudates, moist mucous membranes. NECK: Trachea midline, full range of motion, supple. LUNGS: Breath sounds equal, clear to auscultation bilaterally, no wheezes, no crackles, no accessory muscle use. HEART: Regular rate and rhythm, S1, S2 without murmur, rub or gallop. ABDOMEN: Soft, nontender, nondistended, normoactive bowel sounds, no guarding, no rebound, no hepatosplenomegaly, no masses. EXTREMITIES: 2+ pulses, warm, well-perfused, no edema. NEUROLOGICAL: Cranial nerves II through XII grossly intact. Normal speech, gait not observed. PSYCH: Normal mood, normal affect. SKIN: Warm, dry, normal turgor, no rashes or lesions noted. LABS Laboratory Results - last 24 hr 07/25/20 07/25/20 07/25/20 14:45 14:45 14:45 WBC 8.9 RBC 4.20 Hgb 11.3 L Hct 35.1 L MCV 83.5 MCH 27.0 MCHC 32.3 RDW 16.0 H Plt Count 263 MPV 8.8 Absolute Neuts (auto) 7.2 Neutrophils % 80.9 Lymphocytes % 10.9 Monocytes % 5.9 Eosinophils % 1.7 Basophils % 0.6 D Nucleated RBC % 0 PT with INR 11.30 INR 0.93 Sodium 135 L Potassium 5.5 H Chloride 107 Carbon Dioxide 23 Anion Gap 6 L BUN 45.8 H Creatinine 1.8 H Est GFR (CKD-EPI)AfAm 46.38 Est GFR (CKD-EPI)NonAf 40.02 Random Glucose 166 H Calcium 8.7 Total Bilirubin 0.5 AST 36 ALT 83 H Alkaline Phosphatase 145 H Troponin I < 0.02 B-Natriuretic Peptide 2974.4 H Total Protein 7.6 Albumin 3.7 07/25/20 20:23 WBC RBC Hgb Hct MCV MCH MCHC RDW Plt Count MPV Absolute Neuts (auto) Neutrophils % Lymphocytes % Monocytes % Eosinophils % Basophils % Nucleated RBC % PT with INR INR Sodium 137 Potassium 5.1 Chloride 108 H Carbon Dioxide 22 Anion Gap 7 L BUN 45.3 H Creatinine 1.8 H Est GFR (CKD-EPI)AfAm 46.38 Est GFR (CKD-EPI)NonAf 40.02 Random Glucose 79 Calcium 8.8 Total Bilirubin AST ALT Alkaline Phosphatase Troponin I B-Natriuretic Peptide Total Protein Albumin HOSPITAL COURSE: Mr. Luca Van was examined at bedside in the emergency department by the internal medicine team for his admission for acute CHF exacerbation. The patient had expressed wishes to not be treated any further. The patient was explained and counselled on the risks involved with leaving against medical advice and was at full mental capacity. The patient had signed out AMA and will follow up with his PCP outpatient. Date of Admission:07/25/20 Date of Discharge: 07/26/20 Minutes to complete discharge: 35 Discharge Summary Problems reviewed: Yes Reason For Visit: CONGESTIVE HEART FAILURE Current Active Problems CHF (congestive heart failure) (Acute) Condition: Stable - Instructions Referrals: Charles Hand MD [Primary Care Provider] - Disposition: AGAINST MEDICAL ADVICE - Home Medications Comprehensive Discharge Medication List: Ambulatory Orders Amlodipine Besylate [Norvasc -] 5 mg PO DAILY #30 tablet 08/03/19 Atorvastatin Ca [Lipitor] 1 tab PO DAILY 08/03/19 Docusate Sodium [Colace -] 100 mg PO BID capsule 08/03/19 Lisinopril [Prinivil -] 40 mg PO DAILY 08/03/19 [place]isandroo Solostar 30 units SQ HS 08/03/19 hydrALAZINE HCL [Apresoline -] 50 mg PO TID #90 tablet 08/03/19 Insulin Glargine,Hum.rec.anlog [Lantus] 25 unit SQ AM #100 vial 08/07/19 Labetalol HCl [Normodyne -] 200 mg PO BID #60 tablet 08/07/19 Melatonin 10 mg PO HS tab 08/07/19 Empagliflozin [Jardiance] 1 tab PO DAILY 12/12/19 Furosemide [Lasix] 1 tab PO DAILY 12/12/19 Sitagliptin Phos/Metformin HCl [Janumet 50-1,000 mg Tablet] 1 tab PO BID 12/12/19 traZODone HCL [Trazodone HCl] 1 tab PO HS 12/12/19 This patient is new to me today: No Emergency Visit: Yes ED Registration Date: 07/25/20 Care time: The patient presented to the Emergency Department on the above date and was hospitalized for further evaluation of their emergent condition. Critical Care patient: No - Discharge Referral Referred to [facility] Med P.C.: No ATTENDING PHYSICIAN STATEMENT I saw and evaluated the patient. I reviewed the resident's note and discussed the case with the resident. I agree with the resident's findings and plan as documented. SUBJECTIVE: OBJECTIVE: ASSESSMENT AND PLAN:
--- NOTE | 2020-07-26 13:51 | EKG ---
Test Reason : Blood Pressure : / mmHG Vent. Rate : 079 BPM Atrial Rate : 079 BPM P-R Int : 138 ms QRS Dur : 066 ms QT Int : 384 ms P-R-T Axes : 063 013 047 degrees QTc Int : 440 ms NORMAL SINUS RHYTHM NORMAL ECG WHEN COMPARED WITH ECG OF 13-NOV-2019 00:38, NO SIGNIFICANT CHANGE WAS FOUND Confirmed by JOSH BELL MD ([id number]) on 07/26/2020 1:51:41 PM Referred By: Confirmed By:JOSH BELL MD
== END 2020-07-25 22:45 | disposition left against medical advice (07) | DRG 291 ==
LOC: JER 13:10 → JERBED 18:48
PROVIDERS: ADMIT Internal Medicine; ATTEND Internal Medicine
DX: I13.0 Hypertensive heart and chronic kidney disease with heart failure and stage 1 through stage 4 chronic kidney disease, or unspecified chronic kidney disease (principal); I50.33 Acute on chronic diastolic (congestive) heart failure; E87.1 Hypo-osmolality and hyponatremia; E78.5 Hyperlipidemia, unspecified; E11.65 Type 2 diabetes mellitus with hyperglycemia; E87.5 Hyperkalemia; N18.9 Chronic kidney disease, unspecified; E11.22 Type 2 diabetes mellitus with diabetic chronic kidney disease; D63.1 Anemia in chronic kidney disease; Z89.422 Acquired absence of other left toe(s); Z87.891 Personal history of nicotine dependence
CPT/HCPCS: 36415; 71045-TC-FY; 80048; 80053; 83880; 84484; 85025; 85610; 93005; 93010; 93970-TC; 99285-25

== ENCOUNTER 2020-09-01 13:31 | Inpatient (IN) | payer OTHER ==
[2020-09-01 15:01] LABS: BASO % 0.3 % (0-2.0); EOS % 2.5 % (0-4.5); HEMATOCRIT 36.5 % (35.4-49); HEMOGLOBIN 11.8 GM/dL (11.7-16.9); LYMPH % 12.4 % (8-40); MCH 27.2 pg (25.7-33.7); MCHC 32.3 g/dl (32.0-35.9); MEAN CELL VOLUME 84.2 fl (80-96); MEAN PLT VOLUME 9.2 fl (7.5-11.1); MONO % 5.7 % (3.8-10.2); NEUT % 79.1 % (42.8-82.8); PLATELET COUNT 245 K/MM3 (134-434); RBC 4.34 M/mm3 (4.00-5.60); RDW 17.1 % (11.9-15.9); WHITE BLOOD COUNT 9.7 K/mm3 (4.0-10.0)
[2020-09-01 15:09] LABS: INR 0.97 (0.83-1.09); PROTHROMBIN TIME (PATIENT) 11.8 SEC (9.7-13.0)
[2020-09-01 15:12] LABS: ACTIVATED PTT 38.3 SECONDS (25.2-36.5)
[2020-09-01 15:43] LABS: CHLORIDE 112 mmol/L (98-107); POTASSIUM 5.2 mmol/L (3.5-5.1); SODIUM 142 mmol/L (136-145)
[2020-09-01 15:45] LABS: CALCIUM 8.6 mg/dL (8.5-10.1)
[2020-09-01 15:46] LABS: ALBUMIN 3.9 g/dl (3.4-5.0); ANION GAP 8 MMOL/L (8-16); BLOOD UREA NITROGEN 55.3 mg/dL (7-18); CO2 23 mmol/L (21-32); GLUCOSE,RANDOM 170 mg/dL (74-106)
[2020-09-01 15:49] LABS: CREATININE 2.3 mg/dL (0.55-1.3); SGOT/AST 28 U/L (15-37); SGPT/ALT 63 U/L (13-61)
[2020-09-01 15:50] LABS: BILIRUBIN,TOTAL 0.5 mg/dL (0.2-1)
[2020-09-01 15:51] LABS: TOT PROT 7.6 g/dl (6.4-8.2)
[2020-09-01 15:52] LABS: ALK PHOS 135 U/L (45-117)
[2020-09-01 15:54] LABS: N-TERMINAL BNP 3175.6 pg/ml (5-125)
[2020-09-01] MEDS ORDERED: FUROSEMIDE 40 MG/4 ML INJECTABLE VIAL IVPUSH ONE ×2 (16:00→22:13)
[2020-09-01] MEDS ORDERED: FUROSEMIDE 40 MG/4 ML INJECTABLE VIAL ONE (17:25)
[2020-09-01 21:35] LABS: EPI CELLS 1 /uL (0-25.1); HYALINE CASTS 0 /uL (0-3.1); URINE APPEARANCE CLEAR; URINE BACTERIA 3 /uL (0-1359); URINE BILIRUBIN NEGATIVE (NEGATIVE); URINE COLOR YELLOW; URINE GLUCOSE (UA) NEGATIVE (NEGATIVE); URINE KETONE NEGATIVE (NEGATIVE); URINE LEUK ESTERASE NEGATIVE (NEGATIVE); URINE NITRITE NEGATIVE (NEGATIVE); URINE PROTEIN 2+ (NEGATIVE); URINE RBC 5 /uL (0-23.9); URINE UROBILINOGEN 0.2 mg/dL (0.2-1.0); URINE WBC 3 /uL (0-25.8)
[2020-09-01] MEDS ORDERED: INSULIN SLIDING SCALE (NOVOLOG) 1 VIAL SQ SCH (22:00)
[2020-09-01] MEDS ORDERED: ACETAMINOPHEN 1000 MG/100 ML VIAL (NON FORMULARY) IVPB ONE (23:47)
[2020-09-02] MEDS: HEPARIN NA (PORCINE) 5,000 UNITS/ML 1ML VIAL SQ SCH ×4 (01:13→22:00)
[2020-09-02] MEDS: INSULIN SLIDING SCALE (NOVOLOG) 1 VIAL SQ SCH ×5 (01:13→22:07)
[2020-09-02 08:02] LABS: HEMATOCRIT 33.6 % (35.4-49); HEMOGLOBIN 10.6 GM/dL (11.7-16.9); MCH 26.8 pg (25.7-33.7); MCHC 31.5 g/dl (32.0-35.9); MEAN CELL VOLUME 85.1 fl (80-96); MEAN PLT VOLUME 9.4 fl (7.5-11.1); PLATELET COUNT 216 K/MM3 (134-434); RBC 3.95 M/mm3 (4.00-5.60); RDW 17.3 % (11.9-15.9); WHITE BLOOD COUNT 5.3 K/mm3 (4.0-10.0)
[2020-09-02 08:20] LABS: POTASSIUM 4.8 mmol/L (3.5-5.1)
[2020-09-02 08:24] LABS: ALBUMIN 3.4 g/dl (3.4-5.0); BLOOD UREA NITROGEN 54.7 mg/dL (7-18); CALCIUM 8.5 mg/dL (8.5-10.1)
[2020-09-02 08:27] LABS: CREATININE 2.1 mg/dL (0.55-1.3)
[2020-09-02 08:28] LABS: PHOSPHOROUS 3.8 mg/dL (2.5-4.9)
[2020-09-02 08:29] LABS: BILIRUBIN,TOTAL 0.4 mg/dL (0.2-1); TOT PROT 6.6 g/dl (6.4-8.2)
[2020-09-02 08:32] LABS: CHOLESTEROL 154 mg/dL (50-200); TRIGLYCERIDES 115 mg/dL (0-150)
[2020-09-02 08:34] LABS: LDL CHOLESTEROL (ONLY SJRH) 96 mg/dL (5-100)
[2020-09-02 08:35] LABS: HDL CHOLESTEROL 39 mg/dL (40-60)
[2020-09-02] MEDS ORDERED: FUROSEMIDE 40 MG/4 ML INJECTABLE VIAL IVPUSH SCH ×2 (10:00→22:00)
[2020-09-02] MEDS: ASPIRIN COATED 81 MG TABLET.EC PO SCH (12:03)
[2020-09-02 17:11] VITALS: BMI 27.8
[2020-09-02] MEDS: amLODIPine BESYLATE 5 MG TABLET (FP) PO SCH (19:00)
[2020-09-02] MEDS: DOCUSATE SODIUM 100 MG CAPSULE (FP) PO SCH (22:00)
[2020-09-02] MEDS: INSULIN (LEVEMIR) 100 UNITS/ML UNITS SQ SCH (22:00)
[2020-09-02] MEDS: ATORVASTATIN CA 40 MG TABLET (FP) PO SCH (22:00)
[2020-09-03] MEDS: HEPARIN NA (PORCINE) 5,000 UNITS/ML 1ML VIAL SQ SCH ×3 (06:23→22:30)
[2020-09-03] MEDS: INSULIN SLIDING SCALE (NOVOLOG) 1 VIAL SQ SCH ×4 (06:26→22:30)
[2020-09-03 08:33] LABS: BASO % 0.3 % (0-2.0); EOS % 3.9 % (0-4.5); HEMATOCRIT 33.9 % (35.4-49); LYMPH % 24.2 % (8-40); MCH 27.3 pg (25.7-33.7); MCHC 32.5 g/dl (32.0-35.9); MEAN CELL VOLUME 84.1 fl (80-96); MEAN PLT VOLUME 9.3 fl (7.5-11.1); MONO % 10.1 % (3.8-10.2); NEUT % 61.5 % (42.8-82.8); PLATELET COUNT 231 K/MM3 (134-434); RBC 4.03 M/mm3 (4.00-5.60); RDW 16.9 % (11.9-15.9)
[2020-09-03 08:53] LABS: POTASSIUM 4.3 mmol/L (3.5-5.1)
[2020-09-03 09:00] LABS: ALBUMIN 3.3 g/dl (3.4-5.0); CALCIUM 8.5 mg/dL (8.5-10.1); MAGNESIUM 1.9 mg/dL (1.8-2.4)
[2020-09-03 09:01] LABS: BLOOD UREA NITROGEN 45.9 mg/dL (7-18)
[2020-09-03 09:03] LABS: TOT PROT 6.6 g/dl (6.4-8.2)
[2020-09-03 09:05] LABS: BILIRUBIN,TOTAL 0.3 mg/dL (0.2-1); PHOSPHOROUS 3.4 mg/dL (2.5-4.9)
[2020-09-03] MEDS: ASPIRIN COATED 81 MG TABLET.EC PO SCH (09:50)
[2020-09-03] MEDS: LISINOPRIL 20 MG TABLET PO SCH (09:50)
[2020-09-03] MEDS: amLODIPine BESYLATE 5 MG TABLET (FP) PO SCH (09:50)
[2020-09-03] MEDS: FUROSEMIDE 40 MG/4 ML INJECTABLE VIAL IVPUSH SCH (09:51)
[2020-09-03] MEDS: DOCUSATE SODIUM 100 MG CAPSULE (FP) PO SCH ×2 (09:51→22:29)
[2020-09-03] MEDS ORDERED: INSULIN (NOVOLOG) ASPART 100 UNITS/ML 10ML VIAL ONE ×2 (12:12→20:45)
[2020-09-03] MEDS: ATORVASTATIN CA 40 MG TABLET (FP) PO SCH (22:29)
[2020-09-03] MEDS: INSULIN (LEVEMIR) 100 UNITS/ML UNITS SQ SCH (23:10)
[2020-09-04] MEDS: INSULIN SLIDING SCALE (NOVOLOG) 1 VIAL SQ SCH ×3 (06:21→17:11)
[2020-09-04] MEDS: HEPARIN NA (PORCINE) 5,000 UNITS/ML 1ML VIAL SQ SCH ×2 (06:24→13:08)
[2020-09-04] MEDS ORDERED: INSULIN (NOVOLOG) ASPART 100 UNITS/ML 10ML VIAL ONE (07:02)
[2020-09-04] MEDS: LISINOPRIL 20 MG TABLET PO SCH ×2 (07:48→13:03)
[2020-09-04] MEDS: amLODIPine BESYLATE 5 MG TABLET (FP) PO SCH ×2 (07:48→13:02)
[2020-09-04 08:23] LABS: BASO % 0.2 % (0-2.0); EOS % 3.6 % (0-4.5); HEMATOCRIT 36.1 % (35.4-49); HEMOGLOBIN 11.7 GM/dL (11.7-16.9); LYMPH % 22.1 % (8-40); MCH 26.7 pg (25.7-33.7); MCHC 32.3 g/dl (32.0-35.9); MEAN CELL VOLUME 82.7 fl (80-96); MONO % 11.1 % (3.8-10.2); PLATELET COUNT 250 K/MM3 (134-434); RBC 4.37 M/mm3 (4.00-5.60); RDW 16.9 % (11.9-15.9); WHITE BLOOD COUNT 5.8 K/mm3 (4.0-10.0)
[2020-09-04 08:42] LABS: CALCIUM 8.8 mg/dL (8.5-10.1)
[2020-09-04 08:43] LABS: ALBUMIN 3.5 g/dl (3.4-5.0); BLOOD UREA NITROGEN 39.4 mg/dL (7-18); MAGNESIUM 2.2 mg/dL (1.8-2.4)
[2020-09-04 08:46] LABS: CREATININE 1.8 mg/dL (0.55-1.3)
[2020-09-04 08:47] LABS: BILIRUBIN,TOTAL 0.6 mg/dL (0.2-1)
[2020-09-04 08:48] LABS: TOT PROT 6.8 g/dl (6.4-8.2)
[2020-09-04] MEDS ORDERED: REGADENOSON 0.4 MG/5 ML PRE-FILLED SYRINGE IVPUSH ONE ×2 (11:42→11:45)
[2020-09-04] MEDS: DOCUSATE SODIUM 100 MG CAPSULE (FP) PO SCH (13:09)
[2020-09-04] MEDS: ASPIRIN COATED 81 MG TABLET.EC PO SCH (13:11)
[2020-09-04] MEDS: FUROSEMIDE 40 MG/4 ML INJECTABLE VIAL IVPUSH SCH (13:48)
[2020-09-04] MEDS ORDERED: FUROSEMIDE 40 MG TABLET (FP) PO ONE (14:00)
[2020-09-04 15:14] VITALS: BP 141/98; PULSE 85; TEMP 97.9
[2020-09-05] MEDS ORDERED: FUROSEMIDE 40 MG TABLET (FP) PO SCH (10:00)
== END 2020-09-04 17:02 | disposition home or self-care (01) | DRG 291 ==
LOC: JER 13:31 → JERBED 16:01 → J5S 22:15
PROVIDERS: ADMIT Internal Medicine; ATTEND Nurse Practitioner Family
DX: I13.0 Hypertensive heart and chronic kidney disease with heart failure and stage 1 through stage 4 chronic kidney disease, or unspecified chronic kidney disease (principal); I50.33 Acute on chronic diastolic (congestive) heart failure; N17.9 Acute kidney failure, unspecified; J98.11 Atelectasis; E11.9 Type 2 diabetes mellitus without complications; E78.5 Hyperlipidemia, unspecified; R60.0 Localized edema; R94.31 Abnormal electrocardiogram [ECG] [EKG]
CPT/HCPCS: 36415; 71045-TC-FY; 78452-TC; 80053; 80061; 81003; 82550; 82553; 82565; 82962; 83036; 83721; 83735; 83880; 84100; 84300; 84484; 85025; 85027; 85610; 85730; 93005; 93010; 93017; 93306-TC; 99285-25; A9502; C9803; J1644; U0003

== ENCOUNTER 2021-07-06 12:24 | Inpatient (IN) | payer OTHER ==
[2021-07-06 14:07] LABS: VENOUS BASE EXCESS -8.8 mmol/L (-2-2); VENOUS O2 SATURATION 76.6 % (70-80); VENOUS PCO2 39.8 mmHg (38-52); VENOUS PH 7.263 (7.310-7.410)
[2021-07-06 14:08] LABS: BASO % 0.2 % (0-2.0); EOS % 0.3 % (0-4.5); HEMATOCRIT 24.2 % (35.4-49); HEMOGLOBIN 7.9 GM/dL (11.7-16.9); LYMPH % 5.7 % (8-40); MCH 27.4 pg (25.7-33.7); MCHC 32.4 g/dl (32.0-35.9); MEAN CELL VOLUME 84.6 fl (80-96); MEAN PLT VOLUME 9.4 fl (7.5-11.1); MONO % 6.9 % (3.8-10.2); NEUT % 86.9 % (42.8-82.8); PLATELET COUNT 161 10^3/uL (134-434); RBC 2.87 M/mm3 (4.00-5.60); RDW 16.7 % (11.9-15.9); WHITE BLOOD COUNT 9.3 K/mm3 (4.0-10.0)
[2021-07-06 14:13] LABS: INR 0.97 (0.83-1.09); PROTHROMBIN TIME (PATIENT) 11.9 SEC (9.7-13.0)
[2021-07-06 14:16] LABS: ACTIVATED PTT 30.4 SECONDS (25.2-36.5)
[2021-07-06 14:26] LABS: CHLORIDE 109 mmol/L (98-107); SODIUM 134 mmol/L (136-145)
[2021-07-06 14:28] LABS: ALBUMIN 3.3 g/dl (3.4-5.0); CALCIUM 7.8 mg/dL (8.5-10.1)
[2021-07-06 14:29] LABS: CO2 17 mmol/L (21-32); GLUCOSE,RANDOM 228 mg/dL (74-106); MAGNESIUM 2.7 mg/dL (1.8-2.4)
[2021-07-06 14:31] LABS: EPI CELLS 36 /uL (0-25.1); HYALINE CASTS 13 /uL (0-3.1); URINE APPEARANCE CLOUDY; URINE BACTERIA 14 /uL (0-1359); URINE BILIRUBIN NEGATIVE (NEGATIVE); URINE COLOR YELLOW; URINE GLUCOSE (UA) TRACE (NEGATIVE); URINE KETONE TRACE (NEGATIVE); URINE LEUK ESTERASE 2+ (NEGATIVE); URINE NITRITE NEGATIVE (NEGATIVE); URINE PROTEIN 3+ (NEGATIVE); URINE RBC 11 /uL (0-23.9); URINE WBC 293 /uL (0-25.8)
[2021-07-06 14:32] LABS: CREATININE 4.6 mg/dL (0.55-1.3); PHOSPHOROUS 4.1 mg/dL (2.5-4.9); SGOT/AST 40 U/L (15-37); SGPT/ALT 58 U/L (13-61)
[2021-07-06 14:34] LABS: BILIRUBIN,TOTAL 0.6 mg/dL (0.2-1); TOT PROT 6.8 g/dl (6.4-8.2)
[2021-07-06 14:35] LABS: ALK PHOS 146 U/L (45-117)
[2021-07-06 14:37] LABS: N-TERMINAL BNP 5812.9 pg/ml (5-125)
[2021-07-06 14:52] LABS: ANION GAP 8 MMOL/L (8-16)
[2021-07-06] MEDS ORDERED: CALCIUM GLUCONATE 10% - 1,000 MG/10 ML VIAL IVPB ONE (14:52)
[2021-07-06] MEDS ORDERED: INSULIN REGULAR HUMAN 100 UNITS/ML *VIAL IVPUSH ONE (14:52)
[2021-07-06] MEDS ORDERED: DEXTROSE 50%-WATER - 25 GM/50 ML VIAL IVPUSH ONE (14:52)
[2021-07-06] MEDS ORDERED: SODIUM BICARBONATE 8.4% 50 MEQ/50 ML VIAL IV ONE (14:54)
[2021-07-06] MEDS ORDERED: SODIUM ZIRCONIUM CYCLOSILICATE (LOKELMA) 5 GM PACKET PO ONE (14:54)
[2021-07-06] MEDS ORDERED: CEFTRIAXONE 1 GM in DEXTROSE 5%-WATER - 100 ML IVPB ONE (15:00)
[2021-07-06 15:05] LABS: URIC ACID 8.8 mg/dL (2.6-7.2)
[2021-07-06 15:12] LABS: LDH 326 U/L (87-246)
[2021-07-06] MEDS ORDERED: CALCIUM GLUCONATE 10% - 1,000 MG/10 ML VIAL ONE (15:16)
[2021-07-06] MEDS ORDERED: SODIUM ZIRCONIUM CYCLOSILICATE (LOKELMA) 5 GM PACKET ONE (15:16)
[2021-07-06] MEDS ORDERED: DEXTROSE 50%-WATER 25 GM/50 ML DISP.SYRIN ONE (15:16)
[2021-07-06] MEDS ORDERED: SODIUM BICARBONATE 8.4% - 50 ML ONE (15:16)
[2021-07-06] MEDS ORDERED: CEFTRIAXONE 1 GM/50 ML BAG ONE ×2 (15:16→17:34)
[2021-07-06 16:43] LABS: CHLORIDE 109 mmol/L (98-107); SODIUM 135 mmol/L (136-145)
[2021-07-06 16:45] LABS: BLOOD UREA NITROGEN 91.8 mg/dL (7-18); CO2 19 mmol/L (21-32); GLUCOSE,RANDOM 277 mg/dL (74-106)
[2021-07-06 16:48] LABS: CREATININE 4.6 mg/dL (0.55-1.3)
[2021-07-06] MEDS ORDERED: ONDANSETRON 4 MG/2 ML VIAL IVPUSH PRN (16:54)
[2021-07-06] MEDS ORDERED: ACETAMINOPHEN 325 MG TABLET (FP) PO PRN (16:54)
[2021-07-06 17:02] LABS: ANION GAP 6 MMOL/L (8-16)
[2021-07-06] MEDS ORDERED: FUROSEMIDE 40 MG/4 ML INJECTABLE VIAL IVPUSH ONE (17:27)
[2021-07-06] MEDS ORDERED: FUROSEMIDE 40 MG/4 ML INJECTABLE VIAL ONE (17:35)
[2021-07-06] MEDS ORDERED: ACETAMINOPHEN 325 MG TABLET (FP) ONE (20:38)
[2021-07-07 07:24] LABS: BASO % 0.1 % (0-2.0); EOS % 2.1 % (0-4.5); HEMATOCRIT 24.4 % (35.4-49); LYMPH % 5.5 % (8-40); MCH 27.4 pg (25.7-33.7); MCHC 32.8 g/dl (32.0-35.9); MEAN CELL VOLUME 83.5 fl (80-96); MEAN PLT VOLUME 9.7 fl (7.5-11.1); MONO % 8.5 % (3.8-10.2); NEUT % 83.8 % (42.8-82.8); PLATELET COUNT 183 10^3/uL (134-434); RBC 2.92 M/mm3 (4.00-5.60); RDW 16.1 % (11.9-15.9); WHITE BLOOD COUNT 9.4 K/mm3 (4.0-10.0)
[2021-07-07] MEDS ORDERED: FUROSEMIDE 40 MG/4 ML INJECTABLE VIAL IVPUSH ONE (08:27)
[2021-07-07] MEDS ORDERED: CALCIUM GLUCONATE 10% - 1,000 MG/10 ML VIAL IVPB ONE (08:29)
[2021-07-07] MEDS: SODIUM ZIRCONIUM CYCLOSILICATE (LOKELMA) 5 GM PACKET PO SCH (09:18)
[2021-07-07 09:39] LABS: CALCIUM 8.1 mg/dL (8.5-10.1)
[2021-07-07 09:40] LABS: BLOOD UREA NITROGEN 93.1 mg/dL (7-18)
[2021-07-07 09:43] LABS: CREATININE 4.3 mg/dL (0.55-1.3)
[2021-07-07] MEDS ORDERED: CEFTRIAXONE 1 GM in DEXTROSE 5%-WATER - 50 ML IVPB SCH (10:00)
[2021-07-07] MEDS: INSULIN SLIDING SCALE (NOVOLOG) 1 VIAL SQ SCH ×3 (11:39→21:23)
[2021-07-07] MEDS: SODIUM BICARBONATE 650 MG TABLET PO SCH ×2 (13:50→21:30)
[2021-07-07] MEDS: FUROSEMIDE 40 MG/4 ML INJECTABLE VIAL IVPUSH SCH (13:50)
[2021-07-07] MEDS: ATORVASTATIN CA 40 MG TABLET (FP) PO SCH (21:30)
[2021-07-08] MEDS: INSULIN SLIDING SCALE (NOVOLOG) 1 VIAL SQ SCH ×4 (06:37→21:29)
[2021-07-08] MEDS: FUROSEMIDE 40 MG/4 ML INJECTABLE VIAL IVPUSH SCH ×2 (06:40→16:21)
[2021-07-08 08:41] LABS: BASO % 0.1 % (0-2.0); HEMATOCRIT 24.3 % (35.4-49); LYMPH % 7.6 % (8-40); MCH 27.6 pg (25.7-33.7); MEAN CELL VOLUME 83.6 fl (80-96); MEAN PLT VOLUME 9.3 fl (7.5-11.1); MONO % 7.7 % (3.8-10.2); NEUT % 81.6 % (42.8-82.8); PLATELET COUNT 214 10^3/uL (134-434); RBC 2.91 M/mm3 (4.00-5.60); WHITE BLOOD COUNT 8.5 K/mm3 (4.0-10.0)
[2021-07-08 09:04] LABS: ALBUMIN 3.1 g/dl (3.4-5.0); BLOOD UREA NITROGEN 89.8 mg/dL (7-18)
[2021-07-08 09:05] LABS: CALCIUM 8.1 mg/dL (8.5-10.1)
[2021-07-08 09:06] LABS: MAGNESIUM 2.7 mg/dL (1.8-2.4)
[2021-07-08 09:07] LABS: URIC ACID 9.4 mg/dL (2.6-7.2)
[2021-07-08 09:08] LABS: CREATININE 3.4 mg/dL (0.55-1.3)
[2021-07-08 09:09] LABS: BILIRUBIN,TOTAL 0.5 mg/dL (0.2-1); TOT PROT 6.5 g/dl (6.4-8.2)
[2021-07-08] MEDS ORDERED: LISINOPRIL 20 MG TABLET PO SCH (10:00)
[2021-07-08] MEDS: SODIUM ZIRCONIUM CYCLOSILICATE (LOKELMA) 5 GM PACKET PO SCH (10:23)
[2021-07-08] MEDS: SODIUM BICARBONATE 650 MG TABLET PO SCH ×2 (10:24→21:31)
[2021-07-08] MEDS ORDERED: IRON SUCROSE INJECTION 100 MG in SODIUM CHLORIDE 95 ML IVPB ONE (13:45)
[2021-07-08] MEDS ORDERED: INSULIN (NOVOLOG) ASPART 100 UNITS/ML 10ML VIAL ONE (21:28)
[2021-07-08] MEDS: ATORVASTATIN CA 40 MG TABLET (FP) PO SCH (21:31)
[2021-07-08] MEDS ORDERED: amLODIPine BESYLATE 10 MG TABLET (FP) PO SCH (22:00)
[2021-07-09] MEDS: FUROSEMIDE 40 MG/4 ML INJECTABLE VIAL IVPUSH SCH ×2 (06:18→14:53)
[2021-07-09] MEDS: INSULIN SLIDING SCALE (NOVOLOG) 1 VIAL SQ SCH ×2 (06:21→13:37)
[2021-07-09 08:05] LABS: BASO % 0.2 % (0-2.0); EOS % 3.4 % (0-4.5); HEMATOCRIT 25.9 % (35.4-49); HEMOGLOBIN 8.6 GM/dL (11.7-16.9); LYMPH % 10.1 % (8-40); MCH 27.1 pg (25.7-33.7); MCHC 33.3 g/dl (32.0-35.9); MEAN CELL VOLUME 81.5 fl (80-96); MEAN PLT VOLUME 8.6 fl (7.5-11.1); MONO % 8.2 % (3.8-10.2); NEUT % 78.1 % (42.8-82.8); PLATELET COUNT 238 10^3/uL (134-434); RBC 3.18 M/mm3 (4.00-5.60); RDW 15.8 % (11.9-15.9); WHITE BLOOD COUNT 6.9 K/mm3 (4.0-10.0)
[2021-07-09 08:26] LABS: CREATININE 2.7 mg/dL (0.55-1.3)
[2021-07-09 08:28] LABS: BLOOD UREA NITROGEN 75.5 mg/dL (7-18)
[2021-07-09 08:29] LABS: TOTAL IRON BINDING CAPACITY 224 ug/dL (250-450)
[2021-07-09 08:30] LABS: CALCIUM 8.3 mg/dL (8.5-10.1)
[2021-07-09 08:31] LABS: IRON SERUM 44 ug/dL (50-175)
[2021-07-09] MEDS: SODIUM BICARBONATE 650 MG TABLET PO SCH (10:14)
[2021-07-09] MEDS: SODIUM ZIRCONIUM CYCLOSILICATE (LOKELMA) 5 GM PACKET PO SCH (10:14)
[2021-07-09 15:45] VITALS: BP 143/79; PULSE 102; TEMP 97.8
== END 2021-07-09 16:55 | disposition home or self-care (01) | DRG 291 ==
LOC: JER 12:24 → JERBED 14:55 → J4W 23:23
PROVIDERS: ADMIT Internal Medicine; ATTEND Internal Medicine
DX: I13.0 Hypertensive heart and chronic kidney disease with heart failure and stage 1 through stage 4 chronic kidney disease, or unspecified chronic kidney disease (principal); I50.33 Acute on chronic diastolic (congestive) heart failure; N18.4 Chronic kidney disease, stage 4 (severe); E87.2 Acidosis; N39.0 Urinary tract infection, site not specified; N17.9 Acute kidney failure, unspecified; E78.5 Hyperlipidemia, unspecified; E11.22 Type 2 diabetes mellitus with diabetic chronic kidney disease; E87.5 Hyperkalemia; E66.9 Obesity, unspecified; Z68.30 Body mass index [BMI] 30.0-30.9, adult
CPT/HCPCS: 36415; 71045-TC-FY; 80048; 80053; 80061; 81003; 82272; 82550; 82553; 82728; 82803; 82962; 83010; 83540; 83550; 83615; 83690; 83735; 83880; 84100; 84443; 84484; 84550; 85025; 85027; 85610; 85730; 86850; 86900; 86901; 87086; 93005; 93010; 93306-TC; 94761; 97116-GP; 97162-GP; 99285-25; C9803; J1756; U0003; U0005

== ENCOUNTER 2021-07-23 11:23 | Inpatient (IN) | payer OTHER ==
[2021-07-23 12:31] LABS: BASO % 0.2 % (0-2.0); EOS % 1.1 % (0-4.5); HEMATOCRIT 12.9 % (35.4-49); LYMPH % 6.6 % (8-40); MCH 27.3 pg (25.7-33.7); MCHC 32.8 g/dl (32.0-35.9); MEAN CELL VOLUME 83.4 fl (80-96); MEAN PLT VOLUME 9.7 fl (7.5-11.1); MONO % 4.2 % (3.8-10.2); NEUT % 87.9 % (42.8-82.8); PLATELET COUNT 231 10^3/uL (134-434); RBC 1.55 M/mm3 (4.00-5.60); RDW 15.8 % (11.9-15.9); WHITE BLOOD COUNT 12.7 K/mm3 (4.0-10.0)
[2021-07-23 12:37] LABS: HEMOGLOBIN 4.2 GM/dL (11.7-16.9)
[2021-07-23 12:52] LABS: CHLORIDE 102 mmol/L (98-107); SODIUM 137 mmol/L (136-145)
[2021-07-23 12:54] LABS: ANION GAP 9 MMOL/L (8-16); CALCIUM 7.8 mg/dL (8.5-10.1); CO2 26 mmol/L (21-32); MAGNESIUM 1.5 mg/dL (1.8-2.4)
[2021-07-23 12:56] LABS: GLUCOSE,RANDOM 307 mg/dL (74-106)
[2021-07-23 12:57] LABS: SGPT/ALT 30 U/L (13-61)
[2021-07-23 12:58] LABS: CREATININE 3.2 mg/dL (0.55-1.3); SGOT/AST 24 U/L (15-37)
[2021-07-23 12:59] LABS: BILIRUBIN,TOTAL 0.3 mg/dL (0.2-1); TOT PROT 5.9 g/dl (6.4-8.2)
[2021-07-23 13:00] LABS: ALK PHOS 80 U/L (45-117)
[2021-07-23] MEDS ORDERED: MAGNESIUM SULF 50% (8.12 MEQ/2 ML-1 GM VIAL) IVPB ONE ×2 (13:03→13:49)
[2021-07-23 13:18] LABS: BLOOD UREA NITROGEN 112.2 mg/dL (7-18)
[2021-07-23 14:02] LABS: INR 1.02 (0.83-1.09); PROTHROMBIN TIME (PATIENT) 12.3 SEC (9.7-13.0)
[2021-07-23 14:05] LABS: ACTIVATED PTT 23.8 SECONDS (25.2-36.5)
[2021-07-23] MEDS ORDERED: PANTOPRAZOLE SODIUM 40 MG VIAL IVPUSH ONE (14:08)
[2021-07-23] MEDS ORDERED: PANTOPRAZOLE SODIUM 40 MG VIAL ONE (14:45)
[2021-07-23] MEDS ORDERED: MAGNESIUM 1GM/D5W - 1 GM/100 ML IVPB IVPB ONE ×2 (14:45→14:46)
[2021-07-23] MEDS ORDERED: INSULIN REGULAR HUMAN 100 UNITS/ML *VIAL SQ ONE (14:53)
[2021-07-23] MEDS ORDERED: FUROSEMIDE 40 MG/4 ML INJECTABLE VIAL IVPUSH ONE (15:48)
[2021-07-24 00:55] LABS: BASO % 0.3 % (0-2.0); EOS % 1.4 % (0-4.5); HEMATOCRIT 19.7 % (35.4-49); LYMPH % 10.5 % (8-40); MCH 28.4 pg (25.7-33.7); MCHC 33.7 g/dl (32.0-35.9); MEAN CELL VOLUME 84.3 fl (80-96); MEAN PLT VOLUME 9.4 fl (7.5-11.1); MONO % 7.3 % (3.8-10.2); NEUT % 80.5 % (42.8-82.8); PLATELET COUNT 218 10^3/uL (134-434); RBC 2.34 M/mm3 (4.00-5.60); RDW 15.4 % (11.9-15.9); WHITE BLOOD COUNT 9.6 K/mm3 (4.0-10.0)
[2021-07-24 00:59] LABS: HEMOGLOBIN 6.6 GM/dL (11.7-16.9)
[2021-07-24] MEDS: INSULIN SLIDING SCALE (NOVOLOG) 1 VIAL SQ SCH ×5 (06:29→23:48)
[2021-07-24 07:31] LABS: HEMATOCRIT 24.6 % (35.4-49); HEMOGLOBIN 8.4 GM/dL (11.7-16.9); MCH 28.7 pg (25.7-33.7); MCHC 33.9 g/dl (32.0-35.9); MEAN CELL VOLUME 84.5 fl (80-96); MEAN PLT VOLUME 8.6 fl (7.5-11.1); PLATELET COUNT 231 10^3/uL (134-434); RBC 2.91 M/mm3 (4.00-5.60); RDW 15.3 % (11.9-15.9); WHITE BLOOD COUNT 9.3 K/mm3 (4.0-10.0)
[2021-07-24 07:57] LABS: ALBUMIN 3.2 g/dl (3.4-5.0); BLOOD UREA NITROGEN 90.1 mg/dL (7-18); CALCIUM 8.5 mg/dL (8.5-10.1)
[2021-07-24 08:01] LABS: CREATININE 2.7 mg/dL (0.55-1.3)
[2021-07-24 08:02] LABS: BILIRUBIN,TOTAL 0.5 mg/dL (0.2-1); TOT PROT 6.2 g/dl (6.4-8.2)
[2021-07-24 09:03] LABS: N-TERMINAL BNP 1103.1 pg/ml (5-125)
[2021-07-24 09:38] LABS: ANISOCYTOSIS 0; HELMET CELLS 0; HOWELL-JOLLY BODIES 0; MACROCYTOSIS 0; OVALOCYTE 0; PLATELET ESTIMATE NORMAL; ROULEAU 0; SICKELED CELLS 0; TARGET CELLS 0; TEAR DROP CELLS 0; TOXIC GRANULATION 0
[2021-07-24] MEDS ORDERED: SODIUM ZIRCONIUM CYCLOSILICATE (LOKELMA) 5 GM PACKET PO SCH (10:00)
[2021-07-24] MEDS: PANTOPRAZOLE SODIUM 40 MG VIAL IVPUSH SCH ×2 (10:03→22:10)
[2021-07-24] MEDS: SODIUM BICARBONATE 650 MG TABLET PO SCH ×3 (10:04→22:09)
[2021-07-24] MEDS: amLODIPine BESYLATE 10 MG TABLET (FP) PO SCH (11:46)
[2021-07-24] MEDS ORDERED: PEG 3350/NA SULF BICARB CL/KCL 4000 ML SOLN.RECON PO ONE (12:15)
[2021-07-24 12:30] VITALS: BMI 27.2
[2021-07-24] MEDS ORDERED: BISACODYL 5 MG TABLET.DR (FP) PO ONE (20:00)
[2021-07-24 20:13] LABS: PROTHROMBIN TIME (PATIENT) 11.7 SEC (9.7-13.0)
[2021-07-24 20:19] LABS: BASO % 0.3 % (0-2.0); EOS % 2.3 % (0-4.5); HEMATOCRIT 25.6 % (35.4-49); HEMOGLOBIN 8.7 GM/dL (11.7-16.9); LYMPH % 9.4 % (8-40); MCH 28.7 pg (25.7-33.7); MCHC 33.9 g/dl (32.0-35.9); MEAN CELL VOLUME 84.9 fl (80-96); MEAN PLT VOLUME 8.9 fl (7.5-11.1); MONO % 8.7 % (3.8-10.2); NEUT % 79.3 % (42.8-82.8); PLATELET COUNT 251 10^3/uL (134-434); RBC 3.01 M/mm3 (4.00-5.60); RDW 15.2 % (11.9-15.9); WHITE BLOOD COUNT 9.5 K/mm3 (4.0-10.0)
[2021-07-24] MEDS ORDERED: ATORVASTATIN CA 40 MG TABLET (FP) PO SCH (22:00)
[2021-07-24] MEDS ORDERED: PANTOPRAZOLE SODIUM 40 MG VIAL IVPUSH SCH (22:00)
[2021-07-25] MEDS: INSULIN SLIDING SCALE (NOVOLOG) 1 VIAL SQ SCH ×2 (06:32→12:10)
[2021-07-25 08:02] LABS: INR 1.01 (0.83-1.09); PROTHROMBIN TIME (PATIENT) 11.3 SEC (9.7-13.0)
[2021-07-25 08:12] LABS: BASO % 0.4 % (0-2.0); EOS % 2.3 % (0-4.5); HEMATOCRIT 25.7 % (35.4-49); HEMOGLOBIN 8.9 GM/dL (11.7-16.9); LYMPH % 8.8 % (8-40); MCH 29.6 pg (25.7-33.7); MCHC 34.7 g/dl (32.0-35.9); MEAN CELL VOLUME 85.3 fl (80-96); MEAN PLT VOLUME 9.2 fl (7.5-11.1); MONO % 6.1 % (3.8-10.2); NEUT % 82.4 % (42.8-82.8); PLATELET COUNT 281 10^3/uL (134-434); RBC 3.01 M/mm3 (4.00-5.60); RDW 15.6 % (11.9-15.9); WHITE BLOOD COUNT 9.6 K/mm3 (4.0-10.0)
[2021-07-25 08:25] LABS: CALCIUM 8.5 mg/dL (8.5-10.1)
[2021-07-25 08:26] LABS: ALBUMIN 3.3 g/dl (3.4-5.0); MAGNESIUM 2.1 mg/dL (1.8-2.4)
[2021-07-25 08:29] LABS: CREATININE 1.9 mg/dL (0.55-1.3)
[2021-07-25 08:31] LABS: TOT PROT 6.5 g/dl (6.4-8.2)
[2021-07-25 08:33] LABS: BILIRUBIN,TOTAL 0.5 mg/dL (0.2-1)
[2021-07-25 08:34] LABS: BLOOD UREA NITROGEN 49.2 mg/dL (7-18)
[2021-07-25 09:28] VITALS: TEMP 97.5
[2021-07-25] MEDS ORDERED: PANTOPRAZOLE 40 MG TABLET PO SCH (10:00)
[2021-07-25] MEDS: SODIUM BICARBONATE 650 MG TABLET PO SCH (10:58)
[2021-07-25] MEDS: amLODIPine BESYLATE 10 MG TABLET (FP) PO SCH (10:59)
[2021-07-25 11:24] LABS: PHOSPHOROUS 2.6 mg/dL (2.5-4.9)
[2021-07-25 14:27] VITALS: BP 146/87; PULSE 101
== END 2021-07-25 17:06 | disposition home or self-care (01) | DRG 378 ==
LOC: JER 11:23 → JERBED 13:08 → J4W 21:54
PROVIDERS: ADMIT Internal Medicine
PROC: 0DB68ZX Excision of Stomach, Via Natural or Artificial Opening Endoscopic, Diagnostic (ICD-10-PCS; 2021-07-25)
PROC: 0DBL8ZX Excision of Transverse Colon, Via Natural or Artificial Opening Endoscopic, Diagnostic (ICD-10-PCS; principal; 2021-07-25 08:49)
DX: K26.0 Acute duodenal ulcer with hemorrhage (principal); I31.3 Pericardial effusion (noninflammatory); I13.0 Hypertensive heart and chronic kidney disease with heart failure and stage 1 through stage 4 chronic kidney disease, or unspecified chronic kidney disease; N18.4 Chronic kidney disease, stage 4 (severe); I50.32 Chronic diastolic (congestive) heart failure; N17.9 Acute kidney failure, unspecified; K31.5 Obstruction of duodenum; K29.70 Gastritis, unspecified, without bleeding; E11.65 Type 2 diabetes mellitus with hyperglycemia; E78.5 Hyperlipidemia, unspecified; E11.22 Type 2 diabetes mellitus with diabetic chronic kidney disease; D50.9 Iron deficiency anemia, unspecified; D72.829 Elevated white blood cell count, unspecified; K64.8 Other hemorrhoids; D12.3 Benign neoplasm of transverse colon; Z99.81 Dependence on supplemental oxygen; Z89.422 Acquired absence of other left toe(s)
CPT/HCPCS: 36415; 36430; 70450-TC; 71045-TC-FY; 74018-TC-FY; 80053; 80061; 82010; 82140; 82272; 82550; 82553; 82728; 82962; 83036; 83540; 83550; 83735; 83880; 84100; 84443; 84484; 85025; 85610; 85730; 86850; 86900; 86901; 86922; 88305-TC; 93005; 93010; 99285-25; C9803; P9058; U0003; U0005

== ENCOUNTER 2022-03-22 00:50 | Inpatient (IN) | payer OTHER ==
[2022-03-22 02:17] LABS: BASO % 0.2 % (0-2.0); EOS % 0.2 % (0-4.5); HEMATOCRIT 34.3 % (35.4-49); HEMOGLOBIN 10.4 GM/dL (11.7-16.9); LYMPH % 6.1 % (8-40); MCH 23.1 pg (25.7-33.7); MCHC 30.4 g/dl (32.0-35.9); MEAN CELL VOLUME 75.8 fl (80-96); MEAN PLT VOLUME 8.8 fl (7.5-11.1); MONO % 6.9 % (3.8-10.2); NEUT % 86.6 % (42.8-82.8); PLATELET COUNT 203 10^3/uL (134-434); RBC 4.52 M/mm3 (4.00-5.60); RDW 20.1 % (11.9-15.9); WHITE BLOOD COUNT 5.7 K/mm3 (4.0-10.0)
[2022-03-22 02:24] LABS: INR 1.09 (0.83-1.09); PROTHROMBIN TIME (PATIENT) 12.6 SEC (9.7-13.0)
[2022-03-22 02:40] LABS: ALBUMIN 3.9 g/dl (3.4-5.0); CALCIUM 8.5 mg/dL (8.5-10.1); CO2 24 mmol/L (21-32)
[2022-03-22 02:43] LABS: SGPT/ALT 34 U/L (13-61)
[2022-03-22 02:44] LABS: SGOT/AST 18 U/L (15-37)
[2022-03-22 02:45] LABS: BILIRUBIN,TOTAL 0.5 mg/dL (0.2-1); TOT PROT 7.1 g/dl (6.4-8.2)
[2022-03-22 02:46] LABS: ALK PHOS 150 U/L (45-117)
[2022-03-22 03:01] LABS: ANION GAP 10 MMOL/L (8-16); BLOOD UREA NITROGEN 122.5 mg/dL (7-18); CHLORIDE 104 mmol/L (98-107); CREATININE 8.1 mg/dL (0.55-1.3); GLUCOSE,RANDOM 209 mg/dL (74-106); SODIUM 137 mmol/L (136-145)
[2022-03-22] MEDS ORDERED: DEXTROSE 50%-WATER - 25 GM/50 ML VIAL IVPUSH ONE (03:09)
[2022-03-22] MEDS ORDERED: INSULIN REGULAR HUMAN 100 UNITS/ML *VIAL IVPUSH ONE (03:10)
[2022-03-22] MEDS ORDERED: DEXTROSE 50%-WATER - 25 GM/50 ML VIAL ONE (03:11)
[2022-03-22 04:46] LABS: CHLORIDE 104 mmol/L (98-107); SODIUM 138 mmol/L (136-145)
[2022-03-22 04:48] LABS: ANION GAP 10 MMOL/L (8-16); CALCIUM 8.4 mg/dL (8.5-10.1); CO2 24 mmol/L (21-32); GLUCOSE,RANDOM 200 mg/dL (74-106)
[2022-03-22 04:56] LABS: CREATININE 8.3 mg/dL (0.55-1.3)
[2022-03-22] MEDS ORDERED: INSULIN SLIDING SCALE (NOVOLOG) 1 VIAL SQ SCH (11:00)
[2022-03-22 14:28] LABS: CHLORIDE 103 mmol/L (98-107); SODIUM 138 mmol/L (136-145)
[2022-03-22 14:30] LABS: ALBUMIN 3.8 g/dl (3.4-5.0); ANION GAP 10 MMOL/L (8-16); CALCIUM 8.6 mg/dL (8.5-10.1); CO2 24 mmol/L (21-32); GLUCOSE,RANDOM 175 mg/dL (74-106); MAGNESIUM 2.9 mg/dL (1.8-2.4)
[2022-03-22 14:33] LABS: PHOSPHOROUS 6.6 mg/dL (2.5-4.9); SGOT/AST 19 U/L (15-37); SGPT/ALT 33 U/L (13-61)
[2022-03-22 14:35] LABS: BILIRUBIN,TOTAL 0.5 mg/dL (0.2-1); TOT PROT 7.1 g/dl (6.4-8.2)
[2022-03-22 14:36] LABS: ALK PHOS 153 U/L (45-117)
[2022-03-22 14:37] LABS: BASO % 0.2 % (0-2.0); BLOOD UREA NITROGEN 123.1 mg/dL (7-18); CREATININE 8.3 mg/dL (0.55-1.3); EOS % 1.2 % (0-4.5); HEMATOCRIT 34.5 % (35.4-49); HEMOGLOBIN 10.5 GM/dL (11.7-16.9); LYMPH % 6.3 % (8-40); MCH 23.1 pg (25.7-33.7); MCHC 30.5 g/dl (32.0-35.9); MEAN CELL VOLUME 75.9 fl (80-96); MEAN PLT VOLUME 9.3 fl (7.5-11.1); MONO % 8.5 % (3.8-10.2); NEUT % 83.8 % (42.8-82.8); PLATELET COUNT 218 10^3/uL (134-434); RBC 4.55 M/mm3 (4.00-5.60); RDW 20.3 % (11.9-15.9); WHITE BLOOD COUNT 6.7 K/mm3 (4.0-10.0)
[2022-03-22] MEDS: HEPARIN NA (PORCINE) 5,000 UNITS/ML 1ML VIAL SQ SCH ×2 (16:30→22:59)
[2022-03-22] MEDS ORDERED: FUROSEMIDE 40 MG/4 ML INJECTABLE VIAL ONE (16:30)
[2022-03-22] MEDS ORDERED: HEPARIN NA (PORCINE) 5,000 UNITS/ML 1ML VIAL ONE ×2 (16:30→22:53)
[2022-03-22] MEDS: FUROSEMIDE 40 MG/4 ML INJECTABLE VIAL IVPUSH SCH (16:30)
[2022-03-22] MEDS ORDERED: SODIUM ZIRCONIUM CYCLOSILICATE (LOKELMA) 5 GM PACKET ONE (19:22)
[2022-03-22] MEDS: SODIUM ZIRCONIUM CYCLOSILICATE (LOKELMA) 5 GM PACKET PO SCH (19:32)
[2022-03-22] MEDS: INSULIN SLIDING SCALE (NOVOLOG) 1 VIAL SQ SCH (19:32)
[2022-03-22] MEDS ORDERED: INSULIN (LEVEMIR) 100 UNITS/ML UNITS SQ SCH (22:00)
[2022-03-22] MEDS ORDERED: ATORVASTATIN CA 80 MG TABLET (FP) ONE (22:53)
[2022-03-22] MEDS: ATORVASTATIN CA 80 MG TABLET (FP) PO SCH (23:00)
[2022-03-23] MEDS ORDERED: DEXTROSE 50%-WATER 25 GM/50 ML DISP.SYRIN IVPUSH ONE (06:45)
[2022-03-23] MEDS: INSULIN SLIDING SCALE (NOVOLOG) 1 VIAL SQ SCH ×3 (07:06→17:09)
[2022-03-23] MEDS: FUROSEMIDE 40 MG/4 ML INJECTABLE VIAL IVPUSH SCH ×2 (07:07→13:11)
[2022-03-23] MEDS: HEPARIN NA (PORCINE) 5,000 UNITS/ML 1ML VIAL SQ SCH ×3 (07:07→21:28)
[2022-03-23] MEDS: SODIUM ZIRCONIUM CYCLOSILICATE (LOKELMA) 5 GM PACKET PO SCH (09:17)
[2022-03-23] MEDS: amLODIPine BESYLATE 5 MG TABLET (FP) PO SCH (09:17)
[2022-03-23 11:31] LABS: BASO % 0.1 % (0-2.0); EOS % 1.2 % (0-4.5); HEMOGLOBIN 10.4 GM/dL (11.7-16.9); LYMPH % 5.2 % (8-40); MCH 23.2 pg (25.7-33.7); MCHC 30.5 g/dl (32.0-35.9); MEAN CELL VOLUME 76.1 fl (80-96); MONO % 8.7 % (3.8-10.2); NEUT % 84.8 % (42.8-82.8); PLATELET COUNT 233 10^3/uL (134-434); RBC 4.46 M/mm3 (4.00-5.60); RDW 20.1 % (11.9-15.9); WHITE BLOOD COUNT 7.8 K/mm3 (4.0-10.0)
[2022-03-23 11:43] LABS: CHLORIDE 101 mmol/L (98-107); SODIUM 136 mmol/L (136-145)
[2022-03-23 11:50] LABS: CALCIUM 8.3 mg/dL (8.5-10.1)
[2022-03-23 11:51] LABS: ALBUMIN 3.5 g/dl (3.4-5.0); ANION GAP 10 MMOL/L (8-16); CO2 25 mmol/L (21-32); GLUCOSE,RANDOM 137 mg/dL (74-106); MAGNESIUM 2.9 mg/dL (1.8-2.4)
[2022-03-23 11:53] LABS: PHOSPHOROUS 6.8 mg/dL (2.5-4.9)
[2022-03-23 11:54] LABS: SGOT/AST 21 U/L (15-37)
[2022-03-23 11:55] LABS: BILIRUBIN,TOTAL 0.6 mg/dL (0.2-1)
[2022-03-23 11:57] LABS: SGPT/ALT 32 U/L (13-61)
[2022-03-23 12:06] LABS: ALK PHOS 149 U/L (45-117)
[2022-03-23 12:12] LABS: BLOOD UREA NITROGEN 123.6 mg/dL (7-18); CREATININE 7.4 mg/dL (0.55-1.3)
[2022-03-23] MEDS: CALCIUM ACETATE 667 MG CAPSULE (FP) PO SCH (17:09)
[2022-03-23] MEDS: ATORVASTATIN CA 80 MG TABLET (FP) PO SCH (21:30)
[2022-03-23] MEDS: INSULIN (LEVEMIR) 100 UNITS/ML UNITS SQ SCH (21:38)
[2022-03-24] MEDS: FUROSEMIDE 40 MG/4 ML INJECTABLE VIAL IVPUSH SCH ×2 (06:13→14:35)
[2022-03-24] MEDS: HEPARIN NA (PORCINE) 5,000 UNITS/ML 1ML VIAL SQ SCH ×3 (06:15→21:17)
[2022-03-24] MEDS: INSULIN SLIDING SCALE (NOVOLOG) 1 VIAL SQ SCH ×3 (06:59→17:27)
[2022-03-24 08:37] LABS: BASO % 0.3 % (0-2.0); HEMATOCRIT 32.6 % (35.4-49); LYMPH % 6.3 % (8-40); MCH 22.8 pg (25.7-33.7); MCHC 30.7 g/dl (32.0-35.9); MEAN CELL VOLUME 74.4 fl (80-96); MEAN PLT VOLUME 8.4 fl (7.5-11.1); MONO % 8.7 % (3.8-10.2); NEUT % 82.7 % (42.8-82.8); PLATELET COUNT 228 10^3/uL (134-434); RBC 4.39 M/mm3 (4.00-5.60); RDW 20.3 % (11.9-15.9); WHITE BLOOD COUNT 7.4 K/mm3 (4.0-10.0)
[2022-03-24 09:05] LABS: CHLORIDE 103 mmol/L (98-107); SODIUM 139 mmol/L (136-145)
[2022-03-24 09:10] LABS: ANION GAP 11 MMOL/L (8-16); CALCIUM 7.9 mg/dL (8.5-10.1); CO2 26 mmol/L (21-32); GLUCOSE,RANDOM 91 mg/dL (74-106)
[2022-03-24 09:11] LABS: ALBUMIN 3.4 g/dl (3.4-5.0); MAGNESIUM 2.8 mg/dL (1.8-2.4)
[2022-03-24 09:13] LABS: CREATININE 6.4 mg/dL (0.55-1.3); SGOT/AST 26 U/L (15-37); SGPT/ALT 30 U/L (13-61)
[2022-03-24 09:14] LABS: PHOSPHOROUS 6.5 mg/dL (2.5-4.9)
[2022-03-24 09:15] LABS: BILIRUBIN,TOTAL 0.9 mg/dL (0.2-1); IRON SERUM 22 ug/dL (50-175); TOT PROT 6.8 g/dl (6.4-8.2); TOTAL IRON BINDING CAPACITY 340 ug/dL (250-450)
[2022-03-24 09:16] LABS: ALK PHOS 138 U/L (45-117)
[2022-03-24 09:17] LABS: URIC ACID 5.8 mg/dL (2.6-7.2)
[2022-03-24] MEDS: amLODIPine BESYLATE 5 MG TABLET (FP) PO SCH (09:27)
[2022-03-24] MEDS: FOLIC ACID 1 MG TABLET (FP) PO SCH (09:27)
[2022-03-24] MEDS: THIAMINE HCL 100 MG TABLET (FP) PO SCH (09:27)
[2022-03-24] MEDS: TAMSULOSIN HCL 0.4 MG CAP PO SCH (09:27)
[2022-03-24] MEDS: LABETALOL HCL 200 MG TABLET (FP) PO SCH (09:27)
[2022-03-24] MEDS: hydrALAZINE HCL 50 MG TABLET (FP) PO SCH (09:27)
[2022-03-24] MEDS: CALCIUM ACETATE 667 MG CAPSULE (FP) PO SCH ×3 (09:28→17:27)
[2022-03-24] MEDS: SERTRALINE HCL 25 MG TABLET (FP) PO SCH (09:28)
[2022-03-24] MEDS ORDERED: NEBIVOLOL 10 MG TABLET (FP) PO SCH (10:00)
[2022-03-24] MEDS ORDERED: IRON SUCROSE INJECTION 100 MG in SODIUM CHLORIDE 95 ML IVPB ONE (12:30)
[2022-03-24] MEDS: ATORVASTATIN CA 80 MG TABLET (FP) PO SCH (21:18)
[2022-03-24] MEDS: INSULIN (LEVEMIR) 100 UNITS/ML UNITS SQ SCH (21:18)
[2022-03-25] MEDS: FUROSEMIDE 40 MG/4 ML INJECTABLE VIAL IVPUSH SCH ×2 (05:46→14:55)
[2022-03-25] MEDS: HEPARIN NA (PORCINE) 5,000 UNITS/ML 1ML VIAL SQ SCH ×3 (05:46→21:19)
[2022-03-25] MEDS: INSULIN SLIDING SCALE (NOVOLOG) 1 VIAL SQ SCH ×3 (06:18→17:06)
[2022-03-25] MEDS: TAMSULOSIN HCL 0.4 MG CAP PO SCH (08:57)
[2022-03-25] MEDS: CALCIUM ACETATE 667 MG CAPSULE (FP) PO SCH ×3 (08:57→17:06)
[2022-03-25] MEDS: THIAMINE HCL 100 MG TABLET (FP) PO SCH (09:00)
[2022-03-25] MEDS: SERTRALINE HCL 25 MG TABLET (FP) PO SCH (09:00)
[2022-03-25] MEDS: amLODIPine BESYLATE 5 MG TABLET (FP) PO SCH (09:00)
[2022-03-25] MEDS: FOLIC ACID 1 MG TABLET (FP) PO SCH (09:01)
[2022-03-25] MEDS: LABETALOL HCL 200 MG TABLET (FP) PO SCH (09:01)
[2022-03-25] MEDS: hydrALAZINE HCL 50 MG TABLET (FP) PO SCH (09:01)
[2022-03-25] MEDS ORDERED: IRON SUCROSE INJECTION 200 MG in SODIUM CHLORIDE 90 ML IVPB ONE (13:15)
[2022-03-25 13:26] LABS: BASO % 0.2 % (0-2.0); EOS % 2.1 % (0-4.5); HEMATOCRIT 30.1 % (35.4-49); HEMOGLOBIN 9.3 GM/dL (11.7-16.9); LYMPH % 6.2 % (8-40); MCHC 30.8 g/dl (32.0-35.9); MEAN CELL VOLUME 74.8 fl (80-96); MEAN PLT VOLUME 8.5 fl (7.5-11.1); MONO % 10.4 % (3.8-10.2); NEUT % 81.1 % (42.8-82.8); PLATELET COUNT 179 10^3/uL (134-434); RBC 4.03 M/mm3 (4.00-5.60)
[2022-03-25 13:43] LABS: CHLORIDE 103 mmol/L (98-107); SODIUM 140 mmol/L (136-145)
[2022-03-25 13:46] LABS: ALBUMIN 3.5 g/dl (3.4-5.0); ANION GAP 7 MMOL/L (8-16); CALCIUM 7.9 mg/dL (8.5-10.1); CO2 30 mmol/L (21-32); GLUCOSE,RANDOM 112 mg/dL (74-106); MAGNESIUM 2.7 mg/dL (1.8-2.4)
[2022-03-25 13:49] LABS: CREATININE 5.1 mg/dL (0.55-1.3); SGOT/AST 27 U/L (15-37); SGPT/ALT 27 U/L (13-61)
[2022-03-25 13:51] LABS: BILIRUBIN,TOTAL 0.5 mg/dL (0.2-1); TOT PROT 6.4 g/dl (6.4-8.2)
[2022-03-25 13:52] LABS: ALK PHOS 134 U/L (45-117)
[2022-03-25 13:55] LABS: BLOOD UREA NITROGEN 126.4 mg/dL (7-18)
[2022-03-25] MEDS: HYDROCORTISONE 1% TOPICAL OINT 30 GM TUBE TP SCH ×2 (16:22→21:20)
[2022-03-25 16:26] LABS: CHLORIDE 103 mmol/L (98-107); SODIUM 140 mmol/L (136-145)
[2022-03-25 16:29] LABS: ALBUMIN 3.4 g/dl (3.4-5.0); ANION GAP 7 MMOL/L (8-16); CO2 30 mmol/L (21-32); GLUCOSE,RANDOM 115 mg/dL (74-106)
[2022-03-25 16:32] LABS: CREATININE 4.9 mg/dL (0.55-1.3); SGOT/AST 27 U/L (15-37); SGPT/ALT 28 U/L (13-61)
[2022-03-25 16:33] LABS: BILIRUBIN,TOTAL 0.4 mg/dL (0.2-1)
[2022-03-25 16:34] LABS: TOT PROT 6.3 g/dl (6.4-8.2)
[2022-03-25 16:35] LABS: ALK PHOS 135 U/L (45-117)
[2022-03-25 16:42] LABS: BLOOD UREA NITROGEN 124.4 mg/dL (7-18)
[2022-03-25] MEDS: INSULIN (LEVEMIR) 100 UNITS/ML UNITS SQ SCH (21:20)
[2022-03-25] MEDS: ATORVASTATIN CA 80 MG TABLET (FP) PO SCH (21:21)
[2022-03-26] MEDS: FUROSEMIDE 40 MG/4 ML INJECTABLE VIAL IVPUSH SCH ×2 (05:29→13:57)
[2022-03-26] MEDS: HEPARIN NA (PORCINE) 5,000 UNITS/ML 1ML VIAL SQ SCH ×3 (05:31→22:52)
[2022-03-26] MEDS: INSULIN SLIDING SCALE (NOVOLOG) 1 VIAL SQ SCH ×3 (06:16→17:11)
[2022-03-26] MEDS: TAMSULOSIN HCL 0.4 MG CAP PO SCH (08:35)
[2022-03-26] MEDS: CALCIUM ACETATE 667 MG CAPSULE (FP) PO SCH ×3 (08:35→17:12)
[2022-03-26] MEDS: hydrALAZINE HCL 50 MG TABLET (FP) PO SCH (10:36)
[2022-03-26] MEDS: amLODIPine BESYLATE 5 MG TABLET (FP) PO SCH (10:36)
[2022-03-26] MEDS: LABETALOL HCL 200 MG TABLET (FP) PO SCH (10:36)
[2022-03-26] MEDS: THIAMINE HCL 100 MG TABLET (FP) PO SCH (10:36)
[2022-03-26] MEDS: FOLIC ACID 1 MG TABLET (FP) PO SCH (10:36)
[2022-03-26] MEDS: SERTRALINE HCL 25 MG TABLET (FP) PO SCH (10:36)
[2022-03-26] MEDS: HYDROCORTISONE 1% TOPICAL OINT 30 GM TUBE TP SCH ×3 (12:23→22:52)
[2022-03-26 13:52] LABS: ANION GAP 8 MMOL/L (8-16); BLOOD UREA NITROGEN 122.2 mg/dL (7-18); CALCIUM 8.5 mg/dL (8.5-10.1); CHLORIDE 101 mmol/L (98-107); CO2 31 mmol/L (21-32); CREATININE 4.7 mg/dL (0.55-1.3); GLUCOSE,RANDOM 120 mg/dL (74-106); MAGNESIUM 2.8 mg/dL (1.8-2.4); PHOSPHOROUS 5.9 mg/dL (2.5-4.9); SODIUM 140 mmol/L (136-145)
[2022-03-26] MEDS: PANTOPRAZOLE 40 MG TABLET PO SCH (17:12)
[2022-03-26] MEDS: ATORVASTATIN CA 80 MG TABLET (FP) PO SCH (22:53)
[2022-03-26] MEDS: INSULIN (LEVEMIR) 100 UNITS/ML UNITS SQ SCH (22:53)
[2022-03-27] MEDS: HEPARIN NA (PORCINE) 5,000 UNITS/ML 1ML VIAL SQ SCH ×3 (06:32→21:07)
[2022-03-27] MEDS: FUROSEMIDE 40 MG/4 ML INJECTABLE VIAL IVPUSH SCH (06:32)
[2022-03-27] MEDS: INSULIN SLIDING SCALE (NOVOLOG) 1 VIAL SQ SCH ×3 (06:39→16:42)
[2022-03-27] MEDS: CALCIUM ACETATE 667 MG CAPSULE (FP) PO SCH ×3 (08:20→17:20)
[2022-03-27] MEDS: TAMSULOSIN HCL 0.4 MG CAP PO SCH (08:21)
[2022-03-27] MEDS: FOLIC ACID 1 MG TABLET (FP) PO SCH (09:39)
[2022-03-27] MEDS: amLODIPine BESYLATE 5 MG TABLET (FP) PO SCH (09:39)
[2022-03-27] MEDS: THIAMINE HCL 100 MG TABLET (FP) PO SCH (09:39)
[2022-03-27] MEDS: hydrALAZINE HCL 50 MG TABLET (FP) PO SCH (09:39)
[2022-03-27] MEDS: SERTRALINE HCL 25 MG TABLET (FP) PO SCH (09:40)
[2022-03-27] MEDS: PANTOPRAZOLE 40 MG TABLET PO SCH (09:40)
[2022-03-27] MEDS: LABETALOL HCL 200 MG TABLET (FP) PO SCH (09:40)
[2022-03-27] MEDS: HYDROCORTISONE 1% TOPICAL OINT 30 GM TUBE TP SCH ×2 (09:42→21:14)
[2022-03-27 09:56] LABS: HEMATOCRIT 30.6 % (35.4-49); HEMOGLOBIN 9.3 GM/dL (11.7-16.9); MCHC 30.5 g/dl (32.0-35.9); MEAN CELL VOLUME 75.5 fl (80-96); PLATELET COUNT 167 10^3/uL (134-434); RBC 4.05 M/mm3 (4.00-5.60); RDW 19.8 % (11.9-15.9); WHITE BLOOD COUNT 6.2 K/mm3 (4.0-10.0)
[2022-03-27] MEDS ORDERED: IRON SUCROSE INJECTION 100 MG in SODIUM CHLORIDE 95 ML IVPB ONE (10:00)
[2022-03-27 10:11] LABS: CHLORIDE 102 mmol/L (98-107); SODIUM 138 mmol/L (136-145)
[2022-03-27 10:15] LABS: ANION GAP 8 MMOL/L (8-16); CO2 29 mmol/L (21-32)
[2022-03-27 10:18] LABS: ALBUMIN 3.7 g/dl (3.4-5.0); CALCIUM 8.3 mg/dL (8.5-10.1); GLUCOSE,RANDOM 91 mg/dL (74-106); MAGNESIUM 2.9 mg/dL (1.8-2.4)
[2022-03-27 10:21] LABS: PHOSPHOROUS 6.4 mg/dL (2.5-4.9); SGPT/ALT 33 U/L (13-61)
[2022-03-27 10:22] LABS: BILIRUBIN,TOTAL 0.6 mg/dL (0.2-1); SGOT/AST 31 U/L (15-37); TOT PROT 6.8 g/dl (6.4-8.2)
[2022-03-27 10:23] LABS: ALK PHOS 124 U/L (45-117); BLOOD UREA NITROGEN 131.6 mg/dL (7-18)
[2022-03-27 15:03] LABS: ARTERIAL BLD GAS O2 SATURATION 44.7 % (95-98)
[2022-03-27 15:05] LABS: ALLENS TEST POSITIVE
[2022-03-27 15:10] LABS: ARTERIAL BLOOD GAS PO2 29.6 mmHg (80-100); ARTERIAL BLOOD GAS pH < 6.717 (7.350-7.450)
[2022-03-27] MEDS: FUROSEMIDE 100 MG/10 ML INJECTABLE VIAL IVPB SCH (16:00)
[2022-03-27 17:56] LABS: ARTERIAL BLD GAS O2 SATURATION 85.8 % (95-98); ARTERIAL BLOOD GAS BASE EXCESS -1.3 mmol/L (-2-2); ARTERIAL BLOOD GAS PO2 59.1 mmHg (80-100); ARTERIAL BLOOD GAS pH 7.254 (7.350-7.450)
[2022-03-27 18:00] LABS: ALLENS TEST POSITIVE
[2022-03-27 18:01] LABS: VENT MODE PSV; VENT RATE 12
[2022-03-27] MEDS: ATORVASTATIN CA 80 MG TABLET (FP) PO SCH (21:07)
[2022-03-27] MEDS: INSULIN (LEVEMIR) 100 UNITS/ML UNITS SQ SCH (21:12)
[2022-03-28] MEDS: HEPARIN NA (PORCINE) 5,000 UNITS/ML 1ML VIAL SQ SCH ×3 (06:12→21:49)
[2022-03-28] MEDS: FUROSEMIDE 100 MG/10 ML INJECTABLE VIAL IVPB SCH ×2 (06:12→14:47)
[2022-03-28] MEDS: INSULIN SLIDING SCALE (NOVOLOG) 1 VIAL SQ SCH ×3 (06:13→16:54)
[2022-03-28] MEDS ORDERED: DEXTROSE 50%-WATER 25 GM/50 ML DISP.SYRIN ONE (06:38)
[2022-03-28] MEDS ORDERED: DEXTROSE 50%-WATER 25 GM/50 ML DISP.SYRIN IVPUSH ONE (06:46)
[2022-03-28] MEDS ORDERED: INSULIN (LEVEMIR) 100 UNITS/ML UNITS SQ ONE (07:12)
[2022-03-28] MEDS: CALCIUM ACETATE 667 MG CAPSULE (FP) PO SCH ×3 (07:58→17:22)
[2022-03-28] MEDS: TAMSULOSIN HCL 0.4 MG CAP PO SCH (07:58)
[2022-03-28] MEDS: HYDROCORTISONE 1% TOPICAL OINT 30 GM TUBE TP SCH ×2 (09:05→21:50)
[2022-03-28] MEDS: FOLIC ACID 1 MG TABLET (FP) PO SCH (09:05)
[2022-03-28] MEDS: SERTRALINE HCL 25 MG TABLET (FP) PO SCH (09:05)
[2022-03-28] MEDS: THIAMINE HCL 100 MG TABLET (FP) PO SCH (09:05)
[2022-03-28] MEDS: PANTOPRAZOLE 40 MG TABLET PO SCH (09:05)
[2022-03-28] MEDS: LABETALOL HCL 200 MG TABLET (FP) PO SCH (09:05)
[2022-03-28] MEDS: hydrALAZINE HCL 50 MG TABLET (FP) PO SCH (09:05)
[2022-03-28] MEDS: amLODIPine BESYLATE 5 MG TABLET (FP) PO SCH (09:05)
[2022-03-28 13:19] LABS: CHLORIDE 100 mmol/L (98-107); SODIUM 138 mmol/L (136-145)
[2022-03-28 13:24] LABS: ALBUMIN 3.7 g/dl (3.4-5.0); ANION GAP 10 MMOL/L (8-16); CALCIUM 8.2 mg/dL (8.5-10.1); CO2 28 mmol/L (21-32)
[2022-03-28 13:25] LABS: GLUCOSE,RANDOM 217 mg/dL (74-106); MAGNESIUM 2.9 mg/dL (1.8-2.4)
[2022-03-28 13:27] LABS: CREATININE 5.5 mg/dL (0.55-1.3); PHOSPHOROUS 6.1 mg/dL (2.5-4.9); SGOT/AST 39 U/L (15-37); SGPT/ALT 41 U/L (13-61); URIC ACID 6.7 mg/dL (2.6-7.2)
[2022-03-28 13:29] LABS: BILIRUBIN,TOTAL 0.8 mg/dL (0.2-1); TOT PROT 6.9 g/dl (6.4-8.2)
[2022-03-28 13:30] LABS: ALK PHOS 138 U/L (45-117)
[2022-03-28 13:31] LABS: BLOOD UREA NITROGEN 148.6 mg/dL (7-18)
[2022-03-28] MEDS ORDERED: INSULIN (NOVOLOG) ASPART 100 UNITS/ML 10ML VIAL ONE (21:08)
[2022-03-28] MEDS: ATORVASTATIN CA 80 MG TABLET (FP) PO SCH (21:49)
[2022-03-28] MEDS: INSULIN (LEVEMIR) 100 UNITS/ML UNITS SQ SCH (21:50)
[2022-03-29] MEDS: INSULIN SLIDING SCALE (NOVOLOG) 1 VIAL SQ SCH ×3 (06:13→16:45)
[2022-03-29] MEDS: FUROSEMIDE 100 MG/10 ML INJECTABLE VIAL IVPB SCH ×2 (06:13→15:01)
[2022-03-29] MEDS: HEPARIN NA (PORCINE) 5,000 UNITS/ML 1ML VIAL SQ SCH (06:13)
[2022-03-29] MEDS ORDERED: INSULIN (NOVOLOG) ASPART 100 UNITS/ML 10ML VIAL ONE (08:00)
[2022-03-29] MEDS ORDERED: INSULIN (LEVEMIR) 100 UNITS/ML UNITS SQ ONE (08:00)
[2022-03-29] MEDS: TAMSULOSIN HCL 0.4 MG CAP PO SCH (08:36)
[2022-03-29] MEDS: CALCIUM ACETATE 667 MG CAPSULE (FP) PO SCH ×3 (08:36→16:44)
[2022-03-29] MEDS: PANTOPRAZOLE 40 MG TABLET PO SCH (10:20)
[2022-03-29] MEDS: LABETALOL HCL 200 MG TABLET (FP) PO SCH (10:20)
[2022-03-29] MEDS: THIAMINE HCL 100 MG TABLET (FP) PO SCH (10:20)
[2022-03-29] MEDS: amLODIPine BESYLATE 5 MG TABLET (FP) PO SCH (10:21)
[2022-03-29] MEDS: FOLIC ACID 1 MG TABLET (FP) PO SCH (10:21)
[2022-03-29] MEDS: HYDROCORTISONE 1% TOPICAL OINT 30 GM TUBE TP SCH ×2 (10:21→21:34)
[2022-03-29] MEDS: hydrALAZINE HCL 50 MG TABLET (FP) PO SCH (10:21)
[2022-03-29] MEDS: SERTRALINE HCL 25 MG TABLET (FP) PO SCH (10:56)
[2022-03-29] MEDS ORDERED: EPOETIN ALFA-EPBX 10,000 UNIT/ML VIAL SQ ONE (11:54)
[2022-03-29 12:59] LABS: CHLORIDE 101 mmol/L (98-107); SODIUM 138 mmol/L (136-145)
[2022-03-29 13:01] LABS: ANION GAP 9 MMOL/L (8-16); CALCIUM 8.1 mg/dL (8.5-10.1); CO2 28 mmol/L (21-32); GLUCOSE,RANDOM 110 mg/dL (74-106)
[2022-03-29 13:05] LABS: BLOOD UREA NITROGEN 149.4 mg/dL (7-18); CREATININE 5.7 mg/dL (0.55-1.3)
[2022-03-29] MEDS: INSULIN (LEVEMIR) 100 UNITS/ML UNITS SQ SCH (21:34)
[2022-03-29] MEDS: ATORVASTATIN CA 80 MG TABLET (FP) PO SCH (21:35)
[2022-03-30] MEDS: FUROSEMIDE 100 MG/10 ML INJECTABLE VIAL IVPB SCH ×2 (05:48→17:35)
[2022-03-30] MEDS: INSULIN SLIDING SCALE (NOVOLOG) 1 VIAL SQ SCH ×3 (06:14→17:35)
[2022-03-30] MEDS: TAMSULOSIN HCL 0.4 MG CAP PO SCH (08:09)
[2022-03-30] MEDS: CALCIUM ACETATE 667 MG CAPSULE (FP) PO SCH ×3 (08:09→17:46)
[2022-03-30] MEDS: hydrALAZINE HCL 50 MG TABLET (FP) PO SCH (09:19)
[2022-03-30] MEDS: LABETALOL HCL 200 MG TABLET (FP) PO SCH (09:19)
[2022-03-30] MEDS: SERTRALINE HCL 25 MG TABLET (FP) PO SCH (09:19)
[2022-03-30] MEDS: THIAMINE HCL 100 MG TABLET (FP) PO SCH (09:19)
[2022-03-30] MEDS: PANTOPRAZOLE 40 MG TABLET PO SCH (09:19)
[2022-03-30] MEDS: FOLIC ACID 1 MG TABLET (FP) PO SCH (09:19)
[2022-03-30] MEDS: HYDROCORTISONE 1% TOPICAL OINT 30 GM TUBE TP SCH ×2 (09:20→21:25)
[2022-03-30] MEDS: amLODIPine BESYLATE 5 MG TABLET (FP) PO SCH (09:20)
[2022-03-30] MEDS ORDERED: DEXTROSE 50%-WATER 25 GM/50 ML DISP.SYRIN IVPUSH ONE (11:15)
[2022-03-30] MEDS ORDERED: DEXTROSE 50%-WATER - 25 GM/50 ML VIAL IVPUSH ONE (11:15)
[2022-03-30] MEDS ORDERED: SODIUM CHLORIDE 250 ML IV PRN (11:21)
[2022-03-30 13:00] LABS: HEMATOCRIT 28.3 % (35.4-49); HEMOGLOBIN 8.8 GM/dL (11.7-16.9); MCH 23.4 pg (25.7-33.7); MCHC 31.2 g/dl (32.0-35.9); MEAN CELL VOLUME 75.2 fl (80-96); MEAN PLT VOLUME 9.3 fl (7.5-11.1); PLATELET COUNT 112 10^3/uL (134-434); RBC 3.77 M/mm3 (4.00-5.60); RDW 20.5 % (11.9-15.9); WHITE BLOOD COUNT 6.3 K/mm3 (4.0-10.0)
[2022-03-30 13:11] LABS: CHLORIDE 103 mmol/L (98-107); SODIUM 139 mmol/L (136-145)
[2022-03-30 13:14] LABS: CALCIUM 8.1 mg/dL (8.5-10.1)
[2022-03-30 13:15] LABS: ANION GAP 10 MMOL/L (8-16); CO2 26 mmol/L (21-32); GLUCOSE,RANDOM 118 mg/dL (74-106)
[2022-03-30 13:18] LABS: CREATININE 6.3 mg/dL (0.55-1.3)
[2022-03-30 13:26] LABS: BLOOD UREA NITROGEN 149.4 mg/dL (7-18)
[2022-03-30] MEDS: ALBUMIN HUMAN 25% 12.5 GM/50 ML VIAL IV SCH ×4 (14:00→15:30)
[2022-03-30] MEDS: ATORVASTATIN CA 80 MG TABLET (FP) PO SCH (21:25)
[2022-03-30] MEDS: INSULIN (LEVEMIR) 100 UNITS/ML UNITS SQ SCH (21:26)
[2022-03-31] MEDS: FUROSEMIDE 100 MG/10 ML INJECTABLE VIAL IVPB SCH (06:08)
[2022-03-31] MEDS: HEPARIN NA (PORCINE) 5,000 UNITS/ML 1ML VIAL SQ SCH ×3 (06:09→22:04)
[2022-03-31] MEDS: INSULIN SLIDING SCALE (NOVOLOG) 1 VIAL SQ SCH ×3 (07:22→16:39)
[2022-03-31] MEDS ORDERED: SODIUM CHLORIDE 250 ML IV PRN ×2 (08:24→13:54)
[2022-03-31] MEDS ORDERED: EPOETIN ALFA-EPBX 10,000 UNIT/ML VIAL IVPUSH ONE (08:30)
[2022-03-31] MEDS: TAMSULOSIN HCL 0.4 MG CAP PO SCH (08:33)
[2022-03-31] MEDS: CALCIUM ACETATE 667 MG CAPSULE (FP) PO SCH ×3 (08:33→17:16)
[2022-03-31 09:24] LABS: HEMATOCRIT 27.9 % (35.4-49); HEMOGLOBIN 8.8 GM/dL (11.7-16.9); MCH 23.8 pg (25.7-33.7); MCHC 31.5 g/dl (32.0-35.9); MEAN CELL VOLUME 75.5 fl (80-96); MEAN PLT VOLUME 9.9 fl (7.5-11.1); PLATELET COUNT 119 10^3/uL (134-434); RBC 3.69 M/mm3 (4.00-5.60); RDW 20.9 % (11.9-15.9); WHITE BLOOD COUNT 6.7 K/mm3 (4.0-10.0)
[2022-03-31 10:17] LABS: CHLORIDE 104 mmol/L (98-107); SODIUM 141 mmol/L (136-145)
[2022-03-31 10:22] LABS: CALCIUM 8.4 mg/dL (8.5-10.1)
[2022-03-31 10:23] LABS: ALBUMIN 3.5 g/dl (3.4-5.0); ANION GAP 9 MMOL/L (8-16); CO2 28 mmol/L (21-32); GLUCOSE,RANDOM 94 mg/dL (74-106); MAGNESIUM 2.7 mg/dL (1.8-2.4)
[2022-03-31 10:24] LABS: CREATININE 5.2 mg/dL (0.55-1.3); PHOSPHOROUS 5.2 mg/dL (2.5-4.9); SGPT/ALT 49 U/L (13-61)
[2022-03-31 10:25] LABS: BILIRUBIN,TOTAL 0.7 mg/dL (0.2-1)
[2022-03-31 10:26] LABS: SGOT/AST 37 U/L (15-37); TOT PROT 6.5 g/dl (6.4-8.2)
[2022-03-31 10:27] LABS: ALK PHOS 127 U/L (45-117)
[2022-03-31 10:32] LABS: BLOOD UREA NITROGEN 120.3 mg/dL (7-18)
[2022-03-31] MEDS: HYDROCORTISONE 1% TOPICAL OINT 30 GM TUBE TP SCH ×2 (13:39→22:05)
[2022-03-31] MEDS: PANTOPRAZOLE 40 MG TABLET PO SCH (13:40)
[2022-03-31] MEDS: LABETALOL HCL 200 MG TABLET (FP) PO SCH (13:40)
[2022-03-31] MEDS: FOLIC ACID 1 MG TABLET (FP) PO SCH (13:41)
[2022-03-31] MEDS: hydrALAZINE HCL 50 MG TABLET (FP) PO SCH (13:41)
[2022-03-31] MEDS: amLODIPine BESYLATE 5 MG TABLET (FP) PO SCH (13:41)
[2022-03-31] MEDS: THIAMINE HCL 100 MG TABLET (FP) PO SCH (13:41)
[2022-03-31] MEDS: SERTRALINE HCL 25 MG TABLET (FP) PO SCH (13:41)
[2022-03-31] MEDS ORDERED: ALBUMIN HUMAN 25% 12.5 GM/50 ML VIAL IVPB SCH (14:00)
[2022-03-31] MEDS: ATORVASTATIN CA 80 MG TABLET (FP) PO SCH (22:04)
[2022-03-31] MEDS: INSULIN (LEVEMIR) 100 UNITS/ML UNITS SQ SCH (22:05)
[2022-04-01] MEDS: INSULIN SLIDING SCALE (NOVOLOG) 1 VIAL SQ SCH ×3 (06:40→16:30)
[2022-04-01] MEDS: HEPARIN NA (PORCINE) 5,000 UNITS/ML 1ML VIAL SQ SCH ×3 (06:40→21:56)
[2022-04-01] MEDS ORDERED: DEXTROSE 50%-WATER 25 GM/50 ML DISP.SYRIN ONE (06:44)
[2022-04-01] MEDS ORDERED: DEXTROSE 50%-WATER - 25 GM/50 ML VIAL IVPUSH ONE ×2 (07:08→12:57)
[2022-04-01] MEDS: CALCIUM ACETATE 667 MG CAPSULE (FP) PO SCH ×3 (08:09→17:30)
[2022-04-01] MEDS: TAMSULOSIN HCL 0.4 MG CAP PO SCH (08:09)
[2022-04-01 08:49] LABS: HEMATOCRIT 28.9 % (35.4-49); HEMOGLOBIN 9.2 GM/dL (11.7-16.9); MCH 23.7 pg (25.7-33.7); MCHC 31.8 g/dl (32.0-35.9); MEAN CELL VOLUME 74.6 fl (80-96); MEAN PLT VOLUME 9.1 fl (7.5-11.1); PLATELET COUNT 126 10^3/uL (134-434); RBC 3.88 M/mm3 (4.00-5.60); RDW 21.2 % (11.9-15.9); WHITE BLOOD COUNT 7.2 K/mm3 (4.0-10.0)
[2022-04-01] MEDS: hydrALAZINE HCL 50 MG TABLET (FP) PO SCH (09:29)
[2022-04-01] MEDS: FOLIC ACID 1 MG TABLET (FP) PO SCH (09:30)
[2022-04-01] MEDS: LABETALOL HCL 200 MG TABLET (FP) PO SCH (09:30)
[2022-04-01] MEDS: PANTOPRAZOLE 40 MG TABLET PO SCH (09:30)
[2022-04-01] MEDS: HYDROCORTISONE 1% TOPICAL OINT 30 GM TUBE TP SCH ×2 (09:30→21:57)
[2022-04-01] MEDS: THIAMINE HCL 100 MG TABLET (FP) PO SCH (09:31)
[2022-04-01] MEDS: SERTRALINE HCL 25 MG TABLET (FP) PO SCH (09:31)
[2022-04-01 09:32] LABS: CALCIUM 8.7 mg/dL (8.5-10.1)
[2022-04-01 09:33] LABS: MAGNESIUM 2.4 mg/dL (1.8-2.4)
[2022-04-01 09:35] LABS: CREATININE 3.5 mg/dL (0.55-1.3); PHOSPHOROUS 3.3 mg/dL (2.5-4.9)
[2022-04-01 09:45] LABS: BLOOD UREA NITROGEN 76.1 mg/dL (7-18)
[2022-04-01] MEDS ORDERED: DEXTROSE 5%-WATER - 1,000 ML IV SCH (09:45)
[2022-04-01] MEDS ORDERED: BUMETANIDE 1 MG TABLET PO SCH (10:00)
[2022-04-01] MEDS ORDERED: amLODIPine BESYLATE 10 MG TABLET (FP) PO SCH (10:00)
[2022-04-01] MEDS ORDERED: LIDOCAINE HCL 1%, 10 MG/ML (20ML VIAL) ONE (11:58)
[2022-04-01] MEDS ORDERED: HEPARIN NA (PORCINE) 5,000 UNITS/ML 1ML VIAL ONE (11:59)
[2022-04-01] MEDS ORDERED: MIDAZOLAM HCL 2 MG/2 ML SINGLE DOSE VIAL ONE (12:25)
[2022-04-01] MEDS ORDERED: LIDOCAINE HCL 1%, 10 MG/ML (20ML VIAL) NR ONE ×2 (12:27)
[2022-04-01] MEDS ORDERED: ceFAZolin SODIUM 1 GM VIAL ONE (12:27)
[2022-04-01] MEDS ORDERED: ceFAZolin SODIUM 1 GM VIAL IVPB ONE (12:28)
[2022-04-01] MEDS ORDERED: HEPARIN NA (PORCINE) 5,000 UNITS/ML 1ML VIAL SQ ONE (12:28)
[2022-04-01] MEDS ORDERED: HEPARIN NA (PORCINE) 1,000 UNITS/ML 10ML M-D VIAL SQ ONE (12:33)
[2022-04-01] MEDS ORDERED: ONDANSETRON 4 MG/2 ML VIAL IVPUSH PRN (12:58)
[2022-04-01] MEDS: ALBUMIN HUMAN 25% 12.5 GM/50 ML VIAL IV SCH ×4 (13:00→14:30)
[2022-04-01] MEDS ORDERED: SODIUM CHLORIDE 250 ML IV PRN (14:41)
[2022-04-01] MEDS ORDERED: INSULIN (NOVOLOG) ASPART 100 UNITS/ML 10ML VIAL ONE (21:47)
[2022-04-01] MEDS: ATORVASTATIN CA 80 MG TABLET (FP) PO SCH (21:57)
[2022-04-01] MEDS: INSULIN (LEVEMIR) 100 UNITS/ML UNITS SQ SCH (21:57)
[2022-04-01] MEDS ORDERED: INSULIN (LEVEMIR) 100 UNITS/ML UNITS SQ SCH (22:00)
[2022-04-01] MEDS: DEXTROSE 5%-WATER - 1,000 ML IV SCH (22:01)
[2022-04-01] MEDS: SODIUM CHLORIDE 1,000 ML IV SCH (22:01)
[2022-04-02] MEDS: HEPARIN NA (PORCINE) 5,000 UNITS/ML 1ML VIAL SQ SCH ×3 (06:25→21:35)
[2022-04-02] MEDS: INSULIN SLIDING SCALE (NOVOLOG) 1 VIAL SQ SCH ×3 (06:25→16:47)
[2022-04-02] MEDS ORDERED: INSULIN (NOVOLOG) ASPART 100 UNITS/ML 10ML VIAL ONE (07:55)
[2022-04-02] MEDS: TAMSULOSIN HCL 0.4 MG CAP PO SCH (08:21)
[2022-04-02] MEDS: CALCIUM ACETATE 667 MG CAPSULE (FP) PO SCH ×3 (08:21→17:36)
[2022-04-02 08:50] LABS: MCH 23.6 pg (25.7-33.7); MCHC 31.1 g/dl (32.0-35.9); MEAN CELL VOLUME 75.8 fl (80-96); MEAN PLT VOLUME 9.4 fl (7.5-11.1); PLATELET COUNT 131 10^3/uL (134-434); RBC 3.82 M/mm3 (4.00-5.60); RDW 20.8 % (11.9-15.9); WHITE BLOOD COUNT 8.5 K/mm3 (4.0-10.0)
[2022-04-02 09:12] LABS: CALCIUM 8.4 mg/dL (8.5-10.1)
[2022-04-02 09:13] LABS: ALBUMIN 3.3 g/dl (3.4-5.0); MAGNESIUM 2.3 mg/dL (1.8-2.4)
[2022-04-02 09:16] LABS: CREATININE 2.6 mg/dL (0.55-1.3); TOT PROT 6.3 g/dl (6.4-8.2)
[2022-04-02 09:17] LABS: BILIRUBIN,TOTAL 0.7 mg/dL (0.2-1)
[2022-04-02 09:21] LABS: BLOOD UREA NITROGEN 42.8 mg/dL (7-18)
[2022-04-02] MEDS: hydrALAZINE HCL 50 MG TABLET (FP) PO SCH (09:39)
[2022-04-02] MEDS: THIAMINE HCL 100 MG TABLET (FP) PO SCH (09:40)
[2022-04-02] MEDS: PANTOPRAZOLE 40 MG TABLET PO SCH (09:40)
[2022-04-02] MEDS: LABETALOL HCL 200 MG TABLET (FP) PO SCH (09:40)
[2022-04-02] MEDS: FOLIC ACID 1 MG TABLET (FP) PO SCH (09:40)
[2022-04-02] MEDS: HYDROCORTISONE 1% TOPICAL OINT 30 GM TUBE TP SCH ×2 (09:40→21:35)
[2022-04-02] MEDS: amLODIPine BESYLATE 10 MG TABLET (FP) PO SCH (09:40)
[2022-04-02] MEDS: SERTRALINE HCL 25 MG TABLET (FP) PO SCH (09:40)
[2022-04-02] MEDS: BUMETANIDE 1 MG TABLET PO SCH (09:43)
[2022-04-02 14:35] LABS: RETICULOCYTES 1.32 % (0.5-1.5)
[2022-04-02 14:38] VITALS: BMI 26.8
[2022-04-02 15:21] LABS: ANISOCYTOSIS 2+; MACROCYTOSIS 0; OVALOCYTE 2+
[2022-04-02] MEDS ORDERED: SODIUM CHLORIDE 250 ML IV PRN (16:05)
[2022-04-02] MEDS: ATORVASTATIN CA 80 MG TABLET (FP) PO SCH (21:36)
[2022-04-02] MEDS: INSULIN (LEVEMIR) 100 UNITS/ML UNITS SQ SCH (21:36)
[2022-04-03] MEDS: HEPARIN NA (PORCINE) 5,000 UNITS/ML 1ML VIAL SQ SCH ×2 (06:04→13:52)
[2022-04-03] MEDS: INSULIN SLIDING SCALE (NOVOLOG) 1 VIAL SQ SCH ×3 (06:04→17:06)
[2022-04-03] MEDS ORDERED: EPOETIN ALFA-EPBX 10,000 UNIT/ML VIAL IVPUSH ONE (08:00)
[2022-04-03] MEDS: CALCIUM ACETATE 667 MG CAPSULE (FP) PO SCH ×3 (08:10→17:06)
[2022-04-03] MEDS: TAMSULOSIN HCL 0.4 MG CAP PO SCH (08:10)
[2022-04-03 09:59] LABS: HEMATOCRIT 28.7 % (35.4-49); HEMOGLOBIN 9.1 GM/dL (11.7-16.9); MCH 23.9 pg (25.7-33.7); MCHC 31.5 g/dl (32.0-35.9); MEAN CELL VOLUME 75.8 fl (80-96); MEAN PLT VOLUME 9.7 fl (7.5-11.1); PLATELET COUNT 149 10^3/uL (134-434); RBC 3.79 M/mm3 (4.00-5.60)
[2022-04-03] MEDS ORDERED: VITAMIN B COMP W-C 1 EA TABLET (NEPHRO-VITE) PO SCH (10:00)
[2022-04-03 10:24] LABS: PHOSPHOROUS 2.9 mg/dL (2.5-4.9)
[2022-04-03 10:25] LABS: BILIRUBIN,TOTAL 0.5 mg/dL (0.2-1); TOT PROT 6.4 g/dl (6.4-8.2)
[2022-04-03 10:27] LABS: ALBUMIN 3.3 g/dl (3.4-5.0); BLOOD UREA NITROGEN 56.8 mg/dL (7-18); CALCIUM 8.2 mg/dL (8.5-10.1); MAGNESIUM 2.3 mg/dL (1.8-2.4)
[2022-04-03] MEDS: SODIUM CHLORIDE 1,000 ML IV SCH (11:06)
[2022-04-03] MEDS: DEXTROSE 5%-WATER - 1,000 ML IV SCH (11:06)
[2022-04-03 13:48] VITALS: TEMP 98.1
[2022-04-03] MEDS: FOLIC ACID 1 MG TABLET (FP) PO SCH (13:50)
[2022-04-03] MEDS: PANTOPRAZOLE 40 MG TABLET PO SCH (13:50)
[2022-04-03] MEDS: amLODIPine BESYLATE 10 MG TABLET (FP) PO SCH (13:51)
[2022-04-03] MEDS: THIAMINE HCL 100 MG TABLET (FP) PO SCH (13:51)
[2022-04-03] MEDS: SERTRALINE HCL 25 MG TABLET (FP) PO SCH (13:51)
[2022-04-03] MEDS: BUMETANIDE 1 MG TABLET PO SCH (13:51)
[2022-04-03] MEDS: LABETALOL HCL 200 MG TABLET (FP) PO SCH (13:51)
[2022-04-03] MEDS: hydrALAZINE HCL 50 MG TABLET (FP) PO SCH (13:51)
[2022-04-03] MEDS: HYDROCORTISONE 1% TOPICAL OINT 30 GM TUBE TP SCH (13:51)
[2022-04-03 14:59] VITALS: BP 113/64; PULSE 90
== END 2022-04-03 18:08 | disposition home or self-care (01) | DRG 291 ==
LOC: JER 00:50 → JERBED 04:26 → J6S 03-23 05:22
PROVIDERS: ADMIT Internal Medicine; ATTEND Internal Medicine
PROC: 05HM33Z Insertion of Infusion Device into Right Internal Jugular Vein, Percutaneous Approach (ICD-10-PCS; principal; 2022-03-30)
PROC: B543ZZA Ultrasonography of Right Jugular Veins, Guidance (ICD-10-PCS; 2022-03-30)
PROC: 5A1D70Z Performance of Urinary Filtration, Intermittent, Less than 6 Hours Per Day (ICD-10-PCS; 2022-03-30)
PROC: 02H633Z Insertion of Infusion Device into Right Atrium, Percutaneous Approach (ICD-10-PCS; 2022-04-01)
PROC: B548ZZA Ultrasonography of Superior Vena Cava, Guidance (ICD-10-PCS; 2022-04-01)
DX: I13.0 Hypertensive heart and chronic kidney disease with heart failure and stage 1 through stage 4 chronic kidney disease, or unspecified chronic kidney disease (principal); I50.33 Acute on chronic diastolic (congestive) heart failure; J96.02 Acute respiratory failure with hypercapnia; J96.01 Acute respiratory failure with hypoxia; N17.9 Acute kidney failure, unspecified; I31.3 Pericardial effusion (noninflammatory); R18.8 Other ascites; E87.2 Acidosis; N18.4 Chronic kidney disease, stage 4 (severe); F10.10 Alcohol abuse, uncomplicated; E11.22 Type 2 diabetes mellitus with diabetic chronic kidney disease; E78.5 Hyperlipidemia, unspecified; D50.9 Iron deficiency anemia, unspecified; E87.5 Hyperkalemia; D63.1 Anemia in chronic kidney disease; E83.39 Other disorders of phosphorus metabolism; R59.0 Localized enlarged lymph nodes; Z99.81 Dependence on supplemental oxygen; G47.33 Obstructive sleep apnea (adult) (pediatric)
CPT/HCPCS: 0241U-QW; 36415; 36600; 70490-TC; 71045-TC-FY; 71250-TC; 74176-TC; 76000-TC-FY; 76775-TC; 76856-TC; 80048; 80053; 82728; 82803; 82962; 83010; 83540; 83550; 83690; 83735; 83880; 84100; 84484; 84550; 85025; 85027; 85045; 85610; 86704; 86705; 86707; 86803; 86850; 86900; 86901; 87340; 87517; 93005; 93010; 93306-TC; 94660; 94760; 94761; 97116-GP; 97162-GP; 99285-25; J1644; J1756; Q5106

== ENCOUNTER 2022-04-08 10:13 | Emergency (ER) | payer OTHER ==
[2022-04-08 10:18] VITALS: TEMP 97.6; BMI 28.2
[2022-04-08 12:43] LABS: BASO % 0.2 % (0-2.0); EOS % 1.4 % (0-4.5); HEMATOCRIT 29.7 % (35.4-49); HEMOGLOBIN 9.1 GM/dL (11.7-16.9); LYMPH % 5.6 % (8-40); MCH 23.8 pg (25.7-33.7); MCHC 30.6 g/dl (32.0-35.9); MEAN CELL VOLUME 77.7 fl (80-96); MEAN PLT VOLUME 8.8 fl (7.5-11.1); MONO % 6.4 % (3.8-10.2); NEUT % 86.4 % (42.8-82.8); PLATELET COUNT 197 10^3/uL (134-434); RBC 3.82 M/mm3 (4.00-5.60); RDW 23.5 % (11.9-15.9); WHITE BLOOD COUNT 6.7 K/mm3 (4.0-10.0)
[2022-04-08 12:50] LABS: INR 1.06 (0.83-1.09); PROTHROMBIN TIME (PATIENT) 12.2 SEC (9.7-13.0)
[2022-04-08 12:53] LABS: ACTIVATED PTT 36.5 SECONDS (25.2-36.5)
[2022-04-08 13:03] LABS: ALBUMIN 3.7 g/dl (3.4-5.0); BLOOD UREA NITROGEN 59.4 mg/dL (7-18); CALCIUM 8.5 mg/dL (8.5-10.1)
[2022-04-08 13:06] LABS: CREATININE 2.9 mg/dL (0.55-1.3)
[2022-04-08 13:08] LABS: BILIRUBIN,TOTAL 0.6 mg/dL (0.2-1); TOT PROT 6.8 g/dl (6.4-8.2)
[2022-04-08 13:27] LABS: ANISOCYTOSIS 3+; MACROCYTOSIS 0
[2022-04-08 14:30] VITALS: BP 129/73; PULSE 81
== END 2022-04-08 15:32 | disposition home or self-care (01) ==
LOC: JER 10:13
DX: T82.838A Hemorrhage due to vascular prosthetic devices, implants and grafts, initial encounter (principal)
CPT/HCPCS: 36415; 80053; 85025; 85610; 85730; 99283-25

== ENCOUNTER 2022-04-29 09:03 | Inpatient (IN) | payer OTHER ==
[2022-04-29] MEDS ORDERED: VANCOMYCIN 1 GM in D5W (PRE-DOCKED) 1,000 MG/250 ML IVPB ONE (09:12)
[2022-04-29] MEDS ORDERED: CEFEPIME 2 GM/100 ML BAG IVPB ONE (09:49)
[2022-04-29] MEDS: CEFEPIME HCL/D5W 2 GM/50 ML BAG IVPB ONE ×2 (09:53→10:09)
[2022-04-29] MEDS ORDERED: CEFEPIME 0.5 GM in DEXTROSE 5%-WATER - 100 ML IVPB ONE (10:04)
[2022-04-29] MEDS ORDERED: VANCOMYCIN/WATER FOR INJ (PEG) 1,000 MG/200 ML BAG IVPB ONE (10:08)
[2022-04-29 10:37] LABS: VENOUS BASE EXCESS -5.2 mmol/L (-2-2); VENOUS O2 SATURATION 95.6 % (70-80)
[2022-04-29 10:40] LABS: VENOUS PH 7.158 (7.310-7.410)
[2022-04-29 10:47] LABS: HEMATOCRIT 33.2 % (35.4-49); MCH 24.8 pg (25.7-33.7); MCHC 30.1 g/dl (32.0-35.9); MEAN CELL VOLUME 82.5 fl (80-96); MEAN PLT VOLUME 9.4 fl (7.5-11.1); PLATELET COUNT 96 10^3/uL (134-434); RBC 4.02 M/mm3 (4.00-5.60); RDW 25.1 % (11.9-15.9); WHITE BLOOD COUNT 10.1 K/mm3 (4.0-10.0)
[2022-04-29 10:53] LABS: INR 1.3 (0.83-1.09)
[2022-04-29 10:55] LABS: ACTIVATED PTT 36.7 SECONDS (25.2-36.5)
[2022-04-29 10:56] LABS: ARTERIAL BLD GAS O2 SATURATION 97.7 % (95-98); ARTERIAL BLOOD GAS BASE EXCESS -5.1 mmol/L (-2-2); ARTERIAL BLOOD GAS PO2 130.1 mmHg (80-100)
[2022-04-29 11:02] LABS: ARTERIAL BLOOD GAS pH 7.164 (7.350-7.450)
[2022-04-29 11:04] LABS: ALBUMIN 3.3 g/dl (3.4-5.0); CALCIUM 8.2 mg/dL (8.5-10.1)
[2022-04-29 11:05] LABS: BLOOD UREA NITROGEN 29.3 mg/dL (7-18); MAGNESIUM 2.5 mg/dL (1.8-2.4)
[2022-04-29 11:08] LABS: CREATININE 4.8 mg/dL (0.55-1.3); PHOSPHOROUS 5.3 mg/dL (2.5-4.9)
[2022-04-29 11:09] LABS: BILIRUBIN,TOTAL 1.1 mg/dL (0.2-1); TOT PROT 6.3 g/dl (6.4-8.2)
[2022-04-29 11:29] LABS: ANISOCYTOSIS 3+; MACROCYTOSIS 0; PLATELET ESTIMATE DECREASED; TARGET CELLS 1+
[2022-04-29] MEDS ORDERED: SODIUM CHLORIDE 250 ML IV PRN (16:00)
[2022-04-29 17:48] LABS: ARTERIAL BLD GAS O2 SATURATION 69.2 % (95-98); ARTERIAL BLOOD GAS BASE EXCESS -2.8 mmol/L (-2-2); ARTERIAL BLOOD GAS PO2 42.2 mmHg (80-100); ARTERIAL BLOOD GAS pH 7.253 (7.350-7.450)
[2022-04-29] MEDS: INSULIN SLIDING SCALE (NOVOLOG) 1 VIAL SQ SCH (21:30)
[2022-04-29] MEDS: CHLORHEXIDINE GLUCONATE 4% CLEANSER FOR DECOLONIZATION TP SCH (21:31)
[2022-04-29] MEDS: MUPIROCIN 2% TOPICAL OINTMENT FOR DECOLONIZATION NS SCH (21:31)
[2022-04-29 22:49] LABS: ARTERIAL BLD GAS O2 SATURATION 97.6 % (95-98); ARTERIAL BLOOD GAS BASE EXCESS -1.9 mmol/L (-2-2); ARTERIAL BLOOD GAS PO2 109.1 mmHg (80-100); ARTERIAL BLOOD GAS pH 7.315 (7.350-7.450)
[2022-04-29 22:53] LABS: ALLENS TEST POSITIVE; VENT MODE S/T; VENT RATE 16
[2022-04-30] MEDS: INSULIN SLIDING SCALE (NOVOLOG) 1 VIAL SQ SCH ×3 (06:24→21:23)
[2022-04-30 06:35] LABS: ARTERIAL BLD GAS O2 SATURATION 97.5 % (95-98); ARTERIAL BLOOD GAS BASE EXCESS -4.2 mmol/L (-2-2); ARTERIAL BLOOD GAS PO2 107.5 mmHg (80-100); ARTERIAL BLOOD GAS pH 7.307 (7.350-7.450)
[2022-04-30 06:56] LABS: ALLENS TEST POSITIVE; VENT MODE S/T
[2022-04-30 06:57] LABS: VENT RATE 16
[2022-04-30 07:27] LABS: HEMATOCRIT 32.8 % (35.4-49); MCH 24.7 pg (25.7-33.7); MCHC 30.6 g/dl (32.0-35.9); MEAN CELL VOLUME 80.5 fl (80-96); MEAN PLT VOLUME 9.8 fl (7.5-11.1); PLATELET COUNT 143 10^3/uL (134-434); RBC 4.07 M/mm3 (4.00-5.60); RDW 24.9 % (11.9-15.9); WHITE BLOOD COUNT 8.2 K/mm3 (4.0-10.0)
[2022-04-30 07:47] LABS: ALBUMIN 3.4 g/dl (3.4-5.0); BLOOD UREA NITROGEN 38.9 mg/dL (7-18); PHOSPHOROUS 4.5 mg/dL (2.5-4.9)
[2022-04-30 07:49] LABS: BILIRUBIN,TOTAL 0.6 mg/dL (0.2-1); TOT PROT 6.2 g/dl (6.4-8.2)
[2022-04-30 07:50] LABS: CALCIUM 8.4 mg/dL (8.5-10.1); CREATININE 4.9 mg/dL (0.55-1.3)
[2022-04-30 07:51] LABS: MAGNESIUM 2.5 mg/dL (1.8-2.4)
[2022-04-30] MEDS: ALBUMIN HUMAN 25% 12.5 GM/50 ML VIAL IV SCH ×4 (08:00→09:30)
[2022-04-30] MEDS ORDERED: SODIUM CHLORIDE 250 ML IV PRN (09:32)
[2022-04-30] MEDS: PANTOPRAZOLE SODIUM 40 MG VIAL IVPUSH SCH (10:15)
[2022-04-30] MEDS: MUPIROCIN 2% TOPICAL OINTMENT FOR DECOLONIZATION NS SCH ×2 (10:15→21:23)
[2022-04-30] MEDS ORDERED: CEFEPIME 0.5 GM in DEXTROSE 5%-WATER - 100 ML IVPB ONE (11:30)
[2022-04-30] MEDS ORDERED: VANCOMYCIN 1 GM/200 ML PREMIX BAG IVPB ONE (12:00)
[2022-04-30] MEDS: HEPARIN NA (PORCINE) 5,000 UNITS/ML 1ML VIAL SQ SCH ×2 (14:35→21:23)
[2022-04-30] MEDS: LABETALOL HCL 200 MG TABLET (FP) PO SCH ×2 (14:35→21:23)
[2022-04-30] MEDS: SODIUM BICARBONATE 650 MG TABLET PO SCH (21:23)
[2022-04-30] MEDS: CHLORHEXIDINE GLUCONATE 4% CLEANSER FOR DECOLONIZATION TP SCH (21:24)
[2022-05-01] MEDS: INSULIN SLIDING SCALE (NOVOLOG) 1 VIAL SQ SCH ×4 (06:33→22:00)
[2022-05-01 07:19] LABS: BASO % 0.2 % (0-2.0); EOS % 1.3 % (0-4.5); HEMOGLOBIN 10.8 GM/dL (11.7-16.9); LYMPH % 7.6 % (8-40); MCH 24.7 pg (25.7-33.7); MCHC 30.9 g/dl (32.0-35.9); MEAN CELL VOLUME 79.8 fl (80-96); MEAN PLT VOLUME 8.9 fl (7.5-11.1); MONO % 11.2 % (3.8-10.2); NEUT % 79.7 % (42.8-82.8); PLATELET COUNT 161 10^3/uL (134-434); RBC 4.38 M/mm3 (4.00-5.60); RDW 25.5 % (11.9-15.9); WHITE BLOOD COUNT 7.4 K/mm3 (4.0-10.0)
[2022-05-01 07:28] LABS: CALCIUM 8.2 mg/dL (8.5-10.1)
[2022-05-01 07:29] LABS: ALBUMIN 3.2 g/dl (3.4-5.0); BLOOD UREA NITROGEN 28.3 mg/dL (7-18); MAGNESIUM 2.2 mg/dL (1.8-2.4)
[2022-05-01 07:32] LABS: CREATININE 2.6 mg/dL (0.55-1.3); PHOSPHOROUS 2.2 mg/dL (2.5-4.9)
[2022-05-01 07:34] LABS: BILIRUBIN,TOTAL 0.7 mg/dL (0.2-1)
[2022-05-01] MEDS ORDERED: TAMSULOSIN HCL 0.4 MG CAP PO SCH (08:30)
[2022-05-01] MEDS: KCL 10 MEQ IVPB 10 MEQ/100 ML INFUS.BAG IVPB SCH ×3 (09:12→11:43)
[2022-05-01] MEDS: LABETALOL HCL 200 MG TABLET (FP) PO SCH ×2 (09:12→22:08)
[2022-05-01] MEDS: PANTOPRAZOLE SODIUM 40 MG VIAL IVPUSH SCH (09:12)
[2022-05-01] MEDS: SODIUM BICARBONATE 650 MG TABLET PO SCH ×2 (09:13→22:08)
[2022-05-01] MEDS: MUPIROCIN 2% TOPICAL OINTMENT FOR DECOLONIZATION NS SCH (09:13)
[2022-05-01] MEDS: CEFEPIME 0.5 GM in DEXTROSE 5%-WATER - 100 ML IVPB SCH (09:13)
[2022-05-01] MEDS ORDERED: SERTRALINE HCL 25 MG TABLET (FP) PO SCH (10:00)
[2022-05-01] MEDS ORDERED: POTASSIUM PHOSPHATE 30 MM in SODIUM CHLORIDE 250 ML IVPB ONE (11:30)
[2022-05-01] MEDS ORDERED: SODIUM CHLORIDE 250 ML IV PRN (13:17)
[2022-05-01 14:54] VITALS: BMI 24.8
[2022-05-01] MEDS ORDERED: VANCOMYCIN/WATER FOR INJ (PEG) 1,000 MG/200 ML BAG IVPB ONE (17:17)
[2022-05-01 17:20] LABS: BF WBC & OTHER NUCLEATED CELLS 420 /mm3
[2022-05-01 17:48] LABS: BODY FLUID MACROPHAGES 47 %; BODY FLUID MONOCYTE 19 %
[2022-05-01] MEDS: HEPARIN NA (PORCINE) 5,000 UNITS/ML 1ML VIAL SQ SCH ×2 (19:50→22:05)
[2022-05-01] MEDS ORDERED: INSULIN (NOVOLOG) ASPART 100 UNITS/ML 10ML VIAL ONE (21:58)
[2022-05-02] MEDS: CHLORHEXIDINE GLUCONATE 4% CLEANSER FOR DECOLONIZATION TP SCH (06:12)
[2022-05-02] MEDS: MUPIROCIN 2% TOPICAL OINTMENT FOR DECOLONIZATION NS SCH (06:12)
[2022-05-02] MEDS: HEPARIN NA (PORCINE) 5,000 UNITS/ML 1ML VIAL SQ SCH ×3 (06:18→21:29)
[2022-05-02] MEDS: INSULIN SLIDING SCALE (NOVOLOG) 1 VIAL SQ SCH ×4 (06:18→21:29)
[2022-05-02 09:19] LABS: BASO % 0.3 % (0-2.0); CALCIUM 8.7 mg/dL (8.5-10.1); EOS % 2.7 % (0-4.5); HEMATOCRIT 34.6 % (35.4-49); HEMOGLOBIN 10.8 GM/dL (11.7-16.9); LYMPH % 7.4 % (8-40); MCHC 31.3 g/dl (32.0-35.9); MEAN CELL VOLUME 79.8 fl (80-96); MEAN PLT VOLUME 9.1 fl (7.5-11.1); MONO % 9.1 % (3.8-10.2); NEUT % 80.5 % (42.8-82.8); PLATELET COUNT 151 10^3/uL (134-434); RBC 4.33 M/mm3 (4.00-5.60); RDW 24.8 % (11.9-15.9); WHITE BLOOD COUNT 7.2 K/mm3 (4.0-10.0)
[2022-05-02 09:20] LABS: BLOOD UREA NITROGEN 29.9 mg/dL (7-18); MAGNESIUM 2.2 mg/dL (1.8-2.4)
[2022-05-02] MEDS: TAMSULOSIN HCL 0.4 MG CAP PO SCH (09:22)
[2022-05-02] MEDS: SODIUM BICARBONATE 650 MG TABLET PO SCH ×2 (09:22→21:31)
[2022-05-02] MEDS: CEFEPIME 0.5 GM in DEXTROSE 5%-WATER - 100 ML IVPB SCH (09:23)
[2022-05-02] MEDS: SERTRALINE HCL 25 MG TABLET (FP) PO SCH (09:23)
[2022-05-02] MEDS: LABETALOL HCL 200 MG TABLET (FP) PO SCH ×2 (09:23→21:31)
[2022-05-02 09:24] LABS: CREATININE 2.6 mg/dL (0.55-1.3); PHOSPHOROUS 2.4 mg/dL (2.5-4.9)
[2022-05-02] MEDS: PANTOPRAZOLE SODIUM 40 MG VIAL IVPUSH SCH (09:24)
[2022-05-02 10:48] LABS: EPI CELLS 4 /uL (0-25.1); HYALINE CASTS 1 /uL (0-3.1); PH,URINE 5.5 (5.0-8.0); URINE APPEARANCE CLEAR; URINE BACTERIA 4 /uL (0-1359); URINE BILIRUBIN NEGATIVE (NEGATIVE); URINE COLOR YELLOW; URINE GLUCOSE (UA) NEGATIVE (NEGATIVE); URINE KETONE NEGATIVE (NEGATIVE); URINE LEUK ESTERASE NEGATIVE (NEGATIVE); URINE NITRITE NEGATIVE (NEGATIVE); URINE PROTEIN 2+ (NEGATIVE); URINE RBC 28 /uL (0-23.9); URINE UROBILINOGEN 0.2 mg/dL (0.2-1.0); URINE WBC 15 /uL (0-25.8)
[2022-05-03] MEDS: HEPARIN NA (PORCINE) 5,000 UNITS/ML 1ML VIAL SQ SCH ×3 (06:19→21:54)
[2022-05-03] MEDS: INSULIN SLIDING SCALE (NOVOLOG) 1 VIAL SQ SCH ×4 (06:19→22:00)
[2022-05-03] MEDS: TAMSULOSIN HCL 0.4 MG CAP PO SCH (08:20)
[2022-05-03] MEDS: SODIUM BICARBONATE 650 MG TABLET PO SCH ×2 (09:44→21:55)
[2022-05-03] MEDS: LABETALOL HCL 200 MG TABLET (FP) PO SCH ×2 (09:44→21:55)
[2022-05-03] MEDS: SERTRALINE HCL 25 MG TABLET (FP) PO SCH (09:44)
[2022-05-03] MEDS: PANTOPRAZOLE SODIUM 40 MG VIAL IVPUSH SCH (09:46)
[2022-05-03] MEDS: CEFEPIME 0.5 GM in DEXTROSE 5%-WATER - 100 ML IVPB SCH (10:51)
[2022-05-03] MEDS ORDERED: INSULIN (NOVOLOG) ASPART 100 UNITS/ML 10ML VIAL ONE (22:04)
[2022-05-04] MEDS: HEPARIN NA (PORCINE) 5,000 UNITS/ML 1ML VIAL SQ SCH ×2 (06:01→13:16)
[2022-05-04] MEDS: INSULIN SLIDING SCALE (NOVOLOG) 1 VIAL SQ SCH ×3 (06:02→12:10)
[2022-05-04] MEDS: LABETALOL HCL 200 MG TABLET (FP) PO SCH (09:38)
[2022-05-04] MEDS: PANTOPRAZOLE SODIUM 40 MG VIAL IVPUSH SCH (09:42)
[2022-05-04] MEDS: SERTRALINE HCL 25 MG TABLET (FP) PO SCH (09:42)
[2022-05-04] MEDS: SODIUM BICARBONATE 650 MG TABLET PO SCH (09:42)
[2022-05-04] MEDS: TAMSULOSIN HCL 0.4 MG CAP PO SCH (09:55)
[2022-05-04] MEDS: CEFEPIME 0.5 GM in DEXTROSE 5%-WATER - 100 ML IVPB SCH (10:21)
[2022-05-04 12:00] VITALS: RESP 18; TEMP 98.4
[2022-05-04] MEDS ORDERED: SODIUM CHLORIDE 250 ML IV PRN (12:17)
[2022-05-04 12:47] LABS: BASO % 0.4 % (0-2.0); EOS % 3.5 % (0-4.5); HEMATOCRIT 36.2 % (35.4-49); HEMOGLOBIN 11.3 GM/dL (11.7-16.9); LYMPH % 8.3 % (8-40); MCH 24.8 pg (25.7-33.7); MCHC 31.3 g/dl (32.0-35.9); MEAN CELL VOLUME 79.1 fl (80-96); MEAN PLT VOLUME 8.7 fl (7.5-11.1); MONO % 11.2 % (3.8-10.2); NEUT % 76.6 % (42.8-82.8); PLATELET COUNT 149 10^3/uL (134-434); RBC 4.58 M/mm3 (4.00-5.60); RDW 25.1 % (11.9-15.9); WHITE BLOOD COUNT 6.4 K/mm3 (4.0-10.0)
[2022-05-04 13:05] LABS: ALBUMIN 3.7 g/dl (3.4-5.0); CALCIUM 8.6 mg/dL (8.5-10.1); MAGNESIUM 2.2 mg/dL (1.8-2.4)
[2022-05-04 13:06] LABS: BLOOD UREA NITROGEN 39.4 mg/dL (7-18)
[2022-05-04 13:08] LABS: CREATININE 2.6 mg/dL (0.55-1.3); PHOSPHOROUS 2.9 mg/dL (2.5-4.9)
[2022-05-04 13:10] LABS: BILIRUBIN,TOTAL 0.6 mg/dL (0.2-1)
[2022-05-04 13:45] LABS: ANISOCYTOSIS 1+; MACROCYTOSIS 0
[2022-05-04 14:58] VITALS: BP 153/52; PULSE 93
== END 2022-05-04 18:00 | disposition home or self-care (01) | DRG 186 ==
LOC: JER 09:03 → JERBED 11:14 → JICU 13:08 → J8W 05-01 12:32
PROVIDERS: ADMIT Internal Medicine
PROC: 5A1D70Z Performance of Urinary Filtration, Intermittent, Less than 6 Hours Per Day (ICD-10-PCS; 2022-04-29)
PROC: 0W993ZZ Drainage of Right Pleural Cavity, Percutaneous Approach (ICD-10-PCS; principal; 2022-05-01)
DX: J90 Pleural effusion, not elsewhere classified (principal); J96.22 Acute and chronic respiratory failure with hypercapnia; N18.6 End stage renal disease; J96.21 Acute and chronic respiratory failure with hypoxia; G92.8 Other toxic encephalopathy; J18.9 Pneumonia, unspecified organism; R65.20 Severe sepsis without septic shock; I50.32 Chronic diastolic (congestive) heart failure; I24.8 Other forms of acute ischemic heart disease; I13.2 Hypertensive heart and chronic kidney disease with heart failure and with stage 5 chronic kidney disease, or end stage renal disease; E11.22 Type 2 diabetes mellitus with diabetic chronic kidney disease; N18.9 Chronic kidney disease, unspecified; Z79.4 Long term (current) use of insulin; D69.6 Thrombocytopenia, unspecified; F10.20 Alcohol dependence, uncomplicated; Z99.2 Dependence on renal dialysis; D63.8 Anemia in other chronic diseases classified elsewhere
CPT/HCPCS: 0241U-QW; 36415; 36600; 70450-TC; 71045-TC-FY; 71046-TC-FY; 71250-TC; 76942; 80048; 80053; 81003; 82042; 82140; 82550; 82553; 82803; 82945; 82962; 83605; 83615; 83735; 83986; 84100; 84443; 84478; 84484; 85025; 85027; 85610; 85730; 86803; 86850; 86900; 86901; 87040; 87070; 87075; 87086; 87205; 87340; 88108; 88305-TC; 93005; 93010; 94660; 99291; 99292; G0480; J1644

== ENCOUNTER 2022-05-26 21:01 | Observation (INO) | payer OTHER ==
[2022-05-26 22:27] LABS: BASO % 0.2 % (0-2.0); EOS % 2.8 % (0-4.5); HEMATOCRIT 35.7 % (35.4-49); HEMOGLOBIN 11.7 GM/dL (11.7-16.9); LYMPH % 7.2 % (8-40); MCHC 32.8 g/dl (32.0-35.9); MEAN CELL VOLUME 79.2 fl (80-96); MEAN PLT VOLUME 8.1 fl (7.5-11.1); MONO % 9.7 % (3.8-10.2); NEUT % 80.1 % (42.8-82.8); PLATELET COUNT 202 10^3/uL (134-434); RBC 4.51 M/mm3 (4.00-5.60); RDW 24.7 % (11.9-15.9)
[2022-05-26 22:33] LABS: INR 0.97 (0.83-1.09); PROTHROMBIN TIME (PATIENT) 11.1 SEC (9.7-13.0)
[2022-05-26 22:36] LABS: ACTIVATED PTT 37.4 SECONDS (25.2-36.5)
[2022-05-26 22:47] LABS: ANISOCYTOSIS 3+; MACROCYTOSIS 0
[2022-05-26 22:48] LABS: CHLORIDE 100 mmol/L (98-107); SODIUM 137 mmol/L (136-145)
[2022-05-26 22:50] LABS: ALBUMIN 4.3 g/dl (3.4-5.0); ANION GAP 6 MMOL/L (8-16); CALCIUM 8.9 mg/dL (8.5-10.1); CO2 30 mmol/L (21-32); GLUCOSE,RANDOM 190 mg/dL (74-106); MAGNESIUM 2.1 mg/dL (1.8-2.4)
[2022-05-26 22:51] LABS: BLOOD UREA NITROGEN 22.4 mg/dL (7-18)
[2022-05-26 22:53] LABS: SGPT/ALT 46 U/L (13-61)
[2022-05-26 22:54] LABS: CREATININE 1.7 mg/dL (0.55-1.3); PHOSPHOROUS 2.6 mg/dL (2.5-4.9); SGOT/AST 37 U/L (15-37)
[2022-05-26 22:55] LABS: BILIRUBIN,TOTAL 0.4 mg/dL (0.2-1)
[2022-05-26 22:56] LABS: ALK PHOS 247 U/L (45-117)
[2022-05-27 03:22] LABS: LDH 319 U/L (87-246)
[2022-05-27 03:36] VITALS: RESP 18
[2022-05-27 09:06] LABS: BASO % 0.1 % (0-2.0); EOS % 3.4 % (0-4.5); HEMATOCRIT 32.9 % (35.4-49); HEMOGLOBIN 10.9 GM/dL (11.7-16.9); LYMPH % 13.9 % (8-40); MCH 26.2 pg (25.7-33.7); MEAN CELL VOLUME 79.5 fl (80-96); MEAN PLT VOLUME 8.4 fl (7.5-11.1); MONO % 10.7 % (3.8-10.2); NEUT % 71.9 % (42.8-82.8); PLATELET COUNT 190 10^3/uL (134-434); RBC 4.14 M/mm3 (4.00-5.60); RDW 24.1 % (11.9-15.9); WHITE BLOOD COUNT 5.5 K/mm3 (4.0-10.0)
[2022-05-27 09:34] LABS: ALBUMIN 3.7 g/dl (3.4-5.0)
[2022-05-27 09:37] LABS: CREATININE 1.9 mg/dL (0.55-1.3)
[2022-05-27 09:39] LABS: BILIRUBIN,TOTAL 0.3 mg/dL (0.2-1); TOT PROT 6.7 g/dl (6.4-8.2)
[2022-05-27] MEDS ORDERED: amLODIPine BESYLATE 5 MG TABLET (FP) PO SCH (12:15)
[2022-05-27] MEDS ORDERED: LABETALOL HCL 200 MG TABLET (FP) PO SCH (12:15)
[2022-05-27 12:31] VITALS: BMI 24.3
[2022-05-27] MEDS ORDERED: hydrALAZINE HCL 50 MG TABLET (FP) PO SCH (14:00)
[2022-05-27 15:23] VITALS: BP 153/87; PULSE 90; TEMP 97.9
[2022-05-27] MEDS ORDERED: INSULIN SLIDING SCALE (NOVOLOG) 1 VIAL SQ SCH (17:30)
== END 2022-05-27 17:48 | disposition home or self-care (01) ==
LOC: JER 21:01 → UNDOADMOB 22:18 → INTOOBSV 22:18 → JERBED 22:18 → J5S 05-27 02:51 → JERBED 05-27 02:51 → J5S 05-27 14:48 → JERBED 05-27 14:48
PROVIDERS: ADMIT Internal Medicine; ATTEND Nurse Practitioner Family
PROC: 3E013VG Introduction of Insulin into Subcutaneous Tissue, Percutaneous Approach (ICD-10-PCS; principal; 2022-05-27)
DX: U07.1 COVID-19 (principal); I13.2 Hypertensive heart and chronic kidney disease with heart failure and with stage 5 chronic kidney disease, or end stage renal disease; E11.22 Type 2 diabetes mellitus with diabetic chronic kidney disease; N18.6 End stage renal disease; Z99.2 Dependence on renal dialysis; Z88.8 Allergy status to other drugs, medicaments and biological substances; E78.5 Hyperlipidemia, unspecified; I50.9 Heart failure, unspecified; Z99.81 Dependence on supplemental oxygen; K29.70 Gastritis, unspecified, without bleeding; Z87.891 Personal history of nicotine dependence
CPT/HCPCS: 36415; 71046-TC-FY; 80053; 82728; 82962; 83615; 83735; 84100; 85025; 85610; 85730; 86140; 86850; 86900; 86901; 93005; 93010; 99285-25; C9803-CS; G0378; U0003; U0005

== ENCOUNTER 2022-06-17 18:44 | Day surgery (SDC) | payer OTHER ==
[2022-06-17 21:00] LABS: BASO % 0.3 % (0-2.0); EOS % 2.3 % (0-4.5); HEMATOCRIT 35.1 % (35.4-49); HEMOGLOBIN 11.6 GM/dL (11.7-16.9); LYMPH % 10.9 % (8-40); MCH 27.3 pg (25.7-33.7); MCHC 33.1 g/dl (32.0-35.9); MEAN CELL VOLUME 82.4 fl (80-96); MEAN PLT VOLUME 8.6 fl (7.5-11.1); MONO % 8.8 % (3.8-10.2); NEUT % 77.7 % (42.8-82.8); PLATELET COUNT 182 10^3/uL (134-434); RBC 4.26 M/mm3 (4.00-5.60); RDW 22.9 % (11.9-15.9); WHITE BLOOD COUNT 6.5 K/mm3 (4.0-10.0)
[2022-06-17 21:07] LABS: INR 1.06 (0.83-1.09); PROTHROMBIN TIME (PATIENT) 12.2 SEC (9.7-13.0)
[2022-06-17 21:10] LABS: ACTIVATED PTT 38.3 SECONDS (25.2-36.5)
[2022-06-17 21:19] LABS: BLOOD UREA NITROGEN 74.1 mg/dL (7-18); CALCIUM 8.8 mg/dL (8.5-10.1)
[2022-06-17 21:20] LABS: ALBUMIN 4.1 g/dl (3.4-5.0)
[2022-06-17 21:23] LABS: CREATININE 3.4 mg/dL (0.55-1.3)
[2022-06-17 21:24] LABS: BILIRUBIN,TOTAL 0.4 mg/dL (0.2-1); TOT PROT 7.3 g/dl (6.4-8.2)
[2022-06-17 21:50] LABS: ANISOCYTOSIS 3+; MACROCYTOSIS 0; OVALOCYTE 1+
[2022-06-18 02:00] VITALS: BMI 27.5
[2022-06-18] MEDS: INSULIN SLIDING SCALE (NOVOLOG) 1 VIAL SQ SCH ×2 (06:34→11:39)
[2022-06-18] MEDS ORDERED: SERTRALINE HCL 25 MG TABLET (FP) PO SCH (10:00)
[2022-06-18] MEDS ORDERED: amLODIPine BESYLATE 5 MG TABLET (FP) PO SCH (10:00)
[2022-06-18] MEDS ORDERED: LABETALOL HCL 200 MG TABLET (FP) PO SCH ×2 (10:00→22:00)
[2022-06-18] MEDS ORDERED: PANTOPRAZOLE 40 MG TABLET PO SCH (10:00)
[2022-06-18] MEDS ORDERED: TAMSULOSIN HCL 0.4 MG CAP PO SCH (10:00)
[2022-06-18] MEDS ORDERED: HEPARIN NA (PORCINE) 5,000 UNITS/ML 1ML VIAL ONE (10:48)
[2022-06-18] MEDS ORDERED: LIDOCAINE HCL 1%, 10 MG/ML (20ML VIAL) ONE (10:48)
[2022-06-18] MEDS ORDERED: POVIDONE-IODINE OINTMENT 10% - 28.4 GM TUBE ONE (10:48)
[2022-06-18] MEDS ORDERED: ROPIVACAINE HCL 0.5% 30ML VIAL ONE (11:39)
[2022-06-18] MEDS ORDERED: MIDAZOLAM HCL 2 MG/2 ML SINGLE DOSE VIAL ONE (11:45)
[2022-06-18] MEDS ORDERED: ceFAZolin SODIUM 1 GM VIAL ONE (12:40)
[2022-06-18] MEDS ORDERED: ceFAZolin SODIUM 1 GM VIAL IVPB ONE (12:44)
[2022-06-18 12:47] LABS: BASO % 0.3 % (0-2.0); EOS % 2.6 % (0-4.5); HEMATOCRIT 36.4 % (35.4-49); HEMOGLOBIN 11.8 GM/dL (11.7-16.9); LYMPH % 12.6 % (8-40); MCHC 32.4 g/dl (32.0-35.9); MEAN CELL VOLUME 83.5 fl (80-96); MONO % 8.7 % (3.8-10.2); NEUT % 75.8 % (42.8-82.8); PLATELET COUNT 198 10^3/uL (134-434); RBC 4.37 M/mm3 (4.00-5.60); RDW 23.1 % (11.9-15.9); WHITE BLOOD COUNT 6.1 K/mm3 (4.0-10.0)
[2022-06-18] MEDS ORDERED: POVIDONE-IODINE OINTMENT 10% - 28.4 GM TUBE TP ONE (13:05)
[2022-06-18 13:10] LABS: ALBUMIN 3.8 g/dl (3.4-5.0)
[2022-06-18 13:13] LABS: BLOOD UREA NITROGEN 83.2 mg/dL (7-18); CALCIUM 8.8 mg/dL (8.5-10.1); MAGNESIUM 2.1 mg/dL (1.8-2.4)
[2022-06-18 13:15] LABS: BILIRUBIN,TOTAL 0.4 mg/dL (0.2-1)
[2022-06-18 13:17] LABS: CREATININE 3.3 mg/dL (0.55-1.3); PHOSPHOROUS 3.6 mg/dL (2.5-4.9)
[2022-06-18 13:18] LABS: TOT PROT 6.8 g/dl (6.4-8.2)
[2022-06-18] MEDS ORDERED: ONDANSETRON 4 MG/2 ML VIAL IVPUSH PRN ×2 (13:34→14:32)
[2022-06-18] MEDS ORDERED: PROMETHAZINE HCL 25 MG/1 ML VIAL IVPUSH PRN ×2 (13:34→14:32)
[2022-06-18] MEDS ORDERED: SODIUM CHLORIDE 1,000 ML IV SCH ×2 (13:45→14:32)
[2022-06-18] MEDS ORDERED: hydrALAZINE HCL 50 MG TABLET (FP) PO SCH ×2 (14:00→22:00)
[2022-06-18] MEDS ORDERED: SODIUM CHLORIDE 250 ML IV PRN (14:17)
[2022-06-18 15:54] VITALS: TEMP 98.2
[2022-06-18] MEDS ORDERED: INSULIN SLIDING SCALE (NOVOLOG) 1 VIAL SQ SCH (16:30)
[2022-06-18 18:00] VITALS: BP 126/75; PULSE 95; RESP 20
[2022-06-18] MEDS ORDERED: ATORVASTATIN CA 80 MG TABLET (FP) PO SCH ×2 (22:00)
[2022-06-19] MEDS ORDERED: TAMSULOSIN HCL 0.4 MG CAP PO SCH (08:30)
[2022-06-19] MEDS ORDERED: amLODIPine BESYLATE 5 MG TABLET (FP) PO SCH (10:00)
[2022-06-19] MEDS ORDERED: SERTRALINE HCL 25 MG TABLET (FP) PO SCH (10:00)
[2022-06-19] MEDS ORDERED: PANTOPRAZOLE 40 MG TABLET PO SCH (10:00)
== END 2022-06-18 19:25 | disposition home or self-care (01) ==
LOC: JER 18:44 → JERBED 19:58 → UNDOADMIN 19:58 → J5S 06-18 00:41 → JERBED 06-18 00:41 → JASUSAT 06-18 09:52 → J5S 06-18 10:14 → JASUSAT 06-18 19:25
PROVIDERS: ATTEND Nurse Practitioner Acute Care
PROC: 03180ZD Bypass Left Brachial Artery to Upper Arm Vein, Open Approach (ICD-10-PCS; principal; 2022-06-18 13:00)
DX: I12.0 Hypertensive chronic kidney disease with stage 5 chronic kidney disease or end stage renal disease (principal); E11.22 Type 2 diabetes mellitus with diabetic chronic kidney disease; N18.6 End stage renal disease; Z99.2 Dependence on renal dialysis; Z79.4 Long term (current) use of insulin
CPT/HCPCS: 36415; 71045-TC-FY; 80053; 82962; 83735; 84100; 85025; 85610; 85730; 86803; 86850; 86900; 86901; 87340; 93005; 93010; 94760; 99285-25; C9803-CS; J1644; U0003; U0005

== ENCOUNTER 2022-07-02 10:03 | Emergency (ER) | payer OTHER ==
[2022-07-02 10:14] VITALS: RESP 18; BMI 26.6
[2022-07-02] MEDS ORDERED: DIPHTH,PERTUSS(ACELL),TET 0.5 ML DISP.SYRIN IM ONE ×2 (11:02→11:06)
[2022-07-02] MEDS ORDERED: CEFAZOLIN 2 GM in DEXTROSE 5%-WATER - 50 ML IVPB ONE (13:01)
[2022-07-02] MEDS ORDERED: ACETAMINOPHEN 1000 MG/100 ML BAG IVPB ONE (13:18)
[2022-07-02 13:24] VITALS: TEMP 97.7
[2022-07-02] MEDS ORDERED: ACETAMINOPHEN INJECTION 100 ML IVPB ONE (13:26)
[2022-07-02] MEDS ORDERED: CEFAZOLIN SODIUM 2 GM in DEXTROSE 5%-WATER 100 ML IVPB ONE (13:30)
[2022-07-02 13:50] VITALS: BP 104/57; PULSE 79
== END 2022-07-02 13:55 | disposition short-term general hospital (02) ==
LOC: JER 10:03
PROC: 3E0234Z Introduction of Serum, Toxoid and Vaccine into Muscle, Percutaneous Approach (ICD-10-PCS; principal; 2022-07-02)
PROC: 3E03329 Introduction of Other Anti-infective into Peripheral Vein, Percutaneous Approach (ICD-10-PCS; 2022-07-02)
DX: S61.011A Laceration without foreign body of right thumb without damage to nail, initial encounter (principal)
CPT/HCPCS: 73130-TC-RT-FY; 90471; 90715; 96365; 99284-25

== ENCOUNTER 2022-08-19 19:30 | Observation (INO) | payer OTHER ==
[2022-08-19 19:43] VITALS: BMI 26.7
[2022-08-19 23:57] LABS: BASO % 0.2 % (0-2.0); HEMATOCRIT 35.6 % (35.4-49); HEMOGLOBIN 11.8 GM/dL (11.7-16.9); MCH 28.8 pg (25.7-33.7); MCHC 33.1 g/dl (32.0-35.9); MEAN PLT VOLUME 8.3 fl (7.5-11.1); MONO % 10.8 % (3.8-10.2); PLATELET COUNT 224 10^3/uL (134-434); RBC 4.09 M/mm3 (4.00-5.60); RDW 16.5 % (11.9-15.9); WHITE BLOOD COUNT 7.8 K/mm3 (4.0-10.0)
[2022-08-20 00:06] LABS: PROTHROMBIN TIME (PATIENT) 11.5 SEC (9.7-13.0)
[2022-08-20 00:09] LABS: ACTIVATED PTT 37.2 SECONDS (25.2-36.5)
[2022-08-20 00:17] LABS: BLOOD UREA NITROGEN 58.9 mg/dL (7-18)
[2022-08-20 00:21] LABS: CREATININE 3.7 mg/dL (0.55-1.3)
[2022-08-20 00:22] LABS: BILIRUBIN,TOTAL 0.4 mg/dL (0.2-1)
[2022-08-20 00:23] LABS: TOT PROT 7.5 g/dl (6.4-8.2)
[2022-08-20] MEDS: INSULIN SLIDING SCALE (NOVOLOG) 1 VIAL SQ SCH ×4 (03:25→17:54)
[2022-08-20] MEDS ORDERED: hydrALAZINE HCL 50 MG TABLET (FP) ONE (06:30)
[2022-08-20] MEDS: hydrALAZINE HCL 50 MG TABLET (FP) PO SCH ×2 (06:36→14:57)
[2022-08-20 07:18] LABS: HEMATOCRIT 34.9 % (35.4-49); HEMOGLOBIN 11.7 GM/dL (11.7-16.9); MCH 29.1 pg (25.7-33.7); MCHC 33.4 g/dl (32.0-35.9); MEAN CELL VOLUME 87.1 fl (80-96); MEAN PLT VOLUME 8.2 fl (7.5-11.1); PLATELET COUNT 199 10^3/uL (134-434); RBC 4.01 M/mm3 (4.00-5.60); RDW 16.2 % (11.9-15.9)
[2022-08-20 07:50] LABS: CALCIUM 8.9 mg/dL (8.5-10.1)
[2022-08-20 07:51] LABS: BLOOD UREA NITROGEN 64.4 mg/dL (7-18); MAGNESIUM 2.4 mg/dL (1.8-2.4)
[2022-08-20 07:54] LABS: CREATININE 3.5 mg/dL (0.55-1.3); PHOSPHOROUS 3.6 mg/dL (2.5-4.9)
[2022-08-20] MEDS ORDERED: HEPARIN NA (PORCINE) 5,000 UNITS/ML 1ML VIAL SQ SCH ×2 (10:00→22:00)
[2022-08-20] MEDS ORDERED: FUROSEMIDE 80 MG PO SCH (10:00)
[2022-08-20] MEDS ORDERED: amLODIPine BESYLATE 10 MG TABLET (FP) PO SCH (10:00)
[2022-08-20] MEDS ORDERED: SERTRALINE HCL 25 MG TABLET (FP) PO SCH (10:00)
[2022-08-20] MEDS ORDERED: LABETALOL HCL 200 MG TABLET (FP) PO SCH ×2 (10:00→22:00)
[2022-08-20] MEDS ORDERED: BUMETANIDE 1 MG TABLET PO SCH (10:00)
[2022-08-20] MEDS ORDERED: PANTOPRAZOLE 40 MG TABLET PO SCH (10:00)
[2022-08-20] MEDS ORDERED: SODIUM CHLORIDE 250 ML IV PRN ×2 (12:11→18:22)
[2022-08-20] MEDS ORDERED: LIDOCAINE HCL 1%, 10 MG/ML (20ML VIAL) ONE (17:02)
[2022-08-20] MEDS ORDERED: HEPARIN NA (PORCINE) 5,000 UNITS/ML 1ML VIAL ONE ×2 (17:02→17:49)
[2022-08-20] MEDS ORDERED: ONDANSETRON 4 MG/2 ML VIAL IVPUSH PRN ×2 (17:18→18:22)
[2022-08-20] MEDS ORDERED: PROPOFOL 20 ML ONE (17:20)
[2022-08-20] MEDS ORDERED: LIDOCAINE HCL/PF 2% SDV 5ML VIAL ONE (17:20)
[2022-08-20] MEDS ORDERED: ceFAZolin SODIUM 1 GM VIAL ONE (17:20)
[2022-08-20] MEDS ORDERED: MIDAZOLAM HCL 2 MG/2 ML SINGLE DOSE VIAL ONE (17:21)
[2022-08-20] MEDS ORDERED: SODIUM CHLORIDE 0.9% P/F 10 ML VIAL IJ ONE (17:22)
[2022-08-20] MEDS ORDERED: SODIUM CHLORIDE 1,000 ML IV SCH ×2 (17:30→18:22)
[2022-08-20] MEDS ORDERED: ceFAZolin SODIUM 1 GM VIAL IVPB ONE (17:42)
[2022-08-20] MEDS ORDERED: ONDANSETRON 4 MG/2 ML VIAL ONE (17:48)
[2022-08-20] MEDS ORDERED: HEPARIN NA (PORCINE) 5,000 UNITS/ML 1ML VIAL SQ ONE (18:02)
[2022-08-20] MEDS ORDERED: LIDOCAINE HCL 1%, 10 MG/ML (20ML VIAL) NR ONE (18:02)
[2022-08-20 19:59] VITALS: BP 121/65; PULSE 84; RESP 18; TEMP 97.7
[2022-08-20] MEDS ORDERED: ATORVASTATIN CA 40 MG TABLET (FP) PO SCH ×2 (22:00)
[2022-08-20] MEDS ORDERED: hydrALAZINE HCL 50 MG TABLET (FP) PO SCH (22:00)
[2022-08-20] MEDS ORDERED: ATORVASTATIN CA 80 MG TABLET (FP) PO SCH (22:00)
[2022-08-20] MEDS ORDERED: SODIUM BICARBONATE 650 MG TABLET PO SCH ×2 (22:00)
[2022-08-21] MEDS ORDERED: INSULIN SLIDING SCALE (NOVOLOG) 1 VIAL SQ SCH (07:00)
[2022-08-21] MEDS ORDERED: METOLAZONE 2.5 MG TABLET (FP) PO SCH ×2 (10:00)
[2022-08-21] MEDS ORDERED: amLODIPine BESYLATE 10 MG TABLET (FP) PO SCH (10:00)
[2022-08-21] MEDS ORDERED: SODIUM ZIRCONIUM CYCLOSILICATE (LOKELMA) 10 GM PACKET PO SCH (10:00)
[2022-08-21] MEDS ORDERED: BUMETANIDE 1 MG TABLET PO SCH ×2 (10:00)
[2022-08-21] MEDS ORDERED: SERTRALINE HCL 25 MG TABLET (FP) PO SCH (10:00)
[2022-08-21] MEDS ORDERED: PATIENT'S OWN MEDICATION (NON-FORMULARY) (Sodium Zirconium Cyclosilicate 10 GM Packet) PO SCH (10:00)
[2022-08-21] MEDS ORDERED: FUROSEMIDE 40 MG TABLET (FP) PO SCH ×2 (10:00)
[2022-08-21] MEDS ORDERED: PANTOPRAZOLE 40 MG TABLET PO SCH (10:00)
== END 2022-08-20 21:18 | disposition home or self-care (01) ==
LOC: JER 19:30 → SUATTDRO 19:30 → JERBED 08-20 01:06 → INTOOBSV 08-20 01:06 → UNDOADMOB 08-20 01:06 → JERBED 08-20 09:58 → J5S 08-20 09:58 → JERBED 08-20 10:39 → J5S 08-20 10:39
PROVIDERS: ADMIT Family Medicine; ATTEND Internal Medicine
PROC: 3E03329 Introduction of Other Anti-infective into Peripheral Vein, Percutaneous Approach (ICD-10-PCS; 2022-08-20)
PROC: 3E013GC Introduction of Other Therapeutic Substance into Subcutaneous Tissue, Percutaneous Approach (ICD-10-PCS; 2022-08-20)
PROC: 057F3ZZ Dilation of Left Cephalic Vein, Percutaneous Approach (ICD-10-PCS; principal; 2022-08-20 17:00)
DX: T82.858A Stenosis of other vascular prosthetic devices, implants and grafts, initial encounter (principal); I13.2 Hypertensive heart and chronic kidney disease with heart failure and with stage 5 chronic kidney disease, or end stage renal disease; N18.6 End stage renal disease; I77.0 Arteriovenous fistula, acquired; I50.9 Heart failure, unspecified; E11.22 Type 2 diabetes mellitus with diabetic chronic kidney disease; Z99.81 Dependence on supplemental oxygen; E78.5 Hyperlipidemia, unspecified; R80.9 Proteinuria, unspecified; K92.2 Gastrointestinal hemorrhage, unspecified; Z87.891 Personal history of nicotine dependence; Z88.8 Allergy status to other drugs, medicaments and biological substances
CPT/HCPCS: 36415; 76000-TC-FY; 80048; 80053; 82962; 83735; 84100; 85025; 85027; 85610; 85730; 86850; 86900; 86901; 93005; 93010; 94760; 96372; 96374; 99285-25; C9803-CS; G0378; J1644; U0003; U0005